=== PATIENT | male | born 1945 | race Caucasian/White ===

== ENCOUNTER 2017-10-29 12:30 | Inpatient (IN) ==
--- NOTE | 2017-10-29 13:05 | ED ---
HPI General Chief Complaint: Altered Mental Status Stated Complaint: Altered mental Time Seen by Provider: 10/29/17 12:34 Source: patient and EMS Mode of arrival: EMS Limitations: altered mental status History of Present Illness HPI narrative: 72-year-old male the presents to the ED for evaluation of possible altered mental status. History is very limited. Patient himself does not want to be here and she is very aggressive towards staff and [facility]. Apparently per ambulance they got a call from the apartment complex where he is staying at. Apparently the office managers were concerned as patient appear to be somewhat altered. Patient apparently has some history of confusion and some "alteration" in the past. Unclear if this is new or old as apparently the office member appears to be new. Patient has a history of chronic anemia and thrombocytopenia for which he follows with Dr. Salas. Other than the second and really get any other history as patient himself is not a good historian and will not answer any questions to me. 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 Patient was not Mendes acted. Patient was brought here for evaluation after allegedly he told [facility] that he will come. During my evaluation he will not answer any basic questions. I tried to ask him questions to see if he is oriented in his mental status but he will not answer and seems to focus on wanting to go home. He will not say if he is in any pain. He does not appear to be in any pain. Related Data Home Medications Medication Instructions Recorded Confirmed Unable to Obtain Home Meds 10/29/17 10/29/17 Allergies Allergy/AdvReac Type Severity Reaction Status Date / Time No Known Allergies Allergy Uncoded 02/07/14 14:05 Review of Systems ROS Unobtainable ROS Unobtainable: unobtainable due to mental status ROS: all other systems reviewed are negative PMFSH History History Provided By: Medical Record and Acetylene Torch Burner / EMT Social History Social History Substance History: Unable to Obtain Smoking Status: Unknown if ever smoked How Often Do You Have a Drink Containing Alcohol: Unable to Obtain Recent Travel in [place] within the Last 8 Weeks: No Recent Out of Country Travel within the Last 8 Weeks: No Exam Narrative Exam Narrative: GENERAL: Well-appearing but somewhat anorexic SKIN: Focused skin assessment warm/dry. HEAD: Atraumatic. Normocephalic. EYES: Pupils equal and round 4 mm reactive and accommodation.. No scleral icterus. No injection or drainage. ENT: No nasal bleeding or discharge. Mucous membranes pink and moist. Tongue is midline. No uvula deviation. NECK: Trachea midline. No JVD. CARDIOVASCULAR: Regular rate and rhythm. No murmur appreciated. RESPIRATORY: No accessory muscle use. Clear to auscultation. Breath sounds equal bilaterally. GASTROINTESTINAL: Abdomen soft, non-tender, nondistended. Hepatic and splenic margins not palpable. MUSCULOSKELETAL: No obvious deformities. No clubbing. No cyanosis. No edema. Full range of motion of the upper and lower extremities bilaterally. 2+ pulses bilaterally. NEUROLOGICAL: Awake and alert. No obvious cranial nerve deficits. Motor grossly within normal limits. Normal speech. PSYCHIATRIC: aggressive mood and affect; insight and judgment cannot asses. Course Initial Documented Vital Signs Temperature 98.4 F 10/29/17 12:30 Pulse Rate 98 H 10/29/17 12:30 Respiratory Rate 19 10/29/17 12:30 Blood Pressure 168/80 H 10/29/17 12:30 Pulse Oximetry 98 10/29/17 12:30 Last Documented Vital Signs Temperature 98.4 F 10/29/17 12:30 Pulse Rate 98 H 10/29/17 12:30 Respiratory Rate 19 10/29/17 12:30 Blood Pressure 168/80 H 10/29/17 12:30 Pulse Oximetry 98 10/29/17 12:30 Medical Decision Making MDM Narrative Medical decision making narrative: 72-year-old male the presents to the ED for evaluation of altered mental status. Patient was properly examined and was found to have signs and symptoms of unclear etiology. Patient is not a good historian and will not collaborate with us. As we do not have any back currently to 1 is going on with the patient and there is some concern for alteration and we cannot assess his mental status at this time as he will not collaborate with us patient was Mendes acted for his own safety. I was able to review the patient's medical records. He has been here before but not for some time. Patient does have a significant history of hypertension, high cholesterol , anemia for which she receives B12 shots and transfusions per reports from Dr. Salas oncology. There is no report of any sign of dementia or altered or confusion. Per report from [facility] patient has had some confusion which is chronic for him but again is unclear as the notes from the provider from earlier this year did not mention any of this. My attending Dr. Jone Mendes acted the patient. Labs and imaging order. Labs and imaging showed no sign of acute disease. There is no family member at bedside. Cannot really get a baseline. Because of this recommendations for admission for further evaluation and psych evaluation. Case discussed with my attending agrees with this. Case discussed with Dr. Robles who agrees with admission. Differential Diagnosis Differential Diagnosis: Altered mental status versus confusion versus sepsis versus arrhythmia Medical Records Medical records reviewed: Yes I reviewed the patient's medical records. Lab Data Lab results reviewed: Yes I reviewed the patient's lab results. Lab results narrative: UA negative trop and CKMB negative Result diagrams: 10/29/17 13:00 10/29/17 13:00 Lab Results 10/29/17 10/29/17 10/29/17 Range/Units 13:00 13:00 13:00 WBC 4.9 (4.0-11.0) th/mm3 RBC 3.77 L (4.50-5.90) mil/mm3 Hgb 12.1 L (13.0-17.0) gm/dL Hct 36.8 L (39.0-51.0) % MCV 97.8 (80.0-100.0) fL MCH 32.1 (27.0-34.0) pg MCHC 32.8 (32.0-36.0) % RDW 14.3 (11.6-17.2) % Plt Count 86 L (150-450) th/mm3 MPV 11.5 H (7.0-11.0) fL Prelim Diff (Auto) Slide review pending Neut % (Auto) 66.9 (16.0-70.0) % Lymph % (Auto) 20.3 (9.0-44.0) % [place] % (Auto) 8.1 H (0.0-8.0) % Eos % (Auto) 2.6 (0.0-4.0) % Baso % (Auto) 2.1 H (0.0-2.0) % Neut # (Auto) 3.2 (1.8-7.7) th/mm3 Lymph # (Auto) 1.0 (1.0-4.8) th/mm3 [place] # (Auto) 0.4 (0.0-0.9) th/mm3 Eos # (Auto) 0.1 (0.0-0.4) th/mm3 Baso # (Auto) 0.1 (0.0-0.2) th/mm3 WBC Differential . Diff Scan Auto diff confirmed Differential Comment . Sodium 143 (136-145) meq/L Potassium 3.8 (3.5-5.1) meq/L Chloride 112 H (98-107) meq/L Carbon Dioxide 21.0 (21.0-32.0) meq/L Anion Gap 10 (5-15) meq/L BUN 12 (7-18) mg/dL Creatinine 1.22 (0.60-1.30) mg/dL Estimated GFR 58 L (>89) mL/min Random Glucose 98 (74-106) mg/dL Lactic Acid (0.4-2.0) mmol/L Calcium 7.9 L (8.5-10.1) mg/dL Total Creatine Kinase 179 (39-308) U/L CK-MB (CK-2) 2.0 (0.5-3.6) ng/mL Troponin I Less than 0.02 L (0.02-0.05) ng/mL Urine Color (Yellw/Straw) Urine Clarity (Clear) Urine pH (5.0-8.5) Ur Specific [place] (1.002-1.035) Urine Protein (Neg-Trace) mg/dL Urine Glucose (UA) (Negative) mg/dL Urine Ketones (Negative) mg/dL Urine Occult Blood (Negative) Urine Nitrate (Negative) Urine Bilirubin (Negative) Urine Urobilinogen (Less than 2) mg/dL Ur Leukocyte Esterase (Negative) Urine RBC (0-3) /hpf Urine WBC (0-5) /hpf Hyaline Casts (0-3) /lpf Serum Alcohol Less than 3 (0-5) mg/dL 10/29/17 10/29/17 Range/Units 14:47 16:51 WBC (4.0-11.0) th/mm3 RBC (4.50-5.90) mil/mm3 Hgb (13.0-17.0) gm/dL Hct (39.0-51.0) % MCV (80.0-100.0) fL MCH (27.0-34.0) pg MCHC (32.0-36.0) % RDW (11.6-17.2) % Plt Count (150-450) th/mm3 MPV (7.0-11.0) fL Prelim Diff (Auto) Neut % (Auto) (16.0-70.0) % Lymph % (Auto) (9.0-44.0) % [place] % (Auto) (0.0-8.0) % Eos % (Auto) (0.0-4.0) % Baso % (Auto) (0.0-2.0) % Neut # (Auto) (1.8-7.7) th/mm3 Lymph # (Auto) (1.0-4.8) th/mm3 [place] # (Auto) (0.0-0.9) th/mm3 Eos # (Auto) (0.0-0.4) th/mm3 Baso # (Auto) (0.0-0.2) th/mm3 WBC Differential Diff Scan Differential Comment Sodium (136-145) meq/L Potassium (3.5-5.1) meq/L Chloride (98-107) meq/L Carbon Dioxide (21.0-32.0) meq/L Anion Gap (5-15) meq/L BUN (7-18) mg/dL Creatinine (0.60-1.30) mg/dL Estimated GFR (>89) mL/min Random Glucose (74-106) mg/dL Lactic Acid 1.2 (0.4-2.0) mmol/L Calcium (8.5-10.1) mg/dL Total Creatine Kinase (39-308) U/L CK-MB (CK-2) (0.5-3.6) ng/mL Troponin I (0.02-0.05) ng/mL Urine Color Straw (Yellw/Straw) Urine Clarity Clear (Clear) Urine pH 5.0 (5.0-8.5) Ur Specific [place] 1.011 (1.002-1.035) Urine Protein Negative (Neg-Trace) mg/dL Urine Glucose (UA) Negative (Negative) mg/dL Urine Ketones Negative (Negative) mg/dL Urine Occult Blood Small H (Negative) Urine Nitrate Negative (Negative) Urine Bilirubin Negative (Negative) Urine Urobilinogen Less than 2 (Less than 2) mg/dL Ur Leukocyte Esterase Negative (Negative) Urine RBC 2 (0-3) /hpf Urine WBC Less than 1 (0-5) /hpf Hyaline Casts 1 (0-3) /lpf Serum Alcohol (0-5) mg/dL Imaging Data Attestation: I personally reviewed and interpreted this imaging study as follows : Radiologist's impression: Head CT 10/29/17 12:48 CONCLUSION: 1. Suboptimal limited study secondary to severe motion artifact. 2. No gross abnormality identified however even large abnormalities could be obscured. Discharge Plan Physicians Team ED Provider: Hailey Becerril ED Midlevel Provider: Rhys Kilgore Primary Care Provider: UNKNOWN, Rxs /Orders / Referrals /Forms Prescriptions: No Action Unable to Obtain Home Meds RF: 0 Status ED Status: With Doctor
[2017-10-29 14:26] LABS: Baso # (Auto) 0.1 th/mm3 (0.0-0.2); Baso % (Auto) 2.1 % (0.0-2.0); Eos # (Auto) 0.1 th/mm3 (0.0-0.4); Eos % (Auto) 2.6 % (0.0-4.0); Hematocrit 36.8 % (39.0-51.0); Hemoglobin 12.1 gm/dL (13.0-17.0); Lymph % (Auto) 20.3 % (9.0-44.0); Mean Corpuscular HGB Conc 32.8 % (32.0-36.0); Mean Corpuscular Hemoglobin 32.1 pg (27.0-34.0); Mean Corpuscular Volume 97.8 fL (80.0-100.0); Mean Platelet Volume 11.5 fL (7.0-11.0); Mono # (Auto) 0.4 th/mm3 (0.0-0.9); Mono % (Auto) 8.1 % (0.0-8.0); Neut # (Auto) 3.2 th/mm3 (1.8-7.7); Neut % (Auto) 66.9 % (16.0-70.0); Platelet Count 86 th/mm3 (150-450); Red Blood Count 3.77 mil/mm3 (4.50-5.90); Red Cell Distribution Width 14.3 % (11.6-17.2); White Blood Count 4.9 th/mm3 (4.0-11.0)
[2017-10-29 14:50] LABS: Creatine Kinase 179 U/L (39-308)
[2017-10-29 15:05] LABS: Anion Gap 10 meq/L (5-15); Blood Urea Nitrogen 12 mg/dL (7-18); Calcium 7.9 mg/dL (8.5-10.1); Chloride 112 meq/L (98-107); Glomerular Filtration Rate 58 mL/min (>89); Glucose,Random 98 mg/dL (74-106); Potassium 3.8 meq/L (3.5-5.1); Sodium 143 meq/L (136-145)
--- NOTE | 2017-10-29 17:14 | CT ---
EXAM DATE: 10/29/2017 5:10 PM EDT AGE/SEX: 72 years / Male INDICATIONS: Altered mental status. CLINICAL DATA: This is the patient's initial encounter. Patient reports that signs and symptoms have been present for 1 day and indicates a pain score of 0/10. MEDICAL/SURGICAL HISTORY: None. None. RADIATION DOSE: 56.35 CTDI (mGy) COMPARISON: No prior exams available for comparison. TECHNIQUE: CT of the head without contrast. Using automated exposure control and adjustment of the mA and/or kV according to patient size, radiation dose was kept as low as reasonably achievable to ob tain optimal diagnostic quality images. DICOM format image data is available electronically for revi ew and comparison. FINDINGS: The study is severely degraded by diffuse motion artifact significantly limiting the sensitivity. Lar ge portions of the brain are not well visualized or evaluated especially the posterior fossa region. No gross hemorrhage or mass effect is identified. Bony structures appear grossly intact. CONCLUSION: 1. Suboptimal limited study secondary to severe motion artifact. 2. No gross abnormality identified however even large abnormalities could be obscured. Electronically signed by: Chris Cantu MD 10/29/2017 5:13 PM EDT
[2017-10-29 17:27] LABS: Bilirubin,Urine Negative (Negative); Clarity,Urine Clear (Clear); Color,Urine Straw (Yellw/Straw); Glucose,Urine (UA) Negative (Negative); Hyaline Casts,Urine 1 /lpf (0-3); Leukocyte Esterase,Urine Negative (Negative); Nitrite,Urine Negative (Negative); Specific Gravity,Urine 1.011 (1.002-1.035)
[2017-10-29] MEDS ORDERED: Bisacodyl 10 MG Supp RECTAL PRN (18:25)
[2017-10-29] MEDS ORDERED: Haloperidol Inj 5 MG/ML Ampul IV.PUSH PRN (18:32)
--- NOTE | 2017-10-29 18:59 | P.HP ---
History of Present Illness Service: [facility] Primary Care Physician: UNKNOWN Chief Complaint: AMS History of Present Illness: 72-year-old male with past medical history significant for hypertension, hyperlipidemia, thrombocytopenia, and vitamin B12 deficiency who presents to the emergency department via [facility] due to altered mental status. Patient lives in an apartment complex was noted to have changes in mental status with confusion, unclear if this is the new onset. Per ED documentation patient had been wanting to leave earlier today and therefore was Mendes acted for his safety by ED provider. Patient is an extremely poor historian and at the time of my evaluation he is mildly sedated after having received a total of 3 mg of Ativan due to severe agitation. He is seen and examined resting in ED stretcher and appears to be sleeping comfortably, O2 saturations on the monitor stable. He does arouse to light touch and verbalizes several words, nonsensical. Moving all extremities, appears to be in no acute distress. - Diagnosis (1) Thrombocytopenia (2) Altered mental status Review of Systems All other systems reviewed negative except as stated in HPI, unobtainable due to mental condition PMFSH - History History Provided By: Medical Record, Biomass Technician / EMT - Medical History Medical History: Medical History (Last Updated 10/29/17 @ 18:51 by Chel Stanford) Anemia HLD (hyperlipidemia) HTN (hypertension) Thrombocytopenia Vitamin B12 deficiency - Tobacco History Smoking Status: Unknown if ever smoked - Alcohol History How Often Do You Have a Drink Containing Alcohol: Unable to Obtain - Substance Use History Substance History: Unable to Obtain - Travel History Recent Travel in the [place] Within the Last 8 Weeks: No Recent Travel Out of the Country Within the Last 8 Weeks: No - Immunization History Tetanus Immunization: Unable to Assess Hx Influenza Vaccine This Season: Unable to Assess Medications and Allergies Active Medications: Active Medications Acetaminophen (Tylenol) 650 mg PO Q4H PRN PRN Reason: Temp > 100.4 Al Hydroxide/Mg Hydroxide (Milk Of Magnesia Liq) 30 ml PO Q12H PRN PRN Reason: Mild Constipation Bisacodyl (Dulcolax Supp) 10 mg RECTAL DAILY PRN PRN Reason: SEVERE CONSITIPATION Flumazenil (Romazecon Inj) 0.2 mg IV.PUSH Q1M PRN PRN Reason: OVERSEDATION Haloperidol Lactate (Haldol Inj) 1 mg IV.PUSH Q15M PRN PRN Reason: for severe agitation Hydrochlorothiazide (Hydrodiuril) 25 mg PO DAILY GARY Lactulose (Lactulose Liq) 30 ml PO DAILY PRN PRN Reason: SEVERE CONSITIPATION Lorazepam (Ativan) 1 mg PO Q4H PRN PRN Reason: for CIWA 8-10 Lorazepam (Ativan) 2 mg PO Q2H PRN PRN Reason: for CIWA 11-14 Lorazepam (Ativan Inj) 2 mg IV.PUSH Q1H PRN PRN Reason: for CIWA 15-20 Lorazepam (Ativan Inj) 2 mg IV.PUSH Q15M PRN PRN Reason: for CIWA > 20 Lorazepam (Ativan Inj) 1 mg IV.PUSH Q4H PRN PRN Reason: for CIWA 8-10 Lorazepam (Ativan Inj) 2 mg IV.PUSH Q2H PRN PRN Reason: for CIWA 11-14 Senna/Docusate Sodium (Jia-Colace) 1 tab PO BID GARY Sennosides (Senokot) 17.2 mg PO Q12H PRN PRN Reason: Moderate Constipation Temazepam (Restoril) 15 mg PO HS PRN PRN Reason: INSOMNIA Allergies Allergy/AdvReac Type Severity Reaction Status Date / Time No Known Allergies Allergy Uncoded 02/07/14 14:05 Home Medications Medication Instructions Recorded Confirmed Type Unable to Obtain Home Meds 10/29/17 10/29/17 History Exam Vital signs: Vital Signs 10/29/17 12:30 Temperature 36.9 C Pulse Rate 98 H Respiratory Rate 19 Blood Pressure 168/80 H Pulse Oximetry 98 Intake & Output 10/28/17 10/29/17 10/29/17 18:59 06:59 18:59 Weight 61.235 kg Narrative: GENERAL: Well-developed thin male, asleep in no acute distress. SKIN: Warm and dry. HEAD: Atraumatic. Normocephalic. EYES: Pupils equal and round. No scleral icterus. No injection or drainage. ENT: No nasal bleeding or discharge. Mucous membranes pink and moist. NECK: Trachea midline. No JVD. CARDIOVASCULAR: Regular rate and rhythm. 2/6 murmur RESPIRATORY: No accessory muscle use. Clear to auscultation. Breath sounds equal bilaterally. GASTROINTESTINAL: Abdomen soft, + positive bowel sounds, nontender MUSCULOSKELETAL: Extremities without clubbing, cyanosis, or edema. No obvious deformities. NEUROLOGICAL: Asleep, arouses to light touch, moving all extremities, does not participate in strength testing. Verbalizes several words with clear speech, nonsensical. No obvious cranial nerve deficits. Results - Labs CBC & Chem 7: 10/30/17 06:05 10/30/17 06:05 Labs: Laboratory Results - last 24 hr 10/29/17 10/29/17 10/29/17 13:00 13:00 13:00 WBC 4.9 RBC 3.77 L Hgb 12.1 L Hct 36.8 L MCV 97.8 MCH 32.1 MCHC 32.8 RDW 14.3 Plt Count 86 L MPV 11.5 H Prelim Diff (Auto) Slide review pending Neut % (Auto) 66.9 Lymph % (Auto) 20.3 [place] % (Auto) 8.1 H Eos % (Auto) 2.6 Baso % (Auto) 2.1 H Neut # (Auto) 3.2 Lymph # (Auto) 1.0 [place] # (Auto) 0.4 Eos # (Auto) 0.1 Baso # (Auto) 0.1 WBC Differential . Diff Scan Auto diff confirmed Differential Comment . Sodium 143 Potassium 3.8 Chloride 112 H Carbon Dioxide 21.0 Anion Gap 10 BUN 12 Creatinine 1.22 Estimated GFR 58 L Random Glucose 98 Lactic Acid Calcium 7.9 L Total Creatine Kinase 179 CK-MB (CK-2) 2.0 Troponin I Less than 0.02 L Urine Color Urine Clarity Urine pH Ur Specific [place] Urine Protein Urine Glucose (UA) Urine Ketones Urine Occult Blood Urine Nitrate Urine Bilirubin Urine Urobilinogen Ur Leukocyte Esterase Urine RBC Urine WBC Hyaline Casts Serum Alcohol Less than 3 10/29/17 10/29/17 14:47 16:51 WBC RBC Hgb Hct MCV MCH MCHC RDW Plt Count MPV Prelim Diff (Auto) Neut % (Auto) Lymph % (Auto) [place] % (Auto) Eos % (Auto) Baso % (Auto) Neut # (Auto) Lymph # (Auto) [place] # (Auto) Eos # (Auto) Baso # (Auto) WBC Differential Diff Scan Differential Comment Sodium Potassium Chloride Carbon Dioxide Anion Gap BUN Creatinine Estimated GFR Random Glucose Lactic Acid 1.2 Calcium Total Creatine Kinase CK-MB (CK-2) Troponin I Urine Color Straw Urine Clarity Clear Urine pH 5.0 Ur Specific Kemp 1.011 Urine Protein Negative Urine Glucose (UA) Negative Urine Ketones Negative Urine Occult Blood Small H Urine Nitrate Negative Urine Bilirubin Negative Urine Urobilinogen Less than 2 Ur Leukocyte Esterase Negative Urine RBC 2 Urine WBC Less than 1 Hyaline Casts 1 Serum Alcohol - Imaging Impressions Head CT 10/29/17 12:48 CONCLUSION: 1. Suboptimal limited study secondary to severe motion artifact. 2. No gross abnormality identified however even large abnormalities could be obscured. Caprini VTE Risk Assessment Caprini VTE Risk Assessment: Moderate/High Risk (score >= 2) Caprini Risk Assessment Model: Point Value = 1 Point Value = 2 Point Value = 3 Point Value = 5 Age 41-60 Minor surgery BMI > 25 kg/m2 Swollen legs Varicose veins or History of unexplained or recurrent spontaneous Oral contraceptives or hormone replacement Sepsis (< 1 month) Serious lung disease, including pneumonia (< 1 month) Abnormal pulmonary function Acute myocardial infarction Congestive heart failure (< 1 month) History of inflammatory bowel disease Medical patient at bed rest Age 61-74 Arthroscopic surgery Major open surgery (> 45 min) Laparoscopic surgery (> 45 min) Malignancy Confined to bed (> 72 hours) Immobilizing plaster cast Central venous access Age >= 75 History of VTE Family history of VTE Factor V Leiden Prothrombin [id number] Lupus anticoagulant Anticardiolipin antibodies Elevated serum homocysteine Heparin-induced thrombocytopenia Other congenital or acquired thrombophilia Stroke (< 1 month) Elective arthroplasty Hip, pelvis, or leg fracture Acute spinal cord injury (< 1 month) Prophylaxis Regimen: Total Risk Factor Score Risk Level Prophylaxis Regimen 0-1 Low Early ambulation 2 Moderate Order ONE of the following: *Sequential Compression Device (SCD) *Heparin 5000 units SQ BID 3-4 Higher Order ONE of the following medications: *Heparin 5000 units SQ TID *Enoxaparin/Lovenox 40 mg SQ daily (WT < 150 kg, CrCl > 30 mL/min) *Enoxaparin/Lovenox 30 mg SQ daily (WT < 150 kg, CrCl > 10-29 mL/min) *Enoxaparin/Lovenox 30 mg SQ BID (WT < 150 kg, CrCl > 30 mL/min) AND/OR *Sequential Compression Device (SCD) 5 or more Highest Order ONE of the following medications: *Heparin 5000 units SQ TID (Preferred with Epidurals) *Enoxaparin/Lovenox 40 mg SQ daily (WT < 150 kg, CrCl > 30 mL/min) *Enoxaparin/Lovenox 30 mg SQ daily (WT < 150 kg, CrCl > 10-29 mL/min) *Enoxaparin/Lovenox 30 mg SQ BID (WT < 150 kg, CrCl > 30 mL/min) AND *Sequential Compression Device (SCD) Assessment and Plan - Assessment (1) Thrombocytopenia Code(s): D69.6 - Thrombocytopenia, unspecified Status: Acute (2) Altered mental status Code(s): R41.82 - Altered mental status, unspecified Status: Acute - Plan 72-year-old male with past medical history significant for hypertension, hyperlipidemia, thrombocytopenia, and vitamin B12 deficiency who presents to the emergency department via [facility] due to altered mental status. Admit to observation for further workup. Altered mental status -CT of the head completed in ED was suboptimal secondary to motion artifact, no gross abnormality identified, however large abnormalities could be obscured -Consider repeating CT of the head for further evaluation if calmer -CBC reviewed with mild anemia, thrombocytopenia which is chronic. BMP stable, troponin negative, UA negative -Check urine toxicology, ammonia, vitamin B12, vitamin D, folate, thiamine, RPR - ? Alcohol withdrawal, CIWA -Consult psychiatry for evaluation of possible underlying psychiatric disorder, appreciate assistance Hypertension -Patient was noted to be on hydrochlorothiazide and metoprolol in the past -BP on admission mildly elevated, start hydrochlorothiazide 25 mg daily Thrombocytopenia, chronic Anemia, chronic -Patient follows up with Dr. Salas DVT prophylaxis-SCDs, hold off on chemical prophylaxis due to thrombocytopenia Discussed Condition With: Discussed with Dr.Sam Robles
[2017-10-29 19:18] LABS: Amphetamine Screen,Urine Neg (Neg); Barbiturate Screen,Urine Neg (Neg); Cannabinoid Screen,Urine Neg (Neg); Cocaine Screen,Urine Neg (Neg)
[2017-10-29 19:23] LABS: Opiate Screen,Urine Neg (Neg)
[2017-10-29 20:37] LABS: Folate 13.4 ng/mL (3.1-17.5)
[2017-10-29] MEDS ORDERED: Temazepam 15 MG Capsule PO PRN (21:00)
[2017-10-29] MEDS: Senna/Docusate Sodium 8.6/50 MG Tablet PO SCH (21:49)
--- NOTE | 2017-10-29 22:18 | ECG ---
Date Performed: 10/29/2017 Time Performed: 21:40:41 PTAGE: 72 years EKG: ATRIAL FIBRILLATION POSSIBLE RIGHT VENTRICULAR CONDUCTION DELAY ABNORMAL RHYTHM ECG NO PREVIOUS TRACING DOCTOR: Irma Torres Interpretating Date/Time 10/29/2017 22:14:14
[2017-10-30 06:27] LABS: Baso # (Auto) 0.1 th/mm3 (0.0-0.2); Baso % (Auto) 1.2 % (0.0-2.0); Eos # (Auto) 0.1 th/mm3 (0.0-0.4); Eos % (Auto) 2.5 % (0.0-4.0); Hemoglobin 13.4 gm/dL (13.0-17.0); Lymph # (Auto) 0.8 th/mm3 (1.0-4.8); Mean Corpuscular HGB Conc 33.6 % (32.0-36.0); Mean Corpuscular Hemoglobin 32.6 pg (27.0-34.0); Mean Corpuscular Volume 97.1 fL (80.0-100.0); Mean Platelet Volume 11.3 fL (7.0-11.0); Mono # (Auto) 0.6 th/mm3 (0.0-0.9); Mono % (Auto) 9.9 % (0.0-8.0); Neut % (Auto) 71.4 % (16.0-70.0); Platelet Count 102 th/mm3 (150-450); Red Blood Count 4.12 mil/mm3 (4.50-5.90); Red Cell Distribution Width 13.8 % (11.6-17.2); White Blood Count 5.6 th/mm3 (4.0-11.0)
[2017-10-30 06:42] LABS: Activated Partial Thrombo Time 24.7 sec (24.3-30.1); INR 1.1 Ratio; Prothrombin Time 10.9 sec (9.8-11.6)
[2017-10-30 06:46] LABS: Calcium 8.4 mg/dL (8.5-10.1); Carbon Dioxide 21.7 meq/L (21.0-32.0); Potassium 3.4 meq/L (3.5-5.1)
[2017-10-30] MEDS: hydroCHLOROthiazide 25 MG Tablet PO SCH (09:53)
[2017-10-30] MEDS: Senna/Docusate Sodium 8.6/50 MG Tablet PO SCH ×2 (09:53→22:02)
--- NOTE | 2017-10-30 12:52 | P.PNIM ---
Subjective Interval history: No significant change compared to previous day. Imaging of brain is not likely to result in any readable images yet. No new complaints. Physical Exam Vital signs: Vital Signs 10/29/17 19:02 10/29/17 21:38 10/29/17 22:22 Temperature 97.3 F L Pulse Rate 84 86 80 Respiratory Rate 14 17 Blood Pressure 153/95 H 140/69 Pulse Oximetry 97 99 10/30/17 00:00 10/30/17 00:08 10/30/17 04:00 Temperature 97.6 F 97.4 F L Pulse Rate 99 H 78 82 Respiratory Rate 20 18 Blood Pressure 157/86 H 124/64 Pulse Oximetry 96 96 10/30/17 08:00 Temperature 98.5 F Pulse Rate 93 H Respiratory Rate 18 Blood Pressure 150/86 H Pulse Oximetry 97 Intake & Output 10/29/17 10/30/17 10/30/17 18:59 06:59 18:59 Intake Total 120 / 120 Balance 120 / 120 Weight 61.235 kg 59.1 kg Intake: Oral 120 / 120 Other: # Voids 2 Narrative: GENERAL: NAD, A&Ox1 HEAD: Normocephalic. NECK: Supple, trachea midline. No lymphadenopathy. EYES: No scleral icterus. No injection or drainage. CARDIOVASCULAR: Regular rate and rhythm without murmurs, gallops, or rubs. RESPIRATORY: Breath sounds equal bilaterally. No accessory muscle use. GASTROINTESTINAL: Abdomen soft, non-tender, nondistended. MUSCULOSKELETAL: No cyanosis, or edema. SKIN: Warm and dry. NEURO: No focal neurological deficits. Results - Labs CBC & Chem 7: 10/30/17 06:05 10/30/17 06:05 Laboratory Results - last 24 hr 10/29/17 10/29/17 10/29/17 13:00 13:00 13:00 WBC 4.9 RBC 3.77 L Hgb 12.1 L Hct 36.8 L MCV 97.8 MCH 32.1 MCHC 32.8 RDW 14.3 Plt Count 86 L MPV 11.5 H Prelim Diff (Auto) Slide review pending Neut % (Auto) 66.9 Lymph % (Auto) 20.3 [place] % (Auto) 8.1 H Eos % (Auto) 2.6 Baso % (Auto) 2.1 H Neut # (Auto) 3.2 Lymph # (Auto) 1.0 [place] # (Auto) 0.4 Eos # (Auto) 0.1 Baso # (Auto) 0.1 WBC Differential . Diff Scan Auto diff confirmed Differential Comment . PT INR APTT Sodium 143 Potassium 3.8 Chloride 112 H Carbon Dioxide 21.0 Anion Gap 10 BUN 12 Creatinine 1.22 Estimated GFR 58 L Random Glucose 98 Lactic Acid Calcium 7.9 L Ammonia Total Creatine Kinase 179 CK-MB (CK-2) 2.0 Troponin I Less than 0.02 L Vitamin B12 Folate Urine Color Urine Clarity Urine pH Ur Specific [place] Urine Protein Urine Glucose (UA) Urine Ketones Urine Occult Blood Urine Nitrate Urine Bilirubin Urine Urobilinogen Ur Leukocyte Esterase Urine RBC Urine WBC Hyaline Casts Urine Opiates Screen Ur Barbiturates Screen Ur Amphetamines Screen U Benzodiazepines Scrn Urine Cocaine Screen U Cannabinoids Screen Serum Alcohol Less than 3 RPR 10/29/17 10/29/17 10/29/17 13:00 14:47 16:51 WBC RBC Hgb Hct MCV MCH MCHC RDW Plt Count MPV Prelim Diff (Auto) Neut % (Auto) Lymph % (Auto) [place] % (Auto) Eos % (Auto) Baso % (Auto) Neut # (Auto) Lymph # (Auto) [place] # (Auto) Eos # (Auto) Baso # (Auto) WBC Differential Diff Scan Differential Comment PT INR APTT Sodium Potassium Chloride Carbon Dioxide Anion Gap BUN Creatinine Estimated GFR Random Glucose Lactic Acid 1.2 Calcium Ammonia Total Creatine Kinase CK-MB (CK-2) Troponin I Vitamin B12 167 L Folate 13.4 Urine Color Straw Urine Clarity Clear Urine pH 5.0 Ur Specific [place] 1.011 Urine Protein Negative Urine Glucose (UA) Negative Urine Ketones Negative Urine Occult Blood Small H Urine Nitrate Negative Urine Bilirubin Negative Urine Urobilinogen Less than 2 Ur Leukocyte Esterase Negative Urine RBC 2 Urine WBC Less than 1 Hyaline Casts 1 Urine Opiates Screen Ur Barbiturates Screen Ur Amphetamines Screen U Benzodiazepines Scrn Urine Cocaine Screen U Cannabinoids Screen Serum Alcohol RPR 10/29/17 10/29/17 10/30/17 16:51 18:54 06:05 WBC RBC Hgb Hct MCV MCH MCHC RDW Plt Count MPV Prelim Diff (Auto) Neut % (Auto) Lymph % (Auto) [place] % (Auto) Eos % (Auto) Baso % (Auto) Neut # (Auto) Lymph # (Auto) [place] # (Auto) Eos # (Auto) Baso # (Auto) WBC Differential Diff Scan Differential Comment PT 10.9 INR 1.1 APTT 24.7 Sodium Potassium Chloride Carbon Dioxide Anion Gap BUN Creatinine Estimated GFR Random Glucose Lactic Acid Calcium Ammonia 26 Total Creatine Kinase CK-MB (CK-2) Troponin I Vitamin B12 Folate Urine Color Urine Clarity Urine pH Ur Specific [place] Urine Protein Urine Glucose (UA) Urine Ketones Urine Occult Blood Urine Nitrate Urine Bilirubin Urine Urobilinogen Ur Leukocyte Esterase Urine RBC Urine WBC Hyaline Casts Urine Opiates Screen Neg Ur Barbiturates Screen Neg Ur Amphetamines Screen Neg U Benzodiazepines Scrn Neg Urine Cocaine Screen Neg U Cannabinoids Screen Neg Serum Alcohol RPR 10/30/17 10/30/17 10/30/17 06:05 06:05 06:05 WBC 5.6 RBC 4.12 L Hgb 13.4 Hct 40.0 MCV 97.1 MCH 32.6 MCHC 33.6 RDW 13.8 Plt Count 102 L MPV 11.3 H Prelim Diff (Auto) Neut % (Auto) 71.4 H Lymph % (Auto) 15.0 [place] % (Auto) 9.9 H Eos % (Auto) 2.5 Baso % (Auto) 1.2 Neut # (Auto) 4.0 Lymph # (Auto) 0.[address] [place] # (Auto) 0.6 Eos # (Auto) 0.1 Baso # (Auto) 0.1 WBC Differential . Diff Scan Differential Comment Auto diff final PT INR APTT Sodium 142 Potassium 3.4 L Chloride 110 H Carbon Dioxide 21.7 Anion Gap 10 BUN 10 Creatinine 1.02 Estimated GFR 72 L Random Glucose 95 Lactic Acid Calcium 8.4 L Ammonia Total Creatine Kinase CK-MB (CK-2) Troponin I Vitamin B12 Folate Urine Color Urine Clarity Urine pH Ur Specific [place] Urine Protein Urine Glucose (UA) Urine Ketones Urine Occult Blood Urine Nitrate Urine Bilirubin Urine Urobilinogen Ur Leukocyte Esterase Urine RBC Urine WBC Hyaline Casts Urine Opiates Screen Ur Barbiturates Screen Ur Amphetamines Screen U Benzodiazepines Scrn Urine Cocaine Screen U Cannabinoids Screen Serum Alcohol RPR Nonreactive - Imaging Impressions Head CT 10/29/17 12:48 CONCLUSION: 1. Suboptimal limited study secondary to severe motion artifact. 2. No gross abnormality identified however even large abnormalities could be obscured. Assessment and Plan - Assessment (1) Thrombocytopenia Code(s): D69.6 - Thrombocytopenia, unspecified Status: Acute (2) Altered mental status Code(s): R41.82 - Altered mental status, unspecified Status: Acute - Plan 72-year-old male admitted secondary to acute delirium or encephalopathy Altered mental status Acute delirium Acute encephalopathy Plan to repeat imaging of brain after patient is able to cooperate Psychiatry following Hypertension Continue hydrochlorothiazide 25 mg daily Thrombocytopenia, chronic Anemia, chronic Outpatient follow-up Follow CBC DVT prophylaxis SCDs
[2017-10-30] MEDS: LORazepam 1 MG Tablet PO PRN ×2 (14:14→22:01)
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
[2017-10-31 06:14] LABS: Baso % (Auto) 0.3 % (0.0-2.0); Eos % (Auto) 0.1 % (0.0-4.0); Hematocrit 39.3 % (39.0-51.0); Hemoglobin 13.1 gm/dL (13.0-17.0); Lymph # (Auto) 0.7 th/mm3 (1.0-4.8); Lymph % (Auto) 5.9 % (9.0-44.0); Mean Corpuscular HGB Conc 33.3 % (32.0-36.0); Mean Corpuscular Hemoglobin 32.8 pg (27.0-34.0); Mean Corpuscular Volume 98.4 fL (80.0-100.0); Mean Platelet Volume 10.9 fL (7.0-11.0); Mono % (Auto) 8.3 % (0.0-8.0); Neut # (Auto) 9.8 th/mm3 (1.8-7.7); Neut % (Auto) 85.4 % (16.0-70.0); Platelet Count 80 th/mm3 (150-450); Red Blood Count 3.99 mil/mm3 (4.50-5.90); White Blood Count 11.5 th/mm3 (4.0-11.0)
[2017-10-31 06:32] LABS: Alanine Aminotransferase 22 U/L (12-78); Anion Gap 11 meq/L (5-15); Aspartate Aminotransferase 31 U/L (15-37); Blood Urea Nitrogen 16 mg/dL (7-18); Calcium 8.7 mg/dL (8.5-10.1); Carbon Dioxide 21.8 meq/L (21.0-32.0); Chloride 110 meq/L (98-107); Glomerular Filtration Rate 64 mL/min (>89); Glucose,Random 105 mg/dL (74-106); Potassium 3.3 meq/L (3.5-5.1); Sodium 143 meq/L (136-145)
[2017-10-31 06:35] LABS: Alkaline Phosphatase 58 U/L (45-117); Total Protein 7.3 g/dL (6.4-8.2)
[2017-10-31 08:05] LABS: Ovalocytes 1+
[2017-10-31] MEDS: hydroCHLOROthiazide 25 MG Tablet PO SCH (08:07)
[2017-10-31] MEDS: Senna/Docusate Sodium 8.6/50 MG Tablet PO SCH ×2 (08:07→21:45)
[2017-10-31] MEDS: Potassium Chlor 20 mEq Premix 20 MEQ/100 ML PIGGYBACK IV.SIG SCH ×2 (11:33→13:42)
--- NOTE | 2017-10-31 13:00 | P.PNIM ---
Subjective Interval history: Hypokalemia present this morning. Patient is lethargic. No orientation present. Physical Exam Vital signs: Vital Signs 10/30/17 16:00 10/30/17 20:00 10/31/17 00:00 Temperature 97.8 F 98.1 F 98.5 F Pulse Rate 96 H 76 130 H Respiratory Rate 18 19 19 Blood Pressure 144/88 H 152/88 H 168/80 H Pulse Oximetry 98 93 L 94 L 10/31/17 03:51 10/31/17 04:00 10/31/17 08:00 Temperature 97.4 F L 99.1 F Pulse Rate 115 H 128 H 99 H Respiratory Rate 18 18 Blood Pressure 154/92 H 157/98 H Pulse Oximetry 95 96 10/31/17 12:00 Temperature 98.0 F Pulse Rate 91 H Respiratory Rate 20 Blood Pressure 137/76 Pulse Oximetry 93 L Intake & Output 10/30/17 10/31/17 10/31/17 18:59 06:59 18:59 Intake Total 220 / 220 Balance 220 / 220 Weight 56.5 kg Intake: Oral 220 / 220 Other: # Voids 5 # Incontinent Voids 4 # Bowel Movements 0 # Incontinent Bowel Movements 1 Narrative: GENERAL: NAD, A&Ox0 HEAD: Normocephalic. NECK: Supple, trachea midline. No lymphadenopathy. EYES: No scleral icterus. No injection or drainage. CARDIOVASCULAR: Regular rate and rhythm without murmurs, gallops, or rubs. RESPIRATORY: Breath sounds equal bilaterally. No accessory muscle use. GASTROINTESTINAL: Abdomen soft, non-tender, nondistended. MUSCULOSKELETAL: No cyanosis, or edema. SKIN: Warm and dry. NEURO: No focal neurological deficits. Results - Labs CBC & Chem 7: 10/31/17 05:50 10/31/17 05:50 Laboratory Results - last 24 hr 10/31/17 10/31/17 05:50 05:50 WBC 11.5 H D RBC 3.99 L Hgb 13.1 Hct 39.3 MCV 98.4 MCH 32.8 MCHC 33.3 RDW 14.0 Plt Count 80 L MPV 10.9 Prelim Diff (Auto) Slide review pending Neut % (Auto) 85.4 H Lymph % (Auto) 5.9 L [place] % (Auto) 8.3 H Eos % (Auto) 0.1 Baso % (Auto) 0.3 Neut # (Auto) 9.8 H Lymph # (Auto) 0.7 L [place] # (Auto) 1.0 H Eos # (Auto) 0.0 Baso # (Auto) 0.0 WBC Differential . Diff Scan Auto diff confirmed Differential Comment . Platelet Estimate Low L Platelet Morphology Enlarged H Ovalocytes 1+ H Sodium 143 Potassium 3.3 L Chloride 110 H Carbon Dioxide 21.8 Anion Gap 11 BUN 16 Creatinine 1.13 Estimated GFR 64 L Random Glucose 105 Calcium 8.7 Total Bilirubin 0.8 AST 31 ALT 22 Alkaline Phosphatase 58 Total Protein 7.3 Albumin 4.0 Assessment and Plan - Assessment (1) Thrombocytopenia Code(s): D69.6 - Thrombocytopenia, unspecified Status: Acute (2) Altered mental status Code(s): R41.82 - Altered mental status, unspecified Status: Acute - Plan 72-year-old male admitted secondary to acute delirium or encephalopathy No improvement in mental status yet. Sedatives discontinued. Continue monitoring for improvement. Replace potassium as needed. Lethargy Discontinue all sedatives Soft restraints as needed Altered mental status Acute delirium Acute encephalopathy Plan to repeat imaging of brain after patient is able to cooperate Psychiatry following Continue soft restraints as needed Hypokalemia Continue monitoring potassium levels Continue replacement as needed Hypertension Continue hydrochlorothiazide 25 mg daily Thrombocytopenia, chronic Anemia, chronic Outpatient follow-up Follow CBC DVT prophylaxis SCDs
--- NOTE | 2017-10-31 15:11 | P.PNPSY ---
Subjective Remarks: Seen and examined. Chart reviewed. On my examination today, patient remains disoriented and confused. He remains in soft wrist restraints. I cannot get him to follow even simple commands. Given that he is hard of hearing I try to write commands for him to follow, but he cannot follow commands when so prompted. Unable to perform any further mental status testing at this point. Psychiatric interview is limited by confusional state. Again tried to reach patient's brother at number listed in EMR without success. Vital Signs Temp Pulse Resp BP Pulse Ox 10/31/17 12:00 98.0 F 91 H 20 137/76 93 L 10/31/17 08:00 99.1 F 99 H 18 157/98 H 96 10/31/17 04:00 128 H 10/31/17 03:51 97.4 F L 115 H 18 154/92 H 95 10/31/17 00:00 98.5 F 130 H 19 168/80 H 94 L 10/30/17 20:00 98.1 F 76 19 152/88 H 93 L Intake and Output 10/31/17 10/31/17 10/31/17 06:59 14:59 22:59 Intake Total 100 / 100 Balance 100 / 100 Intake: IV 100 / 100 KCl 20 mEq Premix Inj 20 meq In 100 / 100 100 ml @ 50 mls/hr IV.SIG Q2H GARY Rx#:[id number] Other: # Incontinent Voids 4 # Incontinent Bowel Movements 1 Weight 56.5 kg Laboratory Results - last 24 hr 10/31/17 10/31/17 05:50 05:50 WBC 11.5 H D RBC 3.99 L Hgb 13.1 Hct 39.3 MCV 98.4 MCH 32.8 MCHC 33.3 RDW 14.0 Plt Count 80 L MPV 10.9 Prelim Diff (Auto) Slide review pending Neut % (Auto) 85.4 H Lymph % (Auto) 5.9 L [place] % (Auto) 8.3 H Eos % (Auto) 0.1 Baso % (Auto) 0.3 Neut # (Auto) 9.8 H Lymph # (Auto) 0.7 L [place] # (Auto) 1.0 H Eos # (Auto) 0.0 Baso # (Auto) 0.0 WBC Differential . Diff Scan Auto diff confirmed Differential Comment . Platelet Estimate Low L Platelet Morphology Enlarged H Ovalocytes 1+ H Sodium 143 Potassium 3.3 L Chloride 110 H Carbon Dioxide 21.8 Anion Gap 11 BUN 16 Creatinine 1.13 Estimated GFR 64 L Random Glucose 105 Calcium 8.7 Total Bilirubin 0.8 AST 31 ALT 22 Alkaline Phosphatase 58 Total Protein 7.3 Albumin 4.0 Labs reviewed. Review of Systems unobtainable due to mental status Mental Status Examination Appearance: Disheveled Consciousness: Alert Motor Activity: Other (No signs of withdrawal. No other motor abnormalities noted.) Speech: Incoherent Language: Other (Rambling) Fund of Knowledge: Inadequate Attention and Concentration: Inadequate Memory: Impaired Mood: Other (Calmer today) Affect: Blunt Thought Process & Associations: Disorganized Hallucination Type: Other (Appears internally stimulated) Delusion Type: Other (Difficult to assess secondary to thought disorganization) Insight: Poor Judgment: Poor Mental Status Exam Remarks: MSE limited because of patient's confusional state. No SI or HI voiced. Assessment and Plan - Assessment (1) Delirium Code(s): R41.0 - Disorientation, unspecified Status: Acute - Plan Plan: Recommend workup and vitamin repletion as previously indicated. I do think it is important to replete the B12 if there is no medical contraindication. If no reversible etiology can be found (besides the low B12, already identified), consider PT/OT eval and placement. I suspect mental state is secondary to delirium or dementia and not to a mood, anxiety or psychotic disorder or other psychiatric illness. He does not require inpatient psychiatric hospitalization at this time. I will sign the case out to Dr. Antonio upon his return Friday 11/03. I will be in-house over the weekend if there are acute issues; please call or page . Justification for Continued Inpatient Stay: Per primary team.
[2017-10-31] MEDS: Sod Chloride 0.9% Inj 1,000 ML IV.CONT SCH (15:32)
[2017-10-31] MEDS ORDERED: dilTIAZem Inj 125 MG in Sodium Chlor 0.9% Inj 100 ML IV.CONT PRN (20:17)
[2017-10-31] MEDS ORDERED: Amiodarone Inj 150 MG in Dextrose 5% in Water Inj 97 ML IV.SIG ONE ×2 (20:22)
[2017-10-31] MEDS ORDERED: Metoprolol Tartrate 25 MG Tablet PO ONE (21:19)
[2017-10-31 22:30] LABS: Potassium 3.4 meq/L (3.5-5.1)
[2017-10-31 22:32] LABS: Magnesium 1.9 mg/dL (1.5-2.5)
[2017-11-01] MEDS: Potassium Chlor 10 mEq Premix 10 MEQ/100 ML PIGGYBACK IV.SIG SCH ×3 (01:24→03:44)
[2017-11-01] MEDS ORDERED: Metoprolol Tartrate 25 MG Tablet PO ONE (05:57)
[2017-11-01] MEDS: Sod Chloride 0.9% Inj 1,000 ML IV.CONT SCH ×2 (06:10→15:24)
[2017-11-01 07:07] LABS: Baso # (Auto) 0.1 th/mm3 (0.0-0.2); Baso % (Auto) 0.5 % (0.0-2.0); Eos % (Auto) 0.3 % (0.0-4.0); Hematocrit 41.9 % (39.0-51.0); Hemoglobin 14.2 gm/dL (13.0-17.0); Lymph # (Auto) 1.2 th/mm3 (1.0-4.8); Lymph % (Auto) 10.7 % (9.0-44.0); Mean Corpuscular HGB Conc 33.9 % (32.0-36.0); Mean Corpuscular Hemoglobin 32.7 pg (27.0-34.0); Mean Corpuscular Volume 96.5 fL (80.0-100.0); Mean Platelet Volume 12.2 fL (7.0-11.0); Mono % (Auto) 9.4 % (0.0-8.0); Neut # (Auto) 8.7 th/mm3 (1.8-7.7); Neut % (Auto) 79.1 % (16.0-70.0); Platelet Count 101 th/mm3 (150-450); Red Blood Count 4.34 mil/mm3 (4.50-5.90); Red Cell Distribution Width 13.8 % (11.6-17.2); White Blood Count 11.1 th/mm3 (4.0-11.0)
[2017-11-01 07:36] LABS: Albumin 3.9 g/dL (3.4-5.0); Anion Gap 12 meq/L (5-15); Aspartate Aminotransferase 40 U/L (15-37); Blood Urea Nitrogen 18 mg/dL (7-18); Calcium 8.8 mg/dL (8.5-10.1); Carbon Dioxide 19.6 meq/L (21.0-32.0); Chloride 110 meq/L (98-107); Glomerular Filtration Rate 68 mL/min (>89); Glucose,Random 86 mg/dL (74-106); Potassium 3.6 meq/L (3.5-5.1); Sodium 142 meq/L (136-145)
[2017-11-01 07:41] LABS: Alanine Aminotransferase 23 U/L (12-78); Alkaline Phosphatase 63 U/L (45-117); Total Protein 7.6 g/dL (6.4-8.2)
[2017-11-01] MEDS: Potassium Chloride 25 MEQ Effervescent Tablet PO SCH (09:27)
[2017-11-01] MEDS: hydroCHLOROthiazide 25 MG Tablet PO SCH (09:27)
[2017-11-01] MEDS: Senna/Docusate Sodium 8.6/50 MG Tablet PO SCH ×2 (09:27→21:01)
--- NOTE | 2017-11-01 12:31 | ECG ---
Date Performed: 10/31/2017 Time Performed: 19:46:54 PTAGE: 72 years EKG: Atrial fibrillation with rapid ventricular response with PVC(s) or aberrant ventricular con duction. Lead(s) unsuitable for analysis: V2 Extensive ST-T changes may be due to myocardial ischemia Abnormal ECG NO PREVIOUS TRACING DOCTOR: Miguel Castillo Interpretating Date/Time 11/01/2017 12:29:35
--- NOTE | 2017-11-01 14:33 | P.PNIM ---
Subjective Interval history: Nursing reports that the patient does not maintain coherent meaningful conversation. Will occasionally tell her to "F off". Reports not eating. When I talked to the patient myself, he looks at me and smiles and then drifts off into somnolence. CIWA score per nursing this morning is 4. Physical Exam Vital signs: Vital Signs 10/31/17 16:00 10/31/17 16:18 10/31/17 20:00 Temperature 97.8 F 97.6 F Pulse Rate 101 H 100 H 136 H Respiratory Rate 20 18 Blood Pressure 158/84 H 142/84 H Pulse Oximetry 90 L 96 10/31/17 20:06 11/01/17 00:00 11/01/17 04:00 Temperature 97.2 F L 97.5 F L Pulse Rate 113 H 121 H 98 H Respiratory Rate 16 20 Blood Pressure 118/64 118/60 Pulse Oximetry 96 98 11/01/17 08:00 11/01/17 12:00 Temperature 97.8 F Pulse Rate 70 149 H Respiratory Rate 18 Blood Pressure 118/80 Pulse Oximetry 95 Intake & Output 10/31/17 11/01/17 11/01/17 18:59 06:59 18:59 Intake Total 200 / 200 1420 / 1420 Balance 200 / 200 1420 / 1420 Weight 56.5 kg 57 kg Intake: IV 200 / 200 1300 / 1300 NS Inj 1,000 ML @ 84 mls/hr IV. 1000 / 1000 CONT .[id number] GARY Rx#:[id number] KCl 10 mEq Premix Inj 10 meq In 300 / 300 100 ml @ 100 mls/hr IV.SIG Q1H GARY Rx#:[id number] KCl 20 mEq Premix Inj 20 meq In 200 / 200 100 ml @ 50 mls/hr IV.SIG Q2H GARY Rx#:[id number] Oral 120 / 120 Other: # Incontinent Voids 2 Narrative: Patient is not able to tell me his name, nor place Has garbled speech at times with no slurred Initially makes good eye contact and smiles and tries to speak but then quickly drifts off into somnolence Heart sounds demonstrated an irregular tachycardic rhythm, no lower extremity edema Unlabored breathing Results - Labs CBC & Chem 7: 11/01/17 05:50 11/01/17 05:50 Laboratory Results - last 24 hr 10/31/17 11/01/17 11/01/17 21:34 05:50 05:50 WBC 11.1 H RBC 4.34 L Hgb 14.2 Hct 41.9 MCV 96.5 MCH 32.7 MCHC 33.9 RDW 13.8 Plt Count 101 L MPV 12.2 H Neut % (Auto) 79.1 H Lymph % (Auto) 10.7 [place] % (Auto) 9.4 H Eos % (Auto) 0.3 Baso % (Auto) 0.5 Neut # (Auto) 8.7 H Lymph # (Auto) 1.2 [place] # (Auto) 1.0 H Eos # (Auto) 0.0 Baso # (Auto) 0.1 WBC Differential . Differential Comment Auto diff final Sodium 142 Potassium 3.4 L 3.6 Chloride 110 H Carbon Dioxide 19.6 L Anion Gap 12 BUN 18 Creatinine 1.06 Estimated GFR 68 L Random Glucose 86 Calcium 8.8 Magnesium 1.9 Total Bilirubin 0.9 AST 40 H ALT 23 Alkaline Phosphatase 63 Total Protein 7.6 Albumin 3.9 Assessment and Plan - Assessment (1) Thrombocytopenia Code(s): D69.6 - Thrombocytopenia, unspecified Status: Acute (2) Altered mental status Code(s): R41.82 - Altered mental status, unspecified Status: Acute - Plan 72-year-old male admitted secondary to acute delirium or encephalopathy No improvement in mental status yet. Vitamin B12 levels appear low. Sedatives discontinued. Continue monitoring for improvement. Replace potassium as needed. Acute delirium Acute encephalopathy somnolence -No significant improvement since admission. Initial Hd ct negative, tsh and ammonia wnl. -Vitamin B12 levels appear to be low, will replace aggressively with IM today. -Will order head MRI, will check ammonia level. -Psychiatry following -Continue soft restraints as needed - st for eval Deconditioning - ordered st/ot/pt A. fib w/ rvr -Independently reviewed the EKG strip which appears to show A. fib with RVR -We will start Cardizem p.o. and Lovenox twice daily dosing Hypokalemia -resolved w/ supplementation Hypertension -Continue hydrochlorothiazide Thrombocytopenia, chronic Anemia, chronic -likely 2/2 ETOH use -monitor periodically -thiamine DVT prophylaxis lovenox Attempt to contact her brother, did not leaf size picker phone. No voicemail option.
[2017-11-01] MEDS: dilTIAZem 30 MG Tablet PO SCH ×3 (15:23→21:01)
[2017-11-01] MEDS: Enoxaparin Inj 30 MG/0.3 ML Syringe SQ SCH (15:23)
[2017-11-01] MEDS ORDERED: Metoprolol Inj 5 MG/5 ML Vial IV.PUSH ONE (18:23)
[2017-11-01] MEDS: Metoprolol Inj 5 MG/5 ML Vial IV.PUSH PRN (23:13)
[2017-11-02] MEDS: Sod Chloride 0.9% Inj 1,000 ML IV.CONT SCH ×3 (06:40→21:41)
[2017-11-02] MEDS: Senna/Docusate Sodium 8.6/50 MG Tablet PO SCH ×2 (08:01→21:20)
[2017-11-02] MEDS: dilTIAZem 30 MG Tablet PO SCH ×4 (08:01→21:20)
[2017-11-02] MEDS: Enoxaparin Inj 30 MG/0.3 ML Syringe SQ SCH ×2 (08:01→21:20)
[2017-11-02] MEDS: Potassium Chloride 25 MEQ Effervescent Tablet PO SCH (08:01)
[2017-11-02] MEDS: hydroCHLOROthiazide 25 MG Tablet PO SCH (08:01)
--- NOTE | 2017-11-02 08:36 | ECG ---
Date Performed: 11/01/2017 Time Performed: 13:42:42 PTAGE: 72 years EKG: Atrial fibrillation with rapid ventricular response. Possible left posterior fascicular blo ck Incomplete RBBB ST junctional depression is nonspecific Abnormal ECG PREVIOUS TRACING : 10/31/2017 19.46 DOCTOR: Miguel Castillo Interpretating Date/Time 11/02/2017 08:30:01
[2017-11-02] MEDS ORDERED: Metoprolol Inj 5 MG/5 ML Vial IV.PUSH ONE ×2 (09:01→18:41)
[2017-11-02] MEDS: Metoprolol Tartrate 25 MG Tablet PO SCH ×3 (09:26→17:28)
--- NOTE | 2017-11-02 13:05 | P.PNIM ---
Subjective Interval history: Nursing reports that the patient heart rate did eventually respond to the IV Lopressor that was given yesterday but then it rebounded back to the 160s. MRI was attempted yesterday but the patient was to agitated. MRI was attempted this morning in which case the patient was much calmer after receiving the IM Zyprexa but was still too mobile for imaging. Patient himself has garbled speech, does not make good sense. Physical Exam Vital signs: Vital Signs 11/01/17 16:00 11/01/17 20:00 11/01/17 23:48 Temperature 98.4 F 97.2 F L Pulse Rate 163 H 66 113 H Respiratory Rate 18 18 Blood Pressure 168/103 H 186/83 H Pulse Oximetry 96 97 11/02/17 00:00 11/02/17 04:00 11/02/17 08:00 Temperature 98.0 F 97.4 F L 97.4 F L Pulse Rate 60 64 94 H Respiratory Rate 18 18 20 Blood Pressure 152/96 H 155/84 H 163/107 H Pulse Oximetry 95 99 100 Intake & Output 11/01/17 11/02/17 11/02/17 18:59 06:59 18:59 Intake Total 1000 / 1000 918 / 918 Balance 1000 / 1000 918 / 918 Weight 57 kg 53.9 kg Intake: IV 1000 / 1000 918 / 918 NS Inj 1,000 ML @ 84 mls/hr IV. 1000 / 1000 918 / 918 CONT .[id number] GARY Rx#:[id number] Oral 0 / 0 Other: # Voids 1 # Bowel Movements 0 Narrative: Garbled speech, no facial droop Trying to get out of bed, not following instructions Will occasionally maintain eye contact Results - Labs CBC & Chem 7: 11/01/17 05:50 11/01/17 05:50 Assessment and Plan - Assessment (1) Thrombocytopenia Code(s): D69.6 - Thrombocytopenia, unspecified Status: Acute (2) Altered mental status Code(s): R41.82 - Altered mental status, unspecified Status: Acute - Plan 72-year-old male admitted secondary to acute delirium or encephalopathy No improvement in mental status yet. Vitamin B12 levels appear low. Sedatives discontinued. Continue monitoring for improvement. Replace potassium as needed. Acute encephalopathy Possible CVA -No significant improvement since admission. Initial Hd ct negative, tsh and ammonia wnl. -Suspect the patient might have actually had a stroke given his garbled speech and his obvious A. fib, unable to obtain MRI due to patient being to not cooperative Obtaining echocardiogram and carotid ultrasounds Starting aspirin and Lipitor, starting neuro checks every 4 -Vitamin B12 levels appear to be low, will replace aggressively with IM today. -Will reorder head MRI when the patient is more cooperative -Ammonia level is within normal limits -OT/ST/PT Deconditioning - ordered st/ot/pt A. fib w/ rvr -Independently reviewed the EKG strip which appears to show A. fib with RVR -Improved, continue scheduled Cardizem, started p.o. scheduled po lopressor today as well - bid lovenox Hypertension -Continue hydrochlorothiazide Thrombocytopenia, chronic Anemia, chronic -likely 2/2 ETOH use -monitor periodically -thiamine DVT prophylaxis lovenox Attempted to contact next of kin today, again did not fruit or nut picker phone. No voicemail option. Discharge Planning: will consult palliative care so they can get in touch with family and assess goals of care since pt's MDM capacity is clearly compromised at this time.
--- NOTE | 2017-11-02 16:27 | US ---
EXAM DATE: 11/02/2017 4:14 PM EDT AGE/SEX: 72 years / Male INDICATIONS: Altered mental status. CLINICAL DATA: This is the patient's initial encounter. Patient reports that signs and symptoms have been present for 4 - 6 days and indicates a pain score of Nonresponsive. MEDICAL/SURGICAL HISTORY: Anemia. Hypertension. Thrombocytopenia. Hyperlipidemia. None. COMPARISON: No prior exams available for comparison. VELOCITY PARAMETERS: ICA/CCA Ratio: Right N/A. , Left 0.9 ICA: Right N/A. cm/sec, Left 46 cm/sec CCA: Right 43 cm/sec, Left 53 cm/sec ECA: Right 68 cm/sec, Left 65 cm/sec Vertebral: Right N/A. cm/sec absent, Left Not visualized. cm/sec absent FINDINGS: Right Carotid: There is mild to moderate atherosclerotic plaquing at the carotid bifurcation. No def inite flow is noted in the right internal carotid artery. Left Carotid: Moderate arteriosclerotic plaque is visualized. The waveforms are within normal limits . Other: None. CONCLUSION: 1. There is atherosclerotic plaquing at both carotid bifurcations. 2. 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 3. The vertebral arteries were not visualized. 4. Recommend CTA of the carotids for further evaluation. Electronically signed by: Martin Caldera MD 11/02/2017 4:26 PM EDT
[2017-11-02] MEDS ORDERED: Metoprolol Tartrate 25 MG Tablet PO ONE (18:42)
--- NOTE | 2017-11-02 20:21 | CT ---
EXAM DATE: 11/02/2017 8:03 PM EDT AGE/SEX: 72 years / Male INDICATIONS: Altered mental status. CLINICAL DATA: This is the patient's initial encounter. Patient reports that signs and symptoms have been present for 1 day and indicates a pain score of 0/10. MEDICAL/SURGICAL HISTORY: Anemia. Hypertension. None. RADIATION DOSE: 28.07 CTDI (mGy) [place] [facility] [place]. . TECHNIQUE: Volumetric scanning was performed using a multirow detector CT scanner during bolus infus ion of 80 ml Omnipaque 350 (iohexol) nonionic water-soluble contrast as a single exam dose. The da ta was postprocessed with a variety of visualization algorithms including full-volume maximum intensi ty projection, multiplanar sliding thin-slab reformation, curved-planar reformation, and surface-rend ering techniques. Using automated exposure control and adjustment of the mA and/or kV according to p atient size, radiation dose was kept as low as reasonably achievable to obtain optimal diagnostic kerry lity images. DICOM format image data is available electronically for review and comparison. Percent stenosis is calculated using the diameter of the stenotic region over the diameter of the nor mal distal internal carotid artery. FINDINGS: Aortic Arch: There is a three-vessel origin of the great vessels from the aorta. No evidence of ost ial narrowing Right Carotid: The common carotid artery is intact. The right common carotid artery bifurcation is h igh compared to the left but the internal and external carotid arteries are widely patent. Scattered calcified plaque is seen in the right-sided carotid arteries. Left Carotid: Scattered calcified plaque in the left-sided carotid arteries. The common carotid maxim ry, internal carotid artery, and external carotid artery are widely patent. Vertebrals: The left vertebral artery is dominant. The right vertebral artery is small and terminate s at the skull base. The basilar artery is also very small diffusely. CONCLUSION: 1. High right common carotid artery bifurcation. No evidence of hemodynamically significant carotid stenosis. 2. Diminutive right vertebral artery that terminates at the skull base. Basilar artery also has a di ffusely narrow diameter. Electronically signed by: Rik Hernandez MD 11/02/2017 8:20 PM EDT
[2017-11-02] MEDS: Aspirin 325 MG Tablet PO SCH (21:19)
[2017-11-03] MEDS ORDERED: dilTIAZem Inj 50 MG/10 ML Vial IV.PUSH ONE (04:15)
--- NOTE | 2017-11-03 08:40 | P.PNPSY ---
Case signed out to Dr. Antonio @0830 11/03/17. He will assume the psychiatric consultative role.
[2017-11-03] MEDS: Metoprolol Inj 5 MG/5 ML Vial IV.PUSH PRN ×2 (08:43→18:49)
[2017-11-03] MEDS: Aspirin 325 MG Tablet PO SCH (08:49)
[2017-11-03] MEDS: dilTIAZem 30 MG Tablet PO SCH ×2 (08:50→12:16)
[2017-11-03] MEDS: hydroCHLOROthiazide 25 MG Tablet PO SCH (08:50)
[2017-11-03] MEDS: Potassium Chloride 25 MEQ Effervescent Tablet PO SCH (08:50)
[2017-11-03] MEDS: Senna/Docusate Sodium 8.6/50 MG Tablet PO SCH (08:51)
[2017-11-03] MEDS: Enoxaparin Inj 30 MG/0.3 ML Syringe SQ SCH (08:51)
[2017-11-03] MEDS ORDERED: Metoprolol Tartrate 25 MG Tablet PO SCH (09:00)
[2017-11-03] MEDS: Sod Chloride 0.9% Inj 1,000 ML IV.CONT SCH (09:48)
--- NOTE | 2017-11-03 10:17 | P.PNIM ---
Subjective Interval history: Nursing reports the patient had required further doses of IV Lopressor since his heart rate was not touching the 200s. Patient is not responding to well to vocalization. Nursing documentation of peak neuro checks demonstrates 3 mm brisk pupillary reflexes bilaterally. Physical Exam Vital signs: Vital Signs 11/02/17 12:00 11/02/17 16:00 11/02/17 19:30 Temperature 98.1 F 97.6 F Pulse Rate 107 H 66 128 H Respiratory Rate 20 20 Blood Pressure 193/103 H 151/112 H Pulse Oximetry 99 11/02/17 20:00 11/02/17 23:54 11/03/17 00:00 Temperature 97.1 F L 97.7 F Pulse Rate 67 121 H 91 H Respiratory Rate 20 20 Blood Pressure 155/83 H 148/96 H Pulse Oximetry 96 96 11/03/17 04:00 11/03/17 04:07 11/03/17 04:09 Temperature 97.9 F Pulse Rate 100 H 136 H 115 H Respiratory Rate 18 Blood Pressure 144/76 H Pulse Oximetry 98 11/03/17 08:00 Temperature 99.4 F Pulse Rate 86 Respiratory Rate 18 Blood Pressure 138/72 Pulse Oximetry 94 L Intake & Output 11/02/17 11/03/17 11/03/17 18:59 06:59 18:59 Intake Total 1000 / 1000 1721 / 1721 279 / 279 Output Total 3 / 3 Balance 1000 / 1000 1718 / 1718 279 / 279 Weight 53.1 kg Intake: IV 1000 / 1000 1721 / 1721 279 / 279 NS Inj 1,000 ML @ 84 mls/hr IV. 1000 / 1000 1721 / 1721 279 / 279 CONT .[id number] [facility] Rx#:[id number] Oral 0 / 0 Output: Urine 3 / 3 Other: # Voids 2 # Bowel Movements 0 # Incontinent Bowel Movements 0 Narrative: Patient barely responding to vigorous sternal rub sounds almost as if he is aspirating There is barely respond to painful stimuli Diminished breath sounds in the bases bilaterally Not allowing me to open his eyes to check his pupils Results - Labs CBC & Chem 7: 11/01/17 05:50 11/01/17 05:50 - Imaging Impressions Carotid Doppler Study 11/02/17 00:00 CONCLUSION: 1. There is atherosclerotic plaquing at both carotid bifurcations. 2. 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 3. The vertebral arteries were not visualized. 4. Recommend CTA of the carotids for further evaluation. Neck CTA 11/02/17 00:00 CONCLUSION: 1. High right common carotid artery bifurcation. No evidence of hemodynamically significant carotid stenosis. 2. Diminutive right vertebral artery that terminates at the skull base. Basilar artery also has a diffusely narrow diameter. Assessment and Plan - Assessment (1) Thrombocytopenia Code(s): D69.6 - Thrombocytopenia, unspecified Status: Acute (2) Altered mental status Code(s): R41.82 - Altered mental status, unspecified Status: Acute - Plan 72-year-old male admitted secondary to acute delirium or encephalopathy GCS score now less than 8. Case discussed with instructor pilot. Stat head CT chest x-ray and ABG ordered. Will be transferred to ICU. Case discussed with palliative care to attempt to seek healthcare proxy. Acute encephalopathy Possible CVA -No significant improvement since admission. Initial Hd ct negative, tsh and ammonia wnl. -Suspect the patient might have actually had a stroke given his garbled speech and his obvious A. fib, unable to obtain MRI due to patient being to not cooperative Obtaining echocardiogram and carotid ultrasounds Starting aspirin and Lipitor, starting neuro checks every 4; Hold ASA until head ct neg -Vitamin B12 levels appear to be low, will replace aggressively with IM today. -Will reorder head MRI when the patient is more cooperative -Ammonia level is within normal limits -OT/ST/PT Deconditioning - st/ot/pt A. fib w/ rvr -recurring, cardizem, lopressor - hold lovenox until hd ct neg. Hypertension -Continue hydrochlorothiazide Thrombocytopenia, chronic Anemia, chronic -likely 2/2 ETOH use -monitor periodically -thiamine DVT prophylaxis lovenox Discharge Planning: will consult palliative care so they can get in touch with family and assess goals of care since pt's MDM capacity is clearly compromised at this time.
--- NOTE | 2017-11-03 10:34 | P.PNPAL ---
Palliative care consulted to assist with finding family and discussion for goals of medical treatment. Ash Hand/brother's number ([phone]) in EMR just rings then rings disconnected. Spoke with PCP Dr. Becker's office, no additional information. Staff reports Mr. Hand is extremely hard of hearing and is unable to reach when writing to communicate. State they have recommended hearing aids but patient has no obtained them. Per notes, [facility] has no additional contact information. In review of past medical cords only brother listed with same contact information. Google search produced the following results: * Too Hand, brother (reportedly works at [employer]) * [phone]-- rings then rings disconnected * [phone]-- left vm * [phone]-- wrong # * [phone]-- left vm * [phone]-- just rings * [phone]-- just rings * [phone]--disconnected * [phone]--"unassigned number" * Unique Hand (Too's ) * all numbers match as above * Luis Hand-- relationship unknown * numbers match as above * Speedy Cecilio-- 10+ years * Cindy Hernandes * [phone]--mother in law to Too Hand. Unique is her daughter. Cindy is not in contact with her daughter or son in law. Unable to provide additional contact information. Cindy does not want family to know she was contacted by the hospital. Possible match for Unique Hand found on social media. Private message sent requesting call. [employer] requested to obtain additional or updated contact information for brother/other family. 1130am-- spoke with [employer] [facility] [employer] department and was provided with contact information for brother Too Hand: [phone] Palliative care will continue to follow throughout hospitalization. Goals of medical treatment to be addressed once health care proxy identified.
[2017-11-03] MEDS ORDERED: Potassium Phosphate 500 MG Soluble Tablet PO PRN ×2 (10:38)
[2017-11-03] MEDS ORDERED: Potassium Chlor 40 mEq Premix 40 MEQ/100 ML PIGGYBACK IV.SIG PRN ×2 (10:38)
[2017-11-03] MEDS ORDERED: Potassium Phosphate Inj 30 MMOL in Sodium Chlor 0.9% Inj 250 ML IV.SIG PRN (10:38)
[2017-11-03] MEDS ORDERED: Potassium Chlor 20 mEq Premix 20 MEQ/100 ML PIGGYBACK IV.SIG PRN ×2 (10:38)
[2017-11-03] MEDS ORDERED: Sodium Phosphate Inj 30 MMOL in Sodium Chlor 0.9% Inj 250 ML IV.SIG PRN (10:38)
[2017-11-03] MEDS ORDERED: Potassium Chloride 25 MEQ Effervescent Tablet PO PRN (10:38)
[2017-11-03] MEDS ORDERED: Magnesium Oxide 400 MG Tablet PO PRN (10:38)
[2017-11-03] MEDS ORDERED: Magnesium Sulfate Inj 4 GM in Sodium Chlor 0.9% Inj 92 ML IV.SIG PRN (10:38)
[2017-11-03] MEDS ORDERED: Magnesium Sulfate Inj 2 GM in Sodium Chlor 0.9% Inj 96 ML IV.SIG PRN (10:38)
[2017-11-03] MEDS ORDERED: Dextrose 50% in Water 50 ML Vial IV.PUSH PRN (10:40)
--- NOTE | 2017-11-03 11:04 | CT ---
EXAM DATE: 11/03/2017 10:51 AM EDT AGE/SEX: 72 years / Male INDICATIONS: Altered mental status. CLINICAL DATA: This is the patient's initial encounter. Patient reports that signs and symptoms have been present for 1 day and indicates a pain score of 3/10. MEDICAL/SURGICAL HISTORY: Hypertension. None. RADIATION DOSE: 29.10 CTDI (mGy) COMPARISON: [facility] [place] [facility] [place]O [place] 10/29/2017. . TECHNIQUE: CT of the head without contrast. Using automated exposure control and adjustment of the mA and/or kV according to patient size, radiation dose was kept as low as reasonably achievable to ob tain optimal diagnostic quality images. DICOM format image data is available electronically for revi ew and comparison. FINDINGS: There is central and cortical atrophy with dilatation of ventricular and sulcal spaces. There is no parenchymal hemorrhage, acute infarction or mass lesion identified. There are no extra-axial fluid c ollections appreciated. Periventricular white matter changes are noted. The posterior fossa is unrem arkable with midline fourth ventricle. The portion of the orbits and paranasal sinuses visualized are unremarkable. CONCLUSION: Atrophy, otherwise negative for an acute process. Ajay Pope MD FACR . Electronically signed by: Ajay Pope MD 11/03/2017 11:03 AM EDT
--- NOTE | 2017-11-03 11:08 | XR ---
EXAM DATE: 11/03/2017 11:04 AM EDT AGE/SEX: 72 years / Male INDICATIONS: Possible aspiration. CLINICAL DATA: This is the patient's subsequent encounter. Patient reports that signs and symptoms h ave been present for 1 day and indicates a pain score of Nonresponsive. MEDICAL/SURGICAL HISTORY: . Anemia. Hypertension. None. COMPARISON: [facility] – [place]ST SINGLE AP, 04/10/2010. . FINDINGS: A single AP view of the chest demonstrates the lungs to be symmetrically aerated without evidence of mass, infiltrate or effusion. Mild cardiomegaly Osseous structures are intact. CONCLUSION: Mild compensated cardiomegaly Electronically signed by: Ajay Pope MD 11/03/2017 11:07 AM EDT
[2017-11-03] MEDS ORDERED: Metoprolol Inj 5 MG/5 ML Vial IV.PUSH ONE (12:09)
[2017-11-03 12:33] LABS: ABG Base Excess -1.9 mmol/L (-2-2); ABG PCO2 31 mmHg (38-42); ABG PO2 93 mmHG (61-120)
[2017-11-03 12:39] LABS: Alanine Aminotransferase 23 U/L (12-78); Albumin 3.9 g/dL (3.4-5.0); Alkaline Phosphatase 61 U/L (45-117); Anion Gap 12 meq/L (5-15); Aspartate Aminotransferase 33 U/L (15-37); Blood Urea Nitrogen 19 mg/dL (7-18); Calcium 8.6 mg/dL (8.5-10.1); Carbon Dioxide 24.3 meq/L (21.0-32.0); Chloride 105 meq/L (98-107); Glomerular Filtration Rate 71 mL/min (>89); Glucose,Random 106 mg/dL (74-106); Magnesium 1.9 mg/dL (1.5-2.5); Phosphorus 4.9 mg/dL (2.5-4.9); Sodium 141 meq/L (136-145); Total Protein 7.3 g/dL (6.4-8.2)
[2017-11-03 12:41] LABS: Potassium 3.8 meq/L (3.5-5.1)
[2017-11-03] MEDS: Insulin NovoLIN Regular Correctional Sugar Inj SQ SCH ×2 (12:56→18:08)
[2017-11-03] MEDS: Metoprolol Tartrate 50 MG Tablet PO SCH (12:57)
[2017-11-03] MEDS: Dextrose 5%/NaCl 0.9% Inj 1,000 ML IV.CONT SCH (12:57)
[2017-11-03] MEDS: dilTIAZem 60 MG Tablet PO SCH ×2 (13:33→18:23)
--- NOTE | 2017-11-03 13:42 | MB ---
cc: Warren Austin MD DATE: 11/03/2017 HISTORY OF PRESENT ILLNESS: The patient is a 72-year-old male with a past medical history of hypertension, hyperlipidemia, thrombocytopenia, vitamin B12 deficiency, who presented to [facility] ED on 10/29/2017 for altered mental status. He was [facility] Acted by ED provider. The patient is a poor historian and most of the history was obtained from reviewing medical records. He was given Ativan 3 mg total on arrival, due to his severe agitation. Patient was initially admitted under hospitalist service and he underwent a CT scan of the brain on 10/29/2017, which was a limited study due to severe motion artifact. A repeat CT scan of the brain was obtained earlier this morning, which showed atrophy, otherwise negative for acute process. CTA of the neck was performed on 11/02/2017 which showed no evidence of any hemodynamically significant carotid stenosis. The patient was found to be in atrial fibrillation with RVR this morning with a heart rate of 140s. He was given Lopressor 5 mg IV push and placed on p.o. Cardizem and p.o. Lopressor. Due to worsening mental status, he was transferred to ICU and critical care medicine was consulted for critical care management. The patient received additional 3 mg of Ativan since in the last 12 hours. MRI of the brain was ordered by the primary team. The patient does arouse to touch and verbalizes several words and able to move all extremities. PAST MEDICAL HISTORY: Significant for hypertension, hyperlipidemia, vitamin B12 deficiency, thrombocytopenia. PAST SURGICAL HISTORY: Unknown. ALLERGIES: NO KNOWN ALLERGIES. SOCIAL HISTORY: Unobtainable. MEDICATIONS AT HOME: Unknown. REVIEW OF SYSTEMS: Unobtainable. PHYSICAL EXAMINATION: GENERAL: A 72-year-old male lying in bed, in no acute respiratory distress, in atrial fibrillation with RVR. VITAL SIGNS: Temperature 99.5, pulse 115-148, respiratory rate of 18, blood pressure 138/72, saturation 94%. HEENT: Atraumatic, normocephalic. Pupils are equal, round, and reactive to light and accommodation. Extraocular muscles are intact. Conjunctivae are pink. Nonicteric sclerae. Oral mucosa within normal. NECK: Supple. No JVD, adenopathy or thyromegaly. Trachea in the midline. CARDIOVASCULAR: Tachycardic, irregularly irregular. Normal S1, S2. No murmurs. PULMONARY: Bilateral air entry. No rales or wheezing. ABDOMEN: Soft, nontender. No distention. Positive bowel sounds. EXTREMITIES: No cyanosis, clubbing or edema. NEUROLOGIC: Patient aroused to light touch and verbalized several words. He is able to move all extremities. LABORATORY DATA: From 11/01/2017, sodium 142, potassium 3.6, chloride 110, CO2 19.6, BUN 18, creatinine 1, glucose 86. WBC 11.1, hemoglobin 14, hematocrit 41, platelet count of 101. RADIOGRAPHIC STUDIES: CT head: No acute process from this morning. A chest x-ray showed mild compensated cardiomegaly. A CT of the neck showed no hemodynamically significant stenosis. IMPRESSION: 1. Respiratory insufficiency. 2. Encephalopathy. 3. Atrial fibrillation with rapid ventricular response. 4. Hypertension. 5. Hyperlipidemia. 6. Thrombocytopenia. RECOMMENDATIONS: 1. Monitor neurologic status closely and avoid any sedatives. We will discontinue Lorazepam. 2. CT scan of the brain this morning showed no acute intracranial process and CTA of the neck showed no significant hemodynamic stenosis. The patient is scheduled for MRI of the brain without contrast. In addition, we will consult neurology. 3. Continue with oxygen to maintain saturations above 92%. 4. Bronchodilators on a p.r.n. basis. 5. We will obtain an ABG now. If there is any worsening in clinical condition, we will proceed with intubation and mechanical ventilation. 6. Increase Cardizem to 60 mg q.i.d. and increase Lopressor to 50 b.i.d. Monitor heart rate and blood pressure and maintain MAP greater than 65 mmHg. 7. Check cardiac enzymes with troponins and baseline TSH level. 8. We will obtain due 2-D echocardiogram to evaluate LV function and to rule out regional wall motion abnormalities. 9. Monitor renal function, I's and O's, and electrolyte replacement per protocol. 10. Speech evaluation and place on Pepcid for GI prophylaxis. 11. Monitor for signs of infection, which include fever and WBC. Purcell culture if spikes a fever. 12. Place on IV fluids, D5NS at 75 mL an hour. 13. Sliding scale insulin with Accu-Cheks to maintain euglycemia. 14. Monitor CBC. 15. GI prophylaxis with Pepcid and DVT prophylaxis with SCDs. We will start heparin subcutaneously as his platelet count is improving. 16. Place a central line if indicated. MD DIANE Granger/zain , 12:41 PM , 12:54 PM
--- NOTE | 2017-11-03 13:53 | P.CONPAL ---
Consult Service: Palliative Care Requesting Physician: Isauro Ha Reason for Consult: a. To assist with evaluation and management of symptoms including: Encephalopathy, agitation b. To assist medical decision maker(s) with: better understanding of current medical conditions; weighing benefits/burdens of medical treatment options; making medical treatment decisions. Primary Care Provider: UNKNOWN History of Present Illness History of Present Illness: This 72-year-old male, with a past history of chronic thrombocytopenia, anemia, CAD, and B12 deficiency, was brought to the emergency department from his apartment because of altered mental status. In the emergency department, the patient was confused, aggressive and combative. A Mendes Act was completed. Restraints were applied. In the emergency department, findings included: * Confused, agitated * Afebrile, pulse 98, respirations 20, blood pressure 108/80, oxygen saturation 98% * White count 4.9, hemoglobin 12.1, platelets 86,000 * Sodium 143, creatinine 1.22, albumin 4.0 * Urine drug screen negative * Alcohol negative * Urinalysis unremarkable * RPR nonreactive * B12 level low at 167 * Head CT scan showed no gross abnormalities, but it was compromised by significant motion artifact The patient was admitted for further evaluation. He received multiple doses of lorazepam for agitation. Carotid Dopplers done on 11/01/17 revealed some plaquing at the bifurcations, and a follow-up neck CTA revealed no occlusions but the basilar artery was narrowed. An MRI was ordered of the brain, but the patient was too agitated to have it completed, even after receiving Zyprexa on 11/02/17. The patient had atrial fibrillation and was more tachycardic. On 11/03/17, the patient's heart rate was nearly 200, and he was transferred to the [facility] [place]. His blood pressure remained fairly normal. The patient is confused, lethargic, agitated, and no history can be obtained from him. The patient's brother indicated that he is unaware of any history of dementia in the patient, oriented anyone else. FAMILY HISTORY: Their are mother of cerebral hemorrhage, and father with COPD and an WA. Palliative Care was consulted to assist with symptom management, and to enter into discussions with friends/family/decision-makers/patient regarding his illnesses, the prognosis, and the benefits and burdens of the various treatment choices. Function/Cognitive Trajectory: I spoke by telephone with the patient's brother Too Hand, and he reports that he has not had any contact with the patient for at least the past year, and he is unaware of any decline in function recently. Too reports that the patient was seen by friends at a local baseball game within the past few months , and he assumes the patient was still living and functioning independently. Review of Systems unobtainable due to mental condition (Lethargic, confused, delirium), other ( Some history as per records and nursing staff) Constitutional: Reports weakness Cardiovascular: Denies shortness of breath Respiratory: Denies shortness of breath Gastrointestinal: Denies black, tarry stools, Denies vomiting blood Genitourinary: Denies blood in urine Musculoskeletal: Denies joint swelling Neurologic: Reports abnormal hearing (Records report hearing loss in the past), Denies convulsions, Denies seizure-like activity Psychiatric: Reports behavioral changes, Reports confusion Endocrine: Denies flushing Hematologic/Lymphatic: Denies easy bruising Allergic/Immunologic: Denies hives PMFSH - History History Provided By: Medical Record, Ethanol Quality Leader / EMT - Medical History Medical History: Medical History (Last Updated 11/03/17 @ 13:46 by Karen Vergara MD) Anemia HLD (hyperlipidemia) HTN (hypertension) Hearing deficit Thrombocytopenia Vitamin B12 deficiency - Surgical History Surgical History: Surgical History (Last Updated 11/03/17 @ 13:46 by Karen Vergara MD) History of tonsillectomy - Family History Family History: Family History (Last Updated 11/03/17 @ 17:30 by Karen Vergara MD) Mother Cerebral hemorrhage Father COPD (chronic obstructive pulmonary disease) Grandparent No problems noted. Father Acute WA - Tobacco History Smoking Status: Never smoker - Alcohol History How Often Do You Have a Drink Containing Alcohol: Unable to Obtain - Substance Use History Substance History: Unable to Obtain - Travel History Recent Travel in the [place] Within the Last 8 Weeks: No Recent Travel Out of the Country Within the Last 8 Weeks: No - Immunization History Tetanus Immunization: Unable to Assess Hx Influenza Vaccine This Season: Unable to Assess Medications and Allergies Active Medications: Active Medications Acetaminophen (Tylenol) 650 mg PO Q4H PRN PRN Reason: Temp > 100.4 Al Hydroxide/Mg Hydroxide (Milk Of Magnesia Liq) 30 ml PO Q12H PRN PRN Reason: Mild Constipation Albuterol (Duoneb Neb (Sofi)) 1 ampul NEB Q6HR ALT NEB SOFI Albuterol (Duoneb Neb (Prn)) 1 ampul NEB Q2HR NEB PRN PRN Reason: DYSPNEA Atorvastatin Calcium (Lipitor) 40 mg PO HS [facility] Last Admin: 11/02/17 21:21 Dose: 40 mg Bisacodyl (Dulcolax Supp) 10 mg RECTAL DAILY PRN PRN Reason: SEVERE CONSITIPATION Chlorhexidine Gluconate (Chlorhexidine 2% Cloth) 3 pack TOPICAL DAILY@0400 SOFI Stop: 11/09/17 03:59 Chlorhexidine Gluconate (Chlorhexidine 2% Cloth) 3 pack TOPICAL DAILY@0400 PRN PRN Reason: Extra cloth needed Stop: 11/09/17 03:59 Dextrose (D50w Vial) 50 ml IV.PUSH UNSCH PRN PRN Reason: PER HYPOGLYCEMIA PROTOCOL Diltiazem HCl (Cardizem) 60 mg PO QID [facility] Last Admin: 11/03/17 13:33 Dose: 60 mg Flumazenil (Romazecon Inj) 0.2 mg IV.PUSH Q1M PRN PRN Reason: OVERSEDATION Glucagon (Glucagon Inj) 1 mg OTHER PRN PRN PRN Reason: for Hypoglycemia Protocol Heparin Sodium (Porcine) (Heparin Inj) 5,000 units SQ Q12HR [facility] Magnesium Sulfate Inj 4 gm/ (Sodium Chloride) 100 mls @ 50 mls/hr IV.SIG UNSCH PRN PRN Reason: For Magnesium 0.9 - 1.1 mg/dL Magnesium Sulfate Inj 2 gm/ (Sodium Chloride) 100 mls @ 50 mls/hr IV.SIG UNSCH PRN PRN Reason: For Magnesium 1.2 - 1.6 mg/dL Potassium Chloride (Kcl 40 Meq Premix Inj) 40 meq in 100 mls @ 25 mls/hr IV.SIG Q2H PRN PRN Reason: For Potassium 2.8 - 3.2 mEq/L Potassium Chloride (Kcl 40 Meq Premix Inj) 40 meq in 100 mls @ 25 mls/hr IV.SIG UNSCH PRN PRN Reason: For Potassium 3.3 - 3.5 mEq/L Potassium Chloride (Kcl 20 Meq Premix Inj) 20 meq in 100 mls @ 50 mls/hr IV.SIG Q2H PRN PRN Reason: For Potassium 2.8 - 3.2 mEq/L Potassium Phosphate 30 mmol/ (Sodium Chloride) 260 mls @ 42 mls/hr IV.SIG UNSCH PRN PRN Reason: SEE LABEL COMMENTS Sodium Phosphate 30 mmol/ (Sodium Chloride) 260 mls @ 42 mls/hr IV.SIG UNSCH PRN PRN Reason: For Phosphorus < 2.5 mg/dL Potassium Chloride (Kcl 20 Meq Premix Inj) 20 meq in 100 mls @ 50 mls/hr IV.SIG Q2H PRN PRN Reason: For Potassium 3.3 - 3.5 mEq/L Dextrose/Sodium Chloride (D5w/Normal Saline Inj) 1,000 mls @ 75 mls/hr IV.CONT .[id number] [facility] Last Admin: 11/03/17 12:57 Dose: 75 mls/hr Amiodarone HCl 450 mg/ (Dextrose) 250 mls @ 33.33 mls/hr IV.CONT TITRATE PRN; Protocol PRN Reason: Per Protocol Amiodarone HCl 150 mg/ (Dextrose) 100 mls @ 600 mls/hr IV.SIG ONCE ONE Stop: 11/03/17 14:09 Last Admin: 11/03/17 13:33 Dose: 600 mls/hr Insulin Human Regular (Novolin R Correctional Sugar Inj) 0 units SQ Q4HR [facility]; Protocol Last Admin: 11/03/17 12:56 Dose: Not Given Lactulose (Lactulose Liq) 30 ml PO DAILY PRN PRN Reason: SEVERE CONSITIPATION Magnesium Oxide (Mag-Ox) 800 mg PO UNSCH PRN PRN Reason: For Magnesium 1.2 - 1.6 mg/dL Metoprolol Tartrate (Lopressor Inj) 5 mg IV.PUSH Q5M PRN PRN Reason: a fib w RVR Last Admin: 11/03/17 08:43 Dose: 5 mg Metoprolol Tartrate (Lopressor) 50 mg PO BID [facility] Last Admin: 11/03/17 12:57 Dose: 50 mg Potassium Bicarb/Potassium Chloride (K-Lyte Cl Eff) 50 meq PO UNSCH PRN PRN Reason: For Potassium 3.3 - 3.5 mEq/L Potassium Phosphate (K-Phos Original) 2,000 mg PO Q4H PRN PRN Reason: Phosphorus Less Than 2.5 mg/dL Potassium Phosphate (K-Phos Original) 2,000 mg PO UNSCH PRN PRN Reason: SEE LABEL COMMENTS Senna/Docusate Sodium (Jia-Colace) 1 tab PO BID SOFI Last Admin: 11/03/17 08:51 Dose: Not Given Sennosides (Senokot) 17.2 mg PO Q12H PRN PRN Reason: Moderate Constipation Allergies Allergy/AdvReac Type Severity Reaction Status Date / Time No Known Allergies Allergy Uncoded 02/07/14 14:05 Home Medications Medication Instructions Recorded Confirmed Type Unable to Obtain Home Meds 10/29/17 10/29/17 History Advance Directives Living Will: No Healthcare Surrogate: No Power of School Custodian: No Family/friends goals: Patient's brother definitely wants aggressive care continued at this time, at least until further diagnostic studies have reached a more definite conclusion. Ethical and Legal Issues: The patient is unable to participate in decision-making. He lacks capacity for medical decision-making. It is unlikely that the patient will regain capacity for decision-making in the near future. His brother Too Hand is his proxy decision maker. Physical Exam Vital Signs: Vital Signs - 24 hr 11/02/17 16:00 11/02/17 19:30 11/02/17 20:00 Temperature 97.6 F 97.1 F L Pulse Rate 66 128 H 67 Respiratory Rate 20 20 Blood Pressure 151/112 H 155/83 H Pulse Oximetry 96 11/02/17 23:54 11/03/17 00:00 11/03/17 04:00 Temperature 97.7 F 97.9 F Pulse Rate 121 H 91 H 100 H Respiratory Rate 20 18 Blood Pressure 148/96 H 144/76 H Pulse Oximetry 96 98 11/03/17 04:07 11/03/17 04:09 11/03/17 08:00 Temperature 99.4 F Pulse Rate 136 H 115 H 148 H Respiratory Rate 18 Blood Pressure 138/72 Pulse Oximetry 94 L I&O: Intake & Output 11/01/17 11/02/17 11/03/17 11/04/17 06:59 06:59 06:59 06:59 Intake Total 1620 / 1620 1917 2721 / 2721 279 / 279 Output Total 3 / 3 Balance 1620 / 1620 1917 2718 / 2718 279 / 279 Weight 56.5 kg 53.9 kg 53.1 kg Physical Exam: CONSTITUTIONAL/GENERAL: This is a thin, chronically ill-appearing patient, in no apparent distress. TUBES/LINES/DRAINS: Nasal oxygen, IV access, condom catheter SKIN: No jaundice, rashes, or lesions. Ecchymoses on upper extremities. No wounds seen anteriorly. Skin temperature appropriate. Not diaphoretic. HEAD: Atraumatic. Normocephalic. EYES: Pupils equal and round and reactive. Extraocular motions intact. No scleral icterus. No injection or drainage. Fundi not examined. ENT: Nose without bleeding or purulent drainage. NECK: Trachea midline. Supple, nontender. No palpable thyroid enlargement or nodularity. CARDIOVASCULAR: Irregular and rapid rhythm. No JVD. Peripheral pulses diminished. RESPIRATORY/CHEST: Symmetric, unlabored respirations. A couple scattered rhonchi. GASTROINTESTINAL: Abdomen soft, non-tender, nondistended. No hepato-splenomegaly , or palpable masses. No guarding. Bowel sounds present. GENITOURINARY: Without palpable bladder distension. Condom catheter in place. MUSCULOSKELETAL: Extremities without clubbing, cyanosis, or edema. No joint tenderness or effusion noted. No calf tenderness. No mottling or clubbing. LYMPHATICS: No palpable cervical or supraclavicular adenopathy. NEUROLOGICAL: Lethargic, intermittently agitated, does not follow commands. PSYCHIATRIC: Agitated and combative at times Diagnostic Tests Laboratory: Laboratory Results - last 72 hr 10/31/17 11/01/17 11/01/17 21:34 05:50 05:50 WBC 11.1 H RBC 4.34 L Hgb 14.2 Hct 41.9 MCV 96.5 MCH 32.7 MCHC 33.9 RDW 13.8 Plt Count 101 L MPV 12.2 H Neut % (Auto) 79.1 H Lymph % (Auto) 10.7 [place] % (Auto) 9.4 H Eos % (Auto) 0.3 Baso % (Auto) 0.5 Neut # (Auto) 8.7 H Lymph # (Auto) 1.2 [place] # (Auto) 1.0 H Eos # (Auto) 0.0 Baso # (Auto) 0.1 WBC Differential . Differential Comment Auto diff final Puncture Site Patient Temperature O2 Saturation ABG pH ABG pCO2 ABG pO2 ABG HCO3 ABG O2 Content ABG Base Excess ABG Methemoglobin Jamie Test Hemoglobin Carboxyhemoglobin O2 Delivery Device Liter Flow Inspired O2 Critical Value Sodium 142 Potassium 3.4 L 3.6 Chloride 110 H Carbon Dioxide 19.6 L Anion Gap 12 BUN 18 Creatinine 1.06 Estimated GFR 68 L POC Glucose Random Glucose 86 Calcium 8.8 Phosphorus Magnesium 1.9 Total Bilirubin 0.9 AST 40 H ALT 23 Alkaline Phosphatase 63 Total Protein 7.6 Albumin 3.9 11/03/17 11/03/17 11/03/17 11:20 12:12 12:44 WBC RBC Hgb Hct MCV MCH MCHC RDW Plt Count MPV Neut % (Auto) Lymph % (Auto) [place] % (Auto) Eos % (Auto) Baso % (Auto) Neut # (Auto) Lymph # (Auto) [place] # (Auto) Eos # (Auto) Baso # (Auto) WBC Differential Differential Comment Puncture Site Right radial Patient Temperature 98.6 O2 Saturation 95 ABG pH 7.45 H ABG pCO2 31 L ABG pO2 93 ABG HCO3 22 ABG O2 Content 19.6 ABG Base Excess -1.9 ABG Methemoglobin 1.3 Jamie Test Present Hemoglobin 14.6 Carboxyhemoglobin 1.1 O2 Delivery Device Nasal cannula Liter Flow 2.00 Inspired O2 28 Critical Value No Sodium 141 Potassium 3.8 Chloride 105 Carbon Dioxide 24.3 Anion Gap 12 BUN 19 H Creatinine 1.03 Estimated GFR 71 L POC Glucose 149 H Random Glucose 106 Calcium 8.6 Phosphorus 4.9 Magnesium 1.9 Total Bilirubin 1.2 H AST 33 ALT 23 Alkaline Phosphatase 61 Total Protein 7.3 Albumin 3.9 Result Diagrams: 11/03/17 14:40 11/03/17 11:20 Imaging: Carotid Doppler Study 11/02/17 00:00 CONCLUSION: 1. There is atherosclerotic plaquing at both carotid bifurcations. 2. 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 3. The vertebral arteries were not visualized. 4. Recommend CTA of the carotids for further evaluation. Neck CTA 11/02/17 00:00 CONCLUSION: 1. High right common carotid artery bifurcation. No evidence of hemodynamically significant carotid stenosis. 2. Diminutive right vertebral artery that terminates at the skull base. Basilar artery also has a diffusely narrow diameter. Head CT 11/03/17 09:57 CONCLUSION: Atrophy, otherwise negative for an acute process. Ajay Pope MD FACR . Chest X-Ray 11/03/17 10:40 CONCLUSION: Mild compensated cardiomegaly Procedures: Restraints 10/29/17 Patient/Family Conference Present at Family Conference: Brother Too Hand Family Conference Time: 33 Family Conference Location: Telephone Issues Discussed: * Palliative care role, purpose, approach * Additional medical, psychosocial, and spiritual history * Patients general health, functional status, and cognitive changes in the months leading up to the current hospitalization * Patient/family understanding of the current medical problems * Patient/family understanding of prognosis * Patients goals of care as best understood from advance directives and/or conversations and/or values * Current medical treatment options and benefits/burdens of those options * Likely scenarios comparing ongoing aggressive care with a transition to comfort measures only * Questions answered to the best of my ability * Palliative care contact information provided Assessment and Plan - Disease Oriented Problem List (1) Rapid atrial fibrillation (2) Altered mental status (3) Thrombocytopenia (4) Delirium - Symptom Scale (1) Encephalopathy 0-10 Scale: Unable to quantify Pertinent Non-Medical Issues: Psychosocial: Never , no children, lives alone in an apartment. 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 Spiritual: Not spiritual or adventism according to the patient's brother. Legal: It is unlikely that the patient will regain capacity for decision-making in the near future. His brother Too Hand is his proxy decision maker. Ethical issues impacting care: The patient is unable to make his own decisions. Important Contacts: Brother: Too Hand [phone] Prognosis: The patient appears somewhat cachectic, and his delirium may be multifactorial or even primarily psychiatric. Overall, his prognosis is guarded. Code Status: Full Code Plan: * FULL CODE * DECISION-MAKING: The patient lacks capacity for decision-making, and It is unknown whether the patient will regain capacity for decision-making in the near future. His brother Too Hand is his proxy decision maker. * GOALS: The patient's brother, who was unaware that the patient was in the hospital until I called him 11/03/17, wants aggressive care continued for now. He will be coming to see the patient in a couple days and we will discuss this further at that time. * SYMPTOMS: The patient's agitation and combativeness has been treated intermittently PRN Lorazepam and Zyprexa. He is not combative at this time, and I have no further medication recommendations. * Palliative Care will continue to follow the patient during this hospitalization. Time Spent Total Floor Time (mins): 77 Face to Face Time (mins): 25 >50% Time in Counseling or Coordination of Care: Yes Appreciation Thank you for the opportunity to participate in the care of Christopher Hand JR. Attestation Attestation: To help prompt me to consider important information that might be impacting today's encounter and assessment, information from prior notes written by myself or my colleagues may have been "brought forward" into today's note. My signature on this note, however, is an attestation that I personally performed the exam, history, and/or decision-making noted today, and, unless otherwise indicated, the interactions with patient, family, and staff as well as the review of records all occurred today. I also attest that the listed assessment and stated plan reflect my best clinical judgment today based on the combination of historical information, prior notes, and today's exam/ interactions. When time spent is documented, it refers only to time spent today by the signer, or if indicated, combined time spent today by collaborating physician/nurse practitioner.
[2017-11-03] MEDS ORDERED: Amiodarone Inj 150 MG in Dextrose 5% in Water Inj 97 ML IV.SIG ONE ×2 (14:00)
[2017-11-03 15:46] LABS: Baso % (Auto) 0.4 % (0.0-2.0); Eos % (Auto) 0.2 % (0.0-4.0); Hematocrit 41.7 % (39.0-51.0); Hemoglobin 14.1 gm/dL (13.0-17.0); Lymph # (Auto) 0.9 th/mm3 (1.0-4.8); Lymph % (Auto) 7.8 % (9.0-44.0); Mean Corpuscular HGB Conc 33.7 % (32.0-36.0); Mean Corpuscular Hemoglobin 32.4 pg (27.0-34.0); Mean Corpuscular Volume 96.1 fL (80.0-100.0); Mean Platelet Volume 11.9 fL (7.0-11.0); Mono # (Auto) 1.3 th/mm3 (0.0-0.9); Mono % (Auto) 11.2 % (0.0-8.0); Neut # (Auto) 9.1 th/mm3 (1.8-7.7); Neut % (Auto) 80.4 % (16.0-70.0); Platelet Count 84 th/mm3 (150-450); Red Blood Count 4.34 mil/mm3 (4.50-5.90); Red Cell Distribution Width 13.5 % (11.6-17.2); White Blood Count 11.3 th/mm3 (4.0-11.0)
--- NOTE | 2017-11-03 16:45 | MB ---
cc: Iván Canela MD, PhD DATE: 11/03/2017 REASON FOR CONSULTATION: Encephalopathy. HISTORY OF PRESENT ILLNESS: Mr. Hand is a 72-year-old man who presented to the ER due to alteration in mental status. Apparently, it is unclear whether this is new onset. He has been very agitated, minimally following commands. PAST MEDICAL HISTORY: History of hypertension, hyperlipidemia, History of thrombocytopenia, B12 deficiency. MEDICATIONS: 1. Milk of magnesia. 2. Tylenol. 3. Dextrose. 4. Lipitor. 5. Dulcolax. 6. Chlorhexidine. 7. Cardizem. 8. Romazicon p.r.n. 9. Subcutaneous heparin 5000 units b.i.d. 10. Novolin insulin p.r.n. 11. Lactulose p.r.n. 12. Magnesium sulfate. 13. Metoprolol. 14. Potassium chloride. 15. Senna. NEUROLOGICAL EXAMINATION: VITAL SIGNS: Blood pressure is 140/88, pulse is 140, temperature is 98.4 degrees. HIGHER CORTICAL FUNCTION: The patient does not follow commands. He is very lethargic. He is very agitated when he is aroused. Cranial nerves intact. Neck is supple. Motor exam: There is no gross motor focal deficit. Tone is normal. IMAGING STUDIES: CT brain: Atrophy, otherwise negative. MRI brain pending. LABORATORY DATA: The white count is 11,300, hemoglobin is 14.1, hematocrit 41%, platelet count is 84,000. PT 10.9, INR 1.1, aPTT 24.7. Sodium is 141, potassium 3.8, chloride 104, CO2 24.3, BUN is 19, creatinine 1.03, GFR 71, glucose 149. IMPRESSION: Encephalopathy. RECOMMENDATION: We will review MRI of the brain when obtained. Will also obtain an EEG. Recommend lumbar puncture to rule out infectious etiology. We will also send for the 14-3-3 protein to rule out Mayo-Creutzfeldt. Start acyclovir empirically pending results of the MRI and LP. Iván Canela MD, PhD JOANN/zain , 04:12 PM , 04:19 PM
--- NOTE | 2017-11-03 17:45 | MR ---
EXAM DATE: 11/03/2017 5:40 PM EDT AGE/SEX: 72 years / Male INDICATIONS: Altered mental status. CLINICAL DATA: This is the patient's initial encounter. Patient reports that signs and symptoms have been present for 1 day and indicates a pain score of 0/10. MEDICAL/SURGICAL HISTORY: Hypertension. None. COMPARISON: [facility] [place], CT HEAD W/O CONTRAST, 11/03/2017. . TECHNIQUE: Multiplanar, multisequence examination of the brain was performed without contrast. FINDINGS: Exam is quite limited due to motion artifact on just about every pulse sequence. Cerebrum: The ventricles are normal for age. Symmetric, mild and stable cortical atrophy. No eviden ce of midline shift, mass lesion, hemorrhage or acute infarction. No extraaxial fluid collections ar e seen. The pituitary gland and suprasellar cistern are normal in configuration. White Matter: Minimal periventricular and scattered deep white matter tract areas of increased T2 FL AIR signal intensity. Posterior Fossa: The cerebellum and brainstem are intact. The 4th ventricle is midline. The cerebel lopontine angle is unremarkable. The cerebellar tonsils are normal in position. Diffusion Imaging: No focal areas of restricted diffusion are seen. No evidence of acute infarction . Extracranial: The visualized portions of the orbits and paranasal sinuses are unremarkable. CONCLUSION: 1. Exam is limited due to motion artifact on just about every pulse sequence. 2. However, grossly, nothing acute. Mild, symmetric cortical atrophy with some minimal small vessel ischemic demyelination. Electronically signed by: Hilton Cee MD 11/03/2017 5:44 PM EDT
[2017-11-03] MEDS: ACYCLOVIR IV.SIG SCH (18:09)
[2017-11-03] MEDS: SODIUM CHLOR 0.9% IV.SIG SCH (18:09)
[2017-11-03] MEDS ORDERED: Heparin - SQ 10,000 UNITS/ML Vial SQ SCH (21:00)
[2017-11-03] MEDS ORDERED: Digoxin Inj 500 MCG/2 ML Ampul IV.PUSH ONE ×2 (21:42)
[2017-11-03 23:31] LABS: Vitamin D 1,25-Dihydroxy 48 pg/mL (18-64)
[2017-11-03] MEDS: Mag Sulf 1 gm/100 ml Premix 100 ML IV.SIG SCH (23:58)
[2017-11-04] MEDS ORDERED: Metoprolol Inj 5 MG/5 ML Vial IV.PUSH ONE ×2 (00:48→11:45)
[2017-11-04] MEDS: Mag Sulf 1 gm/100 ml Premix 100 ML IV.SIG SCH (01:07)
[2017-11-04] MEDS: ACYCLOVIR IV.SIG SCH ×3 (01:08→17:37)
[2017-11-04] MEDS: SODIUM CHLOR 0.9% IV.SIG SCH ×3 (01:08→17:37)
[2017-11-04] MEDS: dilTIAZem 60 MG Tablet PO SCH ×5 (03:04→20:34)
[2017-11-04] MEDS: Senna/Docusate Sodium 8.6/50 MG Tablet PO SCH ×3 (03:05→20:34)
[2017-11-04] MEDS: Metoprolol Tartrate 50 MG Tablet PO SCH ×3 (03:05→20:34)
[2017-11-04] MEDS: Clevidipine Inj 25 MG/50 ML VIAL IV.CONT PRN (03:06)
[2017-11-04] MEDS ORDERED: Chlorhexidine Gluconate 2% 1 Pack (2 Cloths) TOPICAL PRN (04:00)
--- NOTE | 2017-11-04 07:26 | P.PNCC ---
Subjective Subjective Remarks/Hospital Course: The patient is a 72-year-old male with a past medical history of hypertension, hyperlipidemia, thrombocytopenia, vitamin B12 deficiency, who presented to [facility] ED on 10/29/2017 for altered mental status. He was [facility] Acted by ED provider. The patient is a poor historian and most of the history was obtained from reviewing medical records. He was given Ativan 3 mg total on arrival, due to his severe agitation. Patient was initially admitted under hospitalist service and he underwent a CT scan of the brain on 10/29/2017, which was a limited study due to severe motion artifact. A repeat CT scan of the brain was obtained earlier this morning, which showed atrophy, otherwise negative for acute process. CTA of the neck was performed on 11/02/2017 which showed no evidence of any hemodynamically significant carotid stenosis. The patient was found to be in atrial fibrillation with RVR this morning with a heart rate of 140s. He was given Lopressor 5 mg IV push and placed on p.o. Cardizem and p.o. Lopressor. Due to worsening mental status, he was transferred to ICU and critical care medicine was consulted for critical care management. The patient received additional 3 mg of Ativan since in the last 12 hours. MRI of the brain was ordered by the primary team. The patient does arouse to touch and verbalizes several words and able to move all extremities. 11/04 MRI brain last night showed no acute disease/Mild, symmetric cortical atrophy with some minimal small vessel ischemic demyelination.Patient pulled out NGT , On Amio drip for Afib with RVR, given Digoxin and started on Cleviprex drip last night. Objective Vital Signs / I&O: Vital Signs 11/03/17 08:00 11/03/17 12:00 11/03/17 14:47 Temperature 99.4 F 98.4 F Pulse Rate 148 H 140 H Respiratory Rate 18 Blood Pressure 138/72 140/88 Pulse Oximetry 94 L 99 11/03/17 15:55 11/03/17 16:00 11/03/17 16:15 Temperature Pulse Rate 129 H 136 H 137 H Respiratory Rate 25 H 33 H 29 H Blood Pressure 170/99 H 165/117 H Pulse Oximetry 99 96 11/03/17 16:24 11/03/17 16:34 11/03/17 17:27 Temperature Pulse Rate 128 H 134 H 129 H Respiratory Rate 34 H 26 H 38 H Blood Pressure 133/90 142/94 H Pulse Oximetry 78 L 92 L 11/03/17 17:28 11/03/17 17:29 11/03/17 17:31 Temperature Pulse Rate 134 H 131 H 129 H Respiratory Rate 30 H 36 H 34 H Blood Pressure 154/108 H 154/97 H 168/104 H Pulse Oximetry 11/03/17 17:35 11/03/17 17:45 11/03/17 20:00 Temperature 98.9 F Pulse Rate 129 H 119 H 148 H Respiratory Rate 29 H 33 H 24 Blood Pressure 155/85 H 151/97 H 208/100 H Pulse Oximetry 90 L 91 L 91 L 11/04/17 00:00 11/04/17 04:00 11/04/17 04:02 Temperature 99.4 F Pulse Rate 156 H 156 H Respiratory Rate 22 Blood Pressure 163/119 H Pulse Oximetry 94 L 95 11/04/17 07:10 Temperature Pulse Rate Respiratory Rate Blood Pressure Pulse Oximetry 96 Intake & Output 11/03/17 11/04/17 11/04/17 18:59 06:59 18:59 Intake Total 279 / 279 460.6 / 460.6 Output Total 450 / 450 Balance -171 / -171 460.6 / 460.6 Intake: IV 279 / 279 460.6 / 460.6 Cordarone Inj 450 MG In D5W Inj 250 / 250 241 ML @ 1 MG/MIN 33.33 mls/hr IV.CONT TITRATE PRN Rx#: [id number] NS Inj 1,000 ML @ 84 mls/hr IV. 279 / 279 CONT .[id number] GARY Rx#:[id number] Zovirax Inj 530 MG In NS Inj 110.6 / 110.6 100 ML @ 110.6 mls/hr IV.SIG Q8H GARY Rx#:[id number] Magnesium Sulfate 1 gm/D5W 100 100 / 100 ml Premix 100 ML @ 100 mls/hr IV.SIG Q1H GARY Rx#:[id number] Oral 0 / 0 Output: Urine 450 / 450 Other: # Voids 2 # Incontinent Voids 2 # Bowel Movements 0 # Incontinent Bowel Movements 0 Result Diagrams: 11/04/17 09:26 11/04/17 05:14 Other Results: Laboratory Results - last 12 hr 10/30/17 11/03/17 11/04/17 06:05 11:20 00:24 POC Glucose 165 H Thiamine 120 Vit D 1,25-Dihydroxy 48 Nasal Screen MRSA (PCR) Not detected 11/04/17 06:02 POC Glucose 137 H Thiamine Vit D 1,25-Dihydroxy Nasal Screen MRSA (PCR) Imaging: Carotid Doppler Study 11/02/17 00:00 CONCLUSION: 1. There is atherosclerotic plaquing at both carotid bifurcations. 2. 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 3. The vertebral arteries were not visualized. 4. Recommend CTA of the carotids for further evaluation. Neck CTA 11/02/17 00:00 CONCLUSION: 1. High right common carotid artery bifurcation. No evidence of hemodynamically significant carotid stenosis. 2. Diminutive right vertebral artery that terminates at the skull base. Basilar artery also has a diffusely narrow diameter. Head MRI 11/03/17 00:00 CONCLUSION: 1. Exam is limited due to motion artifact on just about every pulse sequence. 2. However, grossly, nothing acute. Mild, symmetric cortical atrophy with some minimal small vessel ischemic demyelination. Head CT 11/03/17 09:57 CONCLUSION: Atrophy, otherwise negative for an acute process. Ajay Pope MD FACR . Chest X-Ray 11/03/17 10:40 CONCLUSION: Mild compensated cardiomegaly Objective Remarks: GENERAL: Patient is 72 yo lying in be din NAD. SKIN: Warm and dry. HEAD: Normocephalic. EYES: No scleral icterus. No injection or drainage. NECK: Supple, trachea midline. No JVD or lymphadenopathy. CARDIOVASCULAR: Tachycardic, nl S1, S2 RESPIRATORY: Breath sounds equal bilaterally. No accessory muscle use. GASTROINTESTINAL: Abdomen soft, non-tender, nondistended. MUSCULOSKELETAL: No cyanosis, or edema. Neuro: Responds to voice, able to move all extremities. Assessment and Plan - Assessment and Plan Plan: 1. Respiratory insufficiency. 2. Encephalopathy. 3. Atrial fibrillation with rapid ventricular response. 4. Hypertension. 5. Hyperlipidemia. 6. Thrombocytopenia. Plan Neuro: Monitor neurologic status and avoid any sedatives. CT brain showed no acute intracranial process CTA of the neck showed no significant hemodynamic stenosis. MRI brain: No acute disease Neuro is following- Dr. Canela, for EEG and LP today. Started on Acyclovir empirically by Neuro. Pulm: Continue with oxygen maintain sats >92%. Bronchodilators CV: On Amio and Cleviprex drips. Monitor HR and BP keep MAP>65mmHg Continue Cardizem to 60 mg q.i.d, Lopressor to 50 b.i.d. Trop <0.02 x 2, for 2-D echo. : Monitor renal function, I's and O's, and electrolyte replacement per protocol. on D5NS@75ml/hr GI: on Pepcid for GI prophylaxis. NPO per speech. If he fails speech again today will reinsert NGT ( Patient pulled out NGT last night) ID: Monitor for signs of infection, which include fever and WBC. Check BC x 2sets, Give Vanco 1gram x1 and place on Zosyn empirically. Started on Acyclovir empirically by Neuro, for LP today. Endo: SSI with Accu-Cheks to maintain euglycemia. Heme: Monitor CBC. GI prophylaxis with Pepcid and DVT prophylaxis with SCDs. Palliative care is following. Level 3
[2017-11-04] MEDS: Insulin NovoLIN Regular Correctional Sugar Inj SQ SCH ×7 (07:46→20:33)
[2017-11-04] MEDS: Dextrose 5%/NaCl 0.9% Inj 1,000 ML IV.CONT SCH ×2 (07:48→15:38)
[2017-11-04] MEDS: Chlorhexidine Gluconate 2% 1 Pack (2 Cloths) TOPICAL SCH (07:49)
[2017-11-04 08:50] LABS: Alanine Aminotransferase 23 U/L (12-78); Albumin 3.4 g/dL (3.4-5.0); Alkaline Phosphatase 55 U/L (45-117); Anion Gap 11 meq/L (5-15); Aspartate Aminotransferase 25 U/L (15-37); Blood Urea Nitrogen 16 mg/dL (7-18); Calcium 8.2 mg/dL (8.5-10.1); Carbon Dioxide 26.4 meq/L (21.0-32.0); Chloride 104 meq/L (98-107); Digoxin 0.9 ng/mL (0.8-2.0); Glomerular Filtration Rate 84 mL/min (>89); Glucose,Random 123 mg/dL (74-106); Magnesium 2.4 mg/dL (1.5-2.5); Phosphorus 2.1 mg/dL (2.5-4.9); Sodium 141 meq/L (136-145)
[2017-11-04 08:56] LABS: Potassium 2.9 meq/L (3.5-5.1)
[2017-11-04 10:48] LABS: Baso % (Auto) 0.4 % (0.0-2.0); Eos # (Auto) 0.1 th/mm3 (0.0-0.4); Eos % (Auto) 1.3 % (0.0-4.0); Hematocrit 44.6 % (39.0-51.0); Lymph # (Auto) 0.7 th/mm3 (1.0-4.8); Lymph % (Auto) 6.6 % (9.0-44.0); Mean Corpuscular HGB Conc 33.7 % (32.0-36.0); Mean Corpuscular Hemoglobin 32.5 pg (27.0-34.0); Mean Corpuscular Volume 96.6 fL (80.0-100.0); Mean Platelet Volume 11.9 fL (7.0-11.0); Mono % (Auto) 10.4 % (0.0-8.0); Neut % (Auto) 81.3 % (16.0-70.0); Platelet Count 91 th/mm3 (150-450); Red Blood Count 4.61 mil/mm3 (4.50-5.90); Red Cell Distribution Width 13.5 % (11.6-17.2); White Blood Count 9.9 th/mm3 (4.0-11.0)
--- NOTE | 2017-11-04 10:52 | P.RAD ---
Post Procedure Progress Note - Pre Procedure Diagnosis (1) Delirium - Post Procedure Diagnosis (1) Delirium - Procedure Information Procedure Date: 11/04/17 Supervising Radiologist: Justus Pope MD Estimated blood loss (mL): 0 Anesthesia: Local - Plan of Activity Patient to Unit: Nursing Unit Patient Condition: Poor Additional Comments: LP completed without difficulty 11cc of clear csf removed See PACS Report for procedural detail/treatment.
[2017-11-04] MEDS ORDERED: Metoprolol Inj 5 MG/5 ML Vial ONE (11:25)
[2017-11-04] MEDS ORDERED: AMIODARONE IV.SIG ONE (12:00)
[2017-11-04] MEDS ORDERED: D5W BOLUS OVER IV.SIG ONE (12:00)
[2017-11-04 12:24] LABS: Total Protein,CSF 37.6 mg/dL (15.0-45.0)
[2017-11-04 12:36] LABS: Neutrophils,CSF 0 %; RBC on Tube 4 2 /mm3
[2017-11-04 12:38] LABS: ABG Base Excess 1.4 mmol/L (-2-2); ABG PCO2 35 mmHg (38-42); ABG PO2 84 mmHG (61-120)
--- NOTE | 2017-11-04 13:20 | P.PNPAL ---
Reason for Visit Reason for visit: a. To assist with evaluation and management of symptoms including: Encephalopathy, agitation b. To assist medical decision maker(s) with: better understanding of current medical conditions; weighing benefits/burdens of medical treatment options; making medical treatment decisions. Subjective Subjective/Interval History: INTERVAL NOTE: Patient seen to reassess workup for encephalopathy, management of agitation. The patient remains afebrile. He underwent an LP this morning, and there are no white cells, a couple red cells, normal protein level. He received some Ativan for the procedure and is fairly lethargic this time. He remains somewhat tachycardic, and various medications have been added for his rapid A. fib. MRI and CT both have motion artifact but show no obvious abnormalities other than some atrophy. Objective Vital Signs: Vital Signs 11/03/17 14:47 11/03/17 15:55 11/03/17 16:00 Temperature Pulse Rate 129 H 136 H Respiratory Rate 25 H 33 H Blood Pressure 170/99 H Pulse Oximetry 99 99 96 11/03/17 16:15 11/03/17 16:24 11/03/17 16:34 Temperature Pulse Rate 137 H 128 H 134 H Respiratory Rate 29 H 34 H 26 H Blood Pressure 165/117 H 133/90 142/94 H Pulse Oximetry 78 L 92 L 11/03/17 17:27 11/03/17 17:28 11/03/17 17:29 Temperature Pulse Rate 129 H 134 H 131 H Respiratory Rate 38 H 30 H 36 H Blood Pressure 154/108 H 154/97 H Pulse Oximetry 11/03/17 17:31 11/03/17 17:35 11/03/17 17:45 Temperature Pulse Rate 129 H 129 H 119 H Respiratory Rate 34 H 29 H 33 H Blood Pressure 168/104 H 155/85 H 151/97 H Pulse Oximetry 90 L 91 L 11/03/17 20:00 11/04/17 00:00 11/04/17 03:45 Temperature 98.9 F 99.4 F Pulse Rate 148 H 156 H 125 H Respiratory Rate 24 22 26 H Blood Pressure 208/100 H 163/119 H 138/73 Pulse Oximetry 91 L 94 L 95 11/04/17 04:00 11/04/17 04:02 11/04/17 04:15 Temperature Pulse Rate 117 H 148 H Respiratory Rate 27 H 31 H Blood Pressure 128/74 154/83 H Pulse Oximetry 97 95 96 11/04/17 04:30 11/04/17 04:46 11/04/17 05:00 Temperature Pulse Rate 152 H 142 H 133 H Respiratory Rate 36 H 40 H 27 H Blood Pressure 141/76 H 194/83 H 149/75 H Pulse Oximetry 82 L 94 L 93 L 11/04/17 05:15 11/04/17 05:30 11/04/17 05:46 Temperature Pulse Rate 125 H 128 H 115 H Respiratory Rate 31 H 21 19 Blood Pressure 152/72 H 147/70 H 158/70 H Pulse Oximetry 94 L 92 L 94 L 11/04/17 06:00 11/04/17 06:15 11/04/17 06:30 Temperature Pulse Rate 116 H 114 H 117 H Respiratory Rate 19 28 H 20 Blood Pressure 152/70 H 123/67 130/65 Pulse Oximetry 97 100 97 11/04/17 06:45 11/04/17 07:00 11/04/17 07:10 Temperature Pulse Rate 117 H 116 H Respiratory Rate 21 23 Blood Pressure 133/65 146/76 H Pulse Oximetry 98 97 96 11/04/17 07:15 11/04/17 07:30 11/04/17 07:45 Temperature Pulse Rate 116 H 110 H 117 H Respiratory Rate 22 31 H 29 H Blood Pressure 144/84 H 138/67 140/72 Pulse Oximetry 97 97 96 11/04/17 08:00 11/04/17 08:15 11/04/17 08:30 Temperature Pulse Rate 121 H 121 H 108 H Respiratory Rate 33 H 17 20 Blood Pressure 130/74 140/79 141/70 H Pulse Oximetry 86 L 94 L 96 11/04/17 08:45 11/04/17 09:00 11/04/17 09:15 Temperature Pulse Rate 130 H 130 H 118 H Respiratory Rate 31 H 19 21 Blood Pressure 141/65 H 126/74 131/72 Pulse Oximetry 95 94 L 84 L 11/04/17 09:30 11/04/17 09:45 11/04/17 11:07 Temperature Pulse Rate 128 H 154 H 154 H Respiratory Rate 21 28 H 21 Blood Pressure 131/63 145/85 H Pulse Oximetry 94 L 93 L 93 L 11/04/17 11:21 11/04/17 11:24 11/04/17 11:30 Temperature Pulse Rate 169 H 168 H 146 H Respiratory Rate 28 H 34 H 37 H Blood Pressure 129/95 H 150/91 H Pulse Oximetry 92 L 91 L 90 L 11/04/17 11:53 11/04/17 12:00 11/04/17 12:01 Temperature Pulse Rate 123 H 123 H 133 H Respiratory Rate 36 H 29 H 35 H Blood Pressure 182/98 H 169/137 H Pulse Oximetry 87 L 86 L 94 L 11/04/17 12:06 11/04/17 12:15 11/04/17 12:18 Temperature Pulse Rate 128 H 125 H 129 H Respiratory Rate 31 H 34 H 32 H Blood Pressure 189/98 H 193/105 H 193/97 H Pulse Oximetry 91 L 88 L 94 L 11/04/17 12:30 11/04/17 12:38 11/04/17 12:41 Temperature Pulse Rate 122 H 125 H 132 H Respiratory Rate 33 H 28 H 23 Blood Pressure 183/95 H 184/114 H 189/99 H Pulse Oximetry 92 L 86 L 84 L 11/04/17 12:45 11/04/17 12:52 Temperature Pulse Rate 129 H 132 H Respiratory Rate 26 H 36 H Blood Pressure 214/121 H 200/102 H Pulse Oximetry 84 L 88 L Intake & Output 11/03/17 11/04/17 11/04/17 18:59 06:59 18:59 Intake Total 279 / 279 1571.2 / 1571.2 Output Total 450 / 450 450 / 450 Balance -171 / -171 1121.2 / 1121.2 Weight 53.1 kg Intake: IV 279 / 279 1571.2 / 1571.2 Cordarone Inj 450 MG In D5W Inj 250 / 250 241 ML @ 1 MG/MIN 33.33 mls/hr IV.CONT TITRATE PRN Rx#: [id number] D5W/Normal Saline Inj 1,000 ML 1000 / 1000 @ 75 mls/hr IV.CONT .[id number] GARY Rx#:[id number] NS Inj 1,000 ML @ 84 mls/hr IV. 279 / 279 CONT .[id number] GARY Rx#:[id number] Zovirax Inj 530 MG In NS Inj 221.2 / 221.2 100 ML @ 110.6 mls/hr IV.SIG Q8H GARY Rx#:[id number] Magnesium Sulfate 1 gm/D5W 100 100 / 100 ml Premix 100 ML @ 100 mls/hr IV.SIG Q1H GARY Rx#:[id number] Oral 0 / 0 0 / 0 Output: Urine 450 / 450 450 / 450 Other: # Voids 2 2 # Incontinent Voids 2 2 # Bowel Movements 0 0 # Incontinent Bowel Movements 0 0 Physical Exam: CONSTITUTIONAL/GENERAL: This is a thin, chronically ill-appearing patient, in no apparent distress. TUBES/LINES/DRAINS: Nasal oxygen, IV access, condom catheter SKIN: No jaundice, rashes, or lesions. Ecchymoses on upper extremities. No wounds seen anteriorly. Skin temperature appropriate. Not diaphoretic. HEAD: Atraumatic. Normocephalic. EYES: Pupils equal and round and reactive. No scleral icterus. NECK: Trachea midline. Supple, nontender. No palpable thyroid enlargement or nodularity. CARDIOVASCULAR: Irregular and rapid rhythm. No JVD. Peripheral pulses diminished. RESPIRATORY/CHEST: Symmetric, unlabored respirations. A couple scattered rhonchi. GASTROINTESTINAL: Abdomen soft, non-tender, nondistended. No hepato-splenomegaly , or palpable masses. No guarding. Bowel sounds present. MUSCULOSKELETAL: Extremities without clubbing, cyanosis, or edema. No joint tenderness or effusion noted. No calf tenderness. No mottling or clubbing. NEUROLOGICAL: Lethargic, intermittently agitated, does not follow commands. PSYCHIATRIC: Agitated and combative at times Diagnostic Tests Laboratory: Laboratory Results - last 72 hr 10/30/17 11/03/17 11/03/17 06:05 11:20 11:20 WBC RBC Hgb Hct MCV MCH MCHC RDW Plt Count MPV Prelim Diff (Auto) Neut % (Auto) Lymph % (Auto) Kerr % (Auto) Eos % (Auto) Baso % (Auto) Neut # (Auto) Lymph # (Auto) Kerr # (Auto) Eos # (Auto) Baso # (Auto) WBC Differential Diff Scan Differential Comment Platelet Estimate Platelet Morphology Puncture Site Patient Temperature O2 Saturation ABG pH ABG pCO2 ABG pO2 ABG HCO3 ABG O2 Content ABG Base Excess ABG Methemoglobin Jamie Test Hemoglobin Carboxyhemoglobin O2 Delivery Device Liter Flow Vent Setting Inspired O2 Critical Value Sodium 141 Potassium 3.8 Chloride 105 Carbon Dioxide 24.3 Anion Gap 12 BUN 19 H Creatinine 1.03 Estimated GFR 71 L POC Glucose Random Glucose 106 Calcium 8.6 Phosphorus 4.9 Magnesium 1.9 Total Bilirubin 1.2 H AST 33 ALT 23 Alkaline Phosphatase 61 Troponin I Total Protein 7.3 Albumin 3.9 Thiamine 120 Vit D 1,25-Dihydroxy 48 TSH CSF Volume (1) CSF Supernat Color (1) CSF Gross Blood (1) CSF Volume (2) CSF Supernat Color (2) CSF Gross Blood (2) CSF Volume (3) CSF Supernat Color (3) CSF Gross Blood (3) CSF Volume (4) CSF Supernat Color (4) CSF Gross Blood (4) CSF WBC (4) CSF RBC (4) CSF Neutrophils % CSF Glucose CSF Total Protein Nasal Screen MRSA (PCR) Not detected Digoxin 11/03/17 11/03/17 11/03/17 12:12 12:12 12:44 WBC RBC Hgb Hct MCV MCH MCHC RDW Plt Count MPV Prelim Diff (Auto) Neut % (Auto) Lymph % (Auto) Kerr % (Auto) Eos % (Auto) Baso % (Auto) Neut # (Auto) Lymph # (Auto) Kerr # (Auto) Eos # (Auto) Baso # (Auto) WBC Differential Diff Scan Differential Comment Platelet Estimate Platelet Morphology Puncture Site Right radial Cancelled Patient Temperature 98.6 Cancelled O2 Saturation 95 Cancelled ABG pH 7.45 H Cancelled ABG pCO2 31 L Cancelled ABG pO2 93 Cancelled ABG HCO3 22 Cancelled ABG O2 Content 19.6 Cancelled ABG Base Excess -1.9 Cancelled ABG Methemoglobin 1.3 Cancelled Jamie Test Present Cancelled Hemoglobin 14.6 Cancelled Carboxyhemoglobin 1.1 Cancelled O2 Delivery Device Nasal cannula Cancelled Liter Flow 2.00 Cancelled Vent Setting Cancelled Inspired O2 28 Cancelled Critical Value No Cancelled Sodium Potassium Chloride Carbon Dioxide Anion Gap BUN Creatinine Estimated GFR POC Glucose 149 H Random Glucose Calcium Phosphorus Magnesium Total Bilirubin AST ALT Alkaline Phosphatase Troponin I Total Protein Albumin Thiamine Vit D 1,25-Dihydroxy TSH CSF Volume (1) CSF Supernat Color (1) CSF Gross Blood (1) CSF Volume (2) CSF Supernat Color (2) CSF Gross Blood (2) CSF Volume (3) CSF Supernat Color (3) CSF Gross Blood (3) CSF Volume (4) CSF Supernat Color (4) CSF Gross Blood (4) CSF WBC (4) CSF RBC (4) CSF Neutrophils % CSF Glucose CSF Total Protein Nasal Screen MRSA (PCR) Digoxin 11/03/17 11/03/17 11/03/17 14:40 14:45 16:23 WBC 11.3 H RBC 4.34 L Hgb 14.1 Hct 41.7 MCV 96.1 MCH 32.4 MCHC 33.7 RDW 13.5 Plt Count 84 L MPV 11.9 H Prelim Diff (Auto) Slide review pending Neut % (Auto) 80.4 H Lymph % (Auto) 7.8 L Kerr % (Auto) 11.2 H Eos % (Auto) 0.2 Baso % (Auto) 0.4 Neut # (Auto) 9.1 H Lymph # (Auto) 0.9 L Kerr # (Auto) 1.3 H Eos # (Auto) 0.0 Baso # (Auto) 0.0 WBC Differential . Diff Scan Auto diff confirmed Differential Comment . Platelet Estimate Low L Platelet Morphology Enlarged H Puncture Site Patient Temperature O2 Saturation ABG pH ABG pCO2 ABG pO2 ABG HCO3 ABG O2 Content ABG Base Excess ABG Methemoglobin Jamie Test Hemoglobin Carboxyhemoglobin O2 Delivery Device Liter Flow Vent Setting Inspired O2 Critical Value Sodium Potassium Chloride Carbon Dioxide Anion Gap BUN Creatinine Estimated GFR POC Glucose 153 H Random Glucose Calcium Phosphorus Magnesium Total Bilirubin AST ALT Alkaline Phosphatase Troponin I Less than 0.02 L Total Protein Albumin Thiamine Vit D 1,25-Dihydroxy TSH 1.580 CSF Volume (1) CSF Supernat Color (1) CSF Gross Blood (1) CSF Volume (2) CSF Supernat Color (2) CSF Gross Blood (2) CSF Volume (3) CSF Supernat Color (3) CSF Gross Blood (3) CSF Volume (4) CSF Supernat Color (4) CSF Gross Blood (4) CSF WBC (4) CSF RBC (4) CSF Neutrophils % CSF Glucose CSF Total Protein Nasal Screen MRSA (PCR) Digoxin 11/04/17 11/04/17 11/04/17 00:24 05:14 06:02 WBC RBC Hgb Hct MCV MCH MCHC RDW Plt Count MPV Prelim Diff (Auto) Neut % (Auto) Lymph % (Auto) Kerr % (Auto) Eos % (Auto) Baso % (Auto) Neut # (Auto) Lymph # (Auto) Kerr # (Auto) Eos # (Auto) Baso # (Auto) WBC Differential Diff Scan Differential Comment Platelet Estimate Platelet Morphology Puncture Site Patient Temperature O2 Saturation ABG pH ABG pCO2 ABG pO2 ABG HCO3 ABG O2 Content ABG Base Excess ABG Methemoglobin Jamie Test Hemoglobin Carboxyhemoglobin O2 Delivery Device Liter Flow Vent Setting Inspired O2 Critical Value Sodium 141 Potassium 2.9 L* D Chloride 104 Carbon Dioxide 26.4 Anion Gap 11 BUN 16 Creatinine 0.89 Estimated GFR 84 L POC Glucose 165 H 137 H Random Glucose 123 H Calcium 8.2 L Phosphorus 2.1 L D Magnesium 2.4 Total Bilirubin 0.9 AST 25 ALT 23 Alkaline Phosphatase 55 Troponin I Total Protein 7.0 Albumin 3.4 Thiamine Vit D 1,25-Dihydroxy TSH CSF Volume (1) CSF Supernat Color (1) CSF Gross Blood (1) CSF Volume (2) CSF Supernat Color (2) CSF Gross Blood (2) CSF Volume (3) CSF Supernat Color (3) CSF Gross Blood (3) CSF Volume (4) CSF Supernat Color (4) CSF Gross Blood (4) CSF WBC (4) CSF RBC (4) CSF Neutrophils % CSF Glucose CSF Total Protein Nasal Screen MRSA (PCR) Digoxin 0.9 11/04/17 11/04/17 11/04/17 09:26 10:39 10:39 WBC 9.9 RBC 4.61 Hgb 15.0 Hct 44.6 MCV 96.6 MCH 32.5 MCHC 33.7 RDW 13.5 Plt Count 91 L MPV 11.9 H Prelim Diff (Auto) Slide review pending Neut % (Auto) 81.3 H Lymph % (Auto) 6.6 L Kerr % (Auto) 10.4 H Eos % (Auto) 1.3 Baso % (Auto) 0.4 Neut # (Auto) 8.0 H Lymph # (Auto) 0.7 L Kerr # (Auto) 1.0 H Eos # (Auto) 0.1 Baso # (Auto) 0.0 WBC Differential . Diff Scan Auto diff confirmed Differential Comment . Platelet Estimate Low L Platelet Morphology Enlarged H Puncture Site Patient Temperature O2 Saturation ABG pH ABG pCO2 ABG pO2 ABG HCO3 ABG O2 Content ABG Base Excess ABG Methemoglobin Jamie Test Hemoglobin Carboxyhemoglobin O2 Delivery Device Liter Flow Vent Setting Inspired O2 Critical Value Sodium Potassium Chloride Carbon Dioxide Anion Gap BUN Creatinine Estimated GFR POC Glucose Random Glucose Calcium Phosphorus Magnesium Total Bilirubin AST ALT Alkaline Phosphatase Troponin I Total Protein Albumin Thiamine Vit D 1,25-Dihydroxy TSH CSF Volume (1) 2.9 CSF Supernat Color (1) Clear CSF Gross Blood (1) 1+ A CSF Volume (2) 3.0 CSF Supernat Color (2) Clear CSF Gross Blood (2) 0 CSF Volume (3) 3.0 CSF Supernat Color (3) Clear CSF Gross Blood (3) Trace A CSF Volume (4) 2.1 CSF Supernat Color (4) Clear CSF Gross Blood (4) 0 CSF WBC (4) 0 CSF RBC (4) 2 H CSF Neutrophils % 0 CSF Glucose 90 H CSF Total Protein 37.6 Nasal Screen MRSA (PCR) Digoxin 11/04/17 11/04/17 11:54 12:24 WBC RBC Hgb Hct MCV MCH MCHC RDW Plt Count MPV Prelim Diff (Auto) Neut % (Auto) Lymph % (Auto) Kerr % (Auto) Eos % (Auto) Baso % (Auto) Neut # (Auto) Lymph # (Auto) Kerr # (Auto) Eos # (Auto) Baso # (Auto) WBC Differential Diff Scan Differential Comment Platelet Estimate Platelet Morphology Puncture Site Right radial Patient Temperature 98.6 O2 Saturation 94 ABG pH 7.46 H ABG pCO2 35 L ABG pO2 84 ABG HCO3 25 ABG O2 Content 20.0 ABG Base Excess 1.4 ABG Methemoglobin 1.4 Jamie Test Present Hemoglobin 15.1 Carboxyhemoglobin 1.0 O2 Delivery Device Nasal cannula Liter Flow 2.00 Vent Setting Inspired O2 21 Critical Value No Sodium Potassium Chloride Carbon Dioxide Anion Gap BUN Creatinine Estimated GFR POC Glucose 134 H Random Glucose Calcium Phosphorus Magnesium Total Bilirubin AST ALT Alkaline Phosphatase Troponin I Total Protein Albumin Thiamine Vit D 1,25-Dihydroxy TSH CSF Volume (1) CSF Supernat Color (1) CSF Gross Blood (1) CSF Volume (2) CSF Supernat Color (2) CSF Gross Blood (2) CSF Volume (3) CSF Supernat Color (3) CSF Gross Blood (3) CSF Volume (4) CSF Supernat Color (4) CSF Gross Blood (4) CSF WBC (4) CSF RBC (4) CSF Neutrophils % CSF Glucose CSF Total Protein Nasal Screen MRSA (PCR) Digoxin Result Diagrams: 11/04/17 09:26 11/04/17 05:14 Microbiology: Microbiology 11/04/17 10:39 Gram Stain - Final Lumbar Puncture Imaging: Carotid Doppler Study 11/02/17 00:00 CONCLUSION: 1. There is atherosclerotic plaquing at both carotid bifurcations. 2. 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 3. The vertebral arteries were not visualized. 4. Recommend CTA of the carotids for further evaluation. Neck CTA 11/02/17 00:00 CONCLUSION: 1. High right common carotid artery bifurcation. No evidence of hemodynamically significant carotid stenosis. 2. Diminutive right vertebral artery that terminates at the skull base. Basilar artery also has a diffusely narrow diameter. Head MRI 11/03/17 00:00 CONCLUSION: 1. Exam is limited due to motion artifact on just about every pulse sequence. 2. However, grossly, nothing acute. Mild, symmetric cortical atrophy with some minimal small vessel ischemic demyelination. Head CT 11/03/17 09:57 CONCLUSION: Atrophy, otherwise negative for an acute process. Ajay Pope MD FACR . Chest X-Ray 11/03/17 10:40 CONCLUSION: Mild compensated cardiomegaly Procedures: Restraints 10/29/17 Assessment and Plan - Disease Oriented Problem List (1) Delirium Comment: Evaluation continues as we search for etiology of this encephalopathy (2) Rapid atrial fibrillation (3) Altered mental status (4) Thrombocytopenia Pertinent Non-Medical Issues: Psychosocial: Never , no children, lives alone in an apartment. Did [employer] work in the past. Spiritual: Not spiritual or uatsdin according to the patient's brother. Legal: It is unlikely that the patient will regain capacity for decision-making in the near future. His brother Too Hand is his proxy decision maker. Ethical issues impacting care: The patient is unable to make his own decisions. Important Contacts: Brother: Too Hand, [facility], cell [phone] [id number]: [employer], office [phone], <--- DURING THE DAY, CALL THIS NUMBER FIRST Prognosis: The patient appears somewhat cachectic, and his delirium/encephalopathy may be multifactorial or even primarily psychiatric. Overall, his prognosis is poor if the encephalopathy does not improve soon. Code Status: Full Code Plan: * FULL CODE * DECISION-MAKING: The patient lacks capacity for decision-making, and It is unknown whether the patient will regain capacity for decision-making in the near future. His brother Too Hand is his proxy decision maker. * GOALS: The patient's brother, who was unaware that the patient was in the hospital until I called him 11/03/17, wants aggressive care continued for now. He will be coming to see the patient in a couple days and we will discuss goals of medical treatment further at that time. * SYMPTOMS: The patient's agitation and combativeness has been treated intermittently PRN Lorazepam and Zyprexa. He is not combative at this time, and I have no further medication recommendations. * Palliative Care will continue to follow the patient during this hospitalization. Time Spent Total Floor Time (mins): 36 Face to Face Time (mins): 14 >50% Time in Counseling or Coordination of Care: Yes (d/w RN)
--- NOTE | 2017-11-04 16:01 | IR ---
EXAM DATE: 11/04/2017 11:08 AM EDT AGE/SEX: 72 years / Male INDICATIONS: Patient presents with altered mental status in need of lumbar puncture. CLINICAL DATA: This is the patient's initial encounter. Patient reports that signs and symptoms have been present for 4 - 6 days and indicates a pain score of Nonresponsive. MEDICAL/SURGICAL HISTORY: Anemia. Hypertension. HLD, Thrombocytopenia, Vitamin B12 deficiency . COMPARISON: No prior exams available for comparison. FLUORO TIME (min): 1.2 IMAGE SERIES: 2 ACCESS SITE: L4-5 LUMBAR PUNCTURE TIME: 1039 hours FLUID: Total volume of 11 cc of clear fluid was removed. Fluid was sent to lab for ordered studies. MEDICATION(S): 2mg lorazepam (Ativan) IV . . PROCEDURE: 1. Fluoroscopic guided lumbar puncture. The risks, benefits and alternatives to the procedure were explained and verbal and written consent w as obtained. The site was prepped in sterile fashion. Full sterile technique was used, including ca p, mask, sterile gloves and gown and a large sterile sheet. Hand hygiene and 2% chlorhexidine and/or betadine/alcohol prep was utilized per protocol for cutaneous antisepsis. The skin and subcutaneous tissues were infiltrated with local anesthetic solution. With fluoroscopic guidance the lumbar thecal sac was punctured at the level above. The fluid describ ed above was removed without difficulty. The patient tolerated the procedure well and there were no complications. CONCLUSION: 1. Uncomplicated fluoroscopically guided lumbar puncture. Electronically signed by: Justus Pope MD 11/04/2017 4:00 PM EDT
--- NOTE | 2017-11-04 16:52 | MG ---
cc: Iván Canela MD, PhD DATE OF STUDY: 11/04/2017 TEST NUMBER: [id number] TECHNIQUE: A 17-channel EEG. DESCRIPTION: The background rhythm reveals mild theta activity at roughly 5-6 Hz, amplitude 20-30 microvolts. Some muscle artifact was identified. No lateralizing features are seen. Hyperventilation was not done. Photic results in a modest driving response. No epileptiform features are seen. INTERPRETATION: Mildly abnormal study consistent with a mild encephalopathy. Iván Canela MD, PhD JOANN/janey , 04:39 PM , 04:45 PM
[2017-11-04] MEDS ORDERED: Vancomycin Inj 1,000 MG in Sodium Chlor 0.9% Inj 250 ML IV.SIG ONE (17:00)
[2017-11-04] MEDS: Piperacil/Tazo 4.5 GM Premix 4.5 GM/100 ML BAG IV.SIG SCH ×2 (17:35→23:47)
--- NOTE | 2017-11-04 21:34 | MB ---
cc: Neptali Salas MD, Enas G MD DATE: 11/04/2017 REASON FOR CONSULTATION: Hematology consult for evaluation of thrombocytopenia, admitted with mental status change. HISTORY OF PRESENT ILLNESS: The patient is a 72-year-old male admitted to the hospital 10/29/2017 with mental status change. His workup has been negative so far. He was also found to have atrial fibrillation with rapid ventricular rate. He developed respiratory insufficiency and worsening mental status changes, where he was admitted to intensive care unit. He presented with a platelet count of 86. His platelet count is fluctuating between 80 to 100. He also has mild leukocytosis. Hemoglobin is normal. A hematology consult for further evaluation for thrombocytopenia. The patient is going to have a lumbar puncture. The patient is not able to provide any history. He is agitated and in restraints when I saw him. Nursing staff did not report any bleeding. PAST MEDICAL HISTORY: 1. Hypertension. 2. Hyperlipidemia. 3. Anemia. 4. Chronic thrombocytopenia with baseline platelet count around 90,000. 5. B12 deficiency. 6. Chronic anemia. 7. Dysphonia. 8. Hearing loss. 9. Dilated common bile duct. PAST SURGICAL HISTORY: Tonsillectomy. FAMILY HISTORY: Not able to obtain. SOCIAL HISTORY: No recorded history of tobacco or alcohol use. ALLERGIES: NO KNOWN DRUG ALLERGIES. CURRENT MEDICATIONS: 1. Acyclovir. 2. DuoNeb. 3. Amiodarone. 4. Lipitor. 4. Cleviprex. 5. Diltiazem. 6. Metoprolol. 7. Zosyn. REVIEW OF SYSTEMS: Not able to obtain. PHYSICAL EXAMINATION: VITAL SIGNS: Temperature 99.4, blood pressure 131/72. GENERAL: He is confused, agitated. HEENT: Atraumatic, normocephalic. Oropharynx dry mucosa, edentulous. NECK: No thyromegaly. LYMPHATICS: No palpable supraclavicular or axillary lymph nodes. CARDIOVASCULAR: Irregularly irregular, S1, S2. LUNGS: Clear to auscultation anteriorly. ABDOMEN: Soft, could palpate liver and spleen. EXTREMITIES: No cyanosis, clubbing, or edema. SKIN: No rash or petechia. NEUROLOGIC: Moving all 4 extremities. LABORATORY DATA: Laboratory data dated 11/04/2009 was reviewed. ASSESSMENT AND PLAN: 1. Chronic thrombocytopenia. His baseline platelet count was around 90,000. Since admission, his platelet count has fluctuated between 80,000-100,000 which is his baseline. 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 We cannot totally rule out myelodysplastic syndrome, but the patient refused a bone marrow biopsy in the past. His platelet count is actually quite stable for many years. No further hematology intervention needed at this time. 2. History of chronic mild anemia. His hemoglobin actually is normal at this time. 3. B12 deficiency. The patient has stopped coming to clinic for B12 injection since March. His B12 level is low. We will start him back on the B12 supplement. 4. Mental status change. His CT scan and MRI have been unremarkable. He is awaiting a lumbar puncture. Neurology evaluation is ongoing. 5. Atrial fibrillation with rapid ventricular rate. His rate is now controlled. RECOMMENDATIONS: 1. No further workup necessary for the thrombocytopenia at this time. 2. Start B12 injection. 3. Monitor CBC. Thank you Dr. Isidro for asking me to see this patient. MD RAHAT Mena/bonnie , 07:00 PM , 07:14 PM
[2017-11-05] MEDS: SODIUM CHLOR 0.9% IV.SIG SCH ×2 (01:59→09:28)
[2017-11-05] MEDS: ACYCLOVIR IV.SIG SCH ×2 (01:59→09:28)
[2017-11-05] MEDS: Insulin NovoLIN Regular Correctional Sugar Inj SQ SCH ×7 (04:00→23:37)
[2017-11-05 04:32] LABS: Baso % (Auto) 0.1 % (0.0-2.0); Hematocrit 44.1 % (39.0-51.0); Hemoglobin 14.8 gm/dL (13.0-17.0); Lymph # (Auto) 0.6 th/mm3 (1.0-4.8); Lymph % (Auto) 2.8 % (9.0-44.0); Mean Corpuscular HGB Conc 33.6 % (32.0-36.0); Mean Corpuscular Hemoglobin 32.3 pg (27.0-34.0); Mean Corpuscular Volume 96.1 fL (80.0-100.0); Mean Platelet Volume 12.2 fL (7.0-11.0); Mono # (Auto) 1.9 th/mm3 (0.0-0.9); Mono % (Auto) 8.6 % (0.0-8.0); Neut # (Auto) 19.2 th/mm3 (1.8-7.7); Neut % (Auto) 88.5 % (16.0-70.0); Platelet Count 83 th/mm3 (150-450); Red Blood Count 4.59 mil/mm3 (4.50-5.90); Red Cell Distribution Width 13.6 % (11.6-17.2); White Blood Count 21.7 th/mm3 (4.0-11.0)
[2017-11-05 05:00] LABS: Anion Gap 11 meq/L (5-15); Aspartate Aminotransferase 35 U/L (15-37); Blood Urea Nitrogen 30 mg/dL (7-18); Calcium 7.8 mg/dL (8.5-10.1); Carbon Dioxide 22.6 meq/L (21.0-32.0); Chloride 110 meq/L (98-107); Glomerular Filtration Rate 32 mL/min (>89); Glucose,Random 177 mg/dL (74-106); Magnesium 2.1 mg/dL (1.5-2.5); Phosphorus 3.2 mg/dL (2.5-4.9); Potassium 3.7 meq/L (3.5-5.1); Sodium 144 meq/L (136-145)
[2017-11-05] MEDS: Piperacil/Tazo 4.5 GM Premix 4.5 GM/100 ML BAG IV.SIG SCH ×2 (05:00→10:55)
[2017-11-05 05:01] LABS: Alanine Aminotransferase 27 U/L (12-78); Albumin 3.2 g/dL (3.4-5.0); Alkaline Phosphatase 52 U/L (45-117); Total Protein 6.7 g/dL (6.4-8.2)
[2017-11-05] MEDS: Chlorhexidine Gluconate 2% 1 Pack (2 Cloths) TOPICAL SCH (05:02)
[2017-11-05] MEDS: Dextrose 5%/NaCl 0.9% Inj 1,000 ML IV.CONT SCH ×2 (05:03→19:00)
[2017-11-05 05:49] LABS: Lymphocytes 2 % (9-44); Monocytes 10 % (0-8)
[2017-11-05 05:51] LABS: Acanthocytes Occ; Ovalocytes 1+; Toxic Vacuolation Present
--- NOTE | 2017-11-05 07:02 | P.PNCC ---
Subjective Subjective Remarks/Hospital Course: The patient is a 72-year-old male with a past medical history of hypertension, hyperlipidemia, thrombocytopenia, vitamin B12 deficiency, who presented to [facility] ED on 10/29/2017 for altered mental status. He was [facility] Acted by ED provider. The patient is a poor historian and most of the history was obtained from reviewing medical records. He was given Ativan 3 mg total on arrival, due to his severe agitation. Patient was initially admitted under hospitalist service and he underwent a CT scan of the brain on 10/29/2017, which was a limited study due to severe motion artifact. A repeat CT scan of the brain was obtained earlier this morning, which showed atrophy, otherwise negative for acute process. CTA of the neck was performed on 11/02/2017 which showed no evidence of any hemodynamically significant carotid stenosis. The patient was found to be in atrial fibrillation with RVR this morning with a heart rate of 140s. He was given Lopressor 5 mg IV push and placed on p.o. Cardizem and p.o. Lopressor. Due to worsening mental status, he was transferred to ICU and critical care medicine was consulted for critical care management. The patient received additional 3 mg of Ativan since in the last 12 hours. MRI of the brain was ordered by the primary team. The patient does arouse to touch and verbalizes several words and able to move all extremities. 11/04 MRI brain last night showed no acute disease/Mild, symmetric cortical atrophy with some minimal small vessel ischemic demyelination.Patient pulled out NGT , On Amio drip for Afib with RVR, given Digoxin and started on Cleviprex drip last night. 11/05 Patient remains on Amio drip. Had T: 102 yesterday. s/p LP showed clear CSF , 0 WBC. Renal function worse with Cr: 2.04 from 0.89. Objective Vital Signs / I&O: Vital Signs 11/04/17 07:00 11/04/17 07:10 11/04/17 07:15 Temperature Pulse Rate 116 H 116 H Respiratory Rate 23 22 Blood Pressure 146/76 H 144/84 H Pulse Oximetry 97 96 97 11/04/17 07:30 11/04/17 07:45 11/04/17 08:00 Temperature Pulse Rate 110 H 117 H 121 H Respiratory Rate 31 H 29 H 33 H Blood Pressure 138/67 140/72 130/74 Pulse Oximetry 97 96 86 L 11/04/17 08:15 11/04/17 08:30 11/04/17 08:45 Temperature Pulse Rate 121 H 108 H 130 H Respiratory Rate 17 20 31 H Blood Pressure 140/79 141/70 H 141/65 H Pulse Oximetry 94 L 96 95 11/04/17 09:00 11/04/17 09:15 11/04/17 09:30 Temperature Pulse Rate 130 H 118 H 128 H Respiratory Rate 19 21 21 Blood Pressure 126/74 131/72 131/63 Pulse Oximetry 94 L 84 L 94 L 11/04/17 09:45 11/04/17 11:07 11/04/17 11:21 Temperature Pulse Rate 154 H 154 H 169 H Respiratory Rate 28 H 21 28 H Blood Pressure 145/85 H 129/95 H Pulse Oximetry 93 L 93 L 92 L 11/04/17 11:24 11/04/17 11:30 11/04/17 11:53 Temperature Pulse Rate 168 H 146 H 123 H Respiratory Rate 34 H 37 H 36 H Blood Pressure 150/91 H 182/98 H Pulse Oximetry 91 L 90 L 87 L 11/04/17 12:00 11/04/17 12:01 11/04/17 12:06 Temperature Pulse Rate 132 H 133 H 128 H Respiratory Rate 29 H 35 H 31 H Blood Pressure 169/137 H 189/98 H Pulse Oximetry 86 L 94 L 91 L 11/04/17 12:15 11/04/17 12:18 11/04/17 12:30 Temperature Pulse Rate 125 H 129 H 122 H Respiratory Rate 34 H 32 H 33 H Blood Pressure 193/105 H 193/97 H 183/95 H Pulse Oximetry 88 L 94 L 92 L 11/04/17 12:38 11/04/17 12:41 11/04/17 12:45 Temperature Pulse Rate 125 H 132 H 129 H Respiratory Rate 28 H 23 26 H Blood Pressure 184/114 H 189/99 H 214/121 H Pulse Oximetry 86 L 84 L 84 L 11/04/17 12:52 11/04/17 12:55 11/04/17 13:00 Temperature Pulse Rate 132 H 122 H 121 H Respiratory Rate 36 H 31 H 30 H Blood Pressure 200/102 H 179/88 H 175/101 H Pulse Oximetry 88 L 89 L 87 L 11/04/17 13:11 11/04/17 13:18 11/04/17 13:21 Temperature Pulse Rate 106 H 125 H 120 H Respiratory Rate 31 H 38 H 35 H Blood Pressure 181/84 H 169/120 H 175/114 H Pulse Oximetry 84 L 94 L 91 L 11/04/17 13:23 11/04/17 13:27 11/04/17 13:30 Temperature Pulse Rate 123 H 118 H 119 H Respiratory Rate 31 H 34 H 37 H Blood Pressure 194/115 H 178/109 H 136/96 H Pulse Oximetry 80 L 81 L 92 L 11/04/17 13:45 11/04/17 13:47 11/04/17 14:00 Temperature Pulse Rate 124 H 117 H 125 H Respiratory Rate 35 H 33 H 33 H Blood Pressure 178/110 H 175/90 H 171/95 H Pulse Oximetry 86 L 85 L 88 L 11/04/17 14:19 11/04/17 14:30 11/04/17 15:00 Temperature Pulse Rate 121 H 105 H 106 H Respiratory Rate 28 H 25 H 24 Blood Pressure 132/87 Pulse Oximetry 94 L 95 11/04/17 15:30 11/04/17 16:00 11/04/17 16:27 Temperature 102.0 F H Pulse Rate 113 H 121 H 113 H Respiratory Rate 24 29 H 27 H Blood Pressure 134/91 H Pulse Oximetry 93 L 94 L 93 L 11/04/17 16:30 11/04/17 16:45 11/04/17 17:01 Temperature 100.5 F H Pulse Rate 118 H 116 H Respiratory Rate 27 H 29 H Blood Pressure 126/94 H 138/91 H Pulse Oximetry 94 L 96 11/04/17 20:00 11/04/17 20:25 11/05/17 00:00 Temperature 98.7 F 98.3 F Pulse Rate 132 H 118 H Respiratory Rate 30 H 37 H Blood Pressure 152/85 H 135/75 Pulse Oximetry 91 L 97 95 11/05/17 00:14 11/05/17 04:00 Temperature 97.9 F Pulse Rate 114 H 155 H Respiratory Rate 24 26 H Blood Pressure 137/82 Pulse Oximetry 99 Intake & Output 11/04/17 11/04/17 11/05/17 06:59 18:59 06:59 Intake Total 1571.2 / 1571.2 1321.2 / 1321.2 1310.6 / 1310.6 Output Total 450 / 450 450 / 450 Balance 1121.2 / 1121.2 871.2 / 871.2 1310.6 / 1310.6 Weight 53.1 kg Intake: IV 1571.2 / 1571.2 1321.2 / 1321.2 1310.6 / 1310.6 Cordarone Inj 450 MG In D5W Inj 250 / 250 0 / 0 241 ML @ 1 MG/MIN 33.33 mls/hr IV.CONT TITRATE PRN Rx#: [id number] D5W/Normal Saline Inj 1,000 ML 1000 / 1000 1000 / 1000 1000 / 1000 @ 75 mls/hr IV.CONT .[id number] GARY Rx#:[id number] Zovirax Inj 530 MG In NS Inj 221.2 / 221.2 221.2 / 221.2 110.6 / 110.6 100 ML @ 110.6 mls/hr IV.SIG Q8H GARY Rx#:[id number] Magnesium Sulfate 1 gm/D5W 100 100 / 100 ml Premix 100 ML @ 100 mls/hr IV.SIG Q1H GARY Rx#:[id number] Zosyn 4.5 GM Premix 4.5 gm In 100 / 100 200 / 200 100 ml @ 200 mls/hr IV.SIG Q6H GARY Rx#:[id number] Oral 0 / 0 0 / 0 Output: Urine 450 / 450 450 / 450 Other: # Voids 2 2 # Incontinent Voids 2 2 # Bowel Movements 0 0 # Incontinent Bowel Movements 0 0 Result Diagrams: 11/05/17 04:10 11/05/17 04:10 Other Results: Laboratory Results - last 12 hr 11/04/17 11/04/17 11/05/17 18:18 20:12 00:13 WBC RBC Hgb Hct MCV MCH MCHC RDW Plt Count MPV Prelim Diff (Auto) Neut % (Auto) Lymph % (Auto) Alexander % (Auto) Eos % (Auto) Baso % (Auto) Neut # (Auto) Lymph # (Auto) Alexander # (Auto) Eos # (Auto) Baso # (Auto) WBC Differential Seg Neuts % (Manual) Band Neuts % (Manual) Lymphocytes % (Manual) Monocytes % (Manual) Basophils % (Manual) Abs Neuts (Manual) Differential Comment Toxic Vacuolation Platelet Estimate Platelet Morphology Ovalocytes Acanthocytes (Spur) Sodium Potassium 3.9 D Chloride Carbon Dioxide Anion Gap BUN Creatinine Estimated GFR POC Glucose 140 H 172 H Random Glucose Calcium Phosphorus Magnesium Total Bilirubin AST ALT Alkaline Phosphatase Total Protein Albumin 11/05/17 11/05/17 11/05/17 04:10 04:10 04:10 WBC 21.7 H D RBC 4.59 Hgb 14.8 Hct 44.1 MCV 96.1 MCH 32.3 MCHC 33.6 RDW 13.6 Plt Count 83 L MPV 12.2 H Prelim Diff (Auto) Slide review pending Neut % (Auto) 88.5 H Lymph % (Auto) 2.8 L Alexander % (Auto) 8.6 H Eos % (Auto) 0.0 Baso % (Auto) 0.1 Neut # (Auto) 19.2 H Lymph # (Auto) 0.6 L Alexander # (Auto) 1.9 H Eos # (Auto) 0.0 Baso # (Auto) 0.0 WBC Differential Manual diff final Seg Neuts % (Manual) 82 H Band Neuts % (Manual) 5 Lymphocytes % (Manual) 2 L Monocytes % (Manual) 10 H Basophils % (Manual) 1 Abs Neuts (Manual) 18.9 H Differential Comment . Toxic Vacuolation Present H Platelet Estimate Low L Platelet Morphology Enlarged H Ovalocytes 1+ H Acanthocytes (Spur) Occ H Sodium 144 Potassium 3.7 Chloride 110 H Carbon Dioxide 22.6 Anion Gap 11 BUN 30 H Creatinine 2.04 H Estimated GFR 32 L POC Glucose 181 H Random Glucose 177 H Calcium 7.8 L Phosphorus 3.2 D Magnesium 2.1 Total Bilirubin 1.3 H AST 35 ALT 27 Alkaline Phosphatase 52 Total Protein 6.7 Albumin 3.2 L Imaging: Carotid Doppler Study 11/02/17 00:00 CONCLUSION: 1. There is atherosclerotic plaquing at both carotid bifurcations. 2. 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 3. The vertebral arteries were not visualized. 4. Recommend CTA of the carotids for further evaluation. Neck CTA 11/02/17 00:00 CONCLUSION: 1. High right common carotid artery bifurcation. No evidence of hemodynamically significant carotid stenosis. 2. Diminutive right vertebral artery that terminates at the skull base. Basilar artery also has a diffusely narrow diameter. Head MRI 11/03/17 00:00 CONCLUSION: 1. Exam is limited due to motion artifact on just about every pulse sequence. 2. However, grossly, nothing acute. Mild, symmetric cortical atrophy with some minimal small vessel ischemic demyelination. Head CT 11/03/17 09:57 CONCLUSION: Atrophy, otherwise negative for an acute process. Ajay Pope MD FACR . Chest X-Ray 11/03/17 10:40 CONCLUSION: Mild compensated cardiomegaly Lumbar Puncture Fluoroscopy 11/04/17 00:00 CONCLUSION: 1. Uncomplicated fluoroscopically guided lumbar puncture. Objective Remarks: GENERAL: Patient is 72 yo lying in be din NAD. SKIN: Warm and dry. HEAD: Normocephalic. EYES: No scleral icterus. No injection or drainage. NECK: Supple, trachea midline. No JVD or lymphadenopathy. CARDIOVASCULAR: Tachycardic, nl S1, S2 RESPIRATORY: Breath sounds equal bilaterally. No accessory muscle use. GASTROINTESTINAL: Abdomen soft, non-tender, nondistended. MUSCULOSKELETAL: No cyanosis, or edema. Neuro: Responds to voice, able to move all extremities. Assessment and Plan - Assessment and Plan Plan: 1. Respiratory insufficiency. 2. Encephalopathy. 3. Atrial fibrillation with rapid ventricular response. 4. Hypertension. 5. Hyperlipidemia. 6. Chronic Thrombocytopenia. 7 ARF 8. Leukocytosis Plan Neuro: Monitor neurologic status and avoid any sedatives. CT brain showed no acute intracranial process CTA of the neck showed no significant hemodynamic stenosis. MRI brain: No acute disease EEG: Mild encephalopathy Neuro is following- Dr. Canela, s/p LP 11/04 showed clear CSF, 0 WBC, T, TP:37.6 Started on Acyclovir empirically by Neuro. Pulm: Continue with oxygen maintain sats >92%. Bronchodilators, aspiration precautions CV: On Amio drip. Monitor HR and BP keep MAP>65mmHg Patient pulled NGT and nursing staff could not reinsert it (Cardizem to 60 mg q.i.d, Lopressor to 50 b.i.d) Will place on Lopressor 2.5mg Iv Q6 Trop <0.02 x 2, for 2-D echo. Cards eval. Patient is at high risk of full anticoagulation for Afib given thrombocytopenia ( PLT < 100) : Monitor renal function, I's and O's, avoid nephrotoxins Cr increased 2.04 from 0.89. Check renal US. on D5NS@75ml/hr GI: on Protonix 40mg daily for GI prophylaxis. NPO per speech. Will reattempt inserting NGT today and start tube feeds- Nepro with goal rate 40ml/hr ID: Monitor for signs of infection, which include fever and WBC. Continue Vanco/ Zosyn empirically. Followup on BC from 11/04 Started on Acyclovir empirically by Neuro, s/p LP yesterday :Clear CSF, 0 WBC, T, TP:37 Follow up on CSF cultures. ID eval. Endo: SSI with Accu-Cheks to maintain euglycemia. Heme: Monitor CBC. Heme is following- Dr. Salas GI prophylaxis with Pepcid and DVT prophylaxis with SCDs/Heparin SQ. Palliative care is following. Level 3
[2017-11-05] MEDS ORDERED: Vancomycin Consult Pharmacy 1 EACH OTHER SCH (08:00)
[2017-11-05] MEDS: Senna/Docusate Sodium 8.6/50 MG Tablet PO SCH ×2 (08:08→20:25)
[2017-11-05] MEDS: Metoprolol Tartrate 50 MG Tablet PO SCH ×2 (08:08→20:25)
[2017-11-05] MEDS: dilTIAZem 60 MG Tablet PO SCH ×4 (08:08→20:25)
[2017-11-05] MEDS: Heparin - SQ 10,000 UNITS/ML Vial SQ SCH ×2 (08:09→20:25)
--- NOTE | 2017-11-05 08:39 | ECG ---
Date Performed: 11/05/2017 Time Performed: 03:59:04 PTAGE: 72 years EKG: Atrial fibrillation with uncontrolled ventricular response Extensive ST-T changes may be du e to myocardial ischemia Abnormal ECG NO PREVIOUS TRACING DOCTOR: Rex Mcnulty Interpretating Date/Time 11/05/2017 08:38:02
[2017-11-05] MEDS: Metoprolol Inj 5 MG/5 ML Vial IV.PUSH SCH ×2 (09:27→14:13)
--- NOTE | 2017-11-05 11:24 | P.CONCA ---
<Haven Alcantar N - Last Filed: 11/05/17 10:59> History of Present Illness Service: Cardiology Consult date: 11/05/17 Requesting Physician: Warren uAstin Reason for Consult: Heather roca with [facility] Primary Care Provider: UNKNOWN Chief Complaint: AMS History of Present Illness: This is a 72-year-old male who presented to the emergency department via [facility] with altered mental status. He has a history of hypertension, hyperlipidemia, thrombocytopenia, and vitamin B12 deficiency. He lives in an apartment complex and was discovered by the aviation program manager with changes in mental status and confusion. Patient is a very poor historian due to altered mental status, history recovered from chart review. During evaluation this morning patient incoherent and not following any commands. CT of the head did not show anything acute but there was a large amount of artifact due to motion. Patient was in 4 point restraints due to aggressive behavior on admission. Atrial fibrillation controlled rate on monitor and is on amiodarone drip. Review of Systems unobtainable due to mental condition Constitutional: Reports anorexia PMFSH - History History Provided By: Medical Record, Shift Lab Technician / EMT - Medical History Medical History: Medical History (Last Reviewed 11/05/17 @ 07:54 by Sasha Pearce, KARL) Anemia HLD (hyperlipidemia) HTN (hypertension) Hearing deficit Thrombocytopenia Vitamin B12 deficiency - Surgical History Surgical History: Surgical History (Last Reviewed 11/03/17 @ 16:25 by Nadine Jain) History of tonsillectomy - Family History Family History: Family History (Last Updated 11/03/17 @ 17:30 by Karen Vergara MD) Mother Cerebral hemorrhage Father COPD (chronic obstructive pulmonary disease) Grandparent No problems noted. Father Acute NC - Tobacco History Smoking Status: Never smoker - Alcohol History How Often Do You Have a Drink Containing Alcohol: Unable to Obtain - Substance Use History Substance History: Unable to Obtain - Travel History Recent Travel in the [place] Within the Last 8 Weeks: No Recent Travel Out of the Country Within the Last 8 Weeks: No - Immunization History Tetanus Immunization: Unable to Assess Hx Influenza Vaccine This Season: Unable to Assess Medications and Allergies Allergies Allergy/AdvReac Type Severity Reaction Status Date / Time No Known Allergies Allergy Uncoded 02/07/14 14:05 Home Medications Medication Instructions Recorded Confirmed Type Unable to Obtain Home Meds 10/29/17 10/29/17 History Active Medications: Active Medications Acetaminophen (Tylenol) 650 mg PO Q4H PRN PRN Reason: Temp > 100.4 Albuterol (Duoneb Neb (Sofi)) 1 ampul NEB Q6HR ALT NEB [facility] Last Admin: 11/05/17 07:40 Dose: Not Given Albuterol (Duoneb Neb (Prn)) 1 ampul NEB Q2HR NEB PRN PRN Reason: DYSPNEA Atorvastatin Calcium (Lipitor) 40 mg PO HS [facility] Last Admin: 11/04/17 20:34 Dose: Not Given Bisacodyl (Dulcolax Supp) 10 mg RECTAL DAILY PRN PRN Reason: SEVERE CONSITIPATION Chlorhexidine Gluconate (Chlorhexidine 2% Cloth) 3 pack TOPICAL DAILY@0400 [facility] Stop: 11/09/17 03:59 Last Admin: 11/05/17 05:02 Dose: 3 pack Chlorhexidine Gluconate (Chlorhexidine 2% Cloth) 3 pack TOPICAL DAILY@0400 PRN PRN Reason: Extra cloth needed Stop: 11/09/17 03:59 Cyanocobalamin (Vitamin B12 Inj) 1,000 mcg IM Q30D [facility] Last Admin: 11/04/17 10:16 Dose: 1,000 mcg Dextrose (D50w Vial) 50 ml IV.PUSH UNSCH PRN PRN Reason: PER HYPOGLYCEMIA PROTOCOL Diltiazem HCl (Cardizem) 60 mg PO QID [facility] Last Admin: 11/05/17 08:08 Dose: 60 mg Flumazenil (Romazecon Inj) 0.2 mg IV.PUSH Q1M PRN PRN Reason: OVERSEDATION Glucagon (Glucagon Inj) 1 mg OTHER PRN PRN PRN Reason: for Hypoglycemia Protocol Heparin Sodium (Porcine) (Heparin Inj) 5,000 units SQ Q12HR [facility] Last Admin: 11/05/17 08:09 Dose: 5,000 units Dextrose/Sodium Chloride (D5w/Normal Saline Inj) 1,000 mls @ 75 mls/hr IV.CONT .[id number] [facility] Last Admin: 11/05/17 05:03 Dose: 75 mls/hr Amiodarone HCl 450 mg/ (Dextrose) 250 mls @ 33.33 mls/hr IV.CONT TITRATE PRN; Protocol PRN Reason: Per Protocol Last Titration: 11/05/17 09:28 Dose: 0 mg/min, 0 mls/hr Acyclovir Sodium 530 mg/ (Sodium Chloride) 110.6 mls @ 110.6 mls/hr IV.SIG Q8H [facility] Last Infusion: 11/05/17 10:55 Dose: 100 mls/hr Clevidipine (Cleviprex Inj) 25 mg in 50 mls @ 2 mls/hr IV.CONT TITRATE PRN; Protocol PRN Reason: Per protocol Last Admin: 11/04/17 03:06 Dose: 1 mg/hr, 2 mls/hr Piperacillin/Tazobactam/Dextrose (Zosyn 4.5 Gm Premix) 4.5 gm in 100 mls @ 200 mls/hr IV.SIG Q6H [facility] Last Admin: 11/05/17 10:55 Dose: 200 mls/hr Pharmacy Profile Note (Vancomycin Consult Pharmacy) 0 mls @ 0 mls/hr OTHER UNSCH [facility] Insulin Human Regular (Novolin R Correctional Sugar Inj) 0 units SQ Q4HR [facility]; Protocol Last Admin: 11/05/17 09:27 Dose: Not Given Lactulose (Lactulose Liq) 30 ml PO DAILY PRN PRN Reason: SEVERE CONSITIPATION Metoprolol Tartrate (Lopressor) 50 mg PO BID [facility] Last Admin: 11/05/17 08:08 Dose: 50 mg Metoprolol Tartrate (Lopressor Inj) 2.5 mg IV.PUSH Q6H [facility] Last Admin: 11/05/17 09:27 Dose: Not Given Senna/Docusate Sodium (Jia-Colace) 1 tab PO BID [facility] Last Admin: 11/05/17 08:08 Dose: 1 tab Sennosides (Senokot) 17.2 mg PO Q12H PRN PRN Reason: Moderate Constipation Exam Vital signs: Vital Signs 11/04/17 11:07 11/04/17 11:21 11/04/17 11:24 Temperature Pulse Rate 154 H 169 H 168 H Respiratory Rate 21 28 H 34 H Blood Pressure 129/95 H 150/91 H Pulse Oximetry 93 L 92 L 91 L 11/04/17 11:30 11/04/17 11:53 11/04/17 12:00 Temperature Pulse Rate 146 H 123 H 132 H Respiratory Rate 37 H 36 H 29 H Blood Pressure 182/98 H Pulse Oximetry 90 L 87 L 86 L 11/04/17 12:01 11/04/17 12:06 11/04/17 12:15 Temperature Pulse Rate 133 H 128 H 125 H Respiratory Rate 35 H 31 H 34 H Blood Pressure 169/137 H 189/98 H 193/105 H Pulse Oximetry 94 L 91 L 88 L 11/04/17 12:18 11/04/17 12:30 11/04/17 12:38 Temperature Pulse Rate 129 H 122 H 125 H Respiratory Rate 32 H 33 H 28 H Blood Pressure 193/97 H 183/95 H 184/114 H Pulse Oximetry 94 L 92 L 86 L 11/04/17 12:41 11/04/17 12:45 11/04/17 12:52 Temperature Pulse Rate 132 H 129 H 132 H Respiratory Rate 23 26 H 36 H Blood Pressure 189/99 H 214/121 H 200/102 H Pulse Oximetry 84 L 84 L 88 L 11/04/17 12:55 11/04/17 13:00 11/04/17 13:11 Temperature Pulse Rate 122 H 121 H 106 H Respiratory Rate 31 H 30 H 31 H Blood Pressure 179/88 H 175/101 H 181/84 H Pulse Oximetry 89 L 87 L 84 L 11/04/17 13:18 11/04/17 13:21 11/04/17 13:23 Temperature Pulse Rate 125 H 120 H 123 H Respiratory Rate 38 H 35 H 31 H Blood Pressure 169/120 H 175/114 H 194/115 H Pulse Oximetry 94 L 91 L 80 L 11/04/17 13:27 11/04/17 13:30 11/04/17 13:45 Temperature Pulse Rate 118 H 119 H 124 H Respiratory Rate 34 H 37 H 35 H Blood Pressure 178/109 H 136/96 H 178/110 H Pulse Oximetry 81 L 92 L 86 L 11/04/17 13:47 11/04/17 14:00 11/04/17 14:19 Temperature Pulse Rate 117 H 125 H 121 H Respiratory Rate 33 H 33 H 28 H Blood Pressure 175/90 H 171/95 H 132/87 Pulse Oximetry 85 L 88 L 11/04/17 14:30 11/04/17 15:00 11/04/17 15:30 Temperature Pulse Rate 105 H 106 H 113 H Respiratory Rate 25 H 24 24 Blood Pressure Pulse Oximetry 94 L 95 93 L 11/04/17 16:00 11/04/17 16:27 11/04/17 16:30 Temperature 102.0 F H Pulse Rate 121 H 113 H 118 H Respiratory Rate 29 H 27 H 27 H Blood Pressure 134/91 H 126/94 H Pulse Oximetry 94 L 93 L 94 L 11/04/17 16:45 11/04/17 17:01 11/04/17 20:00 Temperature 100.5 F H 98.7 F Pulse Rate 116 H 132 H Respiratory Rate 29 H 30 H Blood Pressure 138/91 H 152/85 H Pulse Oximetry 96 91 L 11/04/17 20:25 11/05/17 00:00 11/05/17 00:14 Temperature 98.3 F Pulse Rate 118 H 114 H Respiratory Rate 37 H 24 Blood Pressure 135/75 Pulse Oximetry 97 95 11/05/17 04:00 11/05/17 07:44 11/05/17 08:00 Temperature 97.9 F Pulse Rate 155 H 155 H Respiratory Rate 26 H Blood Pressure 137/82 Pulse Oximetry 99 100 Intake & Output 11/04/17 11/05/17 11/05/17 18:59 06:59 18:59 Intake Total 1321.2 / 1321.2 1310.6 / 1310.6 100 / 100 Output Total 450 / 450 300 / 300 Balance 871.2 / 871.2 1010.6 / 1010.6 100 / 100 Weight 53.1 kg Intake: IV 1321.2 / 1321.2 1310.6 / 1310.6 100 / 100 Cordarone Inj 450 MG In D5W Inj 0 / 0 241 ML @ 1 MG/MIN 33.33 mls/hr IV.CONT TITRATE PRN Rx#: [id number] D5W/Normal Saline Inj 1,000 ML 1000 / 1000 1000 / 1000 @ 75 mls/hr IV.CONT .[id number] [facility] Rx#:[id number] Zovirax Inj 530 MG In NS Inj 221.2 / 221.2 110.6 / 110.6 100 ML @ 110.6 mls/hr IV.SIG Q8H [facility] Rx#:[id number] Zosyn 4.5 GM Premix 4.5 gm In 100 / 100 200 / 200 100 ml @ 200 mls/hr IV.SIG Q6H [facility] Rx#:[id number] KCl 20 mEq Premix Inj 20 meq In 100 / 100 100 ml @ 50 mls/hr IV.SIG Q2H PRN Rx#:[id number] Oral 0 / 0 Output: Urine 450 / 450 Urine Amount (Catheter) 300 / 300 Condom 300 / 300 Other: # Voids 2 # Incontinent Voids 2 # Bowel Movements 0 # Incontinent Bowel Movements 0 - Constitutional no acute distress - Routine HEENT Exam Head: Present: normocephalic Eye: Present: PERRL ENT: Present: mucous membranes dry - Routine Respiratory Exam Present: decreased breath sounds - Routine Cardiovascular Exam Present: irregular rhythm - Routine Abdominal Exam Present: soft - Routine Extremities Exam Present: pulses intact, normal capillary refill. Absent: cyanosis, clubbing, edema - Routine Neurological Exam Present: altered mental status Results 11/05/17 04:10 11/05/17 04:10 Cardiac Enzymes 11/05/17 Range/Units 04:10 AST 35 (15-37) U/L CBC 11/05/17 Range/Units 04:10 WBC 21.7 H D (4.0-11.0) th/mm3 RBC 4.59 (4.50-5.90) mil/mm3 Hgb 14.8 (13.0-17.0) gm/dL Hct 44.1 (39.0-51.0) % Plt Count 83 L (150-450) th/mm3 Neut # (Auto) 19.2 H (1.8-7.7) th/mm3 Lymph # (Auto) 0.6 L (1.0-4.8) th/mm3 [place] # (Auto) 1.9 H (0.0-0.9) th/mm3 Eos # (Auto) 0.0 (0.0-0.4) th/mm3 Baso # (Auto) 0.0 (0.0-0.2) th/mm3 Comprehensive Metabolic Panel 11/04/17 11/05/17 Range/Units 18:18 04:10 Sodium 144 (136-145) meq/L Potassium 3.9 D 3.7 (3.5-5.1) meq/L Chloride 110 H (98-107) meq/L Carbon Dioxide 22.6 (21.0-32.0) meq/L BUN 30 H (7-18) mg/dL Creatinine 2.04 H (0.60-1.30) mg/dL Calcium 7.8 L (8.5-10.1) mg/dL AST 35 (15-37) U/L ALT 27 (12-78) U/L Alkaline Phosphatase 52 (45-117) U/L Total Protein 6.7 (6.4-8.2) g/dL Albumin 3.2 L (3.4-5.0) g/dL Intake and Output 11/04/17 11/05/17 11/05/17 22:59 06:59 14:59 Intake Total 1210.6 / 1210.6 1310.6 / 1310.6 100 / 100 Output Total 450 / 450 300 / 300 Balance 760.6 / 760.6 1010.6 / 1010.6 100 / 100 Intake: IV 1210.6 / 1210.6 1310.6 / 1310.6 100 / 100 D5W/Normal Saline Inj 1,000 ML 1000 / 1000 1000 / 1000 @ 75 mls/hr IV.CONT .[id number] [facility] Rx#:[id number] Zovirax Inj 530 MG In NS Inj 110.6 / 110.6 110.6 / 110.6 100 ML @ 110.6 mls/hr IV.SIG Q8H [facility] Rx#:[id number] Zosyn 4.5 GM Premix 4.5 gm In 100 / 100 200 / 200 100 ml @ 200 mls/hr IV.SIG Q6H [facility] Rx#:[id number] KCl 20 mEq Premix Inj 20 meq In 100 / 100 100 ml @ 50 mls/hr IV.SIG Q2H PRN Rx#:[id number] Oral 0 / 0 Output: Urine 450 / 450 Urine Amount (Catheter) 300 / 300 Condom 300 / 300 Other: # Voids 2 # Incontinent Voids 2 # Bowel Movements 0 # Incontinent Bowel Movements 0 Weight 53.1 kg EKG interpretations - Dysrhythmias Supraventricular dysrhythmia: atrial fibrillation Assessment and Plan - Assessment (1) Altered mental status Code(s): R41.82 - Altered mental status, unspecified Status: Acute (2) Rapid atrial fibrillation Code(s): I48.91 - Unspecified atrial fibrillation Status: Acute (3) Thrombocytopenia Code(s): D69.6 - Thrombocytopenia, unspecified Status: Acute - Plan NG tube was inserted will start patient on Cardizem 60 mg every 6 hours per NG for rate control and blood pressure control. DC amiodarone. Obtain echo tomorrow to check left ventricular function. Neuro evaluation in progress. Palliative care evaluation in progress. Hematology evaluation in progress. Infectious disease evaluation in progress. We will follow during hospitalization. The patient was seen and evaluated by Dr. Torres who participated in care, management and decision-making. <Irma Torres - Last Filed: 11/05/17 16:17> History of Present Illness Primary Care Provider: UNKNOWN [facility] - Medical History Medical History: Medical History (Last Reviewed 11/05/17 @ 07:54 by Sasha Pearce, ASSEMBLY TECHNICIAN) Anemia HLD (hyperlipidemia) HTN (hypertension) Hearing deficit Thrombocytopenia Vitamin B12 deficiency - Surgical History Surgical History: Surgical History (Last Reviewed 11/03/17 @ 16:25 by Nadine Jain) History of tonsillectomy - Family History Family History: Family History (Last Updated 11/03/17 @ 17:30 by Karen Vergara MD) Mother Cerebral hemorrhage Father COPD (chronic obstructive pulmonary disease) Grandparent No problems noted. Father Acute NC Medications and Allergies Active Medications: Active Medications Acetaminophen (Tylenol) 650 mg PO Q4H PRN PRN Reason: Temp > 100.4 Albuterol (Duoneb Neb (Sofi)) 1 ampul NEB Q6HR ALT NEB [facility] Last Admin: 11/05/17 07:40 Dose: Not Given Albuterol (Duoneb Neb (Prn)) 1 ampul NEB Q2HR NEB PRN PRN Reason: DYSPNEA Atorvastatin Calcium (Lipitor) 40 mg PO HS [facility] Last Admin: 11/04/17 20:34 Dose: Not Given Bisacodyl (Dulcolax Supp) 10 mg RECTAL DAILY PRN PRN Reason: SEVERE CONSITIPATION Chlorhexidine Gluconate (Chlorhexidine 2% Cloth) 3 pack TOPICAL DAILY@0400 [facility] Stop: 11/09/17 03:59 Last Admin: 11/05/17 05:02 Dose: 3 pack Chlorhexidine Gluconate (Chlorhexidine 2% Cloth) 3 pack TOPICAL DAILY@0400 PRN PRN Reason: Extra cloth needed Stop: 11/09/17 03:59 Cyanocobalamin (Vitamin B12 Inj) 1,000 mcg IM Q30D [facility] Last Admin: 11/04/17 10:16 Dose: 1,000 mcg Dextrose (D50w Vial) 50 ml IV.PUSH UNSCH PRN PRN Reason: PER HYPOGLYCEMIA PROTOCOL Diltiazem HCl (Cardizem) 60 mg PO QID [facility] Last Admin: 11/05/17 12:26 Dose: 60 mg Flumazenil (Romazecon Inj) 0.2 mg IV.PUSH Q1M PRN PRN Reason: OVERSEDATION Glucagon (Glucagon Inj) 1 mg OTHER PRN PRN PRN Reason: for Hypoglycemia Protocol Heparin Sodium (Porcine) (Heparin Inj) 5,000 units SQ Q12HR [facility] Last Admin: 11/05/17 08:09 Dose: 5,000 units Dextrose/Sodium Chloride (D5w/Normal Saline Inj) 1,000 mls @ 75 mls/hr IV.CONT .[id number] [facility] Last Admin: 11/05/17 05:03 Dose: 75 mls/hr Amiodarone HCl 450 mg/ (Dextrose) 250 mls @ 33.33 mls/hr IV.CONT TITRATE PRN; Protocol PRN Reason: Per Protocol Last Titration: 11/05/17 09:28 Dose: 0 mg/min, 0 mls/hr Clevidipine (Cleviprex Inj) 25 mg in 50 mls @ 2 mls/hr IV.CONT TITRATE PRN; Protocol PRN Reason: Per protocol Last Admin: 11/04/17 03:06 Dose: 1 mg/hr, 2 mls/hr Pharmacy Profile Note (Vancomycin Consult Pharmacy) 0 mls @ 0 mls/hr OTHER UNSCH [facility] Acyclovir Sodium 530 mg/ (Sodium Chloride) 110.6 mls @ 110.6 mls/hr IV.SIG Q12H [facility] Piperacillin/Tazobactam/Dextrose (Zosyn 3.375 Gm Premix) 50 mls @ 100 mls/hr IV.SIG Q6H [facility] Insulin Human Regular (Novolin R Correctional Sugar Inj) 0 units SQ Q4HR [facility]; Protocol Last Admin: 11/05/17 12:33 Dose: Not Given Lactulose (Lactulose Liq) 30 ml PO DAILY PRN PRN Reason: SEVERE CONSITIPATION Metoprolol Tartrate (Lopressor) 50 mg PO BID [facility] Last Admin: 11/05/17 08:08 Dose: 50 mg Metoprolol Tartrate (Lopressor Inj) 2.5 mg IV.PUSH Q6H [facility] Last Admin: 11/05/17 14:13 Dose: Not Given Pantoprazole Sodium (Protonix Inj) 40 mg IV.PUSH Q24H [facility] Last Admin: 11/05/17 14:18 Dose: 40 mg Senna/Docusate Sodium (Jia-Colace) 1 tab PO BID [facility] Last Admin: 11/05/17 08:08 Dose: 1 tab Sennosides (Senokot) 17.2 mg PO Q12H PRN PRN Reason: Moderate Constipation Last Admin: 11/05/17 12:26 Dose: 17.2 mg Exam Vital signs: Vital Signs 11/04/17 16:27 11/04/17 16:30 11/04/17 16:45 Temperature Pulse Rate 113 H 118 H 116 H Respiratory Rate 27 H 27 H 29 H Blood Pressure 134/91 H 126/94 H 138/91 H Pulse Oximetry 93 L 94 L 96 11/04/17 17:01 11/04/17 20:00 11/04/17 20:25 Temperature 100.5 F H 98.7 F Pulse Rate 132 H Respiratory Rate 30 H Blood Pressure 152/85 H Pulse Oximetry 91 L 97 11/05/17 00:00 11/05/17 00:14 11/05/17 03:45 Temperature 98.3 F Pulse Rate 118 H 114 H 153 H Respiratory Rate 37 H 24 31 H Blood Pressure 135/75 106/86 Pulse Oximetry 95 95 11/05/17 04:00 11/05/17 04:01 11/05/17 04:30 Temperature 97.9 F Pulse Rate 155 H 150 H 156 H Respiratory Rate 26 H 24 25 H Blood Pressure 137/82 137/82 140/100 H Pulse Oximetry 85 L 79 L 89 L 11/05/17 04:45 11/05/17 05:00 11/05/17 05:15 Temperature Pulse Rate 157 H 127 H 143 H Respiratory Rate 26 H 26 H 22 Blood Pressure 131/93 H 115/82 131/78 Pulse Oximetry 91 L 99 95 11/05/17 05:30 11/05/17 05:45 11/05/17 06:00 Temperature Pulse Rate 142 H 129 H 117 H Respiratory Rate 30 H 23 30 H Blood Pressure 138/93 H 130/74 Pulse Oximetry 89 L 96 98 11/05/17 06:30 11/05/17 07:44 11/05/17 07:45 Temperature Pulse Rate 152 H 150 H Respiratory Rate 25 H 26 H Blood Pressure 120/88 121/89 Pulse Oximetry 95 100 85 L 11/05/17 08:00 11/05/17 08:30 11/05/17 08:34 Temperature 98.1 F Pulse Rate 157 H 118 H 108 H Respiratory Rate 30 H 27 H 24 Blood Pressure 132/103 H 139/74 Pulse Oximetry 96 96 94 L 11/05/17 08:46 11/05/17 09:00 11/05/17 09:15 Temperature Pulse Rate 87 85 83 Respiratory Rate 24 23 24 Blood Pressure 108/70 115/76 108/71 Pulse Oximetry 98 98 95 11/05/17 09:30 11/05/17 09:45 11/05/17 10:00 Temperature Pulse Rate 87 98 H 103 H Respiratory Rate 25 H 24 29 H Blood Pressure 123/92 H 132/90 Pulse Oximetry 97 96 94 L 11/05/17 10:01 11/05/17 10:15 11/05/17 10:30 Temperature Pulse Rate 101 H 100 H 98 H Respiratory Rate 26 H 23 24 Blood Pressure 127/79 138/81 125/77 Pulse Oximetry 97 97 99 11/05/17 10:45 11/05/17 11:00 11/05/17 11:15 Temperature Pulse Rate 103 H 98 H 111 H Respiratory Rate 26 H 29 H 22 Blood Pressure 130/72 129/62 137/71 Pulse Oximetry 97 99 96 11/05/17 11:30 11/05/17 11:45 11/05/17 12:00 Temperature 98.0 F Pulse Rate 104 H 101 H 115 H Respiratory Rate 20 19 20 Blood Pressure 124/73 129/61 130/71 Pulse Oximetry 97 97 98 Intake & Output 11/04/17 11/05/17 11/05/17 18:59 06:59 18:59 Intake Total 1321.2 / 1321.2 1310.6 / 1310.6 100 / 100 Output Total 450 / 450 300 / 300 Balance 871.2 / 871.2 1010.6 / 1010.6 100 / 100 Weight 117 lb 1.047 oz Intake: IV 1321.2 / 1321.2 1310.6 / 1310.6 100 / 100 Cordarone Inj 450 MG In D5W Inj 0 / 0 241 ML @ 1 MG/MIN 33.33 mls/hr IV.CONT TITRATE PRN Rx#: [id number] D5W/Normal Saline Inj 1,000 ML 1000 / 1000 1000 / 1000 @ 75 mls/hr IV.CONT .[id number] [facility] Rx#:[id number] Zovirax Inj 530 MG In NS Inj 221.2 / 221.2 110.6 / 110.6 100 ML @ 110.6 mls/hr IV.SIG Q8H [facility] Rx#:[id number] Zosyn 4.5 GM Premix 4.5 gm In 100 / 100 200 / 200 100 ml @ 200 mls/hr IV.SIG Q6H [facility] Rx#:[id number] KCl 20 mEq Premix Inj 20 meq In 100 / 100 100 ml @ 50 mls/hr IV.SIG Q2H [facility] Rx#:[id number] Oral 0 / 0 Output: Urine 450 / 450 Urine Amount (Catheter) 300 / 300 Condom 300 / 300 Other: # Voids 2 # Incontinent Voids 2 # Bowel Movements 0 # Incontinent Bowel Movements 0 Results 11/05/17 04:10 11/05/17 04:10 Cardiac Enzymes 11/05/17 Range/Units 04:10 AST 35 (15-37) U/L CBC 11/05/17 Range/Units 04:10 WBC 21.7 H D (4.0-11.0) th/mm3 RBC 4.59 (4.50-5.90) mil/mm3 Hgb 14.8 (13.0-17.0) gm/dL Hct 44.1 (39.0-51.0) % Plt Count 83 L (150-450) th/mm3 Neut # (Auto) 19.2 H (1.8-7.7) th/mm3 Lymph # (Auto) 0.6 L (1.0-4.8) th/mm3 [place] # (Auto) 1.9 H (0.0-0.9) th/mm3 Eos # (Auto) 0.0 (0.0-0.4) th/mm3 Baso # (Auto) 0.0 (0.0-0.2) th/mm3 Comprehensive Metabolic Panel 11/04/17 11/05/17 Range/Units 18:18 04:10 Sodium 144 (136-145) meq/L Potassium 3.9 D 3.7 (3.5-5.1) meq/L Chloride 110 H (98-107) meq/L Carbon Dioxide 22.6 (21.0-32.0) meq/L BUN 30 H (7-18) mg/dL Creatinine 2.04 H (0.60-1.30) mg/dL Calcium 7.8 L (8.5-10.1) mg/dL AST 35 (15-37) U/L ALT 27 (12-78) U/L Alkaline Phosphatase 52 (45-117) U/L Total Protein 6.7 (6.4-8.2) g/dL Albumin 3.2 L (3.4-5.0) g/dL Intake and Output 11/05/17 11/05/17 11/05/17 06:59 14:59 22:59 Intake Total 1310.6 / 1310.6 100 / 100 Output Total 300 / 300 Balance 1010.6 / 1010.6 100 / 100 Intake: IV 1310.6 / 1310.6 100 / 100 D5W/Normal Saline Inj 1,000 ML 1000 / 1000 @ 75 mls/hr IV.CONT .[id number] [facility] Rx#:[id number] Zovirax Inj 530 MG In NS Inj 110.6 / 110.6 100 ML @ 110.6 mls/hr IV.SIG Q8H [facility] Rx#:[id number] Zosyn 4.5 GM Premix 4.5 gm In 200 / 200 100 ml @ 200 mls/hr IV.SIG Q6H [facility] Rx#:[id number] KCl 20 mEq Premix Inj 20 meq In 100 / 100 100 ml @ 50 mls/hr IV.SIG Q2H [facility] Rx#:[id number] Output: Urine Amount (Catheter) 300 / 300 Condom 300 / 300 Other: Weight 117 lb 1.047 oz Assessment and Plan - Assessment (1) Altered mental status Code(s): R41.82 - Altered mental status, unspecified Status: Acute (2) Rapid atrial fibrillation Code(s): I48.91 - Unspecified atrial fibrillation Status: Acute (3) Thrombocytopenia Code(s): D69.6 - Thrombocytopenia, unspecified Status: Acute - Attending Attestation Patient seen and examined. I reviewed and agree with the evaluation and plan as presented. Continue rate control. Mental status severely altered. Palliative care evaluation requested.
[2017-11-05] MEDS ORDERED: Pantoprazole Inj 40 MG Vial IV.PUSH SCH (13:00)
--- NOTE | 2017-11-05 14:59 | P.PNPAL ---
Reason for Visit Reason for visit: a. To assist with evaluation and management of symptoms including: Encephalopathy, agitation b. To assist medical decision maker(s) with: better understanding of current medical conditions; weighing benefits/burdens of medical treatment options; making medical treatment decisions. Subjective Subjective/Interval History: INTERVAL NOTE: Patient seen to reassess workup for encephalopathy, management of agitation. The patient had a fever to 102 early today, afebrile now. His heart rate is better controlled now. He remains quite encephalopathic, confused, still in four-point restraints. White count went up to 21,000 today, and his creatinine is increased to 2.04. MRI and CT both have motion artifact but show no obvious abnormalities other than some atrophy. Family/Friend Interactions: Discussed by telephone with his [id number] Unique, and then on another call with his brother Too. I shared with them my concern that his encephalopathy does not seem to be improving, and that his renal function was worse. They understand that there are still some additional tests and cultures pending. Too is planning on being here tomorrow and we discussed this further. Advance Directives Living Will: Never completed Health Care Surrogate: Never completed Durable Power of Entry Manager: Never completed Objective Vital Signs: Vital Signs 11/04/17 15:00 11/04/17 15:30 11/04/17 16:00 Temperature 102.0 F H Pulse Rate 106 H 113 H 121 H Respiratory Rate 24 24 29 H Blood Pressure Pulse Oximetry 95 93 L 94 L 11/04/17 16:27 11/04/17 16:30 11/04/17 16:45 Temperature Pulse Rate 113 H 118 H 116 H Respiratory Rate 27 H 27 H 29 H Blood Pressure 134/91 H 126/94 H 138/91 H Pulse Oximetry 93 L 94 L 96 11/04/17 17:01 11/04/17 20:00 11/04/17 20:25 Temperature 100.5 F H 98.7 F Pulse Rate 132 H Respiratory Rate 30 H Blood Pressure 152/85 H Pulse Oximetry 91 L 97 11/05/17 00:00 11/05/17 00:14 11/05/17 03:45 Temperature 98.3 F Pulse Rate 118 H 114 H 153 H Respiratory Rate 37 H 24 31 H Blood Pressure 135/75 106/86 Pulse Oximetry 95 95 11/05/17 04:00 11/05/17 04:01 11/05/17 04:30 Temperature 97.9 F Pulse Rate 155 H 150 H 156 H Respiratory Rate 26 H 24 25 H Blood Pressure 137/82 137/82 140/100 H Pulse Oximetry 85 L 79 L 89 L 11/05/17 04:45 11/05/17 05:00 11/05/17 05:15 Temperature Pulse Rate 157 H 127 H 143 H Respiratory Rate 26 H 26 H 22 Blood Pressure 131/93 H 115/82 131/78 Pulse Oximetry 91 L 99 95 11/05/17 05:30 11/05/17 05:45 11/05/17 06:00 Temperature Pulse Rate 142 H 129 H 117 H Respiratory Rate 30 H 23 30 H Blood Pressure 138/93 H 130/74 Pulse Oximetry 89 L 96 98 11/05/17 06:30 11/05/17 07:44 11/05/17 07:45 Temperature Pulse Rate 152 H 150 H Respiratory Rate 25 H 26 H Blood Pressure 120/88 121/89 Pulse Oximetry 95 100 85 L 11/05/17 08:00 11/05/17 08:30 11/05/17 08:34 Temperature 98.1 F Pulse Rate 157 H 118 H 108 H Respiratory Rate 30 H 27 H 24 Blood Pressure 132/103 H 139/74 Pulse Oximetry 96 96 94 L 11/05/17 08:46 11/05/17 09:00 11/05/17 09:15 Temperature Pulse Rate 87 85 83 Respiratory Rate 24 23 24 Blood Pressure 108/70 115/76 108/71 Pulse Oximetry 98 98 95 11/05/17 09:30 11/05/17 09:45 11/05/17 10:00 Temperature Pulse Rate 87 98 H 103 H Respiratory Rate 25 H 24 29 H Blood Pressure 123/92 H 132/90 Pulse Oximetry 97 96 94 L 11/05/17 10:01 11/05/17 10:15 11/05/17 10:30 Temperature Pulse Rate 101 H 100 H 98 H Respiratory Rate 26 H 23 24 Blood Pressure 127/79 138/81 125/77 Pulse Oximetry 97 97 99 11/05/17 10:45 11/05/17 11:00 11/05/17 11:15 Temperature Pulse Rate 103 H 98 H 111 H Respiratory Rate 26 H 29 H 22 Blood Pressure 130/72 129/62 137/71 Pulse Oximetry 97 99 96 11/05/17 11:30 11/05/17 11:45 11/05/17 12:00 Temperature 98.0 F Pulse Rate 104 H 101 H 115 H Respiratory Rate 20 19 20 Blood Pressure 124/73 129/61 130/71 Pulse Oximetry 97 97 98 Intake & Output 11/04/17 11/05/17 11/05/17 18:59 06:59 18:59 Intake Total 1321.2 / 1321.2 1310.6 / 1310.6 100 / 100 Output Total 450 / 450 300 / 300 Balance 871.2 / 871.2 1010.6 / 1010.6 100 / 100 Weight 53.1 kg Intake: IV 1321.2 / 1321.2 1310.6 / 1310.6 100 / 100 Cordarone Inj 450 MG In D5W Inj 0 / 0 241 ML @ 1 MG/MIN 33.33 mls/hr IV.CONT TITRATE PRN Rx#: [id number] D5W/Normal Saline Inj 1,000 ML 1000 / 1000 1000 / 1000 @ 75 mls/hr IV.CONT .[id number] GARY Rx#:[id number] Zovirax Inj 530 MG In NS Inj 221.2 / 221.2 110.6 / 110.6 100 ML @ 110.6 mls/hr IV.SIG Q8H GARY Rx#:[id number] Zosyn 4.5 GM Premix 4.5 gm In 100 / 100 200 / 200 100 ml @ 200 mls/hr IV.SIG Q6H GARY Rx#:[id number] KCl 20 mEq Premix Inj 20 meq In 100 / 100 100 ml @ 50 mls/hr IV.SIG Q2H PRN Rx#:[id number] Oral 0 / 0 Output: Urine 450 / 450 Urine Amount (Catheter) 300 / 300 Condom 300 / 300 Other: # Voids 2 # Incontinent Voids 2 # Bowel Movements 0 # Incontinent Bowel Movements 0 Physical Exam: CONSTITUTIONAL/GENERAL: This is a thin, chronically ill-appearing patient, in no apparent distress. TUBES/LINES/DRAINS: Nasal oxygen, IV access, condom catheter SKIN: No jaundice, rashes, or lesions. Ecchymoses on upper extremities. No wounds seen anteriorly. Skin temperature appropriate. Not diaphoretic. CARDIOVASCULAR: Irregular and rapid rhythm. No JVD. Peripheral pulses diminished. RESPIRATORY/CHEST: Symmetric, unlabored respirations. A couple scattered rhonchi. GASTROINTESTINAL: Abdomen soft, non-tender, nondistended. No hepato-splenomegaly , or palpable masses. No guarding. Bowel sounds present. MUSCULOSKELETAL: Extremities without clubbing, cyanosis, or edema. No joint tenderness or effusion noted. No calf tenderness. No mottling or clubbing. NEUROLOGICAL: Lethargic, intermittently agitated, does not follow commands. PSYCHIATRIC: Agitated and combative at times Diagnostic Tests Laboratory: Laboratory Results - last 72 hr 10/30/17 11/03/17 11/03/17 06:05 11:20 11:20 WBC RBC Hgb Hct MCV MCH MCHC RDW Plt Count MPV Prelim Diff (Auto) Neut % (Auto) Lymph % (Auto) [place] % (Auto) Eos % (Auto) Baso % (Auto) Neut # (Auto) Lymph # (Auto) [place] # (Auto) Eos # (Auto) Baso # (Auto) WBC Differential Diff Scan Seg Neuts % (Manual) Band Neuts % (Manual) Lymphocytes % (Manual) Monocytes % (Manual) Basophils % (Manual) Abs Neuts (Manual) Differential Comment Toxic Vacuolation Platelet Estimate Platelet Morphology Ovalocytes Acanthocytes (Spur) Puncture Site Patient Temperature O2 Saturation ABG pH ABG pCO2 ABG pO2 ABG HCO3 ABG O2 Content ABG Base Excess ABG Methemoglobin Jamie Test Hemoglobin Carboxyhemoglobin O2 Delivery Device Liter Flow Vent Setting Inspired O2 Critical Value Sodium 141 Potassium 3.8 Chloride 105 Carbon Dioxide 24.3 Anion Gap 12 BUN 19 H Creatinine 1.03 Estimated GFR 71 L POC Glucose Random Glucose 106 Calcium 8.6 Phosphorus 4.9 Magnesium 1.9 Total Bilirubin 1.2 H AST 33 ALT 23 Alkaline Phosphatase 61 Troponin I Total Protein 7.3 Albumin 3.9 Thiamine 120 Vit D 1,25-Dihydroxy 48 TSH CSF Volume (1) CSF Supernat Color (1) CSF Gross Blood (1) CSF Volume (2) CSF Supernat Color (2) CSF Gross Blood (2) CSF Volume (3) CSF Supernat Color (3) CSF Gross Blood (3) CSF Volume (4) CSF Supernat Color (4) CSF Gross Blood (4) CSF WBC (4) CSF RBC (4) CSF Neutrophils % CSF Glucose CSF Total Protein CSF Herpes I DNA (PCR) CSF Herpes II DNA (PCR) Nasal Screen MRSA (PCR) Not detected Digoxin 11/03/17 11/03/17 11/03/17 12:12 12:12 12:44 WBC RBC Hgb Hct MCV MCH MCHC RDW Plt Count MPV Prelim Diff (Auto) Neut % (Auto) Lymph % (Auto) [place] % (Auto) Eos % (Auto) Baso % (Auto) Neut # (Auto) Lymph # (Auto) [place] # (Auto) Eos # (Auto) Baso # (Auto) WBC Differential Diff Scan Seg Neuts % (Manual) Band Neuts % (Manual) Lymphocytes % (Manual) Monocytes % (Manual) Basophils % (Manual) Abs Neuts (Manual) Differential Comment Toxic Vacuolation Platelet Estimate Platelet Morphology Ovalocytes Acanthocytes (Spur) Puncture Site Right radial Cancelled Patient Temperature 98.6 Cancelled O2 Saturation 95 Cancelled ABG pH 7.45 H Cancelled ABG pCO2 31 L Cancelled ABG pO2 93 Cancelled ABG HCO3 22 Cancelled ABG O2 Content 19.6 Cancelled ABG Base Excess -1.9 Cancelled ABG Methemoglobin 1.3 Cancelled Jamie Test Present Cancelled Hemoglobin 14.6 Cancelled Carboxyhemoglobin 1.1 Cancelled O2 Delivery Device Nasal cannula Cancelled Liter Flow 2.00 Cancelled Vent Setting Cancelled Inspired O2 28 Cancelled Critical Value No Cancelled Sodium Potassium Chloride Carbon Dioxide Anion Gap BUN Creatinine Estimated GFR POC Glucose 149 H Random Glucose Calcium Phosphorus Magnesium Total Bilirubin AST ALT Alkaline Phosphatase Troponin I Total Protein Albumin Thiamine Vit D 1,25-Dihydroxy TSH CSF Volume (1) CSF Supernat Color (1) CSF Gross Blood (1) CSF Volume (2) CSF Supernat Color (2) CSF Gross Blood (2) CSF Volume (3) CSF Supernat Color (3) CSF Gross Blood (3) CSF Volume (4) CSF Supernat Color (4) CSF Gross Blood (4) CSF WBC (4) CSF RBC (4) CSF Neutrophils % CSF Glucose CSF Total Protein CSF Herpes I DNA (PCR) CSF Herpes II DNA (PCR) Nasal Screen MRSA (PCR) Digoxin 11/03/17 11/03/17 11/03/17 14:40 14:45 16:23 WBC 11.3 H RBC 4.34 L Hgb 14.1 Hct 41.7 MCV 96.1 MCH 32.4 MCHC 33.7 RDW 13.5 Plt Count 84 L MPV 11.9 H Prelim Diff (Auto) Slide review pending Neut % (Auto) 80.4 H Lymph % (Auto) 7.8 L [place] % (Auto) 11.2 H Eos % (Auto) 0.2 Baso % (Auto) 0.4 Neut # (Auto) 9.1 H Lymph # (Auto) 0.9 L [place] # (Auto) 1.3 H Eos # (Auto) 0.0 Baso # (Auto) 0.0 WBC Differential . Diff Scan Auto diff confirmed Seg Neuts % (Manual) Band Neuts % (Manual) Lymphocytes % (Manual) Monocytes % (Manual) Basophils % (Manual) Abs Neuts (Manual) Differential Comment . Toxic Vacuolation Platelet Estimate Low L Platelet Morphology Enlarged H Ovalocytes Acanthocytes (Spur) Puncture Site Patient Temperature O2 Saturation ABG pH ABG pCO2 ABG pO2 ABG HCO3 ABG O2 Content ABG Base Excess ABG Methemoglobin Jamie Test Hemoglobin Carboxyhemoglobin O2 Delivery Device Liter Flow Vent Setting Inspired O2 Critical Value Sodium Potassium Chloride Carbon Dioxide Anion Gap BUN Creatinine Estimated GFR POC Glucose 153 H Random Glucose Calcium Phosphorus Magnesium Total Bilirubin AST ALT Alkaline Phosphatase Troponin I Less than 0.02 L Total Protein Albumin Thiamine Vit D 1,25-Dihydroxy TSH 1.580 CSF Volume (1) CSF Supernat Color (1) CSF Gross Blood (1) CSF Volume (2) CSF Supernat Color (2) CSF Gross Blood (2) CSF Volume (3) CSF Supernat Color (3) CSF Gross Blood (3) CSF Volume (4) CSF Supernat Color (4) CSF Gross Blood (4) CSF WBC (4) CSF RBC (4) CSF Neutrophils % CSF Glucose CSF Total Protein CSF Herpes I DNA (PCR) CSF Herpes II DNA (PCR) Nasal Screen MRSA (PCR) Digoxin 11/04/17 11/04/17 11/04/17 00:24 05:14 06:02 WBC RBC Hgb Hct MCV MCH MCHC RDW Plt Count MPV Prelim Diff (Auto) Neut % (Auto) Lymph % (Auto) [place] % (Auto) Eos % (Auto) Baso % (Auto) Neut # (Auto) Lymph # (Auto) [place] # (Auto) Eos # (Auto) Baso # (Auto) WBC Differential Diff Scan Seg Neuts % (Manual) Band Neuts % (Manual) Lymphocytes % (Manual) Monocytes % (Manual) Basophils % (Manual) Abs Neuts (Manual) Differential Comment Toxic Vacuolation Platelet Estimate Platelet Morphology Ovalocytes Acanthocytes (Spur) Puncture Site Patient Temperature O2 Saturation ABG pH ABG pCO2 ABG pO2 ABG HCO3 ABG O2 Content ABG Base Excess ABG Methemoglobin Jamie Test Hemoglobin Carboxyhemoglobin O2 Delivery Device Liter Flow Vent Setting Inspired O2 Critical Value Sodium 141 Potassium 2.9 L* D Chloride 104 Carbon Dioxide 26.4 Anion Gap 11 BUN 16 Creatinine 0.89 Estimated GFR 84 L POC Glucose 165 H 137 H Random Glucose 123 H Calcium 8.2 L Phosphorus 2.1 L D Magnesium 2.4 Total Bilirubin 0.9 AST 25 ALT 23 Alkaline Phosphatase 55 Troponin I Total Protein 7.0 Albumin 3.4 Thiamine Vit D 1,25-Dihydroxy TSH CSF Volume (1) CSF Supernat Color (1) CSF Gross Blood (1) CSF Volume (2) CSF Supernat Color (2) CSF Gross Blood (2) CSF Volume (3) CSF Supernat Color (3) CSF Gross Blood (3) CSF Volume (4) CSF Supernat Color (4) CSF Gross Blood (4) CSF WBC (4) CSF RBC (4) CSF Neutrophils % CSF Glucose CSF Total Protein CSF Herpes I DNA (PCR) CSF Herpes II DNA (PCR) Nasal Screen MRSA (PCR) Digoxin 0.9 11/04/17 11/04/17 11/04/17 09:26 10:39 10:39 WBC 9.9 RBC 4.61 Hgb 15.0 Hct 44.6 MCV 96.6 MCH 32.5 MCHC 33.7 RDW 13.5 Plt Count 91 L MPV 11.9 H Prelim Diff (Auto) Slide review pending Neut % (Auto) 81.3 H Lymph % (Auto) 6.6 L [place] % (Auto) 10.4 H Eos % (Auto) 1.3 Baso % (Auto) 0.4 Neut # (Auto) 8.0 H Lymph # (Auto) 0.7 L [place] # (Auto) 1.0 H Eos # (Auto) 0.1 Baso # (Auto) 0.0 WBC Differential . Diff Scan Auto diff confirmed Seg Neuts % (Manual) Band Neuts % (Manual) Lymphocytes % (Manual) Monocytes % (Manual) Basophils % (Manual) Abs Neuts (Manual) Differential Comment . Toxic Vacuolation Platelet Estimate Low L Platelet Morphology Enlarged H Ovalocytes Acanthocytes (Spur) Puncture Site Patient Temperature O2 Saturation ABG pH ABG pCO2 ABG pO2 ABG HCO3 ABG O2 Content ABG Base Excess ABG Methemoglobin Jamie Test Hemoglobin Carboxyhemoglobin O2 Delivery Device Liter Flow Vent Setting Inspired O2 Critical Value Sodium Potassium Chloride Carbon Dioxide Anion Gap BUN Creatinine Estimated GFR POC Glucose Random Glucose Calcium Phosphorus Magnesium Total Bilirubin AST ALT Alkaline Phosphatase Troponin I Total Protein Albumin Thiamine Vit D 1,25-Dihydroxy TSH CSF Volume (1) 2.9 CSF Supernat Color (1) Clear CSF Gross Blood (1) 1+ A CSF Volume (2) 3.0 CSF Supernat Color (2) Clear CSF Gross Blood (2) 0 CSF Volume (3) 3.0 CSF Supernat Color (3) Clear CSF Gross Blood (3) Trace A CSF Volume (4) 2.1 CSF Supernat Color (4) Clear CSF Gross Blood (4) 0 CSF WBC (4) 0 CSF RBC (4) 2 H CSF Neutrophils % 0 CSF Glucose CSF Total Protein CSF Herpes I DNA (PCR) Negative CSF Herpes II DNA (PCR) Negative Nasal Screen MRSA (PCR) Digoxin 11/04/17 11/04/17 11/04/17 10:39 11:54 12:24 WBC RBC Hgb Hct MCV MCH MCHC RDW Plt Count MPV Prelim Diff (Auto) Neut % (Auto) Lymph % (Auto) [place] % (Auto) Eos % (Auto) Baso % (Auto) Neut # (Auto) Lymph # (Auto) [place] # (Auto) Eos # (Auto) Baso # (Auto) WBC Differential Diff Scan Seg Neuts % (Manual) Band Neuts % (Manual) Lymphocytes % (Manual) Monocytes % (Manual) Basophils % (Manual) Abs Neuts (Manual) Differential Comment Toxic Vacuolation Platelet Estimate Platelet Morphology Ovalocytes Acanthocytes (Spur) Puncture Site Right radial Patient Temperature 98.6 O2 Saturation 94 ABG pH 7.46 H ABG pCO2 35 L ABG pO2 84 ABG HCO3 25 ABG O2 Content 20.0 ABG Base Excess 1.4 ABG Methemoglobin 1.4 Jamie Test Present Hemoglobin 15.1 Carboxyhemoglobin 1.0 O2 Delivery Device Nasal cannula Liter Flow 2.00 Vent Setting Inspired O2 21 Critical Value No Sodium Potassium Chloride Carbon Dioxide Anion Gap BUN Creatinine Estimated GFR POC Glucose 134 H Random Glucose Calcium Phosphorus Magnesium Total Bilirubin AST ALT Alkaline Phosphatase Troponin I Total Protein Albumin Thiamine Vit D 1,25-Dihydroxy TSH CSF Volume (1) CSF Supernat Color (1) CSF Gross Blood (1) CSF Volume (2) CSF Supernat Color (2) CSF Gross Blood (2) CSF Volume (3) CSF Supernat Color (3) CSF Gross Blood (3) CSF Volume (4) CSF Supernat Color (4) CSF Gross Blood (4) CSF WBC (4) CSF RBC (4) CSF Neutrophils % CSF Glucose 90 H CSF Total Protein 37.6 CSF Herpes I DNA (PCR) CSF Herpes II DNA (PCR) Nasal Screen MRSA (PCR) Digoxin 11/04/17 11/04/17 11/04/17 16:32 18:18 20:12 WBC RBC Hgb Hct MCV MCH MCHC RDW Plt Count MPV Prelim Diff (Auto) Neut % (Auto) Lymph % (Auto) [place] % (Auto) Eos % (Auto) Baso % (Auto) Neut # (Auto) Lymph # (Auto) [place] # (Auto) Eos # (Auto) Baso # (Auto) WBC Differential Diff Scan Seg Neuts % (Manual) Band Neuts % (Manual) Lymphocytes % (Manual) Monocytes % (Manual) Basophils % (Manual) Abs Neuts (Manual) Differential Comment Toxic Vacuolation Platelet Estimate Platelet Morphology Ovalocytes Acanthocytes (Spur) Puncture Site Patient Temperature O2 Saturation ABG pH ABG pCO2 ABG pO2 ABG HCO3 ABG O2 Content ABG Base Excess ABG Methemoglobin Jamie Test Hemoglobin Carboxyhemoglobin O2 Delivery Device Liter Flow Vent Setting Inspired O2 Critical Value Sodium Potassium 3.9 D Chloride Carbon Dioxide Anion Gap BUN Creatinine Estimated GFR POC Glucose 136 H 140 H Random Glucose Calcium Phosphorus Magnesium Total Bilirubin AST ALT Alkaline Phosphatase Troponin I Total Protein Albumin Thiamine Vit D 1,25-Dihydroxy TSH CSF Volume (1) CSF Supernat Color (1) CSF Gross Blood (1) CSF Volume (2) CSF Supernat Color (2) CSF Gross Blood (2) CSF Volume (3) CSF Supernat Color (3) CSF Gross Blood (3) CSF Volume (4) CSF Supernat Color (4) CSF Gross Blood (4) CSF WBC (4) CSF RBC (4) CSF Neutrophils % CSF Glucose CSF Total Protein CSF Herpes I DNA (PCR) CSF Herpes II DNA (PCR) Nasal Screen MRSA (PCR) Digoxin 11/05/17 11/05/17 11/05/17 00:13 04:10 04:10 WBC 21.7 H D RBC 4.59 Hgb 14.8 Hct 44.1 MCV 96.1 MCH 32.3 MCHC 33.6 RDW 13.6 Plt Count 83 L MPV 12.2 H Prelim Diff (Auto) Slide review pending Neut % (Auto) 88.5 H Lymph % (Auto) 2.8 L [place] % (Auto) 8.6 H Eos % (Auto) 0.0 Baso % (Auto) 0.1 Neut # (Auto) 19.2 H Lymph # (Auto) 0.6 L [place] # (Auto) 1.9 H Eos # (Auto) 0.0 Baso # (Auto) 0.0 WBC Differential Manual diff final Diff Scan Seg Neuts % (Manual) 82 H Band Neuts % (Manual) 5 Lymphocytes % (Manual) 2 L Monocytes % (Manual) 10 H Basophils % (Manual) 1 Abs Neuts (Manual) 18.9 H Differential Comment . Toxic Vacuolation Present H Platelet Estimate Low L Platelet Morphology Enlarged H Ovalocytes 1+ H Acanthocytes (Spur) Occ H Puncture Site Patient Temperature O2 Saturation ABG pH ABG pCO2 ABG pO2 ABG HCO3 ABG O2 Content ABG Base Excess ABG Methemoglobin Jamie Test Hemoglobin Carboxyhemoglobin O2 Delivery Device Liter Flow Vent Setting Inspired O2 Critical Value Sodium 144 Potassium 3.7 Chloride 110 H Carbon Dioxide 22.6 Anion Gap 11 BUN 30 H Creatinine 2.04 H Estimated GFR 32 L POC Glucose 172 H Random Glucose 177 H Calcium 7.8 L Phosphorus 3.2 D Magnesium 2.1 Total Bilirubin 1.3 H AST 35 ALT 27 Alkaline Phosphatase 52 Troponin I Total Protein 6.7 Albumin 3.2 L Thiamine Vit D 1,25-Dihydroxy TSH CSF Volume (1) CSF Supernat Color (1) CSF Gross Blood (1) CSF Volume (2) CSF Supernat Color (2) CSF Gross Blood (2) CSF Volume (3) CSF Supernat Color (3) CSF Gross Blood (3) CSF Volume (4) CSF Supernat Color (4) CSF Gross Blood (4) CSF WBC (4) CSF RBC (4) CSF Neutrophils % CSF Glucose CSF Total Protein CSF Herpes I DNA (PCR) CSF Herpes II DNA (PCR) Nasal Screen MRSA (PCR) Digoxin 11/05/17 11/05/17 04:10 11:41 WBC RBC Hgb Hct MCV MCH MCHC RDW Plt Count MPV Prelim Diff (Auto) Neut % (Auto) Lymph % (Auto) [place] % (Auto) Eos % (Auto) Baso % (Auto) Neut # (Auto) Lymph # (Auto) [place] # (Auto) Eos # (Auto) Baso # (Auto) WBC Differential Diff Scan Seg Neuts % (Manual) Band Neuts % (Manual) Lymphocytes % (Manual) Monocytes % (Manual) Basophils % (Manual) Abs Neuts (Manual) Differential Comment Toxic Vacuolation Platelet Estimate Platelet Morphology Ovalocytes Acanthocytes (Spur) Puncture Site Patient Temperature O2 Saturation ABG pH ABG pCO2 ABG pO2 ABG HCO3 ABG O2 Content ABG Base Excess ABG Methemoglobin Jamie Test Hemoglobin Carboxyhemoglobin O2 Delivery Device Liter Flow Vent Setting Inspired O2 Critical Value Sodium Potassium Chloride Carbon Dioxide Anion Gap BUN Creatinine Estimated GFR POC Glucose 181 H 156 H Random Glucose Calcium Phosphorus Magnesium Total Bilirubin AST ALT Alkaline Phosphatase Troponin I Total Protein Albumin Thiamine Vit D 1,25-Dihydroxy TSH CSF Volume (1) CSF Supernat Color (1) CSF Gross Blood (1) CSF Volume (2) CSF Supernat Color (2) CSF Gross Blood (2) CSF Volume (3) CSF Supernat Color (3) CSF Gross Blood (3) CSF Volume (4) CSF Supernat Color (4) CSF Gross Blood (4) CSF WBC (4) CSF RBC (4) CSF Neutrophils % CSF Glucose CSF Total Protein CSF Herpes I DNA (PCR) CSF Herpes II DNA (PCR) Nasal Screen MRSA (PCR) Digoxin Result Diagrams: 11/05/17 04:10 11/05/17 04:10 Microbiology: Microbiology 11/04/17 20:14 Aerobic Blood Culture - Preliminary Blood - Peripheral No growth in 1 day Anaerobic Blood Culture - Preliminary No growth in 1 day 11/04/17 20:08 Aerobic Blood Culture - Preliminary Blood - Peripheral No growth in 1 day Anaerobic Blood Culture - Preliminary No growth in 1 day 11/04/17 10:39 Gram Stain - Final Lumbar Puncture CSF Culture - Preliminary No growth in 24 hours Imaging: Carotid Doppler Study 11/02/17 00:00 CONCLUSION: 1. There is atherosclerotic plaquing at both carotid bifurcations. 2. 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 3. The vertebral arteries were not visualized. 4. Recommend CTA of the carotids for further evaluation. Neck CTA 11/02/17 00:00 CONCLUSION: 1. High right common carotid artery bifurcation. No evidence of hemodynamically significant carotid stenosis. 2. Diminutive right vertebral artery that terminates at the skull base. Basilar artery also has a diffusely narrow diameter. Head MRI 11/03/17 00:00 CONCLUSION: 1. Exam is limited due to motion artifact on just about every pulse sequence. 2. However, grossly, nothing acute. Mild, symmetric cortical atrophy with some minimal small vessel ischemic demyelination. Head CT 11/03/17 09:57 CONCLUSION: Atrophy, otherwise negative for an acute process. Ajay Pope MD FACR . Chest X-Ray 11/03/17 10:40 CONCLUSION: Mild compensated cardiomegaly Lumbar Puncture Fluoroscopy 11/04/17 00:00 CONCLUSION: 1. Uncomplicated fluoroscopically guided lumbar puncture. Procedures: Restraints 10/29/17 Lumbar puncture 11/04/17 Assessment and Plan - Disease Oriented Problem List (1) Rapid atrial fibrillation (2) Delirium Comment: Evaluation continues as we search for etiology of this encephalopathy (3) Renal failure Comment: Increasing creatinine 11/05/17 (4) Altered mental status (5) Thrombocytopenia - Symptom Scale (1) Encephalopathy 0-10 Scale: Unable to quantify Pertinent Non-Medical Issues: Psychosocial: Never , no children, lives alone in an apartment. Did [employer] work in the past. Spiritual: Not spiritual or hinduism according to the patient's brother. Legal: It is unlikely that the patient will regain capacity for decision-making in the near future. His brother Too Hand is his proxy decision maker. Ethical issues impacting care: The patient is unable to make his own decisions. Important Contacts: Brother: Too Hand, [facility], cell [phone] [id number]: [employer], office [phone], <--- DURING THE DAY, CALL THIS NUMBER FIRST Prognosis: The patient appears somewhat cachectic, and his delirium/encephalopathy may be multifactorial or even primarily psychiatric. Overall, his prognosis is poor if the encephalopathy does not improve soon. Code Status: Full Code Plan: * FULL CODE * DECISION-MAKING: The patient lacks capacity for decision-making, and It is unknown whether the patient will regain capacity for decision-making in the near future. His brother Too Hand is his proxy decision maker. * GOALS: The patient's brother, who was unaware that the patient was in the hospital until I called him 11/03/17, wants aggressive care continued for now. He will be coming to see the patient in a couple days and we will discuss goals of medical treatment further at that time. * With the brief fever and elevated white count this morning, I have ordered additional blood cultures. * SYMPTOMS: The patient's agitation and combativeness has been treated intermittently PRN Lorazepam and Zyprexa. He is not combative at this time, and I have no further medication recommendations. * Patient's brother Too will meet me tomorrow morning here to discuss the patient's situation further. * Palliative Care will continue to follow the patient during this hospitalization. Time Spent Total Floor Time (mins): 41 Face to Face Time (mins): 13 >50% Time in Counseling or Coordination of Care: Yes Attestation Attestation: To help prompt me to consider important information that might be impacting today's encounter and assessment, information from prior notes written by myself or my colleagues may have been "brought forward" into today's note. My signature on this note, however, is an attestation that I personally performed the exam, history, and/or decision-making noted today, and, unless otherwise indicated, the interactions with patient, family, and staff as well as the review of records all occurred today. I also attest that the listed assessment and stated plan reflect my best clinical judgment today based on the combination of historical information, prior notes, and today's exam/ interactions. When time spent is documented, it refers only to time spent today by the signer, or if indicated, combined time spent today by collaborating physician/nurse practitioner.
--- NOTE | 2017-11-05 15:10 | US ---
EXAM DATE: 11/05/2017 3:03 PM EDT AGE/SEX: 72 years / Male INDICATIONS: Acute renal failure. CLINICAL DATA: This is the patient's initial encounter. Patient reports that signs and symptoms have been present for 1 day and indicates a pain score of 0/10. MEDICAL/SURGICAL HISTORY: Hypertension. Anemia. Hyperlipidemia. Thrombocytopenia. Vitamin B12 d eficiency. Tonsillectomy. COMPARISON: No prior exams available for comparison. MEASUREMENTS: Right Kidney:__10.1 x 4.5 x 4.0 cm Left Kidney:__9.9 x 3.5 x 4.2 cm FINDINGS: Right Kidney: Increased echotexture. No mass or hydronephrosis. Left Kidney: Increased echotexture. No mass or hydronephrosis. There is a hypoechoic mass involving t he lower pole measuring 1.9 x 1.4 x 1.1 cm. There is mild posterior acoustical enhancement. It is smo othly marginated and well circumscribed. Bladder: Within normal limits given the degree of distension. Other: The gallbladder is well distended. No gallstones observed.. CONCLUSION: 1. Sonographic findings consistent with underlying medical renal disease. No obstruction observed. 2. Distended gallbladder without gallstones or gallbladder wall thickening. Electronically signed by: Polo Ricardo MD 11/05/2017 3:09 PM EDT
--- NOTE | 2017-11-05 15:12 | P.PNONC ---
Subjective Interval history: T-max 102.0F. Pt lying in bed with eyes closed on approach, pt opens his eyes during exam. Patient attempting to verbalize, however I am unable to understand what he is saying. He is currently restrained. RN at the bedside. Objective Vital Signs/Intake & Output: Vital Signs 11/04/17 15:00 11/04/17 15:30 11/04/17 16:00 Temperature 102.0 F H Pulse Rate 106 H 113 H 121 H Respiratory Rate 24 24 29 H Blood Pressure Pulse Oximetry 95 93 L 94 L 11/04/17 16:27 11/04/17 16:30 11/04/17 16:45 Temperature Pulse Rate 113 H 118 H 116 H Respiratory Rate 27 H 27 H 29 H Blood Pressure 134/91 H 126/94 H 138/91 H Pulse Oximetry 93 L 94 L 96 11/04/17 17:01 11/04/17 20:00 11/04/17 20:25 Temperature 100.5 F H 98.7 F Pulse Rate 132 H Respiratory Rate 30 H Blood Pressure 152/85 H Pulse Oximetry 91 L 97 11/05/17 00:00 11/05/17 00:14 11/05/17 03:45 Temperature 98.3 F Pulse Rate 118 H 114 H 153 H Respiratory Rate 37 H 24 31 H Blood Pressure 135/75 106/86 Pulse Oximetry 95 95 11/05/17 04:00 11/05/17 04:01 11/05/17 04:30 Temperature 97.9 F Pulse Rate 155 H 150 H 156 H Respiratory Rate 26 H 24 25 H Blood Pressure 137/82 137/82 140/100 H Pulse Oximetry 85 L 79 L 89 L 11/05/17 04:45 11/05/17 05:00 11/05/17 05:15 Temperature Pulse Rate 157 H 127 H 143 H Respiratory Rate 26 H 26 H 22 Blood Pressure 131/93 H 115/82 131/78 Pulse Oximetry 91 L 99 95 11/05/17 05:30 11/05/17 05:45 11/05/17 06:00 Temperature Pulse Rate 142 H 129 H 117 H Respiratory Rate 30 H 23 30 H Blood Pressure 138/93 H 130/74 Pulse Oximetry 89 L 96 98 11/05/17 06:30 11/05/17 07:44 11/05/17 07:45 Temperature Pulse Rate 152 H 150 H Respiratory Rate 25 H 26 H Blood Pressure 120/88 121/89 Pulse Oximetry 95 100 85 L 11/05/17 08:00 11/05/17 08:30 11/05/17 08:34 Temperature 98.1 F Pulse Rate 157 H 118 H 108 H Respiratory Rate 30 H 27 H 24 Blood Pressure 132/103 H 139/74 Pulse Oximetry 96 96 94 L 11/05/17 08:46 11/05/17 09:00 11/05/17 09:15 Temperature Pulse Rate 87 85 83 Respiratory Rate 24 23 24 Blood Pressure 108/70 115/76 108/71 Pulse Oximetry 98 98 95 11/05/17 09:30 11/05/17 09:45 11/05/17 10:00 Temperature Pulse Rate 87 98 H 103 H Respiratory Rate 25 H 24 29 H Blood Pressure 123/92 H 132/90 Pulse Oximetry 97 96 94 L 11/05/17 10:01 11/05/17 10:15 11/05/17 10:30 Temperature Pulse Rate 101 H 100 H 98 H Respiratory Rate 26 H 23 24 Blood Pressure 127/79 138/81 125/77 Pulse Oximetry 97 97 99 11/05/17 10:45 11/05/17 11:00 11/05/17 11:15 Temperature Pulse Rate 103 H 98 H 111 H Respiratory Rate 26 H 29 H 22 Blood Pressure 130/72 129/62 137/71 Pulse Oximetry 97 99 96 11/05/17 11:30 11/05/17 11:45 11/05/17 12:00 Temperature 98.0 F Pulse Rate 104 H 101 H 115 H Respiratory Rate 20 19 20 Blood Pressure 124/73 129/61 130/71 Pulse Oximetry 97 97 98 Intake & Output 11/04/17 11/05/17 11/05/17 18:59 06:59 18:59 Intake Total 1321.2 / 1321.2 1310.6 / 1310.6 100 / 100 Output Total 450 / 450 300 / 300 Balance 871.2 / 871.2 1010.6 / 1010.6 100 / 100 Weight 53.1 kg Intake: IV 1321.2 / 1321.2 1310.6 / 1310.6 100 / 100 Cordarone Inj 450 MG In D5W Inj 0 / 0 241 ML @ 1 MG/MIN 33.33 mls/hr IV.CONT TITRATE PRN Rx#: [id number] D5W/Normal Saline Inj 1,000 ML 1000 / 1000 1000 / 1000 @ 75 mls/hr IV.CONT .[id number] [facility] Rx#:[id number] Zovirax Inj 530 MG In NS Inj 221.2 / 221.2 110.6 / 110.6 100 ML @ 110.6 mls/hr IV.SIG Q8H [facility] Rx#:[id number] Zosyn 4.5 GM Premix 4.5 gm In 100 / 100 200 / 200 100 ml @ 200 mls/hr IV.SIG Q6H [facility] Rx#:[id number] KCl 20 mEq Premix Inj 20 meq In 100 / 100 100 ml @ 50 mls/hr IV.SIG Q2H PRN Rx#:[id number] Oral 0 / 0 Output: Urine 450 / 450 Urine Amount (Catheter) 300 / 300 Condom 300 / 300 Other: # Voids 2 # Incontinent Voids 2 # Bowel Movements 0 # Incontinent Bowel Movements 0 Result Diagrams: 11/05/17 04:10 11/05/17 04:10 Laboratory Results: Laboratory Results - last 24 hr 11/04/17 11/04/17 11/04/17 10:39 16:32 18:18 WBC RBC Hgb Hct MCV MCH MCHC RDW Plt Count MPV Prelim Diff (Auto) Neut % (Auto) Lymph % (Auto) [place] % (Auto) Eos % (Auto) Baso % (Auto) Neut # (Auto) Lymph # (Auto) [place] # (Auto) Eos # (Auto) Baso # (Auto) WBC Differential Seg Neuts % (Manual) Band Neuts % (Manual) Lymphocytes % (Manual) Monocytes % (Manual) Basophils % (Manual) Abs Neuts (Manual) Differential Comment Toxic Vacuolation Platelet Estimate Platelet Morphology Ovalocytes Acanthocytes (Spur) Sodium Potassium 3.9 D Chloride Carbon Dioxide Anion Gap BUN Creatinine Estimated GFR POC Glucose 136 H Random Glucose Calcium Phosphorus Magnesium Total Bilirubin AST ALT Alkaline Phosphatase Total Protein Albumin CSF Herpes I DNA (PCR) Negative CSF Herpes II DNA (PCR) Negative 11/04/17 11/05/17 11/05/17 20:12 00:13 04:10 WBC 21.7 H D RBC 4.59 Hgb 14.8 Hct 44.1 MCV 96.1 MCH 32.3 MCHC 33.6 RDW 13.6 Plt Count 83 L MPV 12.2 H Prelim Diff (Auto) Slide review pending Neut % (Auto) 88.5 H Lymph % (Auto) 2.8 L [place] % (Auto) 8.6 H Eos % (Auto) 0.0 Baso % (Auto) 0.1 Neut # (Auto) 19.2 H Lymph # (Auto) 0.6 L [place] # (Auto) 1.9 H Eos # (Auto) 0.0 Baso # (Auto) 0.0 WBC Differential Manual diff final Seg Neuts % (Manual) 82 H Band Neuts % (Manual) 5 Lymphocytes % (Manual) 2 L Monocytes % (Manual) 10 H Basophils % (Manual) 1 Abs Neuts (Manual) 18.9 H Differential Comment . Toxic Vacuolation Present H Platelet Estimate Low L Platelet Morphology Enlarged H Ovalocytes 1+ H Acanthocytes (Spur) Occ H Sodium Potassium Chloride Carbon Dioxide Anion Gap BUN Creatinine Estimated GFR POC Glucose 140 H 172 H Random Glucose Calcium Phosphorus Magnesium Total Bilirubin AST ALT Alkaline Phosphatase Total Protein Albumin CSF Herpes I DNA (PCR) CSF Herpes II DNA (PCR) 11/05/17 11/05/17 11/05/17 04:10 04:10 11:41 WBC RBC Hgb Hct MCV MCH MCHC RDW Plt Count MPV Prelim Diff (Auto) Neut % (Auto) Lymph % (Auto) [place] % (Auto) Eos % (Auto) Baso % (Auto) Neut # (Auto) Lymph # (Auto) [place] # (Auto) Eos # (Auto) Baso # (Auto) WBC Differential Seg Neuts % (Manual) Band Neuts % (Manual) Lymphocytes % (Manual) Monocytes % (Manual) Basophils % (Manual) Abs Neuts (Manual) Differential Comment Toxic Vacuolation Platelet Estimate Platelet Morphology Ovalocytes Acanthocytes (Spur) Sodium 144 Potassium 3.7 Chloride 110 H Carbon Dioxide 22.6 Anion Gap 11 BUN 30 H Creatinine 2.04 H Estimated GFR 32 L POC Glucose 181 H 156 H Random Glucose 177 H Calcium 7.8 L Phosphorus 3.2 D Magnesium 2.1 Total Bilirubin 1.3 H AST 35 ALT 27 Alkaline Phosphatase 52 Total Protein 6.7 Albumin 3.2 L CSF Herpes I DNA (PCR) CSF Herpes II DNA (PCR) Culture Results: Microbiology 11/04/17 20:14 Aerobic Blood Culture - Preliminary Blood - Peripheral No growth in 1 day Anaerobic Blood Culture - Preliminary No growth in 1 day 11/04/17 20:08 Aerobic Blood Culture - Preliminary Blood - Peripheral No growth in 1 day Anaerobic Blood Culture - Preliminary No growth in 1 day 11/04/17 10:39 Gram Stain - Final Lumbar Puncture CSF Culture - Preliminary No growth in 24 hours Imaging Studies: Impressions Lumbar Puncture Fluoroscopy 11/04/17 00:00 CONCLUSION: 1. Uncomplicated fluoroscopically guided lumbar puncture. Medications: Active Medications Generic Name Dose Route Start Last Admin Trade Name Freq PRN Reason Stop Dose Admin Albuterol 1 ampul 11/03/17 13:00 11/05/17 07:40 Duoneb Neb (Sofi) NEB Not Given Q6HR ALT NEB SOFI Atorvastatin Calcium 40 mg 11/02/17 21:00 11/04/17 20:34 Lipitor PO Not Given HS SOFI Chlorhexidine Gluconate 3 pack 11/04/17 04:00 11/05/17 05:02 Chlorhexidine 2% Cloth TOPICAL 11/09/17 03:59 3 pack DAILY@0400 SOFI Administration Cyanocobalamin 1,000 mcg 11/04/17 09:00 11/04/17 10:16 Vitamin B12 Inj IM 1,000 mcg Q30D SOFI Administration Diltiazem HCl 60 mg 11/03/17 13:00 11/05/17 12:26 Cardizem PO 60 mg QID SOFI Administration Heparin Sodium (Porcine) 5,000 units 11/05/17 09:00 11/05/17 08:09 Heparin Inj SQ 5,000 units Q12HR SOFI Administration Dextrose/Sodium Chloride 1,000 mls @ 75 mls/hr 11/03/17 12:45 11/05/17 05:03 D5w/Normal Saline Inj IV.CONT 75 mls/hr .[id number] SOFI Administration Amiodarone HCl 450 mg/ 250 mls @ 33.33 mls/hr 11/03/17 12:50 11/05/17 09:28 Dextrose IV.CONT 0 mg/min TITRATE PRN 0 mls/hr Per Protocol Titration Protocol 1 MG/MIN Acyclovir Sodium 530 mg/ 110.6 mls @ 110.6 mls/hr 11/03/17 17:00 11/05/17 10: 55 Sodium Chloride IV.SIG 100 mls/hr Q8H [facility]FI Infusion Clevidipine 25 mg in 50 mls @ 2 mls/hr 11/03/17 18:34 11/04/17 03:06 Cleviprex Inj IV.CONT 1 mg/hr TITRATE PRN 2 mls/hr Per protocol Administration Protocol 1 MG/HR Piperacillin/Tazobactam/Dextrose 4.5 gm in 100 mls @ 200 mls/hr 11/04/17 17: 00 11/05/17 10:55 Zosyn 4.5 Gm Premix IV.SIG 200 mls/hr Q6H SOFI Administration Insulin Human Regular 0 units 11/03/17 12:00 11/05/17 12:33 Novolin R Correctional Sugar Inj SQ Not Given Q4HR [facility] Protocol Metoprolol Tartrate 50 mg 11/03/17 12:30 11/05/17 08:08 Lopressor PO 50 mg BID SOFI Administration Metoprolol Tartrate 2.5 mg 11/05/17 08:00 11/05/17 14:13 Lopressor Inj IV.PUSH Not Given Q6H SOFI Pantoprazole Sodium 40 mg 11/05/17 13:00 11/05/17 14:18 Protonix Inj IV.PUSH 40 mg Q24H [facility] Administration Senna/Docusate Sodium 1 tab 10/29/17 21:00 11/05/17 08:08 Jia-Colace PO 1 tab BID SOFI Administration Sennosides 17.2 mg 10/29/17 18:25 11/05/17 12:26 Senokot PO 17.2 mg Q12H PRN Administration Moderate Constipation Objective Remarks: GENERAL: Cachectic elderly male patient. Lethargic. In no acute distress. SKIN: Warm and dry. Multiple bruises to bilateral arms. HEAD: Normocephalic. NG tube to left nare. EYES: No scleral icterus. No injection or drainage. NECK: Supple, trachea midline. CARDIOVASCULAR: Irregularly irregular rate, A. fib with rate of 98 bpm noted on monitor. RESPIRATORY: Breath sounds equal bilaterally. No accessory muscle use. GASTROINTESTINAL: Abdomen soft, non-tender, nondistended. EXTREMITIES: No cyanosis, or edema. MUSCULOSKELETAL: Decreased muscle tone. NEUROLOGICAL: Incomprehensible speech. Moves all extremities. PSYCHIATRIC: Unable to assess at this time. Assessment/Plan - Plan This is a elderly cachectic male patient. He has a history of chronic thrombocytopenia, lost to follow-up in March 2017. Patient's baseline platelet count is around 90,000. 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 Plan: 1. Chronic thrombocytopenia. Patient's platelet count has fluctuated between 80,000-102,000 this hospitalization. His baseline is 90,000. No further workup is warranted at this time. 2. B12 deficiency. 1000 mg B12 supplementation given. 3. We will continue to monitor CBC. - Attending Statement The exam, history, and the medical decision-making described in the above note were completed with the assistance of the mid-level provider. I reviewed and agree with the findings presented. I attest that I had a [id number] encounter with the patient on the same day, and personally performed and documented my assessment and findings in the medical record. Patient is still confused. He started having fever. He also developed leukocytosis likely due to underlying infection. No apparent source of infection at this time. His platelet count is stable. Continue to monitor CBC. Continue antibiotics per infectious disease.
--- NOTE | 2017-11-05 15:54 | MB ---
cc: David Nascimento MD DATE: 11/05/2017 REQUESTING PHYSICIAN: Warren Austin MD. REASONS FOR VISIT: Fever, worsening leukocytosis, altered mental status. HISTORY OF PRESENT ILLNESS: This is a 72-year-old white male, who presented to the emergency department with altered mental status. The patient was found at his apartment complex with altered mental status and confusion. The onset is unknown. On admission, his white count was 4.9 and he was afebrile. The patient was [place] [employer] for his safety because he wanted to leave the hospital. He was also exhibiting aggressive behavior. He has a history of chronic anemia. He has been followed by hematology. He has chronic thrombocytopenia as well. The workup so far has been negative including MRI of the brain and a CT scan of the brain. Lumbar puncture showed clear fluid. The white cell count in the spinal fluid in tube #4 was 0. Glucose was high and total protein normal. Herpes simplex virus DNA PCR is negative. The patient is currently in restraints. He is mumbling, but not verbalizing or making any sense. He keeps his eyes shut and refuses to open his eyes or cooperate for evaluation. RN reports that he is a little calmer than before. He was reportedly exhibiting aggressive behavior with his hands and had to be restrained. The patient had a temperature elevation of 102 degrees yesterday evening. This was the first high temperature since admission on 10/29/2017. His white count also increased to 21.7 from 9.9 yesterday, and his platelet count is down to 83. He reportedly has a platelet count chronically around 90,000. Kidney function is also decreased. Creatinine is 2.4 today. Admission creatinine was 1.22 and had come down to 0.89 yesterday. Blood cultures have no growth in 1 day from yesterday. CSF cultures had no growth in 24 hours. An NG tube was placed for nutrition earlier today. An MRI of the brain showed no acute disease. Mild symmetric cortical atrophy with some minimal small-vessel ischemic demyelination is noted. The patient had pulled his NG tube out and it was replaced. He also was noted to have atrial fibrillation with rapid ventricular response and he is receiving amiodarone. Otherwise, the history of the patient is obtained from the medical record. PAST MEDICAL HISTORY: Hyperlipidemia, hypertension, chronic anemia, chronic thrombocytopenia, vitamin B12 deficiency, hearing loss. PAST SURGICAL HISTORY: Tonsillectomy. ALLERGIES: NO KNOWN DRUG ALLERGIES. MEDICATIONS: 1. Lactulose. 2. Lopressor. 3. Protonix. 4. Vancomycin. 5. Zosyn. 6. Senokot. 7. Acyclovir. 8. Cardizem. SOCIAL HISTORY: Unable to obtain. Per the medical record, patient never smoked. FAMILY HISTORY: Unable to obtain. REVIEW OF SYSTEMS: Unable to obtain. PHYSICAL EXAMINATION: GENERAL: Thin, frail male who is in no acute distress. He responds to tactile stimuli. Not following commands. Currently, he is in restraints. VITAL SIGNS: Temperature 98 degrees, heart rate 115, respirations 20, BP 130/71. HEENT: Unable to assess since the patient does not cooperate. Attempts to open his eyes leads to him tightly shutting the eyes, rather than allowing them to be opened. Oropharynx appears dry. The patient is edentulous. NECK: Supple without adenopathy. LUNGS: Diminished breath sounds bilaterally. HEART: Regular rate and rhythm. No murmurs heard. ABDOMEN: Flat, soft, no tenderness. No masses palpable. RECTAL: Not performed. EXTREMITIES: No clubbing, cyanosis, or edema. The patient has some ecchymosis at the extremities. No cords palpable at the pads. The nails of the toes are in poorly-kept state. SKIN: No diffuse rash. NEUROLOGIC: Unable to assess. PSYCHIATRIC: Unable to assess. LABORATORY DATA: WBC 21.7, platelet count 88,000, neutrophils 2%, lymphocytes 8%, hemoglobin 14.8, creatinine 2.04, BUN 30, estimated GFR 32. Liver function tests normal. Total bilirubin 1.3. Urinalysis on admission was unremarkable. Coagulation profile normal. ASSESSMENT: 1. Altered mental status, questionable etiology. CSF analysis was not remarkable and did not suggest meningitis. 2. Leukocytosis and fever, with onset yesterday. The patient was without fever and leukocytosis for several days after admission. Etiology is not clear at this point. 3. Acute kidney disease. 4. History of chronic thrombocytopenia. 5. At this point, it is unclear whether the patient has infection. The occurrence of fever along with leukocytosis necessitates assessment for infection; however his urinalysis and chest x-ray were unremarkable. Blood cultures are pending. 6. It is difficult to get information, as the patient has profound altered mental status and will not cooperate with interview or examination. RECOMMENDATIONS: 1. Continue vancomycin. 2. Continue Zosyn. 3. Follow the blood cultures from today. 4. Continue to follow the CSF culture. 5. Monitor clinical status and mental status. 6. Monitor the white blood cell count. Thank you for this consultation. I will follow the patient's progress along with you and will make further recommendations upon followup. The cause of the mental status, it is not apparent to me at this time. David Nascimento MD FFDaniel/min , 01:52 PM , 02:19 PM MTDDaniel
--- NOTE | 2017-11-05 16:04 | P.DIET ---
Nutritional Evaluation Type of nutrition evaluation: initial Nutrition consult regarding: Tube Feeding Objective - Diagnosis AMS, unknown etiology, dementia (?) - Objective % IBW: 82 (IBW = 142#) Body Weight Used for Calculations: Actual (53.1) Energy Needs - Lower Range (kCal/kg): 30 Energy Needs - Upper Range (kCal/kg): 35 Lower Limit kCal/kg (kCals): 1,593 Upper Limit kCal/kg (kCals): 1,859 Lower Limit Protein Factor (Grams per Kg): 1.0 Upper Limit Protein Factor (Grams per Kg): 1.5 Lower Protein Needs (Protein): 53 Upper Protein Needs (Protein): 80 Dietitian Reviewed in Medical Record: Curent medications, Intake & Output, Labs , Medical history, Tube feeding Speech Therapy Recommendations: Yes (recommend npo) Objective Comments: Labs: BUN/creat 30/2.04, Est GFR 32, glu 177 Assessment Assessment: Pt is at high nutrition risk 2' to low wt for ht with a BMI of 18.9 and the need for TFing. Nepro @ 40 mls/hr goal is currently ordered. Please note that the formula Nepro is designed for pts on dialysis. For this pt, recommend Jevity 1.5 @ 50 mls/hr to provide 1800 kcals, 77 gms protein and 912 mls of free water. Elevated glucose noted on lab reviewed; will need to monitor. Recommendations: Jevity 1.5 @ 50 mls/hr goal Dietitian to Monitor: Lab values, Tube feeding tolerance, Weight change, Swallow recommendations, Medical course
[2017-11-05] MEDS: Piperacil/Tazo 3.375 GM Premix 50 ML IV.SIG SCH ×2 (16:41→23:36)
[2017-11-05 17:16] LABS: Amorphous Sediment,Urine Rare /hpf; Bacteria,Urine Occasional /hpf; Bilirubin,Urine Negative (Negative); Clarity,Urine Cloudy (Clear); Color,Urine Yellow (Yellw/Straw); Glucose,Urine (UA) 50 mg/dL (Negative); Leukocyte Esterase,Urine Large (Negative); Mucus,Urine Few /lpf (Occasional); Nitrite,Urine Negative (Negative); Squamous Epithelial Cell,Urine 1 /hpf (0-5); Uric Acid Crystals,Urine Occasional /hpf
--- NOTE | 2017-11-05 17:58 | ECHRPT ---
Indication: CVA/TIA CONCLUSIONS Mildly dilated left ventricle. The left ventricular systolic function is severely reduced with an estimated ejection fraction in th e range of 25-30%. Distal inferolateral, distal anteroseptal, and apical hypokinesis. The left atrial size is [id number]-[id number]-cbufuyrcat dilated. The right atrial size is rhog-gf-trvurcihlw dilated. Mild mitral valve regurgitation. Trfy-jm-ycckrdeg aortic valve regurgitation. Aortic valve sclerosis is present. There is mild to moderate tricuspid valve regurgitation. The estimated pulmonary arterial pressure is 39 mmHg. BP: / HR: Rhythm: Sinus MEASUREMENTS (Male / Female) Normal Values Technical Quality:Very technically difficult study 2D ECHO LVOT Diameter 2.0 cm Aortic Root Diameter 2.7 cm DOPPLER AV Peak Velocity 76.5 cm/s AV Peak Gradient 2.3 mmHg AV Mean Gradient 1.0 mmHg AV Velocity Time Integral 10.0 cm LVOT Peak Velocity 41.1 cm/s LVOT Peak Gradient 0.7 mmHg LVOT Velocity Time Integral 6.4 cm AV Area Cont Eq vti 2.0 cm AV Area Cont Eq pk 1.7 cm Mitral E Point Velocity 55.8 cm/s LV E' Lateral Velocity 9.5 cm/s Mitral E to LV E' Lateral Ratio 5.8 LV E' Septal Velocity 7.0 cm/s Mitral E to LV E' Septal Ratio 8.0 TR Peak Velocity 269.0 cm/s TR Peak Gradient 29.0 mmHg Right Atrial Pressure 10.0 mmHg Pulmonary Artery Systolic Pressu 38.9 mmHg Right Ventricular Systolic Press 38.9 mmHg FINDINGS LEFT VENTRICLE Mildly dilated left ventricle. The left ventricular systolic function is severely reduced with an estimated ejection fraction in th e range of 25-30%. RIGHT VENTRICLE Normal right ventricular size and systolic function. LEFT ATRIUM The left atrial size is yixd-iw-dtcpuyvuan dilated. RIGHT ATRIUM The right atrial size is rpsc-ui-ibvvmoqvjn dilated. ATRIAL SEPTUM No atrial level shunt is demonstrated by color flow Doppler interrogation. AORTA The aortic root and proximal ascending aorta are not well visualized. MITRAL VALVE Mild mitral valve regurgitation. AORTIC VALVE Hlyz-jx-cuszxwkd aortic valve regurgitation. Aortic valve sclerosis is present. TRICUSPID VALVE There is mild to moderate tricuspid valve regurgitation. The estimated pulmonary arterial pressure is 38.9 mmHg. PULMONARY VALVE The pulmonary valve is not well visualized. VESSELS The inferior vena cava was not well visualized. PERICARDIUM No pericardial effusion. Irma Torres MD, FACC (Electronically Signed) Final Date:05 November 2017 17:57
--- NOTE | 2017-11-05 18:11 | P.PNNEU ---
Subjective Subjective Comments: No acute events reported Active Medications: Active Medications Acetaminophen (Tylenol) 650 mg PO Q4H PRN PRN Reason: Temp > 100.4 Albuterol (Duoneb Neb (Sofi)) 1 ampul NEB Q6HR ALT NEB [facility] Last Admin: 11/05/17 07:40 Dose: Not Given Albuterol (Duoneb Neb (Prn)) 1 ampul NEB Q2HR NEB PRN PRN Reason: DYSPNEA Atorvastatin Calcium (Lipitor) 40 mg PO HS [facility] Last Admin: 11/04/17 20:34 Dose: Not Given Bisacodyl (Dulcolax Supp) 10 mg RECTAL DAILY PRN PRN Reason: SEVERE CONSITIPATION Chlorhexidine Gluconate (Chlorhexidine 2% Cloth) 3 pack TOPICAL DAILY@0400 [facility] Stop: 11/09/17 03:59 Last Admin: 11/05/17 05:02 Dose: 3 pack Chlorhexidine Gluconate (Chlorhexidine 2% Cloth) 3 pack TOPICAL DAILY@0400 PRN PRN Reason: Extra cloth needed Stop: 11/09/17 03:59 Cyanocobalamin (Vitamin B12 Inj) 1,000 mcg IM Q30D [facility] Last Admin: 11/04/17 10:16 Dose: 1,000 mcg Dextrose (D50w Vial) 50 ml IV.PUSH UNSCH PRN PRN Reason: PER HYPOGLYCEMIA PROTOCOL Diltiazem HCl (Cardizem) 60 mg PO QID [facility] Last Admin: 11/05/17 17:19 Dose: 60 mg Flumazenil (Romazecon Inj) 0.2 mg IV.PUSH Q1M PRN PRN Reason: OVERSEDATION Glucagon (Glucagon Inj) 1 mg OTHER PRN PRN PRN Reason: for Hypoglycemia Protocol Heparin Sodium (Porcine) (Heparin Inj) 5,000 units SQ Q12HR [facility] Last Admin: 11/05/17 08:09 Dose: 5,000 units Dextrose/Sodium Chloride (D5w/Normal Saline Inj) 1,000 mls @ 75 mls/hr IV.CONT .[id number] [facility] Last Admin: 11/05/17 05:03 Dose: 75 mls/hr Amiodarone HCl 450 mg/ (Dextrose) 250 mls @ 33.33 mls/hr IV.CONT TITRATE PRN; Protocol PRN Reason: Per Protocol Last Titration: 11/05/17 09:28 Dose: 0 mg/min, 0 mls/hr Clevidipine (Cleviprex Inj) 25 mg in 50 mls @ 2 mls/hr IV.CONT TITRATE PRN; Protocol PRN Reason: Per protocol Last Admin: 11/04/17 03:06 Dose: 1 mg/hr, 2 mls/hr Pharmacy Profile Note (Vancomycin Consult Pharmacy) 0 mls @ 0 mls/hr OTHER UNSCH [facility] Piperacillin/Tazobactam/Dextrose (Zosyn 3.375 Gm Premix) 50 mls @ 100 mls/hr IV.SIG Q6H [facility] Last Admin: 11/05/17 16:41 Dose: 100 mls/hr Insulin Human Regular (Novolin R Correctional Sugar Inj) 0 units SQ Q4HR [facility]; Protocol Last Admin: 11/05/17 16:40 Dose: 3 units Lactulose (Lactulose Liq) 30 ml PO DAILY PRN PRN Reason: SEVERE CONSITIPATION Metoprolol Tartrate (Lopressor) 50 mg PO BID [facility] Last Admin: 11/05/17 08:08 Dose: 50 mg Pantoprazole Sodium (Protonix Inj) 40 mg IV.PUSH Q24H [facility] Last Admin: 11/05/17 14:18 Dose: 40 mg Senna/Docusate Sodium (Jia-Colace) 1 tab PO BID [facility] Last Admin: 11/05/17 08:08 Dose: 1 tab Sennosides (Senokot) 17.2 mg PO Q12H PRN PRN Reason: Moderate Constipation Last Admin: 11/05/17 12:26 Dose: 17.2 mg Allergies/Adverse Reactions: Allergies Allergy/AdvReac Type Severity Reaction Status Date / Time No Known Allergies Allergy Uncoded 02/07/14 14:05 Physical Exam Vital signs: Vital Signs 11/04/17 20:00 11/04/17 20:25 11/05/17 00:00 Temperature 98.7 F 98.3 F Pulse Rate 132 H 118 H Respiratory Rate 30 H 37 H Blood Pressure 152/85 H 135/75 Pulse Oximetry 91 L 97 95 11/05/17 00:14 11/05/17 03:45 11/05/17 04:00 Temperature 97.9 F Pulse Rate 114 H 153 H 155 H Respiratory Rate 24 31 H 26 H Blood Pressure 106/86 137/82 Pulse Oximetry 95 85 L 11/05/17 04:01 11/05/17 04:30 11/05/17 04:45 Temperature Pulse Rate 150 H 156 H 157 H Respiratory Rate 24 25 H 26 H Blood Pressure 137/82 140/100 H 131/93 H Pulse Oximetry 79 L 89 L 91 L 11/05/17 05:00 11/05/17 05:15 11/05/17 05:30 Temperature Pulse Rate 127 H 143 H 142 H Respiratory Rate 26 H 22 30 H Blood Pressure 115/82 131/78 138/93 H Pulse Oximetry 99 95 89 L 11/05/17 05:45 11/05/17 06:00 11/05/17 06:30 Temperature Pulse Rate 129 H 117 H 152 H Respiratory Rate 23 30 H 25 H Blood Pressure 130/74 120/88 Pulse Oximetry 96 98 95 11/05/17 07:44 11/05/17 07:45 11/05/17 08:00 Temperature 98.1 F Pulse Rate 150 H 157 H Respiratory Rate 26 H 30 H Blood Pressure 121/89 Pulse Oximetry 100 85 L 96 11/05/17 08:30 11/05/17 08:34 11/05/17 08:46 Temperature Pulse Rate 118 H 108 H 87 Respiratory Rate 27 H 24 24 Blood Pressure 132/103 H 139/74 108/70 Pulse Oximetry 96 94 L 98 11/05/17 09:00 11/05/17 09:15 11/05/17 09:30 Temperature Pulse Rate 85 83 87 Respiratory Rate 23 24 25 H Blood Pressure 115/76 108/71 123/92 H Pulse Oximetry 98 95 97 11/05/17 09:45 11/05/17 10:00 11/05/17 10:01 Temperature Pulse Rate 98 H 103 H 101 H Respiratory Rate 24 29 H 26 H Blood Pressure 132/90 127/79 Pulse Oximetry 96 94 L 97 11/05/17 10:15 11/05/17 10:30 11/05/17 10:45 Temperature Pulse Rate 100 H 98 H 103 H Respiratory Rate 23 24 26 H Blood Pressure 138/81 125/77 130/72 Pulse Oximetry 97 99 97 11/05/17 11:00 11/05/17 11:15 11/05/17 11:30 Temperature Pulse Rate 98 H 111 H 104 H Respiratory Rate 29 H 22 20 Blood Pressure 129/62 137/71 124/73 Pulse Oximetry 99 96 97 11/05/17 11:45 11/05/17 12:00 11/05/17 12:15 Temperature 98.0 F Pulse Rate 101 H 115 H 101 H Respiratory Rate 19 20 20 Blood Pressure 129/61 130/71 124/67 Pulse Oximetry 97 98 98 11/05/17 12:30 11/05/17 12:45 11/05/17 13:00 Temperature Pulse Rate 115 H 104 H 98 H Respiratory Rate 22 19 35 H Blood Pressure 137/77 114/72 125/70 Pulse Oximetry 94 L 98 98 11/05/17 13:15 11/05/17 13:53 11/05/17 14:00 Temperature Pulse Rate 97 H 99 H 97 H Respiratory Rate 24 15 18 Blood Pressure 117/68 129/60 122/58 L Pulse Oximetry 97 96 99 11/05/17 14:15 11/05/17 14:31 11/05/17 14:32 Temperature Pulse Rate 100 H 104 H 105 H Respiratory Rate 22 21 23 Blood Pressure 122/66 142/65 H 171/70 H Pulse Oximetry 95 96 97 11/05/17 14:45 11/05/17 15:00 11/05/17 15:15 Temperature Pulse Rate 96 H 104 H 110 H Respiratory Rate 18 25 H 29 H Blood Pressure 155/72 H 165/74 H 141/65 H Pulse Oximetry 97 96 93 L 11/05/17 15:30 11/05/17 15:45 11/05/17 16:00 Temperature 98.0 F Pulse Rate 100 H 101 H 110 H Respiratory Rate 18 18 22 Blood Pressure 126/65 118/61 182/81 H Pulse Oximetry 96 97 98 11/05/17 16:15 11/05/17 16:30 Temperature Pulse Rate 111 H 102 H Respiratory Rate 22 20 Blood Pressure 179/72 H 141/66 H Pulse Oximetry 97 97 Intake & Output 11/04/17 11/05/17 11/05/17 18:59 06:59 18:59 Intake Total 1321.2 / 1321.2 1310.6 / 1310.6 100 / 100 Output Total 450 / 450 300 / 300 Balance 871.2 / 871.2 1010.6 / 1010.6 100 / 100 Weight 53.1 kg Intake: IV 1321.2 / 1321.2 1310.6 / 1310.6 100 / 100 Cordarone Inj 450 MG In D5W Inj 0 / 0 241 ML @ 1 MG/MIN 33.33 mls/hr IV.CONT TITRATE PRN Rx#: [id number] D5W/Normal Saline Inj 1,000 ML 1000 / 1000 1000 / 1000 @ 75 mls/hr IV.CONT .[id number] [facility] Rx#:[id number] Zovirax Inj 530 MG In NS Inj 221.2 / 221.2 110.6 / 110.6 100 ML @ 110.6 mls/hr IV.SIG Q8H [facility] Rx#:[id number] Zosyn 4.5 GM Premix 4.5 gm In 100 / 100 200 / 200 100 ml @ 200 mls/hr IV.SIG Q6H [facility] Rx#:[id number] KCl 20 mEq Premix Inj 20 meq In 100 / 100 100 ml @ 50 mls/hr IV.SIG Q2H PRN Rx#:[id number] Oral 0 / 0 Output: Urine 450 / 450 Urine Amount (Catheter) 300 / 300 Condom 300 / 300 Other: # Voids 2 # Incontinent Voids 2 # Bowel Movements 0 # Incontinent Bowel Movements 0 - Routine Neurological Exam not responsive Cn intact MOTOR no focal deficits - Urinary Catheter Management Condom Cath placed during this visit: no Objective Radiology Results: MRI---no acute change noted Laboratory Results - last 24 hr 11/04/17 11/04/17 11/04/17 10:39 18:18 20:12 WBC RBC Hgb Hct MCV MCH MCHC RDW Plt Count MPV Prelim Diff (Auto) Neut % (Auto) Lymph % (Auto) [place] % (Auto) Eos % (Auto) Baso % (Auto) Neut # (Auto) Lymph # (Auto) [place] # (Auto) Eos # (Auto) Baso # (Auto) WBC Differential Seg Neuts % (Manual) Band Neuts % (Manual) Lymphocytes % (Manual) Monocytes % (Manual) Basophils % (Manual) Abs Neuts (Manual) Differential Comment Toxic Vacuolation Platelet Estimate Platelet Morphology Ovalocytes Acanthocytes (Spur) Sodium Potassium 3.9 D Chloride Carbon Dioxide Anion Gap BUN Creatinine Estimated GFR POC Glucose 140 H Random Glucose Calcium Phosphorus Magnesium Total Bilirubin AST ALT Alkaline Phosphatase Total Protein Albumin Urine Color Urine Clarity Urine pH Ur Specific [place] Urine Protein Urine Glucose (UA) Urine Ketones Urine Occult Blood Urine Nitrate Urine Bilirubin Urine Urobilinogen Ur Leukocyte Esterase Urine RBC Urine WBC Urine WBC Clumps Ur Squamous Epith Cells Uric Acid Crystals Amorphous Sediment Urine Bacteria Urine Mucus Micro UA Comment Urine Culture Comments CSF Herpes I DNA (PCR) Negative CSF Herpes II DNA (PCR) Negative 11/05/17 11/05/17 11/05/17 00:13 04:10 04:10 WBC 21.7 H D RBC 4.59 Hgb 14.8 Hct 44.1 MCV 96.1 MCH 32.3 MCHC 33.6 RDW 13.6 Plt Count 83 L MPV 12.2 H Prelim Diff (Auto) Slide review pending Neut % (Auto) 88.5 H Lymph % (Auto) 2.8 L [place] % (Auto) 8.6 H Eos % (Auto) 0.0 Baso % (Auto) 0.1 Neut # (Auto) 19.2 H Lymph # (Auto) 0.6 L [place] # (Auto) 1.9 H Eos # (Auto) 0.0 Baso # (Auto) 0.0 WBC Differential Manual diff final Seg Neuts % (Manual) 82 H Band Neuts % (Manual) 5 Lymphocytes % (Manual) 2 L Monocytes % (Manual) 10 H Basophils % (Manual) 1 Abs Neuts (Manual) 18.9 H Differential Comment . Toxic Vacuolation Present H Platelet Estimate Low L Platelet Morphology Enlarged H Ovalocytes 1+ H Acanthocytes (Spur) Occ H Sodium 144 Potassium 3.7 Chloride 110 H Carbon Dioxide 22.6 Anion Gap 11 BUN 30 H Creatinine 2.04 H Estimated GFR 32 L POC Glucose 172 H Random Glucose 177 H Calcium 7.8 L Phosphorus 3.2 D Magnesium 2.1 Total Bilirubin 1.3 H AST 35 ALT 27 Alkaline Phosphatase 52 Total Protein 6.7 Albumin 3.2 L Urine Color Urine Clarity Urine pH Ur Specific [place] Urine Protein Urine Glucose (UA) Urine Ketones Urine Occult Blood Urine Nitrate Urine Bilirubin Urine Urobilinogen Ur Leukocyte Esterase Urine RBC Urine WBC Urine WBC Clumps Ur Squamous Epith Cells Uric Acid Crystals Amorphous Sediment Urine Bacteria Urine Mucus Micro UA Comment Urine Culture Comments CSF Herpes I DNA (PCR) CSF Herpes II DNA (PCR) 11/05/17 11/05/17 11/05/17 04:10 08:30 11:41 WBC RBC Hgb Hct MCV MCH MCHC RDW Plt Count MPV Prelim Diff (Auto) Neut % (Auto) Lymph % (Auto) [place] % (Auto) Eos % (Auto) Baso % (Auto) Neut # (Auto) Lymph # (Auto) [place] # (Auto) Eos # (Auto) Baso # (Auto) WBC Differential Seg Neuts % (Manual) Band Neuts % (Manual) Lymphocytes % (Manual) Monocytes % (Manual) Basophils % (Manual) Abs Neuts (Manual) Differential Comment Toxic Vacuolation Platelet Estimate Platelet Morphology Ovalocytes Acanthocytes (Spur) Sodium Potassium Chloride Carbon Dioxide Anion Gap BUN Creatinine Estimated GFR POC Glucose 181 H 156 H Random Glucose Calcium Phosphorus Magnesium Total Bilirubin AST ALT Alkaline Phosphatase Total Protein Albumin Urine Color Yellow Urine Clarity Cloudy H Urine pH 5.0 Ur Specific [place] 1.020 Urine Protein 100 H Urine Glucose (UA) 50 Urine Ketones Negative Urine Occult Blood Large H Urine Nitrate Negative Urine Bilirubin Negative Urine Urobilinogen Less than 2 Ur Leukocyte Esterase Large H Urine RBC 100 H Urine WBC 73 H Urine WBC Clumps Rare H Ur Squamous Epith Cells 1 Uric Acid Crystals Occasional H Amorphous Sediment Rare H Urine Bacteria Occasional H Urine Mucus Few H Micro UA Comment Cath-culture ind Urine Culture Comments Cath-cult indicated CSF Herpes I DNA (PCR) CSF Herpes II DNA (PCR) 11/05/17 16:26 WBC RBC Hgb Hct MCV MCH MCHC RDW Plt Count MPV Prelim Diff (Auto) Neut % (Auto) Lymph % (Auto) [place] % (Auto) Eos % (Auto) Baso % (Auto) Neut # (Auto) Lymph # (Auto) [place] # (Auto) Eos # (Auto) Baso # (Auto) WBC Differential Seg Neuts % (Manual) Band Neuts % (Manual) Lymphocytes % (Manual) Monocytes % (Manual) Basophils % (Manual) Abs Neuts (Manual) Differential Comment Toxic Vacuolation Platelet Estimate Platelet Morphology Ovalocytes Acanthocytes (Spur) Sodium Potassium Chloride Carbon Dioxide Anion Gap BUN Creatinine Estimated GFR POC Glucose 206 H Random Glucose Calcium Phosphorus Magnesium Total Bilirubin AST ALT Alkaline Phosphatase Total Protein Albumin Urine Color Urine Clarity Urine pH Ur Specific [place] Urine Protein Urine Glucose (UA) Urine Ketones Urine Occult Blood Urine Nitrate Urine Bilirubin Urine Urobilinogen Ur Leukocyte Esterase Urine RBC Urine WBC Urine WBC Clumps Ur Squamous Epith Cells Uric Acid Crystals Amorphous Sediment Urine Bacteria Urine Mucus Micro UA Comment Urine Culture Comments CSF Herpes I DNA (PCR) CSF Herpes II DNA (PCR) Microbiology 11/04/17 20:14 Aerobic Blood Culture - Preliminary Blood - Peripheral No growth in 1 day Anaerobic Blood Culture - Preliminary No growth in 1 day 11/04/17 20:08 Aerobic Blood Culture - Preliminary Blood - Peripheral No growth in 1 day Anaerobic Blood Culture - Preliminary No growth in 1 day 11/04/17 10:39 Gram Stain - Final Lumbar Puncture CSF Culture - Preliminary No growth in 24 hours Review/Management - Review/Management Plan: stop acyclovir due to negative csf continue B12 supplement
[2017-11-05] MEDS ORDERED: ACYCLOVIR IV.SIG SCH (21:00)
[2017-11-05] MEDS ORDERED: SODIUM CHLOR 0.9% IV.SIG SCH (21:00)
[2017-11-06] MEDS: Insulin NovoLIN Regular Correctional Sugar Inj SQ SCH ×5 (03:43→21:09)
[2017-11-06] MEDS: Chlorhexidine Gluconate 2% 1 Pack (2 Cloths) TOPICAL SCH (05:00)
[2017-11-06] MEDS: Piperacil/Tazo 3.375 GM Premix 50 ML IV.SIG SCH ×4 (05:00→23:44)
[2017-11-06 05:52] LABS: Baso # (Auto) 0.1 th/mm3 (0.0-0.2); Baso % (Auto) 0.3 % (0.0-2.0); Eos % (Auto) 0.3 % (0.0-4.0); Hematocrit 40.7 % (39.0-51.0); Hemoglobin 13.7 gm/dL (13.0-17.0); Lymph # (Auto) 0.4 th/mm3 (1.0-4.8); Lymph % (Auto) 3.1 % (9.0-44.0); Mean Corpuscular HGB Conc 33.8 % (32.0-36.0); Mean Corpuscular Hemoglobin 32.8 pg (27.0-34.0); Mean Corpuscular Volume 97.1 fL (80.0-100.0); Mean Platelet Volume 12.8 fL (7.0-11.0); Mono % (Auto) 7.2 % (0.0-8.0); Neut # (Auto) 12.8 th/mm3 (1.8-7.7); Neut % (Auto) 89.1 % (16.0-70.0); Platelet Count 77 th/mm3 (150-450); Red Blood Count 4.19 mil/mm3 (4.50-5.90); Red Cell Distribution Width 13.7 % (11.6-17.2); White Blood Count 14.3 th/mm3 (4.0-11.0)
[2017-11-06 06:18] LABS: Alanine Aminotransferase 19 U/L (12-78); Albumin 2.5 g/dL (3.4-5.0); Alkaline Phosphatase 48 U/L (45-117); Anion Gap 11 meq/L (5-15); Aspartate Aminotransferase 18 U/L (15-37); Blood Urea Nitrogen 33 mg/dL (7-18); Calcium 7.7 mg/dL (8.5-10.1); Carbon Dioxide 24.2 meq/L (21.0-32.0); Chloride 110 meq/L (98-107); Glomerular Filtration Rate 49 mL/min (>89); Glucose,Random 149 mg/dL (74-106); Phosphorus 2.8 mg/dL (2.5-4.9); Sodium 145 meq/L (136-145); Vancomycin,Random 4.3 Comment
[2017-11-06 06:33] LABS: Potassium 2.8 meq/L (3.5-5.1)
[2017-11-06] MEDS ORDERED: Potassium Chloride 25 MEQ Effervescent Tablet NG/OG ONE (07:07)
--- NOTE | 2017-11-06 07:23 | P.PNCC ---
Subjective Subjective Remarks/Hospital Course: The patient is a 72-year-old male with a past medical history of hypertension, hyperlipidemia, thrombocytopenia, vitamin B12 deficiency, who presented to [facility] ED on 10/29/2017 for altered mental status. He was [facility] Acted by ED provider. The patient is a poor historian and most of the history was obtained from reviewing medical records. He was given Ativan 3 mg total on arrival, due to his severe agitation. Patient was initially admitted under hospitalist service and he underwent a CT scan of the brain on 10/29/2017, which was a limited study due to severe motion artifact. A repeat CT scan of the brain was obtained earlier this morning, which showed atrophy, otherwise negative for acute process. CTA of the neck was performed on 11/02/2017 which showed no evidence of any hemodynamically significant carotid stenosis. The patient was found to be in atrial fibrillation with RVR this morning with a heart rate of 140s. He was given Lopressor 5 mg IV push and placed on p.o. Cardizem and p.o. Lopressor. Due to worsening mental status, he was transferred to ICU and critical care medicine was consulted for critical care management. The patient received additional 3 mg of Ativan since in the last 12 hours. MRI of the brain was ordered by the primary team. The patient does arouse to touch and verbalizes several words and able to move all extremities. 11/04 MRI brain last night showed no acute disease/Mild, symmetric cortical atrophy with some minimal small vessel ischemic demyelination.Patient pulled out NGT , On Amio drip for Afib with RVR, given Digoxin and started on Cleviprex drip last night. 11/05 Patient remains on Amio drip. Had T: 102 yesterday. s/p LP showed clear CSF , 0 WBC. Renal function worse with Cr: 2.04 from 0.89. SUBJECTIVE: 11/06: Afebrile. Resting comfortably bed in no acute distress. Remains in soft restraints. Remains in atrial fibrillation with rapid ventricular response heart rate in the 110s. No bowel movement since admission noted. Objective Vital Signs / I&O: Vital Signs 11/05/17 07:44 11/05/17 07:45 11/05/17 08:00 Temperature 98.1 F Pulse Rate 150 H 157 H Respiratory Rate 26 H 30 H Blood Pressure 121/89 Pulse Oximetry 100 85 L 96 11/05/17 08:30 11/05/17 08:34 11/05/17 08:46 Temperature Pulse Rate 118 H 108 H 87 Respiratory Rate 27 H 24 24 Blood Pressure 132/103 H 139/74 108/70 Pulse Oximetry 96 94 L 98 11/05/17 09:00 11/05/17 09:15 11/05/17 09:30 Temperature Pulse Rate 85 83 87 Respiratory Rate 23 24 25 H Blood Pressure 115/76 108/71 123/92 H Pulse Oximetry 98 95 97 11/05/17 09:45 11/05/17 10:00 11/05/17 10:01 Temperature Pulse Rate 98 H 103 H 101 H Respiratory Rate 24 29 H 26 H Blood Pressure 132/90 127/79 Pulse Oximetry 96 94 L 97 11/05/17 10:15 11/05/17 10:30 11/05/17 10:45 Temperature Pulse Rate 100 H 98 H 103 H Respiratory Rate 23 24 26 H Blood Pressure 138/81 125/77 130/72 Pulse Oximetry 97 99 97 11/05/17 11:00 11/05/17 11:15 11/05/17 11:30 Temperature Pulse Rate 98 H 111 H 104 H Respiratory Rate 29 H 22 20 Blood Pressure 129/62 137/71 124/73 Pulse Oximetry 99 96 97 11/05/17 11:45 11/05/17 12:00 11/05/17 12:15 Temperature 98.0 F Pulse Rate 101 H 115 H 101 H Respiratory Rate 19 20 20 Blood Pressure 129/61 130/71 124/67 Pulse Oximetry 97 98 98 11/05/17 12:30 11/05/17 12:45 11/05/17 13:00 Temperature Pulse Rate 115 H 104 H 98 H Respiratory Rate 22 19 35 H Blood Pressure 137/77 114/72 125/70 Pulse Oximetry 94 L 98 98 11/05/17 13:15 11/05/17 13:53 11/05/17 14:00 Temperature Pulse Rate 97 H 99 H 97 H Respiratory Rate 24 15 18 Blood Pressure 117/68 129/60 122/58 L Pulse Oximetry 97 96 99 11/05/17 14:15 11/05/17 14:31 11/05/17 14:32 Temperature Pulse Rate 100 H 104 H 105 H Respiratory Rate 22 21 23 Blood Pressure 122/66 142/65 H 171/70 H Pulse Oximetry 95 96 97 11/05/17 14:45 11/05/17 15:00 11/05/17 15:15 Temperature Pulse Rate 96 H 104 H 110 H Respiratory Rate 18 25 H 29 H Blood Pressure 155/72 H 165/74 H 141/65 H Pulse Oximetry 97 96 93 L 11/05/17 15:30 11/05/17 15:45 11/05/17 16:00 Temperature 98.0 F Pulse Rate 100 H 101 H 110 H Respiratory Rate 18 18 22 Blood Pressure 126/65 118/61 182/81 H Pulse Oximetry 96 97 98 11/05/17 16:15 11/05/17 16:30 11/05/17 16:46 Temperature Pulse Rate 111 H 102 H 107 H Respiratory Rate 22 20 41 H Blood Pressure 179/72 H 141/66 H 138/62 Pulse Oximetry 97 97 98 11/05/17 17:00 11/05/17 17:15 11/05/17 17:30 Temperature Pulse Rate 108 H 116 H 105 H Respiratory Rate 47 H 27 H 27 H Blood Pressure 140/63 142/64 H 113/58 L Pulse Oximetry 97 97 98 11/05/17 17:45 11/05/17 18:00 11/05/17 18:15 Temperature Pulse Rate 107 H 104 H 103 H Respiratory Rate 25 H 38 H 25 H Blood Pressure 122/64 117/59 L 130/59 L Pulse Oximetry 97 98 96 11/05/17 18:30 11/05/17 18:46 11/05/17 19:00 Temperature Pulse Rate 105 H 104 H 103 H Respiratory Rate 27 H 30 H 37 H Blood Pressure 90/63 L 151/67 H 163/68 H Pulse Oximetry 97 96 97 11/05/17 19:15 11/05/17 19:31 11/05/17 19:34 Temperature Pulse Rate 103 H 117 H 105 H Respiratory Rate 26 H 34 H 24 Blood Pressure 139/68 173/65 H Pulse Oximetry 98 97 98 11/05/17 19:45 11/05/17 20:00 11/05/17 20:15 Temperature 98.2 F Pulse Rate 107 H 128 H 117 H Respiratory Rate 35 H 27 H 21 Blood Pressure 144/67 H 161/72 H 120/60 Pulse Oximetry 98 97 98 11/05/17 20:31 11/05/17 20:45 08/15/18 21:00 Temperature Pulse Rate 115 H 124 H 118 H Respiratory Rate 20 23 20 Blood Pressure 120/55 L 136/77 157/70 H Pulse Oximetry 98 96 97 11/05/17 21:15 11/05/17 21:30 11/05/17 21:45 Temperature Pulse Rate 95 H 94 H 93 H Respiratory Rate 22 25 H 36 H Blood Pressure 138/71 155/65 H 142/67 H Pulse Oximetry 98 95 97 11/05/17 22:00 11/05/17 22:15 11/05/17 22:30 Temperature Pulse Rate 96 H 91 H 97 H Respiratory Rate 26 H 23 22 Blood Pressure 125/76 150/70 H 148/67 H Pulse Oximetry 97 93 L 97 11/05/17 22:45 11/05/17 23:00 11/05/17 23:12 Temperature Pulse Rate 99 H 93 H Respiratory Rate 22 20 Blood Pressure 171/77 H 171/76 H Pulse Oximetry 96 98 98 11/05/17 23:15 11/05/17 23:30 11/05/17 23:45 Temperature Pulse Rate 97 H 128 H 95 H Respiratory Rate 23 53 H Blood Pressure 166/77 H 157/72 H 162/66 H Pulse Oximetry 97 97 98 11/06/17 00:00 11/06/17 00:15 11/06/17 00:30 Temperature 98.2 F Pulse Rate 99 H 97 H 99 H Respiratory Rate 23 32 H 25 H Blood Pressure 171/79 H 157/74 H 139/64 Pulse Oximetry 97 98 98 11/06/17 00:45 11/06/17 01:00 11/06/17 01:15 Temperature Pulse Rate 108 H 97 H 102 H Respiratory Rate 24 19 31 H Blood Pressure 174/72 H 186/71 H 179/77 H Pulse Oximetry 98 95 95 11/06/17 01:30 11/06/17 01:31 11/06/17 01:45 Temperature Pulse Rate 107 H 105 H 104 H Respiratory Rate 25 H 26 H 20 Blood Pressure 178/116 H 185/79 H 184/80 H Pulse Oximetry 96 98 98 11/06/17 02:00 11/06/17 02:16 11/06/17 02:30 Temperature Pulse Rate 105 H 112 H 104 H Respiratory Rate 27 H 26 H 20 Blood Pressure 179/79 H 187/71 H 189/75 H Pulse Oximetry 93 L 97 97 11/06/17 02:45 11/06/17 03:00 11/06/17 03:15 Temperature Pulse Rate 107 H 120 H 116 H Respiratory Rate 21 21 30 H Blood Pressure 126/78 180/82 H 130/80 Pulse Oximetry 97 99 99 11/06/17 03:24 11/06/17 03:25 11/06/17 03:31 Temperature Pulse Rate 98 H 118 H Respiratory Rate 24 27 H Blood Pressure 192/81 H Pulse Oximetry 99 93 L 11/06/17 03:45 11/06/17 04:00 11/06/17 04:15 Temperature 98.1 F Pulse Rate 106 H 108 H 104 H Respiratory Rate 0 L 0 L 0 L Blood Pressure 146/80 H 143/67 H 169/71 H Pulse Oximetry 99 99 98 11/06/17 04:30 11/06/17 04:45 11/06/17 05:00 Temperature Pulse Rate 108 H 109 H 105 H Respiratory Rate 26 H 16 16 Blood Pressure 162/72 H 164/65 H 162/67 H Pulse Oximetry 97 99 99 11/06/17 05:15 11/06/17 05:30 Temperature Pulse Rate 107 H 107 H Respiratory Rate 17 15 Blood Pressure 158/69 H 159/71 H Pulse Oximetry 100 99 Intake & Output 11/05/17 11/06/17 11/06/17 18:59 06:59 18:59 Intake Total 1501 / 1501 682 / 682 Output Total 500 / 500 450 / 450 Balance 1001 / 1001 232 / 232 Weight 57.1 kg Intake: IV 1250 / 1250 100 / 100 D5W/Normal Saline Inj 1,000 ML 1000 / 1000 @ 75 mls/hr IV.CONT .[id number] GARY Rx#:[id number] Zosyn 3.375 GM Premix 50 ML @ 50 / 50 100 / 100 100 mls/hr IV.SIG Q6H GARY Rx#: [id number] Zosyn 4.5 GM Premix 4.5 gm In 100 / 100 100 ml @ 200 mls/hr IV.SIG Q6H GARY Rx#:[id number] KCl 20 mEq Premix Inj 20 meq In 100 / 100 100 ml @ 50 mls/hr IV.SIG Q2H PRN Rx#:[id number] Oral 0 / 0 Tube Feeding 131 / 131 462 / 462 Water Bolus Amount 120 / 120 120 / 120 Output: Urine 0 / 0 Urine Amount (Catheter) 500 / 500 450 / 450 Condom 500 / 500 450 / 450 Other: # Voids 0 # Incontinent Voids 1 # Bowel Movements 0 0 # Incontinent Bowel Movements 0 Result Diagrams: 11/06/17 05:30 11/06/17 05:30 Other Results: Microbiology 11/04/17 20:14 Blood - Peripheral Aerobic Blood Culture - Preliminary No growth in 1 day 11/04/17 20:14 Blood - Peripheral Anaerobic Blood Culture - Preliminary No growth in 1 day 11/04/17 20:08 Blood - Peripheral Aerobic Blood Culture - Preliminary No growth in 1 day 11/04/17 20:08 Blood - Peripheral Anaerobic Blood Culture - Preliminary No growth in 1 day 11/04/17 10:39 Lumbar Puncture Gram Stain - Final 11/04/17 10:39 Lumbar Puncture CSF Culture - Preliminary No growth in 24 hours Imaging: Head CT 10/29/17 12:48 CONCLUSION: 1. Suboptimal limited study secondary to severe motion artifact. 2. No gross abnormality identified however even large abnormalities could be obscured. Carotid Doppler Study 11/02/17 00:00 CONCLUSION: 1. There is atherosclerotic plaquing at both carotid bifurcations. 2. 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 3. The vertebral arteries were not visualized. 4. Recommend CTA of the carotids for further evaluation. Neck CTA 11/02/17 00:00 CONCLUSION: 1. High right common carotid artery bifurcation. No evidence of hemodynamically significant carotid stenosis. 2. Diminutive right vertebral artery that terminates at the skull base. Basilar artery also has a diffusely narrow diameter. Head MRI 11/03/17 00:00 CONCLUSION: 1. Exam is limited due to motion artifact on just about every pulse sequence. 2. However, grossly, nothing acute. Mild, symmetric cortical atrophy with some minimal small vessel ischemic demyelination. Head CT 11/03/17 09:57 CONCLUSION: Atrophy, otherwise negative for an acute process. Ajay Pope MD FACR . Chest X-Ray 11/03/17 10:40 CONCLUSION: Mild compensated cardiomegaly Lumbar Puncture Fluoroscopy 11/04/17 00:00 CONCLUSION: 1. Uncomplicated fluoroscopically guided lumbar puncture. Abdomen/Bladder Ultrasound 11/05/17 00:00 CONCLUSION: 1. Sonographic findings consistent with underlying medical renal disease. No obstruction observed. 2. Distended gallbladder without gallstones or gallbladder wall thickening. Objective Remarks: GENERAL: Patient is 72 yo male resting in an ICU bed currently in NAD. SKIN: Warm and dry. No rash HEAD: Normocephalic. EYES: No scleral icterus. No injection or drainage. NECK: Supple, trachea midline. No JVD or lymphadenopathy. CARDIOVASCULAR: Tachycardic, IR. S1, S2 no S4. 2/6 systolic murmur in sternal RESPIRATORY: Breath sounds equal bilaterally. No accessory muscle use. GASTROINTESTINAL: Abdomen soft, non-tender, nondistended. Hypoactive bowel sounds are appreciated. MUSCULOSKELETAL: No significant peripheral edema. Neuro: Responds to voice, able to move all extremities spontaneously but not to command this a.m. Assessment and Plan - Assessment and Plan Plan: Neuro/Psych: Acute encephalopathy [place] B12 deficiency Monitor neurologic status and avoid any sedatives. CT brain 11/03 showed no acute intracranial process CTA of the neck 11/03 showed no significant hemodynamic stenosis. MRI brain: 11/03 no acute disease EEG: Mild encephalopathy with no epileptiform activity Neuro is following- Dr. Canela, s/p LP 11/04 showed clear CSF, 0 WBC, T, TP: 37.6 Started on Acyclovir empirically by Neuro. this is been discontinued Acetaminophen 650 every 4 hours as needed fever Continue with cyanocobalamin 1000 micro grams intramuscularly every 30 days. Followed by hematology. Pulm: Acute respiratory insufficiency Nasal cannula to maintain saturations greater than equal to 92% Incentive spirometry while awake Acapella/PET therapy every 6 hours while awake Albuterol/ipratropium aerosols every 6 hours while awake with albuterol aerosols every 2 hours as needed for dyspnea Follow-up chest x-ray in a.m. 11/07 CV: Atrial fibrillation with rapid ventricular response Essential hypertension Hyperlipidemia Acute systolic heart failure Moderate MR/TR On amiodarone drip at 0.5 mg/min. Monitor HR and BP keep MAP>65mmHg Continue diltiazem 60 mg q.i.d, metoprolol tartrate 50 b.i.d) Trop <0.02 x 2, Continue atorvastatin 40 mg daily for dyslipidemia 2-D echo. Revealed EF 25-30%. Decrease this to like left ventricular function. Distal lateral, apical hypokinesis. Bilateral atrial enlargement. Moderate AR/TR. PAP 39 mmHg Cards eval. Patient is at high risk of full anticoagulation for Afib given thrombocytopenia ( PLT < 100) Renal/: Acute kidney injury Renal ultrasound revealed possible left renal mass lower pole 2 x 1 x 1.4 cm. Medical renal disease. Creatinine is currently 1.4. Likely secondary to contrast resolving. Recheck BMP in a.m. Currently on D5 one half normal saline at 42 cc an hour GI: Constipation Hypoalbuminemia Jevity 1.5 at 50 cc an hour per nutrition recommendations with free water 100 cc every 8 hours on lansoprazole 30 mg daily for GI prophylaxis. NPO per speech. Docusate sodium/senna 1 tablet twice daily, polythene glycol 17 g twice daily, lactulose 30 cc twice daily for bowel regimen. Check KUB today. Fecal disimpaction as needed Distended gallbladder without cold cystitis. Cholelithiasis. ID: Monitor for signs of infection, which include fever and WBC. Continue vancomycin and piperacillin/tazobactam empirically. Followup on BC from 11/04 and no growth today. UA -11/05. Started on Acyclovir empirically by Neuro, discontinued 11/05 s/p LP 11/04:Clear CSF, 0 WBC, T, TP:37. Negative CSF 11/04 Follow up on CSF cultures. ID eval. Endo: SSI with Accu-Cheks to maintain euglycemia. Novulin R 5 units past 24 hours TSH 1.58 Heme: Leukocytosis Normocytic anemia Thrombocytopenia Dr. Salas -as followed. Currently on cyanocobalamin thousand micrograms intramuscular q. 30 days Monitor CBC daily follow trends. No indication for transfusion of blood products at this time. MSK PT eval and tx FEN Acute hypokalemia 75 mEq potassium chloride Effient and 30 mEq potassium chloride IV 1 now. Recheck this afternoon. GI prophylaxis with lansoprazole and DVT prophylaxis with SCDs/Heparin SQ. Palliative care is following. Level 3
[2017-11-06] MEDS ORDERED: Dextrose 5%/NaCl 0.45% Inj 1,000 ML IV.CONT SCH (07:26)
[2017-11-06] MEDS ORDERED: Methylnaltrexone Inj 12 MG/0.6 ML Vial SQ ONE (07:28)
[2017-11-06] MEDS ORDERED: Mineral Oil Liq 30 ML UDC PO ONE (07:28)
[2017-11-06] MEDS ORDERED: Mineral Oil Enema 118 ML Bottle RECTAL ONE (07:28)
[2017-11-06 08:26] LABS: Lymphocytes 4 % (9-44); Monocytes 7 % (0-8); Toxic Vacuolation Present
[2017-11-06 08:27] LABS: Burr Cells 1+
[2017-11-06 08:28] LABS: Acanthocytes Occ; Ovalocytes 1+
--- NOTE | 2017-11-06 08:49 | XR ---
EXAM DATE: 11/06/2017 8:32 AM EDT AGE/SEX: 72 years / Male INDICATIONS: Respiratory failure. CLINICAL DATA: This is the patient's subsequent encounter. Patient reports that signs and symptoms h ave been present for 1 week and indicates a pain score of Nonresponsive. MEDICAL/SURGICAL HISTORY: Non-responsive. Non-responsive. COMPARISON: [facility] [place] S[place], 04/10/2010. . FINDINGS: The heart is at the upper limits of normal in size. There is mild ectasia of the aortic arch. The steven gs demonstrate some diffuse interstitial prominence suggesting some mild interstitial edema. There is no overt congestive failure. The appearance of the chest is similar to previous dated 11/03/2017. The visualized bony structures demonstrate degenerative changes but are otherwise intact. There is a nasogastric tube present. The tip of the tube is in the midesophagus. CONCLUSION: Mild cardiomegaly. Diffuse interstitial prominence suggesting chronic interstitial changes. No Overt congestive failure. Electronically signed by: Justus Pope MD 11/06/2017 8:48 AM EDT
[2017-11-06] MEDS: Potassium Chlor 10 mEq Premix 10 MEQ/100 ML PIGGYBACK IV.SIG SCH ×3 (08:52→12:33)
[2017-11-06] MEDS: Polyethylene Glycol 3350 17 GM Packet PO SCH ×2 (08:53→20:40)
[2017-11-06] MEDS: Metoprolol Tartrate 50 MG Tablet PO SCH ×2 (08:53→20:41)
[2017-11-06] MEDS: Heparin - SQ 10,000 UNITS/ML Vial SQ SCH ×2 (08:54→20:40)
[2017-11-06] MEDS: dilTIAZem 60 MG Tablet PO SCH ×2 (08:54→12:35)
[2017-11-06] MEDS: Senna/Docusate Sodium 8.6/50 MG Tablet PO SCH ×2 (08:55→20:41)
[2017-11-06] MEDS ORDERED: Digoxin Inj 500 MCG/2 ML Ampul IV.PUSH ONE (09:09)
--- NOTE | 2017-11-06 09:20 | XR ---
EXAM DATE: 11/06/2017 8:30 AM EDT AGE/SEX: 72 years / Male INDICATIONS: Ileus. CLINICAL DATA: This is the patient's initial encounter. Patient reports that signs and symptoms have been present for 1 week and indicates a pain score of Nonresponsive. MEDICAL/SURGICAL HISTORY: Non-responsive. Non-responsive. COMPARISON: No prior exams available for comparison. FINDINGS: Single supine frontal view of the abdomen demonstrates gaseous distention of bowel throughout the ce ntral and left abdomen. The appearance of the bowel is nonspecific but most likely colon given the ap pearance. No definite transition point is appreciated. No organomegaly or concerning calcifications a re identified. There are mild degenerative changes of the lumbar spine and hip joints. CONCLUSION: Gaseous distention of nonspecific bowel throughout most of the abdomen and pelvis. I believe it is mo st likely distended colon given the appearance. The pattern could be consistent with ileus. No transi tion point is appreciated to suggest obstruction. Consider follow-up x-ray to document improvement. Electronically signed by: Talha Younger MD 11/06/2017 9:19 AM EDT
--- NOTE | 2017-11-06 10:25 | P.PNCA ---
<Haven Alcantar N - Last Filed: 11/06/17 10:19> Subjective Interval history: The patient appears to be in no acute distress. The patient only responds by opening his eyes briefly with very minimal eye contact. Patient in atrial fib on monitor and blood pressure stable. Physical Exam Vital signs: Vital Signs 11/05/17 10:30 11/05/17 10:45 11/05/17 11:00 Temperature Pulse Rate 98 H 103 H 98 H Respiratory Rate 24 26 H 29 H Blood Pressure 125/77 130/72 129/62 Pulse Oximetry 99 97 99 11/05/17 11:15 11/05/17 11:30 11/05/17 11:45 Temperature Pulse Rate 111 H 104 H 101 H Respiratory Rate 22 20 19 Blood Pressure 137/71 124/73 129/61 Pulse Oximetry 96 97 97 11/05/17 12:00 11/05/17 12:15 11/05/17 12:30 Temperature 98.0 F Pulse Rate 115 H 101 H 115 H Respiratory Rate 20 20 22 Blood Pressure 130/71 124/67 137/77 Pulse Oximetry 98 98 94 L 11/05/17 12:45 11/05/17 13:00 11/05/17 13:15 Temperature Pulse Rate 104 H 98 H 97 H Respiratory Rate 19 35 H 24 Blood Pressure 114/72 125/70 117/68 Pulse Oximetry 98 98 97 11/05/17 13:53 11/05/17 14:00 11/05/17 14:15 Temperature Pulse Rate 99 H 97 H 100 H Respiratory Rate 15 18 22 Blood Pressure 129/60 122/58 L 122/66 Pulse Oximetry 96 99 95 11/05/17 14:31 11/05/17 14:32 11/05/17 14:45 Temperature Pulse Rate 104 H 105 H 96 H Respiratory Rate 21 23 18 Blood Pressure 142/65 H 171/70 H 155/72 H Pulse Oximetry 96 97 97 11/05/17 15:00 11/05/17 15:15 11/05/17 15:30 Temperature Pulse Rate 104 H 110 H 100 H Respiratory Rate 25 H 29 H 18 Blood Pressure 165/74 H 141/65 H 126/65 Pulse Oximetry 96 93 L 96 11/05/17 15:45 11/05/17 16:00 11/05/17 16:15 Temperature 98.0 F Pulse Rate 101 H 110 H 111 H Respiratory Rate 18 22 22 Blood Pressure 118/61 182/81 H 179/72 H Pulse Oximetry 97 98 97 11/05/17 16:30 11/05/17 16:46 11/05/17 17:00 Temperature Pulse Rate 102 H 107 H 108 H Respiratory Rate 20 41 H 47 H Blood Pressure 141/66 H 138/62 140/63 Pulse Oximetry 97 98 97 11/05/17 17:15 11/05/17 17:30 11/05/17 17:45 Temperature Pulse Rate 116 H 105 H 107 H Respiratory Rate 27 H 27 H 25 H Blood Pressure 142/64 H 113/58 L 122/64 Pulse Oximetry 97 98 97 11/05/17 18:00 11/05/17 18:15 11/05/17 18:30 Temperature Pulse Rate 104 H 103 H 105 H Respiratory Rate 38 H 25 H 27 H Blood Pressure 117/59 L 130/59 L 90/63 L Pulse Oximetry 98 96 97 11/05/17 18:46 11/05/17 19:00 11/05/17 19:15 Temperature Pulse Rate 104 H 103 H 103 H Respiratory Rate 30 H 37 H 26 H Blood Pressure 151/67 H 163/68 H 139/68 Pulse Oximetry 96 97 98 11/05/17 19:31 11/05/17 19:34 11/05/17 19:45 Temperature Pulse Rate 117 H 105 H 107 H Respiratory Rate 34 H 24 35 H Blood Pressure 173/65 H 144/67 H Pulse Oximetry 97 98 98 11/05/17 20:00 11/05/17 20:15 11/05/17 20:31 Temperature 98.2 F Pulse Rate 128 H 117 H 115 H Respiratory Rate 27 H 21 20 Blood Pressure 161/72 H 120/60 120/55 L Pulse Oximetry 97 98 98 11/05/17 20:45 11/05/17 21:00 11/05/17 21:15 Temperature Pulse Rate 124 H 118 H 95 H Respiratory Rate 23 20 22 Blood Pressure 136/77 157/70 H 138/71 Pulse Oximetry 96 97 98 11/05/17 21:30 11/05/17 21:45 11/05/17 22:00 Temperature Pulse Rate 94 H 93 H 96 H Respiratory Rate 25 H 36 H 26 H Blood Pressure 155/65 H 142/67 H 125/76 Pulse Oximetry 95 97 97 11/05/17 22:15 11/05/17 22:30 11/05/17 22:45 Temperature Pulse Rate 91 H 97 H 99 H Respiratory Rate 23 22 22 Blood Pressure 150/70 H 148/67 H 171/77 H Pulse Oximetry 93 L 97 96 11/05/17 23:00 11/05/17 23:12 11/05/17 23:15 Temperature Pulse Rate 93 H 97 H Respiratory Rate 20 23 Blood Pressure 171/76 H 166/77 H Pulse Oximetry 98 98 97 11/05/17 23:30 11/05/17 23:45 11/06/17 00:00 Temperature 98.2 F Pulse Rate 128 H 95 H 99 H Respiratory Rate 53 H 23 Blood Pressure 157/72 H 162/66 H 171/79 H Pulse Oximetry 97 98 97 11/06/17 00:15 11/06/17 00:30 11/06/17 00:45 Temperature Pulse Rate 97 H 99 H 108 H Respiratory Rate 32 H 25 H 24 Blood Pressure 157/74 H 139/64 174/72 H Pulse Oximetry 98 98 98 11/06/17 01:00 11/06/17 01:15 11/06/17 01:30 Temperature Pulse Rate 97 H 102 H 107 H Respiratory Rate 19 31 H 25 H Blood Pressure 186/71 H 179/77 H 178/116 H Pulse Oximetry 95 95 96 11/06/17 01:31 11/06/17 01:45 11/06/17 02:00 Temperature Pulse Rate 105 H 104 H 105 H Respiratory Rate 26 H 20 27 H Blood Pressure 185/79 H 184/80 H 179/79 H Pulse Oximetry 98 98 93 L 11/06/17 02:16 11/06/17 02:30 11/06/17 02:45 Temperature Pulse Rate 112 H 104 H 107 H Respiratory Rate 26 H 20 21 Blood Pressure 187/71 H 189/75 H 126/78 Pulse Oximetry 97 97 97 11/06/17 03:00 11/06/17 03:15 11/06/17 03:24 Temperature Pulse Rate 120 H 116 H 98 H Respiratory Rate 21 30 H 24 Blood Pressure 180/82 H 130/80 Pulse Oximetry 99 99 11/06/17 03:25 11/06/17 03:31 11/06/17 03:45 Temperature Pulse Rate 118 H 106 H Respiratory Rate 27 H 0 L Blood Pressure 192/81 H 146/80 H Pulse Oximetry 99 93 L 99 11/06/17 04:00 11/06/17 04:15 11/06/17 04:30 Temperature 98.1 F Pulse Rate 108 H 104 H 108 H Respiratory Rate 0 L 0 L 26 H Blood Pressure 143/67 H 169/71 H 162/72 H Pulse Oximetry 99 98 97 11/06/17 04:45 11/06/17 05:00 11/06/17 05:15 Temperature Pulse Rate 109 H 105 H 107 H Respiratory Rate 16 16 17 Blood Pressure 164/65 H 162/67 H 158/69 H Pulse Oximetry 99 99 100 11/06/17 05:30 11/06/17 07:49 Temperature Pulse Rate 107 H 106 H Respiratory Rate 15 15 Blood Pressure 159/71 H Pulse Oximetry 99 100 Intake & Output 11/05/17 11/06/17 11/06/17 18:59 06:59 18:59 Intake Total 1501 / 1501 682 / 682 100 / 100 Output Total 500 / 500 450 / 450 Balance 1001 / 1001 232 / 232 100 / 100 Weight 57.1 kg Intake: IV 1250 / 1250 100 / 100 100 / 100 D5W/Normal Saline Inj 1,000 ML 1000 / 1000 @ 75 mls/hr IV.CONT .[id number] GARY Rx#:[id number] Zosyn 3.375 GM Premix 50 ML @ 50 / 50 100 / 100 100 mls/hr IV.SIG Q6H GARY Rx#: [id number] Zosyn 4.5 GM Premix 4.5 gm In 100 / 100 100 ml @ 200 mls/hr IV.SIG Q6H GARY Rx#:[id number] KCl 10 mEq Premix Inj 10 meq In 100 / 100 100 ml @ 100 mls/hr IV.SIG Q1H GARY Rx#:[id number] KCl 20 mEq Premix Inj 20 meq In 100 / 100 100 ml @ 50 mls/hr IV.SIG Q2H PRN Rx#:[id number] Oral 0 / 0 Tube Feeding 131 / 131 462 / 462 Water Bolus Amount 120 / 120 120 / 120 Output: Urine 0 / 0 Urine Amount (Catheter) 500 / 500 450 / 450 Condom 500 / 500 450 / 450 Other: # Voids 0 # Incontinent Voids 1 # Bowel Movements 0 0 # Incontinent Bowel Movements 0 Narrative: GENERAL: Patient is in no apparent distress. Patient opens eyes briefly to voice with very minimal eye contact. HEENT: Head is atraumatic and normocephalic. Neck is supple without lymphadenopathy and trachea is midline. No JVD or carotid bruits. CARDIOVASCULAR: Atrial fib without murmurs, gallops, or rubs. RESPIRATORY: Clear to auscultation. Breath sounds equal bilaterally. No wheezes , rales, or rhonchi. Chest wall is nontender. No use of accessory muscles. GASTROINTESTINAL: Abdomen is nontender, nondistended. Abdomen soft. No obvious pulsatile mass or bruit. No CVA tenderness. Strong femoral pulses bilaterally. Normal bowel sounds in all quadrants. MUSCULOSKELETAL: Patient is moving upper and lower extremities freely. No calf tenderness or edema, no Homans sign. Strong pulses in upper and lower extremities. NEUROLOGICAL: Patient is more alert, responds to voice by opening his eyes. SKIN: No rash and turgor is normal. - Urinary Catheter Management Condom Cath placed during this visit: no Assessment and Plan - Assessment (1) Altered mental status Code(s): R41.82 - Altered mental status, unspecified Status: Acute (2) Rapid atrial fibrillation Code(s): I48.91 - Unspecified atrial fibrillation Status: Acute (3) Thrombocytopenia Code(s): D69.6 - Thrombocytopenia, unspecified Status: Acute - Plan Echo today to check left ventricular function. Neuro evaluation in progress. Palliative care evaluation in progress. Hematology evaluation in progress. Infectious disease evaluation in progress. Continue with current cardiac treatment plan and adjust as needed. We will follow during hospitalization. The patient was seen and evaluated by Dr. Torres who participated in care, management and decision-making. <Irma Torres - Last Filed: 11/06/17 18:48> Physical Exam Vital signs: Vital Signs 11/05/17 19:00 11/05/17 19:15 11/05/17 19:31 Temperature Pulse Rate 103 H 103 H 117 H Respiratory Rate 37 H 26 H 34 H Blood Pressure 163/68 H 139/68 173/65 H Pulse Oximetry 97 98 97 11/05/17 19:34 11/05/17 19:45 11/05/17 20:00 Temperature 98.2 F Pulse Rate 105 H 107 H 128 H Respiratory Rate 24 35 H 27 H Blood Pressure 144/67 H 161/72 H Pulse Oximetry 98 98 97 11/05/17 20:15 11/05/17 20:31 11/05/17 20:45 Temperature Pulse Rate 117 H 115 H 124 H Respiratory Rate 21 20 23 Blood Pressure 120/60 120/55 L 136/77 Pulse Oximetry 98 98 96 11/05/17 21:00 11/05/17 21:15 11/05/17 21:30 Temperature Pulse Rate 118 H 95 H 94 H Respiratory Rate 20 22 25 H Blood Pressure 157/70 H 138/71 155/65 H Pulse Oximetry 97 98 95 11/05/17 21:45 11/05/17 22:00 11/05/17 22:15 Temperature Pulse Rate 93 H 96 H 91 H Respiratory Rate 36 H 26 H 23 Blood Pressure 142/67 H 125/76 150/70 H Pulse Oximetry 97 97 93 L 11/05/17 22:30 11/05/17 22:45 11/05/17 23:00 Temperature Pulse Rate 97 H 99 H 93 H Respiratory Rate 22 22 20 Blood Pressure 148/67 H 171/77 H 171/76 H Pulse Oximetry 97 96 98 11/05/17 23:12 11/05/17 23:15 11/05/17 23:30 Temperature Pulse Rate 97 H 128 H Respiratory Rate 23 53 H Blood Pressure 166/77 H 157/72 H Pulse Oximetry 98 97 97 11/05/17 23:45 11/06/17 00:00 11/06/17 00:15 Temperature 98.2 F Pulse Rate 95 H 99 H 97 H Respiratory Rate 23 32 H Blood Pressure 162/66 H 171/79 H 157/74 H Pulse Oximetry 98 97 98 11/06/17 00:30 11/06/17 00:45 11/06/17 01:00 Temperature Pulse Rate 99 H 108 H 97 H Respiratory Rate 25 H 24 19 Blood Pressure 139/64 174/72 H 186/71 H Pulse Oximetry 98 98 95 11/06/17 01:15 11/06/17 01:30 11/06/17 01:31 Temperature Pulse Rate 102 H 107 H 105 H Respiratory Rate 31 H 25 H 26 H Blood Pressure 179/77 H 178/116 H 185/79 H Pulse Oximetry 95 96 98 11/06/17 01:45 11/06/17 02:00 11/06/17 02:16 Temperature Pulse Rate 104 H 105 H 112 H Respiratory Rate 20 27 H 26 H Blood Pressure 184/80 H 179/79 H 187/71 H Pulse Oximetry 98 93 L 97 11/06/17 02:30 11/06/17 02:45 11/06/17 03:00 Temperature Pulse Rate 104 H 107 H 120 H Respiratory Rate 20 21 21 Blood Pressure 189/75 H 126/78 180/82 H Pulse Oximetry 97 97 99 11/06/17 03:15 11/06/17 03:24 11/06/17 03:25 Temperature Pulse Rate 116 H 98 H Respiratory Rate 30 H 24 Blood Pressure 130/80 Pulse Oximetry 99 99 11/06/17 03:31 11/06/17 03:45 11/06/17 04:00 Temperature 98.1 F Pulse Rate 118 H 106 H 108 H Respiratory Rate 27 H 0 L 0 L Blood Pressure 192/81 H 146/80 H 143/67 H Pulse Oximetry 93 L 99 99 11/06/17 04:15 11/06/17 04:30 11/06/17 04:45 Temperature Pulse Rate 104 H 108 H 109 H Respiratory Rate 0 L 26 H 16 Blood Pressure 169/71 H 162/72 H 164/65 H Pulse Oximetry 98 97 99 11/06/17 05:00 11/06/17 05:15 11/06/17 05:30 Temperature Pulse Rate 105 H 107 H 107 H Respiratory Rate 16 17 15 Blood Pressure 162/67 H 158/69 H 159/71 H Pulse Oximetry 99 100 99 11/06/17 07:15 11/06/17 07:30 11/06/17 07:45 Temperature Pulse Rate 108 H 105 H 114 H Respiratory Rate 16 16 15 Blood Pressure 157/60 H 130/59 L 162/70 H Pulse Oximetry 100 99 100 11/06/17 07:49 11/06/17 08:00 11/06/17 08:15 Temperature 97.5 F L Pulse Rate 106 H 122 H 150 H Respiratory Rate 15 18 24 Blood Pressure 147/81 H Pulse Oximetry 100 97 96 11/06/17 08:30 11/06/17 08:45 11/06/17 09:00 Temperature Pulse Rate 146 H 153 H 113 H Respiratory Rate 19 19 16 Blood Pressure 150/63 H 174/74 H 161/66 H Pulse Oximetry 97 99 99 11/06/17 09:30 11/06/17 09:45 11/06/17 10:00 Temperature Pulse Rate 119 H 95 H 86 Respiratory Rate 20 22 18 Blood Pressure 140/74 138/65 147/67 H Pulse Oximetry 98 99 97 11/06/17 10:15 11/06/17 10:30 11/06/17 10:45 Temperature Pulse Rate 91 H 85 81 Respiratory Rate 30 H 18 18 Blood Pressure 124/77 131/76 132/75 Pulse Oximetry 98 99 97 11/06/17 11:00 11/06/17 11:15 11/06/17 11:30 Temperature Pulse Rate 81 74 72 Respiratory Rate 18 16 13 Blood Pressure 128/72 131/60 130/58 L Pulse Oximetry 99 99 100 11/06/17 11:45 11/06/17 12:00 11/06/17 12:15 Temperature 98.1 F Pulse Rate 73 77 77 Respiratory Rate 19 20 Blood Pressure 125/58 L 112/59 L 133/62 Pulse Oximetry 100 96 99 11/06/17 12:30 11/06/17 12:45 11/06/17 13:00 Temperature Pulse Rate 80 76 88 Respiratory Rate 16 18 20 Blood Pressure 129/69 124/60 126/57 L Pulse Oximetry 99 100 98 11/06/17 13:15 11/06/17 13:30 11/06/17 13:45 Temperature Pulse Rate 82 81 89 Respiratory Rate 19 19 20 Blood Pressure 125/57 L 131/58 L 149/66 H Pulse Oximetry 98 100 100 11/06/17 14:00 11/06/17 14:24 11/06/17 14:30 Temperature Pulse Rate 98 H 101 H 107 H Respiratory Rate 22 20 22 Blood Pressure 149/70 H 132/61 151/63 H Pulse Oximetry 99 11/06/17 14:45 11/06/17 15:00 11/06/17 15:16 Temperature Pulse Rate 101 H 107 H 104 H Respiratory Rate 19 18 20 Blood Pressure 141/65 H 137/74 110/80 Pulse Oximetry 100 99 99 11/06/17 15:30 11/06/17 15:46 11/06/17 16:00 Temperature 97.9 F Pulse Rate 101 H 101 H 100 H Respiratory Rate 19 20 20 Blood Pressure 100/69 118/66 132/74 Pulse Oximetry 100 100 98 11/06/17 16:16 11/06/17 16:30 11/06/17 16:45 Temperature Pulse Rate 106 H 103 H 92 H Respiratory Rate 25 H 20 20 Blood Pressure 153/90 H 139/64 162/69 H Pulse Oximetry 97 100 99 11/06/17 17:01 11/06/17 17:15 11/06/17 17:30 Temperature Pulse Rate 89 90 89 Respiratory Rate 17 24 19 Blood Pressure 159/72 H 133/65 134/63 Pulse Oximetry 99 99 98 Intake & Output 11/05/17 11/06/17 11/06/17 18:59 06:59 18:59 Intake Total 1501 / 1501 682 / 682 2250 / 2250 Output Total 500 / 500 450 / 450 400 / 400 Balance 1001 / 1001 232 / 232 1850 / 1850 Weight 125 lb 14.143 oz Intake: IV 1250 / 1250 100 / 100 1650 / 1650 D5W/Normal Saline Inj 1,000 ML 1000 / 1000 1000 / 1000 @ 75 mls/hr IV.CONT .[id number] GARY Rx#:[id number] Zosyn 3.375 GM Premix 50 ML @ 50 / 50 100 / 100 100 / 100 100 mls/hr IV.SIG Q6H GARY Rx#: [id number] Zosyn 4.5 GM Premix 4.5 gm In 100 / 100 100 ml @ 200 mls/hr IV.SIG Q6H GARY Rx#:[id number] KCl 10 mEq Premix Inj 10 meq In 300 / 300 100 ml @ 100 mls/hr IV.SIG Q1H GARY Rx#:[id number] KCl 20 mEq Premix Inj 20 meq In 100 / 100 100 ml @ 50 mls/hr IV.SIG Q2H PRN Rx#:[id number] Vancomycin Inj 1,000 MG In NS 250 / 250 Inj 250 ML @ 250 mls/hr IV.SIG Q24H GARY Rx#:[id number] Oral 0 / 0 Tube Feeding 131 / 131 462 / 462 600 / 600 Water Bolus Amount 120 / 120 120 / 120 Output: Urine 0 / 0 Urine Amount (Catheter) 500 / 500 450 / 450 400 / 400 Condom 500 / 500 450 / 450 400 / 400 Other: # Voids 0 # Incontinent Voids 1 Date of Last Bowel Movement 08/16/18 # Bowel Movements 0 0 # Incontinent Bowel Movements 0 2 - Urinary Catheter Management Condom Cath placed during this visit: no Assessment and Plan - Assessment (1) Altered mental status Code(s): R41.82 - Altered mental status, unspecified Status: Acute (2) Rapid atrial fibrillation Code(s): I48.91 - Unspecified atrial fibrillation Status: Acute (3) Thrombocytopenia Code(s): D69.6 - Thrombocytopenia, unspecified Status: Acute - Attending Attestation Patient seen and examined. I reviewed and agree with the evaluation and plan as presented. Increase diltiazem for better rate control. Palliative evaluation in progress.
--- NOTE | 2017-11-06 10:58 | P.PNID ---
Subjective Remarks: Today. He opens his eyes to me when I call his name. He extended his right hand to me to shake my hand. He appears to talk but his speech is slurred. No distress. When asked if he has headache he says no. Afebrile. White blood cell count lower. Cultures no growth so far. Consult requested for fever, leukocytosis and altered mental status. This is a 72-year-old white male, who presented to the emergency department with altered mental status. The patient was found at his apartment complex with altered mental status and confusion. The onset is unknown. On admission, his white count was 4.9 and he was afebrile. The patient was [employer] for his safety because he wanted to leave the hospital. He was also exhibiting aggressive behavior. He has a history of chronic anemia. He has been followed by hematology. He has chronic thrombocytopenia as well. The workup so far has been negative including MRI of the brain and a CT scan of the brain. Lumbar puncture showed clear fluid. The white cell count in the spinal fluid in tube #4 was 0. Glucose was high and total protein normal. Herpes simplex virus DNA PCR is negative. Blood cultures have no growth in 1 day from yesterday. CSF cultures had no growth in 24 hours. An NG tube was placed for nutrition earlier today. An MRI of the brain showed no acute disease. Mild symmetric cortical atrophy with some minimal small-vessel ischemic demyelination is noted. The patient had pulled his NG tube out and had it replaced. He also was noted to have atrial fibrillation with rapid ventricular response and he is receiving amiodarone. Otherwise, the history of the patient is obtained from the medical record. Past Medical History: PAST MEDICAL HISTORY: Hyperlipidemia, hypertension, chronic anemia, chronic thrombocytopenia, vitamin B12 deficiency, hearing loss. PAST SURGICAL HISTORY: Tonsillectomy. Allergies/Adverse Reactions: Allergies No Known Allergies Allergy (Uncoded 02/07/14 14:05) Objective Vital Signs 11/05/17 11:00 11/05/17 11:15 11/05/17 11:30 Temperature Pulse Rate 98 H 111 H 104 H Respiratory Rate 29 H 22 20 Blood Pressure 129/62 137/71 124/73 Pulse Oximetry 99 96 97 11/05/17 11:45 11/05/17 12:00 11/05/17 12:15 Temperature 98.0 F Pulse Rate 101 H 115 H 101 H Respiratory Rate 19 20 20 Blood Pressure 129/61 130/71 124/67 Pulse Oximetry 97 98 98 11/05/17 12:30 11/05/17 12:45 11/05/17 13:00 Temperature Pulse Rate 115 H 104 H 98 H Respiratory Rate 22 19 35 H Blood Pressure 137/77 114/72 125/70 Pulse Oximetry 94 L 98 98 11/05/17 13:15 11/05/17 13:53 11/05/17 14:00 Temperature Pulse Rate 97 H 99 H 97 H Respiratory Rate 24 15 18 Blood Pressure 117/68 129/60 122/58 L Pulse Oximetry 97 96 99 11/05/17 14:15 11/05/17 14:31 11/05/17 14:32 Temperature Pulse Rate 100 H 104 H 105 H Respiratory Rate 22 21 23 Blood Pressure 122/66 142/65 H 171/70 H Pulse Oximetry 95 96 97 11/05/17 14:45 11/05/17 15:00 11/05/17 15:15 Temperature Pulse Rate 96 H 104 H 110 H Respiratory Rate 18 25 H 29 H Blood Pressure 155/72 H 165/74 H 141/65 H Pulse Oximetry 97 96 93 L 11/05/17 15:30 11/05/17 15:45 11/05/17 16:00 Temperature 98.0 F Pulse Rate 100 H 101 H 110 H Respiratory Rate 18 18 22 Blood Pressure 126/65 118/61 182/81 H Pulse Oximetry 96 97 98 11/05/17 16:15 11/05/17 16:30 11/05/17 16:46 Temperature Pulse Rate 111 H 102 H 107 H Respiratory Rate 22 20 41 H Blood Pressure 179/72 H 141/66 H 138/62 Pulse Oximetry 97 97 98 11/05/17 17:00 11/05/17 17:15 11/05/17 17:30 Temperature Pulse Rate 108 H 116 H 105 H Respiratory Rate 47 H 27 H 27 H Blood Pressure 140/63 142/64 H 113/58 L Pulse Oximetry 97 97 98 11/05/17 17:45 11/05/17 18:00 11/05/17 18:15 Temperature Pulse Rate 107 H 104 H 103 H Respiratory Rate 25 H 38 H 25 H Blood Pressure 122/64 117/59 L 130/59 L Pulse Oximetry 97 98 96 11/05/17 18:30 11/05/17 18:46 11/05/17 19:00 Temperature Pulse Rate 105 H 104 H 103 H Respiratory Rate 27 H 30 H 37 H Blood Pressure 90/63 L 151/67 H 163/68 H Pulse Oximetry 97 96 97 11/05/17 19:15 11/05/17 19:31 11/05/17 19:34 Temperature Pulse Rate 103 H 117 H 105 H Respiratory Rate 26 H 34 H 24 Blood Pressure 139/68 173/65 H Pulse Oximetry 98 97 98 11/05/17 19:45 11/05/17 20:00 11/05/17 20:15 Temperature 98.2 F Pulse Rate 107 H 128 H 117 H Respiratory Rate 35 H 27 H 21 Blood Pressure 144/67 H 161/72 H 120/60 Pulse Oximetry 98 97 98 11/05/17 20:31 11/05/17 20:45 11/05/17 21:00 Temperature Pulse Rate 115 H 124 H 118 H Respiratory Rate 20 23 20 Blood Pressure 120/55 L 136/77 157/70 H Pulse Oximetry 98 96 97 11/05/17 21:15 11/05/17 21:30 11/05/17 21:45 Temperature Pulse Rate 95 H 94 H 93 H Respiratory Rate 22 25 H 36 H Blood Pressure 138/71 155/65 H 142/67 H Pulse Oximetry 98 95 97 11/05/17 22:00 11/05/17 22:15 11/05/17 22:30 Temperature Pulse Rate 96 H 91 H 97 H Respiratory Rate 26 H 23 22 Blood Pressure 125/76 150/70 H 148/67 H Pulse Oximetry 97 93 L 97 11/05/17 22:45 11/05/17 23:00 11/05/17 23:12 Temperature Pulse Rate 99 H 93 H Respiratory Rate 22 20 Blood Pressure 171/77 H 171/76 H Pulse Oximetry 96 98 98 11/05/17 23:15 11/05/17 23:30 11/05/17 23:45 Temperature Pulse Rate 97 H 128 H 95 H Respiratory Rate 23 53 H Blood Pressure 166/77 H 157/72 H 162/66 H Pulse Oximetry 97 97 98 11/06/17 00:00 11/06/17 00:15 11/06/17 00:30 Temperature 98.2 F Pulse Rate 99 H 97 H 99 H Respiratory Rate 23 32 H 25 H Blood Pressure 171/79 H 157/74 H 139/64 Pulse Oximetry 97 98 98 11/06/17 00:45 11/06/17 01:00 11/06/17 01:15 Temperature Pulse Rate 108 H 97 H 102 H Respiratory Rate 24 19 31 H Blood Pressure 174/72 H 186/71 H 179/77 H Pulse Oximetry 98 95 95 11/06/17 01:30 11/06/17 01:31 11/06/17 01:45 Temperature Pulse Rate 107 H 105 H 104 H Respiratory Rate 25 H 26 H 20 Blood Pressure 178/116 H 185/79 H 184/80 H Pulse Oximetry 96 98 98 11/06/17 02:00 11/06/17 02:16 11/06/17 02:30 Temperature Pulse Rate 105 H 112 H 104 H Respiratory Rate 27 H 26 H 20 Blood Pressure 179/79 H 187/71 H 189/75 H Pulse Oximetry 93 L 97 97 11/06/17 02:45 11/06/17 03:00 11/06/17 03:15 Temperature Pulse Rate 107 H 120 H 116 H Respiratory Rate 21 21 30 H Blood Pressure 126/78 180/82 H 130/80 Pulse Oximetry 97 99 99 11/06/17 03:24 11/06/17 03:25 11/06/17 03:31 Temperature Pulse Rate 98 H 118 H Respiratory Rate 24 27 H Blood Pressure 192/81 H Pulse Oximetry 99 93 L 11/06/17 03:45 11/06/17 04:00 11/06/17 04:15 Temperature 98.1 F Pulse Rate 106 H 108 H 104 H Respiratory Rate 0 L 0 L 0 L Blood Pressure 146/80 H 143/67 H 169/71 H Pulse Oximetry 99 99 98 11/06/17 04:30 11/06/17 04:45 11/06/17 05:00 Temperature Pulse Rate 108 H 109 H 105 H Respiratory Rate 26 H 16 16 Blood Pressure 162/72 H 164/65 H 162/67 H Pulse Oximetry 97 99 99 11/06/17 05:15 11/06/17 05:30 11/06/17 07:49 Temperature Pulse Rate 107 H 107 H 106 H Respiratory Rate 17 15 15 Blood Pressure 158/69 H 159/71 H Pulse Oximetry 100 99 100 Intake & Output 08/15/18 08/16/18 08/16/18 18:59 06:59 18:59 Intake Total 1501 / 1501 682 / 682 100 / 100 Output Total 500 / 500 450 / 450 Balance 1001 / 1001 232 / 232 100 / 100 Weight 57.1 kg Intake: IV 1250 / 1250 100 / 100 100 / 100 D5W/Normal Saline Inj 1,000 ML 1000 / 1000 @ 75 mls/hr IV.CONT .[id number] GARY Rx#:[id number] Zosyn 3.375 GM Premix 50 ML @ 50 / 50 100 / 100 100 mls/hr IV.SIG Q6H GARY Rx#: [id number] Zosyn 4.5 GM Premix 4.5 gm In 100 / 100 100 ml @ 200 mls/hr IV.SIG Q6H GARY Rx#:[id number] KCl 10 mEq Premix Inj 10 meq In 100 / 100 100 ml @ 100 mls/hr IV.SIG Q1H GARY Rx#:[id number] KCl 20 mEq Premix Inj 20 meq In 100 / 100 100 ml @ 50 mls/hr IV.SIG Q2H PRN Rx#:[id number] Oral 0 / 0 Tube Feeding 131 / 131 462 / 462 Water Bolus Amount 120 / 120 120 / 120 Output: Urine 0 / 0 Urine Amount (Catheter) 500 / 500 450 / 450 Condom 500 / 500 450 / 450 Other: # Voids 0 # Incontinent Voids 1 # Bowel Movements 0 0 # Incontinent Bowel Movements 0 11/04/17 10:39 Lumbar Puncture Gram Stain - Final 11/04/17 10:39 Lumbar Puncture CSF Culture - Preliminary No growth in 48 hours 11/05/17 20:37 Blood - Peripheral Aerobic Blood Culture - Pending 11/05/17 20:37 Blood - Peripheral Anaerobic Blood Culture - Pending 11/05/17 20:45 Blood - Peripheral Aerobic Blood Culture - Pending 11/05/17 20:45 Blood - Peripheral Anaerobic Blood Culture - Pending 11/05/17 08:30 Catheterized Urine Urine Culture - Pending 11/04/17 20:14 Blood - Peripheral Aerobic Blood Culture - Preliminary No growth in 1 day 11/04/17 20:14 Blood - Peripheral Anaerobic Blood Culture - Preliminary No growth in 1 day 11/04/17 20:08 Blood - Peripheral Aerobic Blood Culture - Preliminary No growth in 1 day 11/04/17 20:08 Blood - Peripheral Anaerobic Blood Culture - Preliminary No growth in 1 day Lab - Hematology Results 11/04/17 11/05/17 11/06/17 09:26 04:10 05:30 WBC 9.9 21.7 H D 14.3 H RBC 4.61 4.59 4.19 L Hgb 15.0 14.8 13.7 Hct 44.6 44.1 40.7 MCV 96.6 96.1 97.1 MCH 32.5 32.3 32.8 MCHC 33.7 33.6 33.8 RDW 13.5 13.6 13.7 Plt Count 91 L 83 L 77 L MPV 11.9 H 12.2 H 12.8 H Prelim Diff (Auto) Slide review pending Slide review pending Slide review pending Neut % (Auto) 81.3 H 88.5 H 89.1 H Lymph % (Auto) 6.6 L 2.8 L 3.1 L Chambers % (Auto) 10.4 H 8.6 H 7.2 Eos % (Auto) 1.3 0.0 0.3 Baso % (Auto) 0.4 0.1 0.3 Neut # (Auto) 8.0 H 19.2 H 12.8 H Lymph # (Auto) 0.7 L 0.6 L 0.4 L Chambers # (Auto) 1.0 H 1.9 H 1.0 H Eos # (Auto) 0.1 0.0 0.0 Baso # (Auto) 0.0 0.0 0.1 WBC Differential . Manual diff final Manual diff final Diff Scan Auto diff confirmed Seg Neuts % (Manual) 82 H 86 H Band Neuts % (Manual) 5 3 Lymphocytes % (Manual) 2 L 4 L Monocytes % (Manual) 10 H 7 Basophils % (Manual) 1 Abs Neuts (Manual) 18.9 H 12.7 H Differential Comment . . . Toxic Vacuolation Present H Present H Platelet Estimate Low L Low L Low L Platelet Morphology Enlarged H Enlarged H Enlarged H Ovalocytes 1+ H 1+ H [place] Cells 1+ H Acanthocytes (Spur) Occ H Occ H Lab - Chemistry Results 11/04/17 11/04/17 11/04/17 11:54 16:32 18:18 Sodium Potassium 3.9 D Chloride Carbon Dioxide Anion Gap BUN Creatinine Estimated GFR POC Glucose 134 H 136 H Random Glucose Calcium Phosphorus Magnesium Total Bilirubin AST ALT Alkaline Phosphatase Total Protein Albumin 11/04/17 11/05/17 11/05/17 20:12 00:13 04:10 Sodium 144 Potassium 3.7 Chloride 110 H Carbon Dioxide 22.6 Anion Gap 11 BUN 30 H Creatinine 2.04 H Estimated GFR 32 L POC Glucose 140 H 172 H Random Glucose 177 H Calcium 7.8 L Phosphorus 3.2 D Magnesium 2.1 Total Bilirubin 1.3 H AST 35 ALT 27 Alkaline Phosphatase 52 Total Protein 6.7 Albumin 3.2 L 11/05/17 11/05/17 11/05/17 04:10 11:41 16:26 Sodium Potassium Chloride Carbon Dioxide Anion Gap BUN Creatinine Estimated GFR POC Glucose 181 H 156 H 206 H Random Glucose Calcium Phosphorus Magnesium Total Bilirubin AST ALT Alkaline Phosphatase Total Protein Albumin 11/05/17 11/05/17 11/06/17 20:40 23:30 03:39 Sodium Potassium Chloride Carbon Dioxide Anion Gap BUN Creatinine Estimated GFR POC Glucose 123 H 144 H 179 H Random Glucose Calcium Phosphorus Magnesium Total Bilirubin AST ALT Alkaline Phosphatase Total Protein Albumin 11/06/17 05:30 Sodium 145 Potassium 2.8 L* D Chloride 110 H Carbon Dioxide 24.2 Anion Gap 11 BUN 33 H Creatinine 1.41 H Estimated GFR 49 L POC Glucose Random Glucose 149 H Calcium 7.7 L Phosphorus 2.8 Magnesium 2.0 Total Bilirubin 0.4 AST 18 ALT 19 Alkaline Phosphatase 48 Total Protein 6.0 L D Albumin 2.5 L D Imaging: ITS Impressions Carotid Doppler Study 11/02/17 00:00 CONCLUSION: 1. There is atherosclerotic plaquing at both carotid bifurcations. 2. 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 3. The vertebral arteries were not visualized. 4. Recommend CTA of the carotids for further evaluation. Neck CTA 11/02/17 00:00 CONCLUSION: 1. High right common carotid artery bifurcation. No evidence of hemodynamically significant carotid stenosis. 2. Diminutive right vertebral artery that terminates at the skull base. Basilar artery also has a diffusely narrow diameter. Head MRI 11/03/17 00:00 CONCLUSION: 1. Exam is limited due to motion artifact on just about every pulse sequence. 2. However, grossly, nothing acute. Mild, symmetric cortical atrophy with some minimal small vessel ischemic demyelination. Head CT 11/03/17 09:57 CONCLUSION: Atrophy, otherwise negative for an acute process. Ajay Pope MD FACR . Lumbar Puncture Fluoroscopy 11/04/17 00:00 CONCLUSION: 1. Uncomplicated fluoroscopically guided lumbar puncture. Abdomen/Bladder Ultrasound 11/05/17 00:00 CONCLUSION: 1. Sonographic findings consistent with underlying medical renal disease. No obstruction observed. 2. Distended gallbladder without gallstones or gallbladder wall thickening. Abdomen X-Ray 11/06/17 00:00 CONCLUSION: Gaseous distention of nonspecific bowel throughout most of the abdomen and pelvis. I believe it is most likely distended colon given the appearance. The pattern could be consistent with ileus. No transition point is appreciated to suggest obstruction. Consider follow-up x-ray to document improvement. Chest X-Ray 11/06/17 00:00 CONCLUSION: Mild cardiomegaly. Diffuse interstitial prominence suggesting chronic interstitial changes. No Overt congestive failure. Physical Exam: GENERAL: Thin, frail male who is in no acute distress. Lethargic. However more responsive than yesterday. Currently, he is in restraints. HEENT: Pupils are constricted but reactive. No icterus. No conjunctival erythema. Oropharynx appears dry. The patient is edentulous. NECK: Supple without adenopathy. LUNGS: Diminished breath sounds. HEART: Irregular rate and rhythm. No murmurs heard. No rubs or gallops. ABDOMEN: Flat, soft, no tenderness. No masses palpable. EXTREMITIES: No clubbing, cyanosis, or edema. The patient has some ecchymosis at the extremities. No cords palpable at the calves. . The nails of the toes are in poorly-kept state. SKIN: No diffuse rash. NEUROLOGIC: Difficult to assess. Lethargic. PSYCHIATRIC: Unable to assess. Assessment and Plan - Plan ASSESSMENT: 1. Altered mental status, questionable etiology. CSF analysis was not remarkable and did not suggest meningitis. However viral encephalitis may be a possibility. The mental status seems to be a little improved. 2. Leukocytosis and fever. Temperature is lower and white blood cell count has decreased. No clear etiology. 3. Acute kidney disease. 4. History of chronic thrombocytopenia. 5. At this point, it is unclear whether the patient has infection. The occurrence of fever along with leukocytosis necessitates assessment for infection; however his urinalysis and chest x-ray were unremarkable. Blood cultures are pending. RECOMMENDATIONS: 1. Continue vancomycin. 2. Continue Zosyn. 3. Follow the blood cultures. 4. Continue to follow the CSF culture. I have spoken to microbiology to add viral encephalitis panel if possible on the CSF. 5. Monitor clinical status and mental status. 6. Monitor the white blood cell count. Dr. Aaron Hastings covering for sd 11/07, ID doctor vice president consulting services on the weekend to cover this weekend.
--- NOTE | 2017-11-06 12:18 | P.PNPAL ---
Reason for Visit Reason for visit: a. To assist with evaluation and management of symptoms including: Encephalopathy, agitation b. To assist medical decision maker(s) with: better understanding of current medical conditions; weighing benefits/burdens of medical treatment options; making medical treatment decisions. Subjective Subjective/Interval History: INTERVAL NOTE: Patient seen to reassess workup for encephalopathy, management of agitation. The patient has been afebrile, and his heart rate is better controlled on the current medications. He remains quite encephalopathic, confused, still in four-point restraints, and he appears weaker each day.. His creatinine is somewhat improved today.. The blood cultures remain negative. The workup so far has not identified an etiology for his severe encephalopathy. Family/Friend Interactions: Discussion with the patient's brother/HCS, and he understands that it appears the patient is likely in his last days, that the encephalopathy is profound, and that the patient's body is now so weak that it is a certainty that additional complications will ensue in the upcoming days or week. He wants to speak with his and they are considering a possible transition to hospice. Advance Directives Living Will: Never completed Health Care Surrogate: Never completed Durable Power of Merchandise Processor: Never completed Health Care Surrogate Name and Number: Patient's brother Too Hand Significant change in goals:: The patient's brother is contemplating a transition to hospice Objective Vital Signs: Vital Signs 11/05/17 12:15 11/05/17 12:30 11/05/17 12:45 Temperature Pulse Rate 101 H 115 H 104 H Respiratory Rate 20 22 19 Blood Pressure 124/67 137/77 114/72 Pulse Oximetry 98 94 L 98 11/05/17 13:00 11/05/17 13:15 11/05/17 13:53 Temperature Pulse Rate 98 H 97 H 99 H Respiratory Rate 35 H 24 15 Blood Pressure 125/70 117/68 129/60 Pulse Oximetry 98 97 96 11/05/17 14:00 11/05/17 14:15 11/05/17 14:31 Temperature Pulse Rate 97 H 100 H 104 H Respiratory Rate 18 22 21 Blood Pressure 122/58 L 122/66 142/65 H Pulse Oximetry 99 95 96 11/05/17 14:32 11/05/17 14:45 11/05/17 15:00 Temperature Pulse Rate 105 H 96 H 104 H Respiratory Rate 23 18 25 H Blood Pressure 171/70 H 155/72 H 165/74 H Pulse Oximetry 97 97 96 11/05/17 15:15 11/05/17 15:30 11/05/17 15:45 Temperature Pulse Rate 110 H 100 H 101 H Respiratory Rate 29 H 18 18 Blood Pressure 141/65 H 126/65 118/61 Pulse Oximetry 93 L 96 97 11/05/17 16:00 11/05/17 16:15 11/05/17 16:30 Temperature 98.0 F Pulse Rate 110 H 111 H 102 H Respiratory Rate 22 22 20 Blood Pressure 182/81 H 179/72 H 141/66 H Pulse Oximetry 98 97 97 11/05/17 16:46 11/05/17 17:00 11/05/17 17:15 Temperature Pulse Rate 107 H 108 H 116 H Respiratory Rate 41 H 47 H 27 H Blood Pressure 138/62 140/63 142/64 H Pulse Oximetry 98 97 97 11/05/17 17:30 11/05/17 17:45 11/05/17 18:00 Temperature Pulse Rate 105 H 107 H 104 H Respiratory Rate 27 H 25 H 38 H Blood Pressure 113/58 L 122/64 117/59 L Pulse Oximetry 98 97 98 11/05/17 18:15 11/05/17 18:30 11/05/17 18:46 Temperature Pulse Rate 103 H 105 H 104 H Respiratory Rate 25 H 27 H 30 H Blood Pressure 130/59 L 90/63 L 151/67 H Pulse Oximetry 96 97 96 11/05/17 19:00 11/05/17 19:15 11/05/17 19:31 Temperature Pulse Rate 103 H 103 H 117 H Respiratory Rate 37 H 26 H 34 H Blood Pressure 163/68 H 139/68 173/65 H Pulse Oximetry 97 98 97 11/05/17 19:34 11/05/17 19:45 11/05/17 20:00 Temperature 98.2 F Pulse Rate 105 H 107 H 128 H Respiratory Rate 24 35 H 27 H Blood Pressure 144/67 H 161/72 H Pulse Oximetry 98 98 97 11/05/17 20:15 11/05/17 20:31 11/05/17 20:45 Temperature Pulse Rate 117 H 115 H 124 H Respiratory Rate 21 20 23 Blood Pressure 120/60 120/55 L 136/77 Pulse Oximetry 98 98 96 11/05/17 21:00 11/05/17 21:15 11/05/17 21:30 Temperature Pulse Rate 118 H 95 H 94 H Respiratory Rate 20 22 25 H Blood Pressure 157/70 H 138/71 155/65 H Pulse Oximetry 97 98 95 11/05/17 21:45 11/05/17 22:00 11/05/17 22:15 Temperature Pulse Rate 93 H 96 H 91 H Respiratory Rate 36 H 26 H 23 Blood Pressure 142/67 H 125/76 150/70 H Pulse Oximetry 97 97 93 L 11/05/17 22:30 11/05/17 22:45 11/05/17 23:00 Temperature Pulse Rate 97 H 99 H 93 H Respiratory Rate 22 22 20 Blood Pressure 148/67 H 171/77 H 171/76 H Pulse Oximetry 97 96 98 11/05/17 23:12 11/05/17 23:15 11/05/17 23:30 Temperature Pulse Rate 97 H 128 H Respiratory Rate 23 53 H Blood Pressure 166/77 H 157/72 H Pulse Oximetry 98 97 97 11/05/17 23:45 11/06/17 00:00 11/06/17 00:15 Temperature 98.2 F Pulse Rate 95 H 99 H 97 H Respiratory Rate 23 32 H Blood Pressure 162/66 H 171/79 H 157/74 H Pulse Oximetry 98 97 98 11/06/17 00:30 11/06/17 00:45 11/06/17 01:00 Temperature Pulse Rate 99 H 108 H 97 H Respiratory Rate 25 H 24 19 Blood Pressure 139/64 174/72 H 186/71 H Pulse Oximetry 98 98 95 11/06/17 01:15 11/06/17 01:30 11/06/17 01:31 Temperature Pulse Rate 102 H 107 H 105 H Respiratory Rate 31 H 25 H 26 H Blood Pressure 179/77 H 178/116 H 185/79 H Pulse Oximetry 95 96 98 11/06/17 01:45 11/06/17 02:00 11/06/17 02:16 Temperature Pulse Rate 104 H 105 H 112 H Respiratory Rate 20 27 H 26 H Blood Pressure 184/80 H 179/79 H 187/71 H Pulse Oximetry 98 93 L 97 11/06/17 02:30 11/06/17 02:45 11/06/17 03:00 Temperature Pulse Rate 104 H 107 H 120 H Respiratory Rate 20 21 21 Blood Pressure 189/75 H 126/78 180/82 H Pulse Oximetry 97 97 99 11/06/17 03:15 11/06/17 03:24 11/06/17 03:25 Temperature Pulse Rate 116 H 98 H Respiratory Rate 30 H 24 Blood Pressure 130/80 Pulse Oximetry 99 99 11/06/17 03:31 11/06/17 03:45 11/06/17 04:00 Temperature 98.1 F Pulse Rate 118 H 106 H 108 H Respiratory Rate 27 H 0 L 0 L Blood Pressure 192/81 H 146/80 H 143/67 H Pulse Oximetry 93 L 99 99 11/06/17 04:15 11/06/17 04:30 11/06/17 04:45 Temperature Pulse Rate 104 H 108 H 109 H Respiratory Rate 0 L 26 H 16 Blood Pressure 169/71 H 162/72 H 164/65 H Pulse Oximetry 98 97 99 11/06/17 05:00 11/06/17 05:15 11/06/17 05:30 Temperature Pulse Rate 105 H 107 H 107 H Respiratory Rate 16 17 15 Blood Pressure 162/67 H 158/69 H 159/71 H Pulse Oximetry 99 100 99 11/06/17 07:49 Temperature Pulse Rate 106 H Respiratory Rate 15 Blood Pressure Pulse Oximetry 100 Intake & Output 11/05/17 11/06/17 11/06/17 18:59 06:59 18:59 Intake Total 1501 / 1501 682 / 682 100 / 100 Output Total 500 / 500 450 / 450 Balance 1001 / 1001 232 / 232 100 / 100 Weight 57.1 kg Intake: IV 1250 / 1250 100 / 100 100 / 100 D5W/Normal Saline Inj 1,000 ML 1000 / 1000 @ 75 mls/hr IV.CONT .[id number] GARY Rx#:[id number] Zosyn 3.375 GM Premix 50 ML @ 50 / 50 100 / 100 100 mls/hr IV.SIG Q6H GARY Rx#: [id number] Zosyn 4.5 GM Premix 4.5 gm In 100 / 100 100 ml @ 200 mls/hr IV.SIG Q6H GARY Rx#:[id number] KCl 10 mEq Premix Inj 10 meq In 100 / 100 100 ml @ 100 mls/hr IV.SIG Q1H GARY Rx#:[id number] KCl 20 mEq Premix Inj 20 meq In 100 / 100 100 ml @ 50 mls/hr IV.SIG Q2H PRN Rx#:[id number] Oral 0 / 0 Tube Feeding 131 / 131 462 / 462 Water Bolus Amount 120 / 120 120 / 120 Output: Urine 0 / 0 Urine Amount (Catheter) 500 / 500 450 / 450 Condom 500 / 500 450 / 450 Other: # Voids 0 # Incontinent Voids 1 # Bowel Movements 0 0 # Incontinent Bowel Movements 0 Physical Exam: CONSTITUTIONAL/GENERAL: This is a thin, chronically ill-appearing patient, in no apparent distress. TUBES/LINES/DRAINS: Nasal oxygen, IV access, condom catheter SKIN: No jaundice, rashes, or lesions. Ecchymoses on upper extremities. No wounds seen anteriorly. Skin temperature appropriate. Not diaphoretic. CARDIOVASCULAR: Irregular and rapid rhythm. No JVD. Peripheral pulses diminished. RESPIRATORY/CHEST: Symmetric, unlabored respirations. A couple scattered rhonchi. GASTROINTESTINAL: Abdomen soft, non-tender, nondistended. No hepato-splenomegaly , or palpable masses. No guarding. Bowel sounds present. MUSCULOSKELETAL: Extremities without clubbing, cyanosis, or edema. No joint tenderness or effusion noted. No calf tenderness. No mottling or clubbing. NEUROLOGICAL: Lethargic, intermittently agitated, does not follow commands. PSYCHIATRIC: Agitated and combative at times Diagnostic Tests Laboratory: Laboratory Results - last 72 hr 10/30/17 11/03/17 11/03/17 06:05 11:20 11:20 WBC RBC Hgb Hct MCV MCH MCHC RDW Plt Count MPV Prelim Diff (Auto) Neut % (Auto) Lymph % (Auto) [place] % (Auto) Eos % (Auto) Baso % (Auto) Neut # (Auto) Lymph # (Auto) [place] # (Auto) Eos # (Auto) Baso # (Auto) WBC Differential Diff Scan Seg Neuts % (Manual) Band Neuts % (Manual) Lymphocytes % (Manual) Monocytes % (Manual) Basophils % (Manual) Abs Neuts (Manual) Differential Comment Toxic Vacuolation Platelet Estimate Platelet Morphology Ovalocytes Yasmine Cells Acanthocytes (Spur) Puncture Site Patient Temperature O2 Saturation ABG pH ABG pCO2 ABG pO2 ABG HCO3 ABG O2 Content ABG Base Excess ABG Methemoglobin Jamie Test Hemoglobin Carboxyhemoglobin O2 Delivery Device Liter Flow Vent Setting Inspired O2 Critical Value Sodium 141 Potassium 3.8 Chloride 105 Carbon Dioxide 24.3 Anion Gap 12 BUN 19 H Creatinine 1.03 Estimated GFR 71 L POC Glucose Random Glucose 106 Calcium 8.6 Phosphorus 4.9 Magnesium 1.9 Total Bilirubin 1.2 H AST 33 ALT 23 Alkaline Phosphatase 61 Troponin I Total Protein 7.3 Albumin 3.9 Thiamine 120 Vit D 1,25-Dihydroxy 48 TSH Urine Color Urine Clarity Urine pH Ur Specific [place] Urine Protein Urine Glucose (UA) Urine Ketones Urine Occult Blood Urine Nitrate Urine Bilirubin Urine Urobilinogen Ur Leukocyte Esterase Urine RBC Urine WBC Urine WBC Clumps Ur Squamous Epith Cells Uric Acid Crystals Amorphous Sediment Urine Bacteria Urine Mucus Micro UA Comment Urine Culture Comments CSF Volume (1) CSF Supernat Color (1) CSF Gross Blood (1) CSF Volume (2) CSF Supernat Color (2) CSF Gross Blood (2) CSF Volume (3) CSF Supernat Color (3) CSF Gross Blood (3) CSF Volume (4) CSF Supernat Color (4) CSF Gross Blood (4) CSF WBC (4) CSF RBC (4) CSF Neutrophils % CSF Glucose CSF Total Protein CSF Herpes I DNA (PCR) CSF Herpes II DNA (PCR) Nasal Screen MRSA (PCR) Not detected Random Vancomycin Digoxin 11/03/17 11/03/17 11/03/17 12:12 12:12 12:44 WBC RBC Hgb Hct MCV MCH MCHC RDW Plt Count MPV Prelim Diff (Auto) Neut % (Auto) Lymph % (Auto) [place] % (Auto) Eos % (Auto) Baso % (Auto) Neut # (Auto) Lymph # (Auto) [place] # (Auto) Eos # (Auto) Baso # (Auto) WBC Differential Diff Scan Seg Neuts % (Manual) Band Neuts % (Manual) Lymphocytes % (Manual) Monocytes % (Manual) Basophils % (Manual) Abs Neuts (Manual) Differential Comment Toxic Vacuolation Platelet Estimate Platelet Morphology Ovalocytes Yasmine Cells Acanthocytes (Spur) Puncture Site Right radial Cancelled Patient Temperature 98.6 Cancelled O2 Saturation 95 Cancelled ABG pH 7.45 H Cancelled ABG pCO2 31 L Cancelled ABG pO2 93 Cancelled ABG HCO3 22 Cancelled ABG O2 Content 19.6 Cancelled ABG Base Excess -1.9 Cancelled ABG Methemoglobin 1.3 Cancelled Jamie Test Present Cancelled Hemoglobin 14.6 Cancelled Carboxyhemoglobin 1.1 Cancelled O2 Delivery Device Nasal cannula Cancelled Liter Flow 2.00 Cancelled Vent Setting Cancelled Inspired O2 28 Cancelled Critical Value No Cancelled Sodium Potassium Chloride Carbon Dioxide Anion Gap BUN Creatinine Estimated GFR POC Glucose 149 H Random Glucose Calcium Phosphorus Magnesium Total Bilirubin AST ALT Alkaline Phosphatase Troponin I Total Protein Albumin Thiamine Vit D 1,25-Dihydroxy TSH Urine Color Urine Clarity Urine pH Ur Specific [place] Urine Protein Urine Glucose (UA) Urine Ketones Urine Occult Blood Urine Nitrate Urine Bilirubin Urine Urobilinogen Ur Leukocyte Esterase Urine RBC Urine WBC Urine WBC Clumps Ur Squamous Epith Cells Uric Acid Crystals Amorphous Sediment Urine Bacteria Urine Mucus Micro UA Comment Urine Culture Comments CSF Volume (1) CSF Supernat Color (1) CSF Gross Blood (1) CSF Volume (2) CSF Supernat Color (2) CSF Gross Blood (2) CSF Volume (3) CSF Supernat Color (3) CSF Gross Blood (3) CSF Volume (4) CSF Supernat Color (4) CSF Gross Blood (4) CSF WBC (4) CSF RBC (4) CSF Neutrophils % CSF Glucose CSF Total Protein CSF Herpes I DNA (PCR) CSF Herpes II DNA (PCR) Nasal Screen MRSA (PCR) Random Vancomycin Digoxin 11/03/17 11/03/17 11/03/17 14:40 14:45 16:23 WBC 11.3 H RBC 4.34 L Hgb 14.1 Hct 41.7 MCV 96.1 MCH 32.4 MCHC 33.7 RDW 13.5 Plt Count 84 L MPV 11.9 H Prelim Diff (Auto) Slide review pending Neut % (Auto) 80.4 H Lymph % (Auto) 7.8 L [place] % (Auto) 11.2 H Eos % (Auto) 0.2 Baso % (Auto) 0.4 Neut # (Auto) 9.1 H Lymph # (Auto) 0.9 L [place] # (Auto) 1.3 H Eos # (Auto) 0.0 Baso # (Auto) 0.0 WBC Differential . Diff Scan Auto diff confirmed Seg Neuts % (Manual) Band Neuts % (Manual) Lymphocytes % (Manual) Monocytes % (Manual) Basophils % (Manual) Abs Neuts (Manual) Differential Comment . Toxic Vacuolation Platelet Estimate Low L Platelet Morphology Enlarged H Ovalocytes Yasmine Cells Acanthocytes (Spur) Puncture Site Patient Temperature O2 Saturation ABG pH ABG pCO2 ABG pO2 ABG HCO3 ABG O2 Content ABG Base Excess ABG Methemoglobin Jamie Test Hemoglobin Carboxyhemoglobin O2 Delivery Device Liter Flow Vent Setting Inspired O2 Critical Value Sodium Potassium Chloride Carbon Dioxide Anion Gap BUN Creatinine Estimated GFR POC Glucose 153 H Random Glucose Calcium Phosphorus Magnesium Total Bilirubin AST ALT Alkaline Phosphatase Troponin I Less than 0.02 L Total Protein Albumin Thiamine Vit D 1,25-Dihydroxy TSH 1.580 Urine Color Urine Clarity Urine pH Ur Specific [place] Urine Protein Urine Glucose (UA) Urine Ketones Urine Occult Blood Urine Nitrate Urine Bilirubin Urine Urobilinogen Ur Leukocyte Esterase Urine RBC Urine WBC Urine WBC Clumps Ur Squamous Epith Cells Uric Acid Crystals Amorphous Sediment Urine Bacteria Urine Mucus Micro UA Comment Urine Culture Comments CSF Volume (1) CSF Supernat Color (1) CSF Gross Blood (1) CSF Volume (2) CSF Supernat Color (2) CSF Gross Blood (2) CSF Volume (3) CSF Supernat Color (3) CSF Gross Blood (3) CSF Volume (4) CSF Supernat Color (4) CSF Gross Blood (4) CSF WBC (4) CSF RBC (4) CSF Neutrophils % CSF Glucose CSF Total Protein CSF Herpes I DNA (PCR) CSF Herpes II DNA (PCR) Nasal Screen MRSA (PCR) Random Vancomycin Digoxin 11/04/17 11/04/17 11/04/17 00:24 05:14 06:02 WBC RBC Hgb Hct MCV MCH MCHC RDW Plt Count MPV Prelim Diff (Auto) Neut % (Auto) Lymph % (Auto) [place] % (Auto) Eos % (Auto) Baso % (Auto) Neut # (Auto) Lymph # (Auto) [place] # (Auto) Eos # (Auto) Baso # (Auto) WBC Differential Diff Scan Seg Neuts % (Manual) Band Neuts % (Manual) Lymphocytes % (Manual) Monocytes % (Manual) Basophils % (Manual) Abs Neuts (Manual) Differential Comment Toxic Vacuolation Platelet Estimate Platelet Morphology Ovalocytes Yasmine Cells Acanthocytes (Spur) Puncture Site Patient Temperature O2 Saturation ABG pH ABG pCO2 ABG pO2 ABG HCO3 ABG O2 Content ABG Base Excess ABG Methemoglobin Jamie Test Hemoglobin Carboxyhemoglobin O2 Delivery Device Liter Flow Vent Setting Inspired O2 Critical Value Sodium 141 Potassium 2.9 L* D Chloride 104 Carbon Dioxide 26.4 Anion Gap 11 BUN 16 Creatinine 0.89 Estimated GFR 84 L POC Glucose 165 H 137 H Random Glucose 123 H Calcium 8.2 L Phosphorus 2.1 L D Magnesium 2.4 Total Bilirubin 0.9 AST 25 ALT 23 Alkaline Phosphatase 55 Troponin I Total Protein 7.0 Albumin 3.4 Thiamine Vit D 1,25-Dihydroxy TSH Urine Color Urine Clarity Urine pH Ur Specific [place] Urine Protein Urine Glucose (UA) Urine Ketones Urine Occult Blood Urine Nitrate Urine Bilirubin Urine Urobilinogen Ur Leukocyte Esterase Urine RBC Urine WBC Urine WBC Clumps Ur Squamous Epith Cells Uric Acid Crystals Amorphous Sediment Urine Bacteria Urine Mucus Micro UA Comment Urine Culture Comments CSF Volume (1) CSF Supernat Color (1) CSF Gross Blood (1) CSF Volume (2) CSF Supernat Color (2) CSF Gross Blood (2) CSF Volume (3) CSF Supernat Color (3) CSF Gross Blood (3) CSF Volume (4) CSF Supernat Color (4) CSF Gross Blood (4) CSF WBC (4) CSF RBC (4) CSF Neutrophils % CSF Glucose CSF Total Protein CSF Herpes I DNA (PCR) CSF Herpes II DNA (PCR) Nasal Screen MRSA (PCR) Random Vancomycin Digoxin 0.9 11/04/17 11/04/17 11/04/17 09:26 10:39 10:39 WBC 9.9 RBC 4.61 Hgb 15.0 Hct 44.6 MCV 96.6 MCH 32.5 MCHC 33.7 RDW 13.5 Plt Count 91 L MPV 11.9 H Prelim Diff (Auto) Slide review pending Neut % (Auto) 81.3 H Lymph % (Auto) 6.6 L [place] % (Auto) 10.4 H Eos % (Auto) 1.3 Baso % (Auto) 0.4 Neut # (Auto) 8.0 H Lymph # (Auto) 0.7 L [place] # (Auto) 1.0 H Eos # (Auto) 0.1 Baso # (Auto) 0.0 WBC Differential . Diff Scan Auto diff confirmed Seg Neuts % (Manual) Band Neuts % (Manual) Lymphocytes % (Manual) Monocytes % (Manual) Basophils % (Manual) Abs Neuts (Manual) Differential Comment . Toxic Vacuolation Platelet Estimate Low L Platelet Morphology Enlarged H Ovalocytes Yasmine Cells Acanthocytes (Spur) Puncture Site Patient Temperature O2 Saturation ABG pH ABG pCO2 ABG pO2 ABG HCO3 ABG O2 Content ABG Base Excess ABG Methemoglobin Jamie Test Hemoglobin Carboxyhemoglobin O2 Delivery Device Liter Flow Vent Setting Inspired O2 Critical Value Sodium Potassium Chloride Carbon Dioxide Anion Gap BUN Creatinine Estimated GFR POC Glucose Random Glucose Calcium Phosphorus Magnesium Total Bilirubin AST ALT Alkaline Phosphatase Troponin I Total Protein Albumin Thiamine Vit D 1,25-Dihydroxy TSH Urine Color Urine Clarity Urine pH Ur Specific [place] Urine Protein Urine Glucose (UA) Urine Ketones Urine Occult Blood Urine Nitrate Urine Bilirubin Urine Urobilinogen Ur Leukocyte Esterase Urine RBC Urine WBC Urine WBC Clumps Ur Squamous Epith Cells Uric Acid Crystals Amorphous Sediment Urine Bacteria Urine Mucus Micro UA Comment Urine Culture Comments CSF Volume (1) 2.9 CSF Supernat Color (1) Clear CSF Gross Blood (1) 1+ A CSF Volume (2) 3.0 CSF Supernat Color (2) Clear CSF Gross Blood (2) 0 CSF Volume (3) 3.0 CSF Supernat Color (3) Clear CSF Gross Blood (3) Trace A CSF Volume (4) 2.1 CSF Supernat Color (4) Clear CSF Gross Blood (4) 0 CSF WBC (4) 0 CSF RBC (4) 2 H CSF Neutrophils % 0 CSF Glucose CSF Total Protein CSF Herpes I DNA (PCR) Negative CSF Herpes II DNA (PCR) Negative Nasal Screen MRSA (PCR) Random Vancomycin Digoxin 11/04/17 11/04/17 11/04/17 10:39 11:54 12:24 WBC RBC Hgb Hct MCV MCH MCHC RDW Plt Count MPV Prelim Diff (Auto) Neut % (Auto) Lymph % (Auto) [place] % (Auto) Eos % (Auto) Baso % (Auto) Neut # (Auto) Lymph # (Auto) [place] # (Auto) Eos # (Auto) Baso # (Auto) WBC Differential Diff Scan Seg Neuts % (Manual) Band Neuts % (Manual) Lymphocytes % (Manual) Monocytes % (Manual) Basophils % (Manual) Abs Neuts (Manual) Differential Comment Toxic Vacuolation Platelet Estimate Platelet Morphology Ovalocytes [place] Cells Acanthocytes (Spur) Puncture Site Right radial Patient Temperature 98.6 O2 Saturation 94 ABG pH 7.46 H ABG pCO2 35 L ABG pO2 84 ABG HCO3 25 ABG O2 Content 20.0 ABG Base Excess 1.4 ABG Methemoglobin 1.4 Jamie Test Present Hemoglobin 15.1 Carboxyhemoglobin 1.0 O2 Delivery Device Nasal cannula Liter Flow 2.00 Vent Setting Inspired O2 21 Critical Value No Sodium Potassium Chloride Carbon Dioxide Anion Gap BUN Creatinine Estimated GFR POC Glucose 134 H Random Glucose Calcium Phosphorus Magnesium Total Bilirubin AST ALT Alkaline Phosphatase Troponin I Total Protein Albumin Thiamine Vit D 1,25-Dihydroxy TSH Urine Color Urine Clarity Urine pH Ur Specific [place] Urine Protein Urine Glucose (UA) Urine Ketones Urine Occult Blood Urine Nitrate Urine Bilirubin Urine Urobilinogen Ur Leukocyte Esterase Urine RBC Urine WBC Urine WBC Clumps Ur Squamous Epith Cells Uric Acid Crystals Amorphous Sediment Urine Bacteria Urine Mucus Micro UA Comment Urine Culture Comments CSF Volume (1) CSF Supernat Color (1) CSF Gross Blood (1) CSF Volume (2) CSF Supernat Color (2) CSF Gross Blood (2) CSF Volume (3) CSF Supernat Color (3) CSF Gross Blood (3) CSF Volume (4) CSF Supernat Color (4) CSF Gross Blood (4) CSF WBC (4) CSF RBC (4) CSF Neutrophils % CSF Glucose 90 H CSF Total Protein 37.6 CSF Herpes I DNA (PCR) CSF Herpes II DNA (PCR) Nasal Screen MRSA (PCR) Random Vancomycin Digoxin 11/04/17 11/04/17 11/04/17 16:32 18:18 20:12 WBC RBC Hgb Hct MCV MCH MCHC RDW Plt Count MPV Prelim Diff (Auto) Neut % (Auto) Lymph % (Auto) [place] % (Auto) Eos % (Auto) Baso % (Auto) Neut # (Auto) Lymph # (Auto) [place] # (Auto) Eos # (Auto) Baso # (Auto) WBC Differential Diff Scan Seg Neuts % (Manual) Band Neuts % (Manual) Lymphocytes % (Manual) Monocytes % (Manual) Basophils % (Manual) Abs Neuts (Manual) Differential Comment Toxic Vacuolation Platelet Estimate Platelet Morphology Ovalocytes [place] Cells Acanthocytes (Spur) Puncture Site Patient Temperature O2 Saturation ABG pH ABG pCO2 ABG pO2 ABG HCO3 ABG O2 Content ABG Base Excess ABG Methemoglobin Jamie Test Hemoglobin Carboxyhemoglobin O2 Delivery Device Liter Flow Vent Setting Inspired O2 Critical Value Sodium Potassium 3.9 D Chloride Carbon Dioxide Anion Gap BUN Creatinine Estimated GFR POC Glucose 136 H 140 H Random Glucose Calcium Phosphorus Magnesium Total Bilirubin AST ALT Alkaline Phosphatase Troponin I Total Protein Albumin Thiamine Vit D 1,25-Dihydroxy TSH Urine Color Urine Clarity Urine pH Ur Specific [place] Urine Protein Urine Glucose (UA) Urine Ketones Urine Occult Blood Urine Nitrate Urine Bilirubin Urine Urobilinogen Ur Leukocyte Esterase Urine RBC Urine WBC Urine WBC Clumps Ur Squamous Epith Cells Uric Acid Crystals Amorphous Sediment Urine Bacteria Urine Mucus Micro UA Comment Urine Culture Comments CSF Volume (1) CSF Supernat Color (1) CSF Gross Blood (1) CSF Volume (2) CSF Supernat Color (2) CSF Gross Blood (2) CSF Volume (3) CSF Supernat Color (3) CSF Gross Blood (3) CSF Volume (4) CSF Supernat Color (4) CSF Gross Blood (4) CSF WBC (4) CSF RBC (4) CSF Neutrophils % CSF Glucose CSF Total Protein CSF Herpes I DNA (PCR) CSF Herpes II DNA (PCR) Nasal Screen MRSA (PCR) Random Vancomycin Digoxin 11/05/17 11/05/17 11/05/17 00:13 04:10 04:10 WBC 21.7 H D RBC 4.59 Hgb 14.8 Hct 44.1 MCV 96.1 MCH 32.3 MCHC 33.6 RDW 13.6 Plt Count 83 L MPV 12.2 H Prelim Diff (Auto) Slide review pending Neut % (Auto) 88.5 H Lymph % (Auto) 2.8 L [place] % (Auto) 8.6 H Eos % (Auto) 0.0 Baso % (Auto) 0.1 Neut # (Auto) 19.2 H Lymph # (Auto) 0.6 L [place] # (Auto) 1.9 H Eos # (Auto) 0.0 Baso # (Auto) 0.0 WBC Differential Manual diff final Diff Scan Seg Neuts % (Manual) 82 H Band Neuts % (Manual) 5 Lymphocytes % (Manual) 2 L Monocytes % (Manual) 10 H Basophils % (Manual) 1 Abs Neuts (Manual) 18.9 H Differential Comment . Toxic Vacuolation Present H Platelet Estimate Low L Platelet Morphology Enlarged H Ovalocytes 1+ H [place] Cells Acanthocytes (Spur) Occ H Puncture Site Patient Temperature O2 Saturation ABG pH ABG pCO2 ABG pO2 ABG HCO3 ABG O2 Content ABG Base Excess ABG Methemoglobin Ajmie Test Hemoglobin Carboxyhemoglobin O2 Delivery Device Liter Flow Vent Setting Inspired O2 Critical Value Sodium 144 Potassium 3.7 Chloride 110 H Carbon Dioxide 22.6 Anion Gap 11 BUN 30 H Creatinine 2.04 H Estimated GFR 32 L POC Glucose 172 H Random Glucose 177 H Calcium 7.8 L Phosphorus 3.2 D Magnesium 2.1 Total Bilirubin 1.3 H AST 35 ALT 27 Alkaline Phosphatase 52 Troponin I Total Protein 6.7 Albumin 3.2 L Thiamine Vit D 1,25-Dihydroxy TSH Urine Color Urine Clarity Urine pH Ur Specific [place] Urine Protein Urine Glucose (UA) Urine Ketones Urine Occult Blood Urine Nitrate Urine Bilirubin Urine Urobilinogen Ur Leukocyte Esterase Urine RBC Urine WBC Urine WBC Clumps Ur Squamous Epith Cells Uric Acid Crystals Amorphous Sediment Urine Bacteria Urine Mucus Micro UA Comment Urine Culture Comments CSF Volume (1) CSF Supernat Color (1) CSF Gross Blood (1) CSF Volume (2) CSF Supernat Color (2) CSF Gross Blood (2) CSF Volume (3) CSF Supernat Color (3) CSF Gross Blood (3) CSF Volume (4) CSF Supernat Color (4) CSF Gross Blood (4) CSF WBC (4) CSF RBC (4) CSF Neutrophils % CSF Glucose CSF Total Protein CSF Herpes I DNA (PCR) CSF Herpes II DNA (PCR) Nasal Screen MRSA (PCR) Random Vancomycin Digoxin 11/05/17 11/05/17 11/05/17 04:10 08:30 11:41 WBC RBC Hgb Hct MCV MCH MCHC RDW Plt Count MPV Prelim Diff (Auto) Neut % (Auto) Lymph % (Auto) [place] % (Auto) Eos % (Auto) Baso % (Auto) Neut # (Auto) Lymph # (Auto) [place] # (Auto) Eos # (Auto) Baso # (Auto) WBC Differential Diff Scan Seg Neuts % (Manual) Band Neuts % (Manual) Lymphocytes % (Manual) Monocytes % (Manual) Basophils % (Manual) Abs Neuts (Manual) Differential Comment Toxic Vacuolation Platelet Estimate Platelet Morphology Ovalocytes Yasmine Cells Acanthocytes (Spur) Puncture Site Patient Temperature O2 Saturation ABG pH ABG pCO2 ABG pO2 ABG HCO3 ABG O2 Content ABG Base Excess ABG Methemoglobin Jamie Test Hemoglobin Carboxyhemoglobin O2 Delivery Device Liter Flow Vent Setting Inspired O2 Critical Value Sodium Potassium Chloride Carbon Dioxide Anion Gap BUN Creatinine Estimated GFR POC Glucose 181 H 156 H Random Glucose Calcium Phosphorus Magnesium Total Bilirubin AST ALT Alkaline Phosphatase Troponin I Total Protein Albumin Thiamine Vit D 1,25-Dihydroxy TSH Urine Color Yellow Urine Clarity Cloudy H Urine pH 5.0 Ur Specific [place]ifer 1.020 Urine Protein 100 H Urine Glucose (UA) 50 Urine Ketones Negative Urine Occult Blood Large H Urine Nitrate Negative Urine Bilirubin Negative Urine Urobilinogen Less than 2 Ur Leukocyte Esterase Large H Urine RBC 100 H Urine WBC 73 H Urine WBC Clumps Rare H Ur Squamous Epith Cells 1 Uric Acid Crystals Occasional H Amorphous Sediment Rare H Urine Bacteria Occasional H Urine Mucus Few H Micro UA Comment Cath-culture ind Urine Culture Comments Cath-cult indicated CSF Volume (1) CSF Supernat Color (1) CSF Gross Blood (1) CSF Volume (2) CSF Supernat Color (2) CSF Gross Blood (2) CSF Volume (3) CSF Supernat Color (3) CSF Gross Blood (3) CSF Volume (4) CSF Supernat Color (4) CSF Gross Blood (4) CSF WBC (4) CSF RBC (4) CSF Neutrophils % CSF Glucose CSF Total Protein CSF Herpes I DNA (PCR) CSF Herpes II DNA (PCR) Nasal Screen MRSA (PCR) Random Vancomycin Digoxin 11/05/17 11/05/17 11/05/17 16:26 20:40 23:30 WBC RBC Hgb Hct MCV MCH MCHC RDW Plt Count MPV Prelim Diff (Auto) Neut % (Auto) Lymph % (Auto) [place] % (Auto) Eos % (Auto) Baso % (Auto) Neut # (Auto) Lymph # (Auto) [place] # (Auto) Eos # (Auto) Baso # (Auto) WBC Differential Diff Scan Seg Neuts % (Manual) Band Neuts % (Manual) Lymphocytes % (Manual) Monocytes % (Manual) Basophils % (Manual) Abs Neuts (Manual) Differential Comment Toxic Vacuolation Platelet Estimate Platelet Morphology Ovalocytes [place] Cells Acanthocytes (Spur) Puncture Site Patient Temperature O2 Saturation ABG pH ABG pCO2 ABG pO2 ABG HCO3 ABG O2 Content ABG Base Excess ABG Methemoglobin Jamie Test Hemoglobin Carboxyhemoglobin O2 Delivery Device Liter Flow Vent Setting Inspired O2 Critical Value Sodium Potassium Chloride Carbon Dioxide Anion Gap BUN Creatinine Estimated GFR POC Glucose 206 H 123 H 144 H Random Glucose Calcium Phosphorus Magnesium Total Bilirubin AST ALT Alkaline Phosphatase Troponin I Total Protein Albumin Thiamine Vit D 1,25-Dihydroxy TSH Urine Color Urine Clarity Urine pH Ur Specific [place] Urine Protein Urine Glucose (UA) Urine Ketones Urine Occult Blood Urine Nitrate Urine Bilirubin Urine Urobilinogen Ur Leukocyte Esterase Urine RBC Urine WBC Urine WBC Clumps Ur Squamous Epith Cells Uric Acid Crystals Amorphous Sediment Urine Bacteria Urine Mucus Micro UA Comment Urine Culture Comments CSF Volume (1) CSF Supernat Color (1) CSF Gross Blood (1) CSF Volume (2) CSF Supernat Color (2) CSF Gross Blood (2) CSF Volume (3) CSF Supernat Color (3) CSF Gross Blood (3) CSF Volume (4) CSF Supernat Color (4) CSF Gross Blood (4) CSF WBC (4) CSF RBC (4) CSF Neutrophils % CSF Glucose CSF Total Protein CSF Herpes I DNA (PCR) CSF Herpes II DNA (PCR) Nasal Screen MRSA (PCR) Random Vancomycin Digoxin 11/06/17 11/06/17 11/06/17 03:39 05:30 05:30 WBC 14.3 H RBC 4.19 L Hgb 13.7 Hct 40.7 MCV 97.1 MCH 32.8 MCHC 33.8 RDW 13.7 Plt Count 77 L MPV 12.8 H Prelim Diff (Auto) Slide review pending Neut % (Auto) 89.1 H Lymph % (Auto) 3.1 L [place] % (Auto) 7.2 Eos % (Auto) 0.3 Baso % (Auto) 0.3 Neut # (Auto) 12.8 H Lymph # (Auto) 0.4 L [place] # (Auto) 1.0 H Eos # (Auto) 0.0 Baso # (Auto) 0.1 WBC Differential Manual diff final Diff Scan Seg Neuts % (Manual) 86 H Band Neuts % (Manual) 3 Lymphocytes % (Manual) 4 L Monocytes % (Manual) 7 Basophils % (Manual) Abs Neuts (Manual) 12.7 H Differential Comment . Toxic Vacuolation Present H Platelet Estimate Low L Platelet Morphology Enlarged H Ovalocytes 1+ H [place] Cells 1+ H Acanthocytes (Spur) Occ H Puncture Site Patient Temperature O2 Saturation ABG pH ABG pCO2 ABG pO2 ABG HCO3 ABG O2 Content ABG Base Excess ABG Methemoglobin Jamie Test Hemoglobin Carboxyhemoglobin O2 Delivery Device Liter Flow Vent Setting Inspired O2 Critical Value Sodium 145 Potassium 2.8 L* D Chloride 110 H Carbon Dioxide 24.2 Anion Gap 11 BUN 33 H Creatinine 1.41 H Estimated GFR 49 L POC Glucose 179 H Random Glucose 149 H Calcium 7.7 L Phosphorus 2.8 Magnesium 2.0 Total Bilirubin 0.4 AST 18 ALT 19 Alkaline Phosphatase 48 Troponin I Total Protein 6.0 L D Albumin 2.5 L D Thiamine Vit D 1,25-Dihydroxy TSH Urine Color Urine Clarity Urine pH Ur Specific [place] Urine Protein Urine Glucose (UA) Urine Ketones Urine Occult Blood Urine Nitrate Urine Bilirubin Urine Urobilinogen Ur Leukocyte Esterase Urine RBC Urine WBC Urine WBC Clumps Ur Squamous Epith Cells Uric Acid Crystals Amorphous Sediment Urine Bacteria Urine Mucus Micro UA Comment Urine Culture Comments CSF Volume (1) CSF Supernat Color (1) CSF Gross Blood (1) CSF Volume (2) CSF Supernat Color (2) CSF Gross Blood (2) CSF Volume (3) CSF Supernat Color (3) CSF Gross Blood (3) CSF Volume (4) CSF Supernat Color (4) CSF Gross Blood (4) CSF WBC (4) CSF RBC (4) CSF Neutrophils % CSF Glucose CSF Total Protein CSF Herpes I DNA (PCR) CSF Herpes II DNA (PCR) Nasal Screen MRSA (PCR) Random Vancomycin 4.3 Digoxin Result Diagrams: 11/06/17 05:30 11/06/17 05:30 Microbiology: Microbiology 11/05/17 08:30 Urine Culture - Preliminary Catheterized Urine No growth in 24 hours 11/05/17 20:37 Aerobic Blood Culture - Preliminary Blood - Peripheral No growth in 1 day Anaerobic Blood Culture - Preliminary No growth in 1 day 11/05/17 20:45 Aerobic Blood Culture - Preliminary Blood - Peripheral No growth in 1 day Anaerobic Blood Culture - Preliminary No growth in 1 day 11/04/17 20:14 Aerobic Blood Culture - Preliminary Blood - Peripheral No growth in 2 days Anaerobic Blood Culture - Preliminary No growth in 2 days 11/04/17 20:08 Aerobic Blood Culture - Preliminary Blood - Peripheral No growth in 2 days Anaerobic Blood Culture - Preliminary No growth in 2 days 11/04/17 10:39 Gram Stain - Final Lumbar Puncture CSF Culture - Preliminary No growth in 48 hours Imaging: Carotid Doppler Study 11/02/17 00:00 CONCLUSION: 1. There is atherosclerotic plaquing at both carotid bifurcations. 2. 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 3. The vertebral arteries were not visualized. 4. Recommend CTA of the carotids for further evaluation. Neck CTA 11/02/17 00:00 CONCLUSION: 1. High right common carotid artery bifurcation. No evidence of hemodynamically significant carotid stenosis. 2. Diminutive right vertebral artery that terminates at the skull base. Basilar artery also has a diffusely narrow diameter. Head MRI 11/03/17 00:00 CONCLUSION: 1. Exam is limited due to motion artifact on just about every pulse sequence. 2. However, grossly, nothing acute. Mild, symmetric cortical atrophy with some minimal small vessel ischemic demyelination. Head CT 11/03/17 09:57 CONCLUSION: Atrophy, otherwise negative for an acute process. Ajay Pope MD FACR . Lumbar Puncture Fluoroscopy 11/04/17 00:00 CONCLUSION: 1. Uncomplicated fluoroscopically guided lumbar puncture. Abdomen/Bladder Ultrasound 11/05/17 00:00 CONCLUSION: 1. Sonographic findings consistent with underlying medical renal disease. No obstruction observed. 2. Distended gallbladder without gallstones or gallbladder wall thickening. Abdomen X-Ray 11/06/17 00:00 CONCLUSION: Gaseous distention of nonspecific bowel throughout most of the abdomen and pelvis. I believe it is most likely distended colon given the appearance. The pattern could be consistent with ileus. No transition point is appreciated to suggest obstruction. Consider follow-up x-ray to document improvement. Chest X-Ray 11/06/17 00:00 CONCLUSION: Mild cardiomegaly. Diffuse interstitial prominence suggesting chronic interstitial changes. No Overt congestive failure. Procedures: Restraints 10/29/17 Lumbar puncture 11/04/17 Assessment and Plan - Disease Oriented Problem List (1) Rapid atrial fibrillation (2) Delirium Comment: Evaluation continues as we search for etiology of this encephalopathy (3) Renal failure Comment: Increasing creatinine 11/05/17 (4) Altered mental status (5) Thrombocytopenia Pertinent Non-Medical Issues: Psychosocial: Never , no children, lives alone in an apartment. Did [employer] work in the past. Spiritual: Not spiritual or baptist according to the patient's brother. Legal: It is unlikely that the patient will regain capacity for decision-making in the near future. His brother Too Hand is his proxy decision maker. Ethical issues impacting care: The patient is unable to make his own decisions. Important Contacts: Brother: Too Hand, [facility], cell [phone] [id number]: [facility], office [phone], <--- DURING THE DAY, CALL THIS NUMBER FIRST Prognosis: The patient appears somewhat cachectic, and his delirium/encephalopathy may be multifactorial or even primarily psychiatric. Overall, his prognosis is poor, and he is appropriate for hospice if the goals become comfort oriented.. Code Status: Full Code Plan: * FULL CODE * DECISION-MAKING: The patient lacks capacity for decision-making, and It is unknown whether the patient will regain capacity for decision-making in the near future. His brother Too Hand is his proxy decision maker. * GOALS: The patient's brother, who was unaware that the patient was in the hospital until I called him 11/03/17, wants aggressive care continued for now. He will be coming to see the patient in a couple days and we will discuss goals of medical treatment further at that time. * SYMPTOMS: The patient's agitation and combativeness has been treated intermittently PRN Lorazepam and Zyprexa. He is not combative at this time, and I have no further medication recommendations. * Patient's brother Too will be speaking with his , and they are considering a possible transition to hospice in the next couple days. * Palliative Care will continue to follow the patient during this hospitalization. Time Spent Total Floor Time (mins): 44 Face to Face Time (mins): 11 >50% Time in Counseling or Coordination of Care: Yes (d/w RN and w Dr. Burdikc) Attestation Attestation: To help prompt me to consider important information that might be impacting today's encounter and assessment, information from prior notes written by myself or my colleagues may have been "brought forward" into today's note. My signature on this note, however, is an attestation that I personally performed the exam, history, and/or decision-making noted today, and, unless otherwise indicated, the interactions with patient, family, and staff as well as the review of records all occurred today. I also attest that the listed assessment and stated plan reflect my best clinical judgment today based on the combination of historical information, prior notes, and today's exam/ interactions. When time spent is documented, it refers only to time spent today by the signer, or if indicated, combined time spent today by collaborating physician/nurse practitioner.
[2017-11-06] MEDS: Multivit/Folic Acid/Minerals Chewable Tablets CHEW SCH (12:33)
[2017-11-06] MEDS: Vancomycin Inj 1,000 MG in Sodium Chlor 0.9% Inj 250 ML IV.SIG SCH (12:34)
--- NOTE | 2017-11-06 13:33 | P.PNONC ---
Subjective Interval history: Afebrile Patient sitting up in bed with eyes open Per MOTHER'S HELPER this is the most alert he has been all day No bleeding Family is apparently considering hospice/comfort care measures Objective Vital Signs/Intake & Output: Vital Signs 11/05/17 13:53 11/05/17 14:00 11/05/17 14:15 Temperature Pulse Rate 99 H 97 H 100 H Respiratory Rate 15 18 22 Blood Pressure 129/60 122/58 L 122/66 Pulse Oximetry 96 99 95 11/05/17 14:31 11/05/17 14:32 11/05/17 14:45 Temperature Pulse Rate 104 H 105 H 96 H Respiratory Rate 21 23 18 Blood Pressure 142/65 H 171/70 H 155/72 H Pulse Oximetry 96 97 97 11/05/17 15:00 11/05/17 15:15 11/05/17 15:30 Temperature Pulse Rate 104 H 110 H 100 H Respiratory Rate 25 H 29 H 18 Blood Pressure 165/74 H 141/65 H 126/65 Pulse Oximetry 96 93 L 96 11/05/17 15:45 11/05/17 16:00 11/05/17 16:15 Temperature 98.0 F Pulse Rate 101 H 110 H 111 H Respiratory Rate 18 22 22 Blood Pressure 118/61 182/81 H 179/72 H Pulse Oximetry 97 98 97 11/05/17 16:30 11/05/17 16:46 11/05/17 17:00 Temperature Pulse Rate 102 H 107 H 108 H Respiratory Rate 20 41 H 47 H Blood Pressure 141/66 H 138/62 140/63 Pulse Oximetry 97 98 97 11/05/17 17:15 11/05/17 17:30 11/05/17 17:45 Temperature Pulse Rate 116 H 105 H 107 H Respiratory Rate 27 H 27 H 25 H Blood Pressure 142/64 H 113/58 L 122/64 Pulse Oximetry 97 98 97 11/05/17 18:00 11/05/17 18:15 11/05/17 18:30 Temperature Pulse Rate 104 H 103 H 105 H Respiratory Rate 38 H 25 H 27 H Blood Pressure 117/59 L 130/59 L 90/63 L Pulse Oximetry 98 96 97 11/05/17 18:46 11/05/17 19:00 11/05/17 19:15 Temperature Pulse Rate 104 H 103 H 103 H Respiratory Rate 30 H 37 H 26 H Blood Pressure 151/67 H 163/68 H 139/68 Pulse Oximetry 96 97 98 11/05/17 19:31 11/05/17 19:34 11/05/17 19:45 Temperature Pulse Rate 117 H 105 H 107 H Respiratory Rate 34 H 24 35 H Blood Pressure 173/65 H 144/67 H Pulse Oximetry 97 98 98 11/05/17 20:00 11/05/17 20:15 11/05/17 20:31 Temperature 98.2 F Pulse Rate 128 H 117 H 115 H Respiratory Rate 27 H 21 20 Blood Pressure 161/72 H 120/60 120/55 L Pulse Oximetry 97 98 98 11/05/17 20:45 11/05/17 21:00 11/05/17 21:15 Temperature Pulse Rate 124 H 118 H 95 H Respiratory Rate 23 20 22 Blood Pressure 136/77 157/70 H 138/71 Pulse Oximetry 96 97 98 11/05/17 21:30 11/05/17 21:45 11/05/17 22:00 Temperature Pulse Rate 94 H 93 H 96 H Respiratory Rate 25 H 36 H 26 H Blood Pressure 155/65 H 142/67 H 125/76 Pulse Oximetry 95 97 97 11/05/17 22:15 11/05/17 22:30 11/05/17 22:45 Temperature Pulse Rate 91 H 97 H 99 H Respiratory Rate 23 22 22 Blood Pressure 150/70 H 148/67 H 171/77 H Pulse Oximetry 93 L 97 96 11/05/17 23:00 11/05/17 23:12 11/05/17 23:15 Temperature Pulse Rate 93 H 97 H Respiratory Rate 20 23 Blood Pressure 171/76 H 166/77 H Pulse Oximetry 98 98 97 11/05/17 23:30 11/05/17 23:45 11/06/17 00:00 Temperature 98.2 F Pulse Rate 128 H 95 H 99 H Respiratory Rate 53 H 23 Blood Pressure 157/72 H 162/66 H 171/79 H Pulse Oximetry 97 98 97 11/06/17 00:15 11/06/17 00:30 11/06/17 00:45 Temperature Pulse Rate 97 H 99 H 108 H Respiratory Rate 32 H 25 H 24 Blood Pressure 157/74 H 139/64 174/72 H Pulse Oximetry 98 98 98 11/06/17 01:00 11/06/17 01:15 11/06/17 01:30 Temperature Pulse Rate 97 H 102 H 107 H Respiratory Rate 19 31 H 25 H Blood Pressure 186/71 H 179/77 H 178/116 H Pulse Oximetry 95 95 96 11/06/17 01:31 11/06/17 01:45 11/06/17 02:00 Temperature Pulse Rate 105 H 104 H 105 H Respiratory Rate 26 H 20 27 H Blood Pressure 185/79 H 184/80 H 179/79 H Pulse Oximetry 98 98 93 L 11/06/17 02:16 11/06/17 02:30 11/06/17 02:45 Temperature Pulse Rate 112 H 104 H 107 H Respiratory Rate 26 H 20 21 Blood Pressure 187/71 H 189/75 H 126/78 Pulse Oximetry 97 97 97 11/06/17 03:00 11/06/17 03:15 11/06/17 03:24 Temperature Pulse Rate 120 H 116 H 98 H Respiratory Rate 21 30 H 24 Blood Pressure 180/82 H 130/80 Pulse Oximetry 99 99 11/06/17 03:25 11/06/17 03:31 11/06/17 03:45 Temperature Pulse Rate 118 H 106 H Respiratory Rate 27 H 0 L Blood Pressure 192/81 H 146/80 H Pulse Oximetry 99 93 L 99 11/06/17 04:00 11/06/17 04:15 11/06/17 04:30 Temperature 98.1 F Pulse Rate 108 H 104 H 108 H Respiratory Rate 0 L 0 L 26 H Blood Pressure 143/67 H 169/71 H 162/72 H Pulse Oximetry 99 98 97 11/06/17 04:45 11/06/17 05:00 11/06/17 05:15 Temperature Pulse Rate 109 H 105 H 107 H Respiratory Rate 16 16 17 Blood Pressure 164/65 H 162/67 H 158/69 H Pulse Oximetry 99 99 100 11/06/17 05:30 11/06/17 07:49 11/06/17 08:00 Temperature Pulse Rate 107 H 106 H 122 H Respiratory Rate 15 15 Blood Pressure 159/71 H Pulse Oximetry 99 100 97 11/06/17 12:00 11/06/17 13:15 Temperature Pulse Rate 77 81 Respiratory Rate 21 Blood Pressure Pulse Oximetry Intake & Output 11/05/17 11/06/17 11/06/17 18:59 06:59 18:59 Intake Total 1501 / 1501 682 / 682 200 / 200 Output Total 500 / 500 450 / 450 Balance 1001 / 1001 232 / 232 200 / 200 Weight 125 lb 14.143 oz Intake: IV 1250 / 1250 100 / 100 200 / 200 D5W/Normal Saline Inj 1,000 ML 1000 / 1000 @ 75 mls/hr IV.CONT .[id number] SOFI Rx#:[id number] Zosyn 3.375 GM Premix 50 ML @ 50 / 50 100 / 100 100 mls/hr IV.SIG Q6H SOFI Rx#: [id number] Zosyn 4.5 GM Premix 4.5 gm In 100 / 100 100 ml @ 200 mls/hr IV.SIG Q6H SOFI Rx#:[id number] KCl 10 mEq Premix Inj 10 meq In 200 / 200 100 ml @ 100 mls/hr IV.SIG Q1H SOFI Rx#:[id number] KCl 20 mEq Premix Inj 20 meq In 100 / 100 100 ml @ 50 mls/hr IV.SIG Q2H PRN Rx#:[id number] Oral 0 / 0 Tube Feeding 131 / 131 462 / 462 Water Bolus Amount 120 / 120 120 / 120 Output: Urine 0 / 0 Urine Amount (Catheter) 500 / 500 450 / 450 Condom 500 / 500 450 / 450 Other: # Voids 0 # Incontinent Voids 1 # Bowel Movements 0 0 # Incontinent Bowel Movements 0 Result Diagrams: 11/06/17 12:57 11/06/17 15:12 Laboratory Results: Laboratory Results - last 24 hr 11/05/17 11/05/17 11/05/17 08:30 16:26 20:40 WBC RBC Hgb Hct MCV MCH MCHC RDW Plt Count MPV Prelim Diff (Auto) Neut % (Auto) Lymph % (Auto) [place] % (Auto) Eos % (Auto) Baso % (Auto) Neut # (Auto) Lymph # (Auto) [place] # (Auto) Eos # (Auto) Baso # (Auto) WBC Differential Seg Neuts % (Manual) Band Neuts % (Manual) Lymphocytes % (Manual) Monocytes % (Manual) Abs Neuts (Manual) Differential Comment Toxic Vacuolation Platelet Estimate Platelet Morphology Ovalocytes Palmer Cells Acanthocytes (Spur) Sodium Potassium Chloride Carbon Dioxide Anion Gap BUN Creatinine Estimated GFR POC Glucose 206 H 123 H Random Glucose Calcium Phosphorus Magnesium Total Bilirubin AST ALT Alkaline Phosphatase Total Protein Albumin Urine Color Yellow Urine Clarity Cloudy H Urine pH 5.0 Ur Specific Marion 1.020 Urine Protein 100 H Urine Glucose (UA) 50 Urine Ketones Negative Urine Occult Blood Large H Urine Nitrate Negative Urine Bilirubin Negative Urine Urobilinogen Less than 2 Ur Leukocyte Esterase Large H Urine RBC 100 H Urine WBC 73 H Urine WBC Clumps Rare H Ur Squamous Epith Cells 1 Uric Acid Crystals Occasional H Amorphous Sediment Rare H Urine Bacteria Occasional H Urine Mucus Few H Micro UA Comment Cath-culture ind Urine Culture Comments Cath-cult indicated Random Vancomycin 11/05/17 11/06/17 11/06/17 23:30 03:39 05:30 WBC 14.3 H RBC 4.19 L Hgb 13.7 Hct 40.7 MCV 97.1 MCH 32.8 MCHC 33.8 RDW 13.7 Plt Count 77 L MPV 12.8 H Prelim Diff (Auto) Slide review pending Neut % (Auto) 89.1 H Lymph % (Auto) 3.1 L [place] % (Auto) 7.2 Eos % (Auto) 0.3 Baso % (Auto) 0.3 Neut # (Auto) 12.8 H Lymph # (Auto) 0.4 L [place] # (Auto) 1.0 H Eos # (Auto) 0.0 Baso # (Auto) 0.1 WBC Differential Manual diff final Seg Neuts % (Manual) 86 H Band Neuts % (Manual) 3 Lymphocytes % (Manual) 4 L Monocytes % (Manual) 7 Abs Neuts (Manual) 12.7 H Differential Comment . Toxic Vacuolation Present H Platelet Estimate Low L Platelet Morphology Enlarged H Ovalocytes 1+ H Palmer Cells 1+ H Acanthocytes (Spur) Occ H Sodium Potassium Chloride Carbon Dioxide Anion Gap BUN Creatinine Estimated GFR POC Glucose 144 H 179 H Random Glucose Calcium Phosphorus Magnesium Total Bilirubin AST ALT Alkaline Phosphatase Total Protein Albumin Urine Color Urine Clarity Urine pH Ur Specific [place] Urine Protein Urine Glucose (UA) Urine Ketones Urine Occult Blood Urine Nitrate Urine Bilirubin Urine Urobilinogen Ur Leukocyte Esterase Urine RBC Urine WBC Urine WBC Clumps Ur Squamous Epith Cells Uric Acid Crystals Amorphous Sediment Urine Bacteria Urine Mucus Micro UA Comment Urine Culture Comments Random Vancomycin 11/06/17 11/06/17 05:30 12:31 WBC RBC Hgb Hct MCV MCH MCHC RDW Plt Count MPV Prelim Diff (Auto) Neut % (Auto) Lymph % (Auto) [place] % (Auto) Eos % (Auto) Baso % (Auto) Neut # (Auto) Lymph # (Auto) [place] # (Auto) Eos # (Auto) Baso # (Auto) WBC Differential Seg Neuts % (Manual) Band Neuts % (Manual) Lymphocytes % (Manual) Monocytes % (Manual) Abs Neuts (Manual) Differential Comment Toxic Vacuolation Platelet Estimate Platelet Morphology Ovalocytes Palmer Cells Acanthocytes (Spur) Sodium 145 Potassium 2.8 L* D Chloride 110 H Carbon Dioxide 24.2 Anion Gap 11 BUN 33 H Creatinine 1.41 H Estimated GFR 49 L POC Glucose 175 H Random Glucose 149 H Calcium 7.7 L Phosphorus 2.8 Magnesium 2.0 Total Bilirubin 0.4 AST 18 ALT 19 Alkaline Phosphatase 48 Total Protein 6.0 L D Albumin 2.5 L D Urine Color Urine Clarity Urine pH Ur Specific [place] Urine Protein Urine Glucose (UA) Urine Ketones Urine Occult Blood Urine Nitrate Urine Bilirubin Urine Urobilinogen Ur Leukocyte Esterase Urine RBC Urine WBC Urine WBC Clumps Ur Squamous Epith Cells Uric Acid Crystals Amorphous Sediment Urine Bacteria Urine Mucus Micro UA Comment Urine Culture Comments Random Vancomycin 4.3 Culture Results: Microbiology 11/05/17 08:30 Urine Culture - Preliminary Catheterized Urine No growth in 24 hours 11/05/17 20:37 Aerobic Blood Culture - Preliminary Blood - Peripheral No growth in 1 day Anaerobic Blood Culture - Preliminary No growth in 1 day 11/05/17 20:45 Aerobic Blood Culture - Preliminary Blood - Peripheral No growth in 1 day Anaerobic Blood Culture - Preliminary No growth in 1 day 11/04/17 20:14 Aerobic Blood Culture - Preliminary Blood - Peripheral No growth in 2 days Anaerobic Blood Culture - Preliminary No growth in 2 days 11/04/17 20:08 Aerobic Blood Culture - Preliminary Blood - Peripheral No growth in 2 days Anaerobic Blood Culture - Preliminary No growth in 2 days 11/04/17 10:39 Gram Stain - Final Lumbar Puncture CSF Culture - Preliminary No growth in 48 hours Imaging Studies: Impressions Abdomen/Bladder Ultrasound 11/05/17 00:00 CONCLUSION: 1. Sonographic findings consistent with underlying medical renal disease. No obstruction observed. 2. Distended gallbladder without gallstones or gallbladder wall thickening. Abdomen X-Ray 11/06/17 00:00 CONCLUSION: Gaseous distention of nonspecific bowel throughout most of the abdomen and pelvis. I believe it is most likely distended colon given the appearance. The pattern could be consistent with ileus. No transition point is appreciated to suggest obstruction. Consider follow-up x-ray to document improvement. Chest X-Ray 11/06/17 00:00 CONCLUSION: Mild cardiomegaly. Diffuse interstitial prominence suggesting chronic interstitial changes. No Overt congestive failure. Medications: Active Medications Generic Name Dose Route Start Last Admin Trade Name Freq PRN Reason Stop Dose Admin Albuterol 1 ampul 11/06/17 08:00 11/06/17 13:14 Duoneb Neb (Sofi) NEB 1 ampul Q6HR WHILE AWAKE NEB SOFI Administration Atorvastatin Calcium 40 mg 11/02/17 21:00 11/05/17 20:25 Lipitor PO 40 mg HS SOFI Administration Chlorhexidine Gluconate 3 pack 11/04/17 04:00 11/06/17 05:00 Chlorhexidine 2% Cloth TOPICAL 11/09/17 03:59 3 pack DAILY@0400 SOFI Administration Cyanocobalamin 1,000 mcg 11/04/17 09:00 11/04/17 10:16 Vitamin B12 Inj IM 1,000 mcg Q30D SOFI Administration Heparin Sodium (Porcine) 5,000 units 11/05/17 09:00 11/06/17 08:54 Heparin Inj SQ 5,000 units Q12HR SOFI Administration Amiodarone HCl 450 mg/ 250 mls @ 33.33 mls/hr 11/03/17 12:50 11/05/17 09:28 Dextrose IV.CONT 0 mg/min TITRATE PRN 0 mls/hr Per Protocol Titration Protocol 1 MG/MIN Clevidipine 25 mg in 50 mls @ 2 mls/hr 11/03/17 18:34 11/04/17 03:06 Cleviprex Inj IV.CONT 1 mg/hr TITRATE PRN 2 mls/hr Per protocol Administration Protocol 1 MG/HR Piperacillin/Tazobactam/Dextrose 50 mls @ 100 mls/hr 11/05/17 17:00 11/06/17 12:34 Zosyn 3.375 Gm Premix IV.SIG 100 mls/hr Q6H SOFI Administration Dextrose/Sodium Chloride 1,000 mls @ 42 mls/hr 11/06/17 07:26 11/06/17 08:54 D5w/1/2 Ns Inj IV.CONT 42 mls/hr .[id number] SOFI Administration Vancomycin HCl 1,000 mg/ 250 mls @ 250 mls/hr 11/06/17 11:00 11/06/17 12:34 Sodium Chloride IV.SIG 250 mls/hr Q24H SOFI Administration Insulin Human Regular 0 units 11/03/17 12:00 11/06/17 12:34 Novolin R Correctional Sugar Inj SQ 1 units Q4HR SOFI Administration Protocol Lactulose 30 ml 11/06/17 09:00 11/06/17 08:54 Lactulose Liq PO 30 ml BID SOFI Administration Lansoprazole 30 mg 11/06/17 09:00 11/06/17 08:53 Prevacid Solutab NG/OG 30 mg DAILY SOFI Administration Metoprolol Tartrate 50 mg 11/03/17 12:30 11/06/17 08:53 Lopressor PO 50 mg BID SOFI Administration Multivitamins/Folic Acid/Vitamin C 1 tab 11/06/17 09:00 11/06/17 12:33 Flintstones CHEW Not Given DAILY SOFI Polyethylene Glycol 17 gm 11/06/17 09:00 11/06/17 08:53 Miralax PO 17 gm BID SOFI Administration Senna/Docusate Sodium 1 tab 10/29/17 21:00 11/06/17 08:55 Jia-Colace PO 1 tab BID SOFI Administration Sennosides 17.2 mg 10/29/17 18:25 11/06/17 08:53 Senokot PO 17.2 mg Q12H PRN Administration Moderate Constipation Objective Remarks: GENERAL: Chronically ill-appearing elderly male in four-point restraints sitting up in bed in no acute distress SKIN: Warm and dry. HEAD: Normocephalic. EYES: No injection or drainage. NECK: Supple, trachea midline. No JVD or lymphadenopathy. CARDIOVASCULAR: Irregular rhythm. RESPIRATORY: Scattered rhonchi with diminished breath sounds posteriorly. GASTROINTESTINAL: NG tube in place EXTREMITIES: No cyanosis, or edema. MUSCULOSKELETAL: Adequate muscle tone. NEUROLOGICAL: Lethargic. Moving extremities. Nonverbal on today's visit. Assessment/Plan - Plan This is a elderly cachectic male patient. He has a history of chronic thrombocytopenia, lost to follow-up in March 2017. Patient's baseline platelet count is around 90,000. 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 Plan: 1. Chronic thrombocytopenia. Patient's platelet count has fluctuated between 80,000-102,000 this hospitalization. Continue to monitor CBC. 2. Severe B12 deficiency. 1000 mg B12 supplementation given, will repeat this for 4 more days. 3. Attending has replaced low potassium today. - Attending Statement The exam, history, and the medical decision-making described in the above note were completed with the assistance of the mid-level provider. I reviewed and agree with the findings presented. I attest that I had a [id number] encounter with the patient on the same day, and personally performed and documented my assessment and findings in the medical record. Patient is more alert but still confused. No bleeding noted. Platelets are stable. Leukocytosis is improving with abx. Continue to monitor. Continue B12 supplement.
--- NOTE | 2017-11-06 13:48 | P.CONGI ---
History of Present Illness Consult date: 11/06/17 Consult reason: No BM x 9 days Chief complaint: AMS, Unknown Etiology, Dementia ? History of Present Illness: This is a 72 yo M who was brought to [facility] for evaluation of AMS, according to ER note the apartment complex pt was living at called EMS because pt has been noted to be confused. Pt was confused in the ER and did not want to stay, he was placed under a [place] Act. Pt currently in ICU for closer observation, noted to be encephalopathic but unknown etiology. Our service has been consulted to evaluate pt for reports of no BM in 9 days. Pt opens eyes but is nonverbal and unable to provide any history, case discussed with HANDKERCHIEF SAMPLE CLERK Monica. She reports giving the pt Relistor, Lactulose, Jia-Colace, and Miralax this morning. Also reports she did not feel any stool in the pts rectal vault when she attempted a manual disimpaction. She is now planning to administer mineral oil enema when supplies arrive. Pt has never been seen by GI inpatient at this hospital, unsure if he has had previous EGD or colonoscopy. At this time, palliative care is on the case and consulting with family to discuss Hospice as a possible option. <Natalie Massey - Last Filed: 11/06/17 14:04> Review of Systems unobtainable due to mental status <Natalie Massey - Last Filed: 11/06/17 14:04> PMFSH - History History Provided By: Medical Record, Formula Mixer / EMT - Medical History Medical History: Medical History (Last Reviewed 11/06/17 @ 08:32 by Sasha Pearce, KARL) Anemia HLD (hyperlipidemia) HTN (hypertension) Hearing deficit Thrombocytopenia Vitamin B12 deficiency - Surgical History Surgical History: Surgical History (Last Reviewed 11/06/17 @ 07:14 by Mark Burdick MD) History of tonsillectomy - Family History Family History: Family History (Last Reviewed 11/06/17 @ 07:14 by Mark Burdick MD) Mother Cerebral hemorrhage Father COPD (chronic obstructive pulmonary disease) Grandparent No problems noted. Father Acute [place] - Tobacco History Smoking Status: Never smoker - Alcohol History How Often Do You Have a Drink Containing Alcohol: Unable to Obtain - Substance Use History Substance History: Unable to Obtain - Travel History Recent Travel in the [place] Within the Last 8 Weeks: No Recent Travel Out of the Country Within the Last 8 Weeks: No - Immunization History Tetanus Immunization: Unable to Assess Hx Influenza Vaccine This Season: Unable to Assess <Natalie Massey - Last Filed: 11/06/17 14:04> - Medical History Medical History: Medical History (Last Reviewed 11/06/17 @ 08:32 by Sasha Pearce, KARL) Anemia HLD (hyperlipidemia) HTN (hypertension) Hearing deficit Thrombocytopenia Vitamin B12 deficiency - Surgical History Surgical History: Surgical History (Last Reviewed 11/06/17 @ 07:14 by Mark Burdick MD) History of tonsillectomy - Family History Family History: Family History (Last Reviewed 11/06/17 @ 07:14 by Mark Burdick MD) Mother Cerebral hemorrhage Father COPD (chronic obstructive pulmonary disease) Grandparent No problems noted. Father Acute [place] <Missy Crocker - Last Filed: 11/06/17 16:53> Medications and Allergies Active Medications: Active Medications Acetaminophen (Tylenol) 650 mg PO Q4H PRN PRN Reason: Temp > 100.4 Albuterol (Albuterol Neb (Prn)) 2.5 mg NEB Q2HR NEB PRN PRN Reason: DYSPNEA Albuterol (Duoneb Neb (Sofi)) 1 ampul NEB Q6HR WHILE AWAKE NEB [facility] Last Admin: 11/06/17 13:14 Dose: 1 ampul Artificial Tears (Genteal Severe Dry Eye Relief 0.3% Opth Gel) 1 drops EACH EYE HS [facility] Atorvastatin Calcium (Lipitor) 40 mg PO HS [facility] Last Admin: 11/05/17 20:25 Dose: 40 mg Bisacodyl (Dulcolax Supp) 10 mg RECTAL DAILY PRN PRN Reason: SEVERE CONSITIPATION Chlorhexidine Gluconate (Chlorhexidine 2% Cloth) 3 pack TOPICAL DAILY@0400 [facility] Stop: 11/09/17 03:59 Last Admin: 11/06/17 05:00 Dose: 3 pack Chlorhexidine Gluconate (Chlorhexidine 2% Cloth) 3 pack TOPICAL DAILY@0400 PRN PRN Reason: Extra cloth needed Stop: 11/09/17 03:59 Cyanocobalamin (Vitamin B12 Inj) 1,000 mcg IM Q30D [facility] Last Admin: 11/04/17 10:16 Dose: 1,000 mcg Cyanocobalamin (Vitamin B12 Inj) 1,000 mcg IM DAILY [facility] Stop: 11/09/17 09:01 Dextrose (D50w Vial) 50 ml IV.PUSH UNSCH PRN PRN Reason: PER HYPOGLYCEMIA PROTOCOL Diltiazem HCl (Cardizem) 90 mg PO Q6HR [facility] Flumazenil (Romazecon Inj) 0.2 mg IV.PUSH Q1M PRN PRN Reason: OVERSEDATION Glucagon (Glucagon Inj) 1 mg OTHER PRN PRN PRN Reason: for Hypoglycemia Protocol Heparin Sodium (Porcine) (Heparin Inj) 5,000 units SQ Q12HR [facility] Last Admin: 11/06/17 08:54 Dose: 5,000 units Amiodarone HCl 450 mg/ (Dextrose) 250 mls @ 33.33 mls/hr IV.CONT TITRATE PRN; Protocol PRN Reason: Per Protocol Last Titration: 11/05/17 09:28 Dose: 0 mg/min, 0 mls/hr Clevidipine (Cleviprex Inj) 25 mg in 50 mls @ 2 mls/hr IV.CONT TITRATE PRN; Protocol PRN Reason: Per protocol Last Admin: 11/04/17 03:06 Dose: 1 mg/hr, 2 mls/hr Pharmacy Profile Note (Vancomycin Consult Pharmacy) 0 mls @ 0 mls/hr OTHER UNSCH [facility] Piperacillin/Tazobactam/Dextrose (Zosyn 3.375 Gm Premix) 50 mls @ 100 mls/hr IV.SIG Q6H [facility] Last Admin: 11/06/17 12:34 Dose: 100 mls/hr Dextrose/Sodium Chloride (D5w/1/2 Ns Inj) 1,000 mls @ 42 mls/hr IV.CONT .[id number] [facility] Last Admin: 11/06/17 08:54 Dose: 42 mls/hr Vancomycin HCl 1,000 mg/ (Sodium Chloride) 250 mls @ 250 mls/hr IV.SIG Q24H [facility] Last Admin: 11/06/17 12:34 Dose: 250 mls/hr Insulin Human Regular (Novolin R Correctional Sugar Inj) 0 units SQ Q4HR [facility]; Protocol Last Admin: 11/06/17 12:34 Dose: 1 units Lactulose (Lactulose Liq) 30 ml PO DAILY PRN PRN Reason: SEVERE CONSITIPATION Lactulose (Lactulose Liq) 30 ml PO BID [facility] Last Admin: 11/06/17 08:54 Dose: 30 ml Lansoprazole (Prevacid Solutab) 30 mg NG/OG DAILY [facility] Last Admin: 11/06/17 08:53 Dose: 30 mg Metoprolol Tartrate (Lopressor) 50 mg PO BID [facility] Last Admin: 11/06/17 08:53 Dose: 50 mg Miscellaneous Information ([facility] Ordered Lab Info) 0 each OTHER ONCE ONE Stop: 11/09/17 10:46 Multivitamins/Folic Acid/Vitamin C (Flintstones) 1 tab CHEW DAILY [facility] Last Admin: 11/06/17 12:33 Dose: Not Given Polyethylene Glycol (Miralax) 17 gm PO BID [facility] Last Admin: 11/06/17 08:53 Dose: 17 gm Senna/Docusate Sodium (Jia-Colace) 1 tab PO BID [facility] Last Admin: 11/06/17 08:55 Dose: 1 tab Sennosides (Senokot) 17.2 mg PO Q12H PRN PRN Reason: Moderate Constipation Last Admin: 11/06/17 08:53 Dose: 17.2 mg <Natalie Massey - Last Filed: 11/06/17 14:04> Active Medications: Active Medications Acetaminophen (Tylenol) 650 mg PO Q4H PRN PRN Reason: Temp > 100.4 Albuterol (Albuterol Neb (Prn)) 2.5 mg NEB Q2HR NEB PRN PRN Reason: DYSPNEA Albuterol (Duoneb Neb (Sofi)) 1 ampul NEB Q6HR WHILE AWAKE NEB [facility] Last Admin: 11/06/17 13:14 Dose: 1 ampul Artificial Tears (Genteal Severe Dry Eye Relief 0.3% Opth Gel) 1 drops EACH EYE [facility] Atorvastatin Calcium (Lipitor) 40 mg PO HS [facility] Last Admin: 11/05/17 20:25 Dose: 40 mg Bisacodyl (Dulcolax Supp) 10 mg RECTAL DAILY PRN PRN Reason: SEVERE CONSITIPATION Chlorhexidine Gluconate (Chlorhexidine 2% Cloth) 3 pack TOPICAL DAILY@0400 [facility] Stop: 11/09/17 03:59 Last Admin: 11/06/17 05:00 Dose: 3 pack Chlorhexidine Gluconate (Chlorhexidine 2% Cloth) 3 pack TOPICAL DAILY@0400 PRN PRN Reason: Extra cloth needed Stop: 11/09/17 03:59 Cyanocobalamin (Vitamin B12 Inj) 1,000 mcg IM Q30D [facility] Last Admin: 11/04/17 10:16 Dose: 1,000 mcg Cyanocobalamin (Vitamin B12 Inj) 1,000 mcg IM DAILY [facility] Stop: 11/09/17 09:01 Last Admin: 11/06/17 16:20 Dose: 1,000 mcg Dextrose (D50w Vial) 50 ml IV.PUSH UNSCH PRN PRN Reason: PER HYPOGLYCEMIA PROTOCOL Diltiazem HCl (Cardizem) 90 mg PO Q6HR [facility] Flumazenil (Romazecon Inj) 0.2 mg IV.PUSH Q1M PRN PRN Reason: OVERSEDATION Glucagon (Glucagon Inj) 1 mg OTHER PRN PRN PRN Reason: for Hypoglycemia Protocol Heparin Sodium (Porcine) (Heparin Inj) 5,000 units SQ Q12HR [facility] Last Admin: 11/06/17 08:54 Dose: 5,000 units Amiodarone HCl 450 mg/ (Dextrose) 250 mls @ 33.33 mls/hr IV.CONT TITRATE PRN; Protocol PRN Reason: Per Protocol Last Titration: 11/05/17 09:28 Dose: 0 mg/min, 0 mls/hr Clevidipine (Cleviprex Inj) 25 mg in 50 mls @ 2 mls/hr IV.CONT TITRATE PRN; Protocol PRN Reason: Per protocol Last Admin: 11/04/17 03:06 Dose: 1 mg/hr, 2 mls/hr Pharmacy Profile Note (Vancomycin Consult Pharmacy) 0 mls @ 0 mls/hr OTHER UNSCH [facility] Piperacillin/Tazobactam/Dextrose (Zosyn 3.375 Gm Premix) 50 mls @ 100 mls/hr IV.SIG Q6H [facility] Last Admin: 11/06/17 16:20 Dose: 100 mls/hr Dextrose/Sodium Chloride (D5w/1/2 Ns Inj) 1,000 mls @ 42 mls/hr IV.CONT .[id number] [facility] Last Admin: 11/06/17 08:54 Dose: 42 mls/hr Vancomycin HCl 1,000 mg/ (Sodium Chloride) 250 mls @ 250 mls/hr IV.SIG Q24H [facility] Last Admin: 11/06/17 12:34 Dose: 250 mls/hr Insulin Human Regular (Novolin R Correctional Sugar Inj) 0 units SQ Q4HR [facility]; Protocol Last Admin: 11/06/17 16:20 Dose: 1 units Lactulose (Lactulose Liq) 30 ml PO DAILY PRN PRN Reason: SEVERE CONSITIPATION Lactulose (Lactulose Liq) 30 ml PO BID [facility] Last Admin: 11/06/17 08:54 Dose: 30 ml Lansoprazole (Prevacid Solutab) 30 mg NG/OG DAILY [facility] Last Admin: 11/06/17 08:53 Dose: 30 mg Metoprolol Tartrate (Lopressor) 50 mg PO BID [facility] Last Admin: 11/06/17 08:53 Dose: 50 mg Miscellaneous Information ([facility] Ordered Lab Info) 0 each OTHER ONCE ONE Stop: 11/09/17 10:46 Multivitamins/Folic Acid/Vitamin C (Flintstones) 1 tab CHEW DAILY [facility] Last Admin: 11/06/17 12:33 Dose: Not Given Polyethylene Glycol (Miralax) 17 gm PO BID [facility] Last Admin: 11/06/17 08:53 Dose: 17 gm Senna/Docusate Sodium (Jia-Colace) 1 tab PO BID [facility] Last Admin: 11/06/17 08:55 Dose: 1 tab Sennosides (Senokot) 17.2 mg PO Q12H PRN PRN Reason: Moderate Constipation Last Admin: 11/06/17 08:53 Dose: 17.2 mg <ObiAmmar - Last Filed: 11/06/17 16:53> Allergies Allergy/AdvReac Type Severity Reaction Status Date / Time No Known Allergies Allergy Uncoded 02/07/14 14:05 Home Medications Medication Instructions Recorded Confirmed Type Unable to Obtain Home Meds 10/29/17 10/29/17 History Exam Vital signs: Vital Signs 11/05/17 13:53 11/05/17 14:00 11/05/17 14:15 Temperature Pulse Rate 99 H 97 H 100 H Respiratory Rate 15 18 22 Blood Pressure 129/60 122/58 L 122/66 Pulse Oximetry 96 99 95 11/05/17 14:31 11/05/17 14:32 11/05/17 14:45 Temperature Pulse Rate 104 H 105 H 96 H Respiratory Rate 21 23 18 Blood Pressure 142/65 H 171/70 H 155/72 H Pulse Oximetry 96 97 97 11/05/17 15:00 11/05/17 15:15 11/05/17 15:30 Temperature Pulse Rate 104 H 110 H 100 H Respiratory Rate 25 H 29 H 18 Blood Pressure 165/74 H 141/65 H 126/65 Pulse Oximetry 96 93 L 96 11/05/17 15:45 11/05/17 16:00 11/05/17 16:15 Temperature 98.0 F Pulse Rate 101 H 110 H 111 H Respiratory Rate 18 22 22 Blood Pressure 118/61 182/81 H 179/72 H Pulse Oximetry 97 98 97 11/05/17 16:30 11/05/17 16:46 11/05/17 17:00 Temperature Pulse Rate 102 H 107 H 108 H Respiratory Rate 20 41 H 47 H Blood Pressure 141/66 H 138/62 140/63 Pulse Oximetry 97 98 97 11/05/17 17:15 11/05/17 17:30 11/05/17 17:45 Temperature Pulse Rate 116 H 105 H 107 H Respiratory Rate 27 H 27 H 25 H Blood Pressure 142/64 H 113/58 L 122/64 Pulse Oximetry 97 98 97 11/05/17 18:00 11/05/17 18:15 11/05/17 18:30 Temperature Pulse Rate 104 H 103 H 105 H Respiratory Rate 38 H 25 H 27 H Blood Pressure 117/59 L 130/59 L 90/63 L Pulse Oximetry 98 96 97 11/05/17 18:46 11/05/17 19:00 11/05/17 19:15 Temperature Pulse Rate 104 H 103 H 103 H Respiratory Rate 30 H 37 H 26 H Blood Pressure 151/67 H 163/68 H 139/68 Pulse Oximetry 96 97 98 11/05/17 19:31 11/05/17 19:34 11/05/17 19:45 Temperature Pulse Rate 117 H 105 H 107 H Respiratory Rate 34 H 24 35 H Blood Pressure 173/65 H 144/67 H Pulse Oximetry 97 98 98 11/05/17 20:00 11/05/17 20:15 11/05/17 20:31 Temperature 98.2 F Pulse Rate 128 H 117 H 115 H Respiratory Rate 27 H 21 20 Blood Pressure 161/72 H 120/60 120/55 L Pulse Oximetry 97 98 98 11/05/17 20:45 11/05/17 21:00 11/05/17 21:15 Temperature Pulse Rate 124 H 118 H 95 H Respiratory Rate 23 20 22 Blood Pressure 136/77 157/70 H 138/71 Pulse Oximetry 96 97 98 11/05/17 21:30 11/05/17 21:45 11/05/17 22:00 Temperature Pulse Rate 94 H 93 H 96 H Respiratory Rate 25 H 36 H 26 H Blood Pressure 155/65 H 142/67 H 125/76 Pulse Oximetry 95 97 97 11/05/17 22:15 11/05/17 22:30 11/05/17 22:45 Temperature Pulse Rate 91 H 97 H 99 H Respiratory Rate 23 22 22 Blood Pressure 150/70 H 148/67 H 171/77 H Pulse Oximetry 93 L 97 96 11/05/17 23:00 11/05/17 23:12 11/05/17 23:15 Temperature Pulse Rate 93 H 97 H Respiratory Rate 20 23 Blood Pressure 171/76 H 166/77 H Pulse Oximetry 98 98 97 11/05/17 23:30 11/05/17 23:45 11/06/17 00:00 Temperature 98.2 F Pulse Rate 128 H 95 H 99 H Respiratory Rate 53 H 23 Blood Pressure 157/72 H 162/66 H 171/79 H Pulse Oximetry 97 98 97 11/06/17 00:15 11/06/17 00:30 11/06/17 00:45 Temperature Pulse Rate 97 H 99 H 108 H Respiratory Rate 32 H 25 H 24 Blood Pressure 157/74 H 139/64 174/72 H Pulse Oximetry 98 98 98 11/06/17 01:00 11/06/17 01:15 11/06/17 01:30 Temperature Pulse Rate 97 H 102 H 107 H Respiratory Rate 19 31 H 25 H Blood Pressure 186/71 H 179/77 H 178/116 H Pulse Oximetry 95 95 96 11/06/17 01:31 11/06/17 01:45 11/06/17 02:00 Temperature Pulse Rate 105 H 104 H 105 H Respiratory Rate 26 H 20 27 H Blood Pressure 185/79 H 184/80 H 179/79 H Pulse Oximetry 98 98 93 L 11/06/17 02:16 11/06/17 02:30 11/06/17 02:45 Temperature Pulse Rate 112 H 104 H 107 H Respiratory Rate 26 H 20 21 Blood Pressure 187/71 H 189/75 H 126/78 Pulse Oximetry 97 97 97 11/06/17 03:00 11/06/17 03:15 11/06/17 03:24 Temperature Pulse Rate 120 H 116 H 98 H Respiratory Rate 21 30 H 24 Blood Pressure 180/82 H 130/80 Pulse Oximetry 99 99 11/06/17 03:25 11/06/17 03:31 11/06/17 03:45 Temperature Pulse Rate 118 H 106 H Respiratory Rate 27 H 0 L Blood Pressure 192/81 H 146/80 H Pulse Oximetry 99 93 L 99 11/06/17 04:00 11/06/17 04:15 11/06/17 04:30 Temperature 98.1 F Pulse Rate 108 H 104 H 108 H Respiratory Rate 0 L 0 L 26 H Blood Pressure 143/67 H 169/71 H 162/72 H Pulse Oximetry 99 98 97 11/06/17 04:45 11/06/17 05:00 11/06/17 05:15 Temperature Pulse Rate 109 H 105 H 107 H Respiratory Rate 16 16 17 Blood Pressure 164/65 H 162/67 H 158/69 H Pulse Oximetry 99 99 100 11/06/17 05:30 11/06/17 07:49 11/06/17 08:00 Temperature Pulse Rate 107 H 106 H 122 H Respiratory Rate 15 15 Blood Pressure 159/71 H Pulse Oximetry 99 100 97 11/06/17 12:00 11/06/17 13:15 Temperature Pulse Rate 77 81 Respiratory Rate 21 Blood Pressure Pulse Oximetry Intake & Output 11/05/17 11/06/17 11/06/17 18:59 06:59 18:59 Intake Total 1501 / 1501 682 / 682 200 / 200 Output Total 500 / 500 450 / 450 Balance 1001 / 1001 232 / 232 200 / 200 Weight 57.1 kg Intake: IV 1250 / 1250 100 / 100 200 / 200 D5W/Normal Saline Inj 1,000 ML 1000 / 1000 @ 75 mls/hr IV.CONT .[id number] [facility] Rx#:[id number] Zosyn 3.375 GM Premix 50 ML @ 50 / 50 100 / 100 100 mls/hr IV.SIG Q6H [facility] Rx#: [id number] Zosyn 4.5 GM Premix 4.5 gm In 100 / 100 100 ml @ 200 mls/hr IV.SIG Q6H [facility] Rx#:[id number] KCl 10 mEq Premix Inj 10 meq In 200 / 200 100 ml @ 100 mls/hr IV.SIG Q1H [facility] Rx#:[id number] KCl 20 mEq Premix Inj 20 meq In 100 / 100 100 ml @ 50 mls/hr IV.SIG Q2H PRN Rx#:[id number] Oral 0 / 0 Tube Feeding 131 / 131 462 / 462 Water Bolus Amount 120 / 120 120 / 120 Output: Urine 0 / 0 Urine Amount (Catheter) 500 / 500 450 / 450 Condom 500 / 500 450 / 450 Other: # Voids 0 # Incontinent Voids 1 # Bowel Movements 0 0 # Incontinent Bowel Movements 0 - Constitutional no acute distress - Routine HEENT Exam Head: Present: normocephalic, atraumatic - Routine Respiratory Exam Absent: accessory muscle use - Routine Cardiovascular Exam Present: irregularly irregular - Routine Abdominal Exam Present: soft, normoactive bowel sounds, hernia. Absent: distended - Routine Skin Exam Present: dry, warm - Routine Neurological Exam lethargic, opens eyes to stimuli, nonverbal <Natalie Massey - Last Filed: 11/06/17 14:04> Vital signs: Vital Signs 11/05/17 17:00 11/05/17 17:15 11/05/17 17:30 Temperature Pulse Rate 108 H 116 H 105 H Respiratory Rate 47 H 27 H 27 H Blood Pressure 140/63 142/64 H 113/58 L Pulse Oximetry 97 97 98 11/05/17 17:45 11/05/17 18:00 11/05/17 18:15 Temperature Pulse Rate 107 H 104 H 103 H Respiratory Rate 25 H 38 H 25 H Blood Pressure 122/64 117/59 L 130/59 L Pulse Oximetry 97 98 96 11/05/17 18:30 11/05/17 18:46 11/05/17 19:00 Temperature Pulse Rate 105 H 104 H 103 H Respiratory Rate 27 H 30 H 37 H Blood Pressure 90/63 L 151/67 H 163/68 H Pulse Oximetry 97 96 97 11/05/17 19:15 11/05/17 19:31 11/05/17 19:34 Temperature Pulse Rate 103 H 117 H 105 H Respiratory Rate 26 H 34 H 24 Blood Pressure 139/68 173/65 H Pulse Oximetry 98 97 98 11/05/17 19:45 11/05/17 20:00 11/05/17 20:15 Temperature 98.2 F Pulse Rate 107 H 128 H 117 H Respiratory Rate 35 H 27 H 21 Blood Pressure 144/67 H 161/72 H 120/60 Pulse Oximetry 98 97 98 11/05/17 20:31 11/05/17 20:45 11/05/17 21:00 Temperature Pulse Rate 115 H 124 H 118 H Respiratory Rate 20 23 20 Blood Pressure 120/55 L 136/77 157/70 H Pulse Oximetry 98 96 97 11/05/17 21:15 11/05/17 21:30 11/05/17 21:45 Temperature Pulse Rate 95 H 94 H 93 H Respiratory Rate 22 25 H 36 H Blood Pressure 138/71 155/65 H 142/67 H Pulse Oximetry 98 95 97 11/05/17 22:00 11/05/17 22:15 11/05/17 22:30 Temperature Pulse Rate 96 H 91 H 97 H Respiratory Rate 26 H 23 22 Blood Pressure 125/76 150/70 H 148/67 H Pulse Oximetry 97 93 L 97 11/05/17 22:45 11/05/17 23:00 11/05/17 23:12 Temperature Pulse Rate 99 H 93 H Respiratory Rate 22 20 Blood Pressure 171/77 H 171/76 H Pulse Oximetry 96 98 98 11/05/17 23:15 11/05/17 23:30 11/05/17 23:45 Temperature Pulse Rate 97 H 128 H 95 H Respiratory Rate 23 53 H Blood Pressure 166/77 H 157/72 H 162/66 H Pulse Oximetry 97 97 98 11/06/17 00:00 11/06/17 00:15 11/06/17 00:30 Temperature 98.2 F Pulse Rate 99 H 97 H 99 H Respiratory Rate 23 32 H 25 H Blood Pressure 171/79 H 157/74 H 139/64 Pulse Oximetry 97 98 98 11/06/17 00:45 11/06/17 01:00 11/06/17 01:15 Temperature Pulse Rate 108 H 97 H 102 H Respiratory Rate 24 19 31 H Blood Pressure 174/72 H 186/71 H 179/77 H Pulse Oximetry 98 95 95 11/06/17 01:30 11/06/17 01:31 11/06/17 01:45 Temperature Pulse Rate 107 H 105 H 104 H Respiratory Rate 25 H 26 H 20 Blood Pressure 178/116 H 185/79 H 184/80 H Pulse Oximetry 96 98 98 11/06/17 02:00 11/06/17 02:16 11/06/17 02:30 Temperature Pulse Rate 105 H 112 H 104 H Respiratory Rate 27 H 26 H 20 Blood Pressure 179/79 H 187/71 H 189/75 H Pulse Oximetry 93 L 97 97 11/06/17 02:45 11/06/17 03:00 11/06/17 03:15 Temperature Pulse Rate 107 H 120 H 116 H Respiratory Rate 21 21 30 H Blood Pressure 126/78 180/82 H 130/80 Pulse Oximetry 97 99 99 11/06/17 03:24 11/06/17 03:25 11/06/17 03:31 Temperature Pulse Rate 98 H 118 H Respiratory Rate 24 27 H Blood Pressure 192/81 H Pulse Oximetry 99 93 L 11/06/17 03:45 11/06/17 04:00 11/06/17 04:15 Temperature 98.1 F Pulse Rate 106 H 108 H 104 H Respiratory Rate 0 L 0 L 0 L Blood Pressure 146/80 H 143/67 H 169/71 H Pulse Oximetry 99 99 98 11/06/17 04:30 11/06/17 04:45 11/06/17 05:00 Temperature Pulse Rate 108 H 109 H 105 H Respiratory Rate 26 H 16 16 Blood Pressure 162/72 H 164/65 H 162/67 H Pulse Oximetry 97 99 99 11/06/17 05:15 11/06/17 05:30 11/06/17 07:15 Temperature Pulse Rate 107 H 107 H 108 H Respiratory Rate 17 15 16 Blood Pressure 158/69 H 159/71 H 157/60 H Pulse Oximetry 100 99 100 11/06/17 07:30 11/06/17 07:45 11/06/17 07:49 Temperature Pulse Rate 105 H 114 H 106 H Respiratory Rate 16 15 15 Blood Pressure 130/59 L 162/70 H Pulse Oximetry 99 100 100 11/06/17 08:00 11/06/17 08:15 11/06/17 08:30 Temperature 97.5 F L Pulse Rate 122 H 150 H 146 H Respiratory Rate 18 24 19 Blood Pressure 147/81 H 150/63 H Pulse Oximetry 97 96 97 11/06/17 08:45 11/06/17 09:00 11/06/17 09:30 Temperature Pulse Rate 153 H 113 H 119 H Respiratory Rate 19 16 20 Blood Pressure 174/74 H 161/66 H 140/74 Pulse Oximetry 99 99 98 11/06/17 09:45 11/06/17 10:00 11/06/17 10:15 Temperature Pulse Rate 95 H 86 91 H Respiratory Rate 22 18 30 H Blood Pressure 138/65 147/67 H 124/77 Pulse Oximetry 99 97 98 11/06/17 10:30 11/06/17 10:45 11/06/17 11:00 Temperature Pulse Rate 85 81 81 Respiratory Rate 18 18 18 Blood Pressure 131/76 132/75 128/72 Pulse Oximetry 99 97 99 11/06/17 11:15 11/06/17 11:30 11/06/17 11:45 Temperature Pulse Rate 74 72 73 Respiratory Rate 16 13 19 Blood Pressure 131/60 130/58 L 125/58 L Pulse Oximetry 99 100 100 11/06/17 12:00 11/06/17 12:15 11/06/17 12:30 Temperature 98.1 F Pulse Rate 77 77 80 Respiratory Rate 20 16 Blood Pressure 112/59 L 133/62 129/69 Pulse Oximetry 96 99 99 11/06/17 12:45 11/06/17 13:00 11/06/17 13:15 Temperature Pulse Rate 76 88 82 Respiratory Rate 18 20 19 Blood Pressure 124/60 126/57 L 125/57 L Pulse Oximetry 100 98 98 11/06/17 13:30 11/06/17 16:00 Temperature Pulse Rate 81 104 H Respiratory Rate 19 Blood Pressure 131/58 L Pulse Oximetry 100 Intake & Output 11/05/17 11/06/17 11/06/17 18:59 06:59 18:59 Intake Total 1501 / 1501 682 / 682 250 / 250 Output Total 500 / 500 450 / 450 Balance 1001 / 1001 232 / 232 250 / 250 Weight 57.1 kg Intake: IV 1250 / 1250 100 / 100 250 / 250 D5W/Normal Saline Inj 1,000 ML 1000 / 1000 @ 75 mls/hr IV.CONT .[id number] [facility] Rx#:[id number] Zosyn 3.375 GM Premix 50 ML @ 50 / 50 100 / 100 50 / 50 100 mls/hr IV.SIG Q6H [facility] Rx#: [id number] Zosyn 4.5 GM Premix 4.5 gm In 100 / 100 100 ml @ 200 mls/hr IV.SIG Q6H [facility] Rx#:[id number] KCl 10 mEq Premix Inj 10 meq In 200 / 200 100 ml @ 100 mls/hr IV.SIG Q1H [facility] Rx#:[id number] KCl 20 mEq Premix Inj 20 meq In 100 / 100 100 ml @ 50 mls/hr IV.SIG Q2H PRN Rx#:[id number] Oral 0 / 0 Tube Feeding 131 / 131 462 / 462 Water Bolus Amount 120 / 120 120 / 120 Output: Urine 0 / 0 Urine Amount (Catheter) 500 / 500 450 / 450 Condom 500 / 500 450 / 450 Other: # Voids 0 # Incontinent Voids 1 Date of Last Bowel Movement 11/06/17 # Bowel Movements 0 0 # Incontinent Bowel Movements 0 2 <ObiAmmar - Last Filed: 11/06/17 16:53> Results - Labs CBC & Chem 7: 11/06/17 05:30 11/06/17 05:30 Labs: Laboratory Results - last 24 hr 11/05/17 11/05/17 11/05/17 08:30 16:26 20:40 WBC RBC Hgb Hct MCV MCH MCHC RDW Plt Count MPV Prelim Diff (Auto) Neut % (Auto) Lymph % (Auto) [place] % (Auto) Eos % (Auto) Baso % (Auto) Neut # (Auto) Lymph # (Auto) [place] # (Auto) Eos # (Auto) Baso # (Auto) WBC Differential Seg Neuts % (Manual) Band Neuts % (Manual) Lymphocytes % (Manual) Monocytes % (Manual) Abs Neuts (Manual) Differential Comment Toxic Vacuolation Platelet Estimate Platelet Morphology Ovalocytes [place] Cells Acanthocytes (Spur) Sodium Potassium Chloride Carbon Dioxide Anion Gap BUN Creatinine Estimated GFR POC Glucose 206 H 123 H Random Glucose Calcium Phosphorus Magnesium Total Bilirubin AST ALT Alkaline Phosphatase Total Protein Albumin Urine Color Yellow Urine Clarity Cloudy H Urine pH 5.0 Ur Specific [place] 1.020 Urine Protein 100 H Urine Glucose (UA) 50 Urine Ketones Negative Urine Occult Blood Large H Urine Nitrate Negative Urine Bilirubin Negative Urine Urobilinogen Less than 2 Ur Leukocyte Esterase Large H Urine RBC 100 H Urine WBC 73 H Urine WBC Clumps Rare H Ur Squamous Epith Cells 1 Uric Acid Crystals Occasional H Amorphous Sediment Rare H Urine Bacteria Occasional H Urine Mucus Few H Micro UA Comment Cath-culture ind Urine Culture Comments Cath-cult indicated Random Vancomycin 11/05/17 11/06/17 11/06/17 23:30 03:39 05:30 WBC 14.3 H RBC 4.19 L Hgb 13.7 Hct 40.7 MCV 97.1 MCH 32.8 MCHC 33.8 RDW 13.7 Plt Count 77 L MPV 12.8 H Prelim Diff (Auto) Slide review pending Neut % (Auto) 89.1 H Lymph % (Auto) 3.1 L [place] % (Auto) 7.2 Eos % (Auto) 0.3 Baso % (Auto) 0.3 Neut # (Auto) 12.8 H Lymph # (Auto) 0.4 L [place] # (Auto) 1.0 H Eos # (Auto) 0.0 Baso # (Auto) 0.1 WBC Differential Manual diff final Seg Neuts % (Manual) 86 H Band Neuts % (Manual) 3 Lymphocytes % (Manual) 4 L Monocytes % (Manual) 7 Abs Neuts (Manual) 12.7 H Differential Comment . Toxic Vacuolation Present H Platelet Estimate Low L Platelet Morphology Enlarged H Ovalocytes 1+ H [place] Cells 1+ H Acanthocytes (Spur) Occ H Sodium Potassium Chloride Carbon Dioxide Anion Gap BUN Creatinine Estimated GFR POC Glucose 144 H 179 H Random Glucose Calcium Phosphorus Magnesium Total Bilirubin AST ALT Alkaline Phosphatase Total Protein Albumin Urine Color Urine Clarity Urine pH Ur Specific [place] Urine Protein Urine Glucose (UA) Urine Ketones Urine Occult Blood Urine Nitrate Urine Bilirubin Urine Urobilinogen Ur Leukocyte Esterase Urine RBC Urine WBC Urine WBC Clumps Ur Squamous Epith Cells Uric Acid Crystals Amorphous Sediment Urine Bacteria Urine Mucus Micro UA Comment Urine Culture Comments Random Vancomycin 11/06/17 11/06/17 05:30 12:31 WBC RBC Hgb Hct MCV MCH MCHC RDW Plt Count MPV Prelim Diff (Auto) Neut % (Auto) Lymph % (Auto) [place] % (Auto) Eos % (Auto) Baso % (Auto) Neut # (Auto) Lymph # (Auto) [place] # (Auto) Eos # (Auto) Baso # (Auto) WBC Differential Seg Neuts % (Manual) Band Neuts % (Manual) Lymphocytes % (Manual) Monocytes % (Manual) Abs Neuts (Manual) Differential Comment Toxic Vacuolation Platelet Estimate Platelet Morphology Ovalocytes [place] Cells Acanthocytes (Spur) Sodium 145 Potassium 2.8 L* D Chloride 110 H Carbon Dioxide 24.2 Anion Gap 11 BUN 33 H Creatinine 1.41 H Estimated GFR 49 L POC Glucose 175 H Random Glucose 149 H Calcium 7.7 L Phosphorus 2.8 Magnesium 2.0 Total Bilirubin 0.4 AST 18 ALT 19 Alkaline Phosphatase 48 Total Protein 6.0 L D Albumin 2.5 L D Urine Color Urine Clarity Urine pH Ur Specific [place] Urine Protein Urine Glucose (UA) Urine Ketones Urine Occult Blood Urine Nitrate Urine Bilirubin Urine Urobilinogen Ur Leukocyte Esterase Urine RBC Urine WBC Urine WBC Clumps Ur Squamous Epith Cells Uric Acid Crystals Amorphous Sediment Urine Bacteria Urine Mucus Micro UA Comment Urine Culture Comments Random Vancomycin 4.3 - Imaging Impressions Abdomen/Bladder Ultrasound 11/05/17 00:00 CONCLUSION: 1. Sonographic findings consistent with underlying medical renal disease. No obstruction observed. 2. Distended gallbladder without gallstones or gallbladder wall thickening. Abdomen X-Ray 11/06/17 00:00 CONCLUSION: Gaseous distention of nonspecific bowel throughout most of the abdomen and pelvis. I believe it is most likely distended colon given the appearance. The pattern could be consistent with ileus. No transition point is appreciated to suggest obstruction. Consider follow-up x-ray to document improvement. Chest X-Ray 11/06/17 00:00 CONCLUSION: Mild cardiomegaly. Diffuse interstitial prominence suggesting chronic interstitial changes. No Overt congestive failure. <Natalie Massey - Last Filed: 11/06/17 14:04> - Labs CBC & Chem 7: 11/06/17 12:57 11/06/17 15:12 Labs: Laboratory Results - last 24 hr 11/05/17 11/05/17 11/05/17 08:30 20:40 23:30 WBC RBC Hgb Hct MCV MCH MCHC RDW Plt Count MPV Prelim Diff (Auto) Neut % (Auto) Lymph % (Auto) [place] % (Auto) Eos % (Auto) Baso % (Auto) Neut # (Auto) Lymph # (Auto) [place] # (Auto) Eos # (Auto) Baso # (Auto) WBC Differential Seg Neuts % (Manual) Band Neuts % (Manual) Lymphocytes % (Manual) Monocytes % (Manual) Promyelocytes % (Man) Abs Neuts (Manual) Differential Comment Toxic Vacuolation Platelet Estimate Platelet Morphology Ovalocytes [place] Cells Acanthocytes (Spur) Sodium Potassium Chloride Carbon Dioxide Anion Gap BUN Creatinine Estimated GFR POC Glucose 123 H 144 H Random Glucose Calcium Phosphorus Magnesium Total Bilirubin AST ALT Alkaline Phosphatase Total Protein Albumin Urine Color Yellow Urine Clarity Cloudy H Urine pH 5.0 Ur Specific [place] 1.020 Urine Protein 100 H Urine Glucose (UA) 50 Urine Ketones Negative Urine Occult Blood Large H Urine Nitrate Negative Urine Bilirubin Negative Urine Urobilinogen Less than 2 Ur Leukocyte Esterase Large H Urine RBC 100 H Urine WBC 73 H Urine WBC Clumps Rare H Ur Squamous Epith Cells 1 Uric Acid Crystals Occasional H Amorphous Sediment Rare H Urine Bacteria Occasional H Urine Mucus Few H Micro UA Comment Cath-culture ind Urine Culture Comments Cath-cult indicated Random Vancomycin 11/06/17 11/06/17 11/06/17 03:39 05:30 05:30 WBC 14.3 H RBC 4.19 L Hgb 13.7 Hct 40.7 MCV 97.1 MCH 32.8 MCHC 33.8 RDW 13.7 Plt Count 77 L MPV 12.8 H Prelim Diff (Auto) Slide review pending Neut % (Auto) 89.1 H Lymph % (Auto) 3.1 L [place] % (Auto) 7.2 Eos % (Auto) 0.3 Baso % (Auto) 0.3 Neut # (Auto) 12.8 H Lymph # (Auto) 0.4 L [place] # (Auto) 1.0 H Eos # (Auto) 0.0 Baso # (Auto) 0.1 WBC Differential Manual diff final Seg Neuts % (Manual) 86 H Band Neuts % (Manual) 3 Lymphocytes % (Manual) 4 L Monocytes % (Manual) 7 Promyelocytes % (Man) Abs Neuts (Manual) 12.7 H Differential Comment . Toxic Vacuolation Present H Platelet Estimate Low L Platelet Morphology Enlarged H Ovalocytes 1+ H [place] Cells 1+ H Acanthocytes (Spur) Occ H Sodium 145 Potassium 2.8 L* D Chloride 110 H Carbon Dioxide 24.2 Anion Gap 11 BUN 33 H Creatinine 1.41 H Estimated GFR 49 L POC Glucose 179 H Random Glucose 149 H Calcium 7.7 L Phosphorus 2.8 Magnesium 2.0 Total Bilirubin 0.4 AST 18 ALT 19 Alkaline Phosphatase 48 Total Protein 6.0 L D Albumin 2.5 L D Urine Color Urine Clarity Urine pH Ur Specific [place] Urine Protein Urine Glucose (UA) Urine Ketones Urine Occult Blood Urine Nitrate Urine Bilirubin Urine Urobilinogen Ur Leukocyte Esterase Urine RBC Urine WBC Urine WBC Clumps Ur Squamous Epith Cells Uric Acid Crystals Amorphous Sediment Urine Bacteria Urine Mucus Micro UA Comment Urine Culture Comments Random Vancomycin 4.3 11/06/17 11/06/17 11/06/17 12:31 12:57 15:12 WBC 12.6 H RBC 4.07 L Hgb 13.0 Hct 39.7 MCV 97.5 MCH 31.8 MCHC 32.7 RDW 13.8 Plt Count 74 L MPV 13.0 H Prelim Diff (Auto) Slide review pending Neut % (Auto) 88.2 H Lymph % (Auto) 3.0 L [place] % (Auto) 8.6 H Eos % (Auto) 0.1 Baso % (Auto) 0.1 Neut # (Auto) 11.1 H Lymph # (Auto) 0.4 L [place] # (Auto) 1.1 H Eos # (Auto) 0.0 Baso # (Auto) 0.0 WBC Differential Manual diff final Seg Neuts % (Manual) 89 H Band Neuts % (Manual) 2 Lymphocytes % (Manual) 3 L Monocytes % (Manual) 5 Promyelocytes % (Man) 1 H Abs Neuts (Manual) 11.6 H Differential Comment . Toxic Vacuolation Platelet Estimate Low L Platelet Morphology Normal Ovalocytes [place] Cells Acanthocytes (Spur) Sodium Potassium 3.6 D Chloride Carbon Dioxide Anion Gap BUN Creatinine Estimated GFR POC Glucose 175 H Random Glucose Calcium Phosphorus Magnesium Total Bilirubin AST ALT Alkaline Phosphatase Total Protein Albumin Urine Color Urine Clarity Urine pH Ur Specific [place] Urine Protein Urine Glucose (UA) Urine Ketones Urine Occult Blood Urine Nitrate Urine Bilirubin Urine Urobilinogen Ur Leukocyte Esterase Urine RBC Urine WBC Urine WBC Clumps Ur Squamous Epith Cells Uric Acid Crystals Amorphous Sediment Urine Bacteria Urine Mucus Micro UA Comment Urine Culture Comments Random Vancomycin - Imaging Impressions Abdomen X-Ray 11/06/17 00:00 CONCLUSION: Gaseous distention of nonspecific bowel throughout most of the abdomen and pelvis. I believe it is most likely distended colon given the appearance. The pattern could be consistent with ileus. No transition point is appreciated to suggest obstruction. Consider follow-up x-ray to document improvement. Chest X-Ray 11/06/17 00:00 CONCLUSION: Mild cardiomegaly. Diffuse interstitial prominence suggesting chronic interstitial changes. No Overt congestive failure. <Missy Crocker - Last Filed: 11/06/17 16:53> Assessment and Plan - Plan Assessment: - Constipation- reports of no BM in 9 days- pt currently admitted to [facility] - was brought in on 10/29 for evaluation of AMS, apartment complex staff called EMS, pt did not want to stay and was therefore Mendes Acted while in the ER. Pt remains encephalopathic with no clear etiology. Pt nonverbal and unable to provide any history, case discussed with HANDKERCHIEF SAMPLE CLERK Monica. She reports giving the pt Relistor, Lactulose, Jia-Colace, and Miralax this morning. Also reports she did not feel any stool in the pts rectal vault when she attempted a manual disimpaction. She is now planning to administer mineral oil enema when supplies arrive. Pt with no emesis and is tolerating TF at 50 mL/hr. Abdominal exam benign, bowel sounds present, abdomen soft, ? hernia to RUQ KUB (11/06) --> Gaseous distention of nonspecific bowel throughout most of the abdomen and pelvis. I believe it is most likely distended colon given the appearance. The pattern could be consistent with ileus. No transition point is appreciated to suggest obstruction. Consider follow-up x-ray to document improvement. Pt has never been seen by GI inpatient at this hospital, unsure if he has had previous EGD or colonoscopy. Of note, palliative care is on the case and consulting with family to discuss Hospice as a possible option. Pt had large, liquid BM after exam, advised rectal tube placement and KUB in AM for follow up Plan: Conservative management at this time Place rectal tube to [place] bag (gravity) for decompression Repeat KUB in AM OK to continue TF, pt seems to be tolerating Continue bowel regimen Will follow palliative care consult to determine aggressiveness of care Further recommendations to follow Pt has been seen and examined by myself and Dr. Crocker and this note is written on his behalf <Natalie Massey - Last Filed: 11/06/17 14:04> - Plan Patient was seen and examined, agree with above note, patient had a large bowel movement in between my nurse practitioner saw him and myself, continue bowel regimen, will sign off at this point <Missy Crocker - Last Filed: 11/06/17 16:53>
[2017-11-06 13:59] LABS: Baso % (Auto) 0.1 % (0.0-2.0); Eos % (Auto) 0.1 % (0.0-4.0); Hematocrit 39.7 % (39.0-51.0); Lymph # (Auto) 0.4 th/mm3 (1.0-4.8); Mean Corpuscular HGB Conc 32.7 % (32.0-36.0); Mean Corpuscular Hemoglobin 31.8 pg (27.0-34.0); Mean Corpuscular Volume 97.5 fL (80.0-100.0); Mono # (Auto) 1.1 th/mm3 (0.0-0.9); Mono % (Auto) 8.6 % (0.0-8.0); Neut # (Auto) 11.1 th/mm3 (1.8-7.7); Neut % (Auto) 88.2 % (16.0-70.0); Platelet Count 74 th/mm3 (150-450); Red Blood Count 4.07 mil/mm3 (4.50-5.90); Red Cell Distribution Width 13.8 % (11.6-17.2); White Blood Count 12.6 th/mm3 (4.0-11.0)
[2017-11-06 14:35] LABS: Lymphocytes 3 % (9-44); Monocytes 5 % (0-8); Promyelocyte 1 % (0-0)
[2017-11-06 14:37] LABS: Platelet Morphology Normal (Normal)
[2017-11-06] MEDS: Hypromellose 0.3% Opth Gel 10 GM Bottle EACH EYE SCH (22:16)
[2017-11-07] MEDS: Insulin NovoLIN Regular Correctional Sugar Inj SQ SCH ×6 (00:37→20:48)
[2017-11-07 04:39] LABS: Baso % (Auto) 0.2 % (0.0-2.0); Eos % (Auto) 0.5 % (0.0-4.0); Hematocrit 35.4 % (39.0-51.0); Hemoglobin 11.9 gm/dL (13.0-17.0); Lymph # (Auto) 0.4 th/mm3 (1.0-4.8); Lymph % (Auto) 4.3 % (9.0-44.0); Mean Corpuscular HGB Conc 33.6 % (32.0-36.0); Mean Corpuscular Hemoglobin 32.7 pg (27.0-34.0); Mean Corpuscular Volume 97.3 fL (80.0-100.0); Mean Platelet Volume 13.1 fL (7.0-11.0); Mono # (Auto) 0.9 th/mm3 (0.0-0.9); Mono % (Auto) 8.5 % (0.0-8.0); Neut % (Auto) 86.5 % (16.0-70.0); Platelet Count 77 th/mm3 (150-450); Red Blood Count 3.64 mil/mm3 (4.50-5.90); Red Cell Distribution Width 13.6 % (11.6-17.2); White Blood Count 10.4 th/mm3 (4.0-11.0)
[2017-11-07] MEDS: Chlorhexidine Gluconate 2% 1 Pack (2 Cloths) TOPICAL SCH (04:49)
[2017-11-07] MEDS: Piperacil/Tazo 3.375 GM Premix 50 ML IV.SIG SCH ×4 (04:50→22:52)
[2017-11-07 05:26] LABS: Alanine Aminotransferase 20 U/L (12-78); Albumin 2.5 g/dL (3.4-5.0); Alkaline Phosphatase 47 U/L (45-117); Anion Gap 10 meq/L (5-15); Aspartate Aminotransferase 18 U/L (15-37); Blood Urea Nitrogen 22 mg/dL (7-18); Carbon Dioxide 22.9 meq/L (21.0-32.0); Chloride 113 meq/L (98-107); Digoxin 0.8 ng/mL (0.8-2.0); Glomerular Filtration Rate 64 mL/min (>89); Glucose,Random 177 mg/dL (74-106); Magnesium 1.6 mg/dL (1.5-2.5); Phosphorus 2.4 mg/dL (2.5-4.9); Potassium 3.3 meq/L (3.5-5.1); Sodium 146 meq/L (136-145); Total Protein 5.6 g/dL (6.4-8.2)
--- NOTE | 2017-11-07 05:46 | XR ---
EXAM DATE: 11/07/2017 5:37 AM EDT AGE/SEX: 72 years / Male INDICATIONS: Possible ileus. Distention. CLINICAL DATA: This is the patient's subsequent encounter. Patient reports that signs and symptoms h ave been present for 4 - 6 days and indicates a pain score of Nonresponsive. MEDICAL/SURGICAL HISTORY: None. None. COMPARISON: C, ABDOMEN 1V KUB, 11/06/2017. . FINDINGS: There is air within distended small and large bowel. The cecum measures up to 9.5 cm in diameter. Fr ee air is not seen. There is a rectal tube in place. CONCLUSION: Persistent dilated small and large bowel. Electronically signed by: Talha Parmar MD 11/07/2017 5:45 AM EDT
[2017-11-07 05:49] LABS: Platelet Morphology Normal (Normal)
[2017-11-07] MEDS: Heparin - SQ 10,000 UNITS/ML Vial SQ SCH ×2 (08:04→20:39)
[2017-11-07] MEDS: Multivit/Folic Acid/Minerals Chewable Tablets CHEW SCH (08:05)
[2017-11-07] MEDS: Senna/Docusate Sodium 8.6/50 MG Tablet PO SCH ×2 (08:05→20:40)
[2017-11-07] MEDS: Polyethylene Glycol 3350 17 GM Packet PO SCH ×2 (08:05→20:39)
[2017-11-07] MEDS: Metoprolol Tartrate 50 MG Tablet PO SCH ×4 (08:05→17:15)
[2017-11-07] MEDS ORDERED: Potassium Chloride 25 MEQ Effervescent Tablet PO ONE (08:56)
[2017-11-07] MEDS ORDERED: Potassium Phosphate Inj 30 MMOL in Sodium Chlor 0.9% Inj 250 ML IV.SIG ONE (09:00)
--- NOTE | 2017-11-07 09:05 | P.PNCC ---
Subjective Subjective Remarks/Hospital Course: The patient is a 72-year-old male with a past medical history of hypertension, hyperlipidemia, thrombocytopenia, vitamin B12 deficiency, who presented to [facility] ED on 10/29/2017 for altered mental status. He was Mendes Acted by ED provider. The patient is a poor historian and most of the history was obtained from reviewing medical records. He was given Ativan 3 mg total on arrival, due to his severe agitation. Patient was initially admitted under hospitalist service and he underwent a CT scan of the brain on 10/29/2017, which was a limited study due to severe motion artifact. A repeat CT scan of the brain was obtained earlier this morning, which showed atrophy, otherwise negative for acute process. CTA of the neck was performed on 11/02/2017 which showed no evidence of any hemodynamically significant carotid stenosis. The patient was found to be in atrial fibrillation with RVR this morning with a heart rate of 140s. He was given Lopressor 5 mg IV push and placed on p.o. Cardizem and p.o. Lopressor. Due to worsening mental status, he was transferred to ICU and critical care medicine was consulted for critical care management. The patient received additional 3 mg of Ativan since in the last 12 hours. MRI of the brain was ordered by the primary team. The patient does arouse to touch and verbalizes several words and able to move all extremities. 11/04 MRI brain last night showed no acute disease/Mild, symmetric cortical atrophy with some minimal small vessel ischemic demyelination.Patient pulled out NGT , On Amio drip for Afib with RVR, given Digoxin and started on Cleviprex drip last night. 11/05 Patient remains on Amio drip. Had T: 102 yesterday. s/p LP showed clear CSF , 0 WBC. Renal function worse with Cr: 2.04 from 0.89. 11/06: Afebrile. Resting comfortably bed in no acute distress. Remains in soft restraints. Remains in atrial fibrillation with rapid ventricular response heart rate in the 110s. No bowel movement since admission noted. SUBJECTIVE: 11/07: Afebrile. Agitated this a.m. at this moment but previously but sometimes pleasantly confused. Mumbles words. Replacing a left leg. Currently in normal sinus rhythm. Objective Vital Signs / I&O: Vital Signs 11/06/17 09:30 11/06/17 09:45 11/06/17 10:00 Temperature Pulse Rate 119 H 95 H 86 Respiratory Rate 20 22 18 Blood Pressure 140/74 138/65 147/67 H Pulse Oximetry 98 99 97 11/06/17 10:15 11/06/17 10:30 11/06/17 10:45 Temperature Pulse Rate 91 H 85 81 Respiratory Rate 30 H 18 18 Blood Pressure 124/77 131/76 132/75 Pulse Oximetry 98 99 97 11/06/17 11:00 11/06/17 11:15 11/06/17 11:30 Temperature Pulse Rate 81 74 72 Respiratory Rate 18 16 13 Blood Pressure 128/72 131/60 130/58 L Pulse Oximetry 99 99 100 11/06/17 11:45 11/06/17 12:00 11/06/17 12:15 Temperature 98.1 F Pulse Rate 73 77 77 Respiratory Rate 19 20 Blood Pressure 125/58 L 112/59 L 133/62 Pulse Oximetry 100 96 99 11/06/17 12:30 11/06/17 12:45 11/06/17 13:00 Temperature Pulse Rate 80 76 88 Respiratory Rate 16 18 20 Blood Pressure 129/69 124/60 126/57 L Pulse Oximetry 99 100 98 11/06/17 13:15 11/06/17 13:30 11/06/17 13:45 Temperature Pulse Rate 82 81 89 Respiratory Rate 19 19 20 Blood Pressure 125/57 L 131/58 L 149/66 H Pulse Oximetry 98 100 100 11/06/17 14:00 11/06/17 14:24 11/06/17 14:30 Temperature Pulse Rate 98 H 101 H 107 H Respiratory Rate 22 20 22 Blood Pressure 149/70 H 132/61 151/63 H Pulse Oximetry 99 11/06/17 14:45 11/06/17 15:00 11/06/17 15:16 Temperature Pulse Rate 101 H 107 H 104 H Respiratory Rate 19 18 20 Blood Pressure 141/65 H 137/74 110/80 Pulse Oximetry 100 99 99 11/06/17 15:30 11/06/17 15:46 11/06/17 16:00 Temperature 97.9 F Pulse Rate 101 H 101 H 100 H Respiratory Rate 19 20 20 Blood Pressure 100/69 118/66 132/74 Pulse Oximetry 100 100 98 11/06/17 16:16 11/06/17 16:30 11/06/17 16:45 Temperature Pulse Rate 106 H 103 H 92 H Respiratory Rate 25 H 20 20 Blood Pressure 153/90 H 139/64 162/69 H Pulse Oximetry 97 100 99 11/06/17 17:01 11/06/17 17:15 11/06/17 17:30 Temperature Pulse Rate 89 90 89 Respiratory Rate 17 24 19 Blood Pressure 159/72 H 133/65 134/63 Pulse Oximetry 99 99 98 11/06/17 19:30 11/06/17 20:00 11/07/17 00:00 Temperature 97.8 F 98.1 F Pulse Rate 85 99 H 91 H Respiratory Rate 20 19 17 Blood Pressure 148/67 H 107/98 H Pulse Oximetry 96 99 98 11/07/17 04:00 11/07/17 07:54 Temperature 97.7 F Pulse Rate 91 H 91 H Respiratory Rate 17 18 Blood Pressure 187/84 H Pulse Oximetry 97 97 Intake & Output 11/06/17 11/07/17 11/07/17 18:59 06:59 18:59 Intake Total 2250 / 2250 650 / 650 50 / 50 Output Total 400 / 400 530 / 530 Balance 1850 / 1850 120 / 120 50 / 50 Weight 58.2 kg Intake: IV 1650 / 1650 50 / 50 50 / 50 D5W/Normal Saline Inj 1,000 ML 1000 / 1000 @ 75 mls/hr IV.CONT .[id number] GARY Rx#:[id number] Zosyn 3.375 GM Premix 50 ML @ 100 / 100 50 / 50 50 / 50 100 mls/hr IV.SIG Q6H GARY Rx#: [id number] KCl 10 mEq Premix Inj 10 meq In 300 / 300 100 ml @ 100 mls/hr IV.SIG Q1H GARY Rx#:[id number] Vancomycin Inj 1,000 MG In NS 250 / 250 Inj 250 ML @ 250 mls/hr IV.SIG Q24H GARY Rx#:[id number] Oral 0 / 0 Tube Feeding 600 / 600 600 / 600 Output: Stool 30 / 30 Urine Amount (Catheter) 400 / 400 500 / 500 Condom 400 / 400 500 / 500 Other: Date of Last Bowel Movement 11/06/17 11/07/17 # Incontinent Bowel Movements 2 Result Diagrams: 11/07/17 03:37 11/07/17 03:37 Other Results: Microbiology 11/04/17 10:39 Lumbar Puncture Gram Stain - Final 11/04/17 10:39 Lumbar Puncture CSF Culture - Final No growth in 72 hours 11/05/17 08:30 Catheterized Urine Urine Culture - Preliminary No growth in 24 hours 11/05/17 20:37 Blood - Peripheral Aerobic Blood Culture - Preliminary No growth in 1 day 11/05/17 20:37 Blood - Peripheral Anaerobic Blood Culture - Preliminary No growth in 1 day 11/05/17 20:45 Blood - Peripheral Aerobic Blood Culture - Preliminary No growth in 1 day 11/05/17 20:45 Blood - Peripheral Anaerobic Blood Culture - Preliminary No growth in 1 day 11/04/17 20:14 Blood - Peripheral Aerobic Blood Culture - Preliminary No growth in 2 days 11/04/17 20:14 Blood - Peripheral Anaerobic Blood Culture - Preliminary No growth in 2 days 11/04/17 20:08 Blood - Peripheral Aerobic Blood Culture - Preliminary No growth in 2 days 11/04/17 20:08 Blood - Peripheral Anaerobic Blood Culture - Preliminary No growth in 2 days Imaging: Head CT 10/29/17 12:48 CONCLUSION: 1. Suboptimal limited study secondary to severe motion artifact. 2. No gross abnormality identified however even large abnormalities could be obscured. Carotid Doppler Study 11/02/17 00:00 CONCLUSION: 1. There is atherosclerotic plaquing at both carotid bifurcations. 2. 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 3. The vertebral arteries were not visualized. 4. Recommend CTA of the carotids for further evaluation. Neck CTA 11/02/17 00:00 CONCLUSION: 1. High right common carotid artery bifurcation. No evidence of hemodynamically significant carotid stenosis. 2. Diminutive right vertebral artery that terminates at the skull base. Basilar artery also has a diffusely narrow diameter. Head MRI 11/03/17 00:00 CONCLUSION: 1. Exam is limited due to motion artifact on just about every pulse sequence. 2. However, grossly, nothing acute. Mild, symmetric cortical atrophy with some minimal small vessel ischemic demyelination. Head CT 11/03/17 09:57 CONCLUSION: Atrophy, otherwise negative for an acute process. Ajay Pope MD FACR . Chest X-Ray 11/03/17 10:40 CONCLUSION: Mild compensated cardiomegaly Lumbar Puncture Fluoroscopy 11/04/17 00:00 CONCLUSION: 1. Uncomplicated fluoroscopically guided lumbar puncture. Abdomen/Bladder Ultrasound 11/05/17 00:00 CONCLUSION: 1. Sonographic findings consistent with underlying medical renal disease. No obstruction observed. 2. Distended gallbladder without gallstones or gallbladder wall thickening. Abdomen X-Ray 11/06/17 00:00 CONCLUSION: Gaseous distention of nonspecific bowel throughout most of the abdomen and pelvis. I believe it is most likely distended colon given the appearance. The pattern could be consistent with ileus. No transition point is appreciated to suggest obstruction. Consider follow-up x-ray to document improvement. Chest X-Ray 11/06/17 00:00 CONCLUSION: Mild cardiomegaly. Diffuse interstitial prominence suggesting chronic interstitial changes. No Overt congestive failure. Abdomen X-Ray 11/07/17 06:00 CONCLUSION: Persistent dilated small and large bowel. Objective Remarks: GENERAL: Patient is 72 yo male resting in an ICU bed currently in NAD. SKIN: Warm and dry. No rash HEAD: Normocephalic. EYES: No scleral icterus. No injection or drainage. NECK: Supple, trachea midline. No JVD or lymphadenopathy. CARDIOVASCULAR: RRR. S1, S2 no S4. 2/6 systolic murmur in sternal RESPIRATORY: Breath sounds equal bilaterally. No accessory muscle use. GASTROINTESTINAL: Abdomen soft, non-tender, nondistended. Hypoactive bowel sounds are appreciated. MUSCULOSKELETAL: No significant peripheral edema. Neuro: Responds to voice, able to move all extremities spontaneously but not to command this a.m. Assessment and Plan - Assessment and Plan Plan: Neuro/Psych: Acute encephalopathy [place] B12 deficiency Monitor neurologic status and avoid any sedatives. CT brain 11/03 showed no acute intracranial process CTA of the neck 11/03 showed no significant hemodynamic stenosis. MRI brain: 11/03 no acute disease EEG: Mild encephalopathy with no epileptiform activity Neuro is following- Dr. Canela, s/p LP 11/04 showed clear CSF, 0 WBC, T, TP: 37.6 Started on Acyclovir empirically by Neuro. this is been discontinued Acetaminophen 650 every 4 hours as needed fever Continue with cyanocobalamin 1000 micro grams daily from 11/06 through 11/09 then intramuscularly every 30 days. Followed by hematology. Pulm: Acute respiratory insufficiency Nasal cannula to maintain saturations greater than equal to 92% Incentive spirometry while awake Acapella/PET therapy every 6 hours while awake Albuterol/ipratropium aerosols every 6 hours while awake with albuterol aerosols every 2 hours as needed for dyspnea Follow-up chest x-ray in a.m. 11/08 CV: Atrial fibrillation with rapid ventricular response Essential hypertension Hyperlipidemia Acute systolic heart failure Moderate MR/TR On amiodarone drip at 0.5 mg/min. Monitor HR and BP keep MAP>65mmHg Continue diltiazem 60 mg q.i.d, metoprolol tartrate 50 b.i.d) Trop <0.02 x 2, Continue atorvastatin 40 mg daily for dyslipidemia 2-D echo. Revealed EF 25-30%. Decrease this to like left ventricular function. Distal lateral, apical hypokinesis. Bilateral atrial enlargement. Moderate AR/TR. PAP 39 mmHg Cards eval. Patient is at high risk of full anticoagulation for Afib given thrombocytopenia ( PLT < 100) Renal/: Acute kidney injury Renal ultrasound revealed possible left renal mass lower pole 2 x 1 x 1.4 cm. Medical renal disease. Creatinine is currently 1.4. Likely secondary to contrast resolving. Recheck BMP in a.m. Currently on D5 one half normal saline at 42 cc an hour GI: Constipation Hypoalbuminemia Jevity 1.5 at 50 cc an hour per nutrition recommendations with free water 100 cc every 8 hours on lansoprazole 30 mg daily for GI prophylaxis. NPO per speech. Docusate sodium/senna 1 tablet twice daily, polythene glycol 17 g twice daily, lactulose 30 cc twice daily for bowel regimen. Check KUB today. Fecal disimpaction as needed Distended gallbladder without cold cystitis. Cholelithiasis. KUB / reveals 9.5 cm cecum. Dilated large and small bowel. Positive BM. ID: Monitor for signs of infection, which include fever and WBC. Continue vancomycin and piperacillin/tazobactam empirically. Followup on BC from 11/04 and 11/05 no growth to date. UA -11/05. Started on Acyclovir empirically by Neuro, discontinued 11/05 s/p LP 11/04:Clear CSF, 0 WBC, T, TP:37. Negative CSF 11/04 Follow up on CSF cultures. ID eval. Endo: SSI with Accu-Cheks to maintain euglycemia. Novulin R 5 units past 24 hours TSH 1.58 Heme: Leukocytosis Normocytic anemia Thrombocytopenia Dr. Salas -as followed. Currently on cyanocobalamin thousand micrograms intramuscular q. 30 days Monitor CBC daily follow trends. No indication for transfusion of blood products at this time. MSK PT eval and tx FEN Acute hypokalemia 50 mEq potassium chloride Effient and 30 millimoles potassium phosphorus IV and 4 g mag sulfate 1 now. Recheck this afternoon. GI prophylaxis with lansoprazole and DVT prophylaxis with SCDs/Heparin SQ. Palliative care is following. Level 3 Code Status: Full code Discussed Condition With: Patient. No family available. Care plan discussed and all questions answered.
--- NOTE | 2017-11-07 09:08 | P.PNID ---
Subjective Remarks: ID Coverage 72 year old male, livest at home alone, admistted for alter mental status. Etiology not clear, work-up so far unrevealing. 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 Imaging studies of brain ok. Has remained confused. On 11/03 had atriall fib RVR and transferred to ICU [place] temp to 102 on 11/04, started on Zosyn and Vancomycin C/S have been negative so far No central line No chavez, has condom cath UA now with pyuria and hematuria Has had thrombocytopenia and hematology evaluating No central line Notes reciewed D/W RN Was lethargic yesterday, but very agitated today Confused Temps ok BP ok Still in atrial fib, rate not controlled Renal US no hydro CXR no PNA All C/S negative so far Antibiotics: Vancomycin Zosyn Lines: PIV no evid of infection Past Medical History: PAST MEDICAL HISTORY: Hyperlipidemia, hypertension, chronic anemia, chronic thrombocytopenia, vitamin B12 deficiency, hearing loss. PAST SURGICAL HISTORY: Tonsillectomy. Allergies/Adverse Reactions: Allergies No Known Allergies Allergy (Uncoded 02/07/14 14:05) Objective Vital Signs 11/06/17 09:00 11/06/17 09:30 11/06/17 09:45 Temperature Pulse Rate 113 H 119 H 95 H Respiratory Rate 16 20 22 Blood Pressure 161/66 H 140/74 138/65 Pulse Oximetry 99 98 99 11/06/17 10:00 11/06/17 10:15 11/06/17 10:30 Temperature Pulse Rate 86 91 H 85 Respiratory Rate 18 30 H 18 Blood Pressure 147/67 H 124/77 131/76 Pulse Oximetry 97 98 99 11/06/17 10:45 11/06/17 11:00 11/06/17 11:15 Temperature Pulse Rate 81 81 74 Respiratory Rate 18 18 16 Blood Pressure 132/75 128/72 131/60 Pulse Oximetry 97 99 99 11/06/17 11:30 11/06/17 11:45 11/06/17 12:00 Temperature 98.1 F Pulse Rate 72 73 77 Respiratory Rate 13 19 Blood Pressure 130/58 L 125/58 L 112/59 L Pulse Oximetry 100 100 96 11/06/17 12:15 11/06/17 12:30 11/06/17 12:45 Temperature Pulse Rate 77 80 76 Respiratory Rate 20 16 18 Blood Pressure 133/62 129/69 124/60 Pulse Oximetry 99 99 100 11/06/17 13:00 11/06/17 13:15 11/06/17 13:30 Temperature Pulse Rate 88 82 81 Respiratory Rate 20 19 19 Blood Pressure 126/57 L 125/57 L 131/58 L Pulse Oximetry 98 98 100 11/06/17 13:45 11/06/17 14:00 11/06/17 14:24 Temperature Pulse Rate 89 98 H 101 H Respiratory Rate 20 22 20 Blood Pressure 149/66 H 149/70 H 132/61 Pulse Oximetry 100 11/06/17 14:30 11/06/17 14:45 11/06/17 15:00 Temperature Pulse Rate 107 H 101 H 107 H Respiratory Rate 22 19 18 Blood Pressure 151/63 H 141/65 H 137/74 Pulse Oximetry 99 100 99 11/06/17 15:16 11/06/17 15:30 11/06/17 15:46 Temperature Pulse Rate 104 H 101 H 101 H Respiratory Rate 20 19 20 Blood Pressure 110/80 100/69 118/66 Pulse Oximetry 99 100 100 11/06/17 16:00 11/06/17 16:16 11/06/17 16:30 Temperature 97.9 F Pulse Rate 100 H 106 H 103 H Respiratory Rate 20 25 H 20 Blood Pressure 132/74 153/90 H 139/64 Pulse Oximetry 98 97 100 11/06/17 16:45 11/06/17 17:01 11/06/17 17:15 Temperature Pulse Rate 92 H 89 90 Respiratory Rate 20 17 24 Blood Pressure 162/69 H 159/72 H 133/65 Pulse Oximetry 99 99 99 11/06/17 17:30 11/06/17 19:30 11/06/17 20:00 Temperature 97.8 F Pulse Rate 89 85 99 H Respiratory Rate 19 20 19 Blood Pressure 134/63 148/67 H Pulse Oximetry 98 96 99 11/07/17 00:00 11/07/17 04:00 11/07/17 07:54 Temperature 98.1 F 97.7 F Pulse Rate 91 H 91 H 91 H Respiratory Rate 17 17 18 Blood Pressure 107/98 H 187/84 H Pulse Oximetry 98 97 97 Intake & Output 11/06/17 11/07/17 11/07/17 18:59 06:59 18:59 Intake Total 2250 / 2250 650 / 650 50 / 50 Output Total 400 / 400 530 / 530 Balance 1850 / 1850 120 / 120 50 / 50 Weight 58.2 kg Intake: IV 1650 / 1650 50 / 50 50 / 50 D5W/Normal Saline Inj 1,000 ML 1000 / 1000 @ 75 mls/hr IV.CONT .[id number] GARY Rx#:[id number] Zosyn 3.375 GM Premix 50 ML @ 100 / 100 50 / 50 50 / 50 100 mls/hr IV.SIG Q6H GARY Rx#: [id number] KCl 10 mEq Premix Inj 10 meq In 300 / 300 100 ml @ 100 mls/hr IV.SIG Q1H GARY Rx#:[id number] Vancomycin Inj 1,000 MG In NS 250 / 250 Inj 250 ML @ 250 mls/hr IV.SIG Q24H GARY Rx#:[id number] Oral 0 / 0 Tube Feeding 600 / 600 600 / 600 Output: Stool 30 / 30 Urine Amount (Catheter) 400 / 400 500 / 500 Condom 400 / 400 500 / 500 Other: Date of Last Bowel Movement 11/06/17 11/07/17 # Incontinent Bowel Movements 2 11/04/17 10:39 Lumbar Puncture Gram Stain - Final 11/04/17 10:39 Lumbar Puncture CSF Culture - Final No growth in 72 hours 11/05/17 08:30 Catheterized Urine Urine Culture - Preliminary No growth in 24 hours 11/05/17 20:37 Blood - Peripheral Aerobic Blood Culture - Preliminary No growth in 1 day 11/05/17 20:37 Blood - Peripheral Anaerobic Blood Culture - Preliminary No growth in 1 day 11/05/17 20:45 Blood - Peripheral Aerobic Blood Culture - Preliminary No growth in 1 day 11/05/17 20:45 Blood - Peripheral Anaerobic Blood Culture - Preliminary No growth in 1 day 11/04/17 20:14 Blood - Peripheral Aerobic Blood Culture - Preliminary No growth in 2 days 11/04/17 20:14 Blood - Peripheral Anaerobic Blood Culture - Preliminary No growth in 2 days 11/04/17 20:08 Blood - Peripheral Aerobic Blood Culture - Preliminary No growth in 2 days 11/04/17 20:08 Blood - Peripheral Anaerobic Blood Culture - Preliminary No growth in 2 days Lab - Hematology Results 11/06/17 11/06/17 11/07/17 05:30 12:57 03:37 WBC 14.3 H 12.6 H 10.4 RBC 4.19 L 4.07 L 3.64 L Hgb 13.7 13.0 11.9 L Hct 40.7 39.7 35.4 L MCV 97.1 97.5 97.3 MCH 32.8 31.8 32.7 MCHC 33.8 32.7 33.6 RDW 13.7 13.8 13.6 Plt Count 77 L 74 L 77 L MPV 12.8 H 13.0 H 13.1 H Prelim Diff (Auto) Slide review pending Slide review pending Slide review pending Neut % (Auto) 89.1 H 88.2 H 86.5 H Lymph % (Auto) 3.1 L 3.0 L 4.3 L [place] % (Auto) 7.2 8.6 H 8.5 H Eos % (Auto) 0.3 0.1 0.5 Baso % (Auto) 0.3 0.1 0.2 Neut # (Auto) 12.8 H 11.1 H 9.0 H Lymph # (Auto) 0.4 L 0.4 L 0.4 L [place] # (Auto) 1.0 H 1.1 H 0.9 Eos # (Auto) 0.0 0.0 0.0 Baso # (Auto) 0.1 0.0 0.0 WBC Differential Manual diff final Manual diff final . Diff Scan Auto diff confirmed Seg Neuts % (Manual) 86 H 89 H Band Neuts % (Manual) 3 2 Lymphocytes % (Manual) 4 L 3 L Monocytes % (Manual) 7 5 Promyelocytes % (Man) 1 H Abs Neuts (Manual) 12.7 H 11.6 H Differential Comment . . . Toxic Vacuolation Present H Platelet Estimate Low L Low L Low L Platelet Morphology Enlarged H Normal Normal Ovalocytes 1+ H [place] Cells 1+ H Acanthocytes (Spur) Occ H Lab - Chemistry Results 11/05/17 11/05/17 11/05/17 11:41 16:26 20:40 Sodium Potassium Chloride Carbon Dioxide Anion Gap BUN Creatinine Estimated GFR POC Glucose 156 H 206 H 123 H Random Glucose Calcium Phosphorus Magnesium Total Bilirubin AST ALT Alkaline Phosphatase Total Protein Albumin 11/05/17 11/06/17 11/06/17 23:30 03:39 05:30 Sodium 145 Potassium 2.8 L* D Chloride 110 H Carbon Dioxide 24.2 Anion Gap 11 BUN 33 H Creatinine 1.41 H Estimated GFR 49 L POC Glucose 144 H 179 H Random Glucose 149 H Calcium 7.7 L Phosphorus 2.8 Magnesium 2.0 Total Bilirubin 0.4 AST 18 ALT 19 Alkaline Phosphatase 48 Total Protein 6.0 L D Albumin 2.5 L D 11/06/17 11/06/17 11/06/17 12:31 15:12 16:16 Sodium Potassium 3.6 D Chloride Carbon Dioxide Anion Gap BUN Creatinine Estimated GFR POC Glucose 175 H 173 H Random Glucose Calcium Phosphorus Magnesium Total Bilirubin AST ALT Alkaline Phosphatase Total Protein Albumin 11/06/17 11/06/17 11/07/17 21:05 23:48 03:37 Sodium 146 H Potassium 3.3 L Chloride 113 H Carbon Dioxide 22.9 Anion Gap 10 BUN 22 H Creatinine 1.13 Estimated GFR 64 L POC Glucose 165 H 156 H Random Glucose 177 H Calcium 8.0 L Phosphorus 2.4 L Magnesium 1.6 Total Bilirubin 0.5 AST 18 ALT 20 Alkaline Phosphatase 47 Total Protein 5.6 L Albumin 2.5 L 11/07/17 04:47 Sodium Potassium Chloride Carbon Dioxide Anion Gap BUN Creatinine Estimated GFR POC Glucose 157 H Random Glucose Calcium Phosphorus Magnesium Total Bilirubin AST ALT Alkaline Phosphatase Total Protein Albumin Imaging: ITS Impressions Carotid Doppler Study 11/02/17 00:00 CONCLUSION: 1. There is atherosclerotic plaquing at both carotid bifurcations. 2. 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 3. The vertebral arteries were not visualized. 4. Recommend CTA of the carotids for further evaluation. Neck CTA 11/02/17 00:00 CONCLUSION: 1. High right common carotid artery bifurcation. No evidence of hemodynamically significant carotid stenosis. 2. Diminutive right vertebral artery that terminates at the skull base. Basilar artery also has a diffusely narrow diameter. Head MRI 11/03/17 00:00 CONCLUSION: 1. Exam is limited due to motion artifact on just about every pulse sequence. 2. However, grossly, nothing acute. Mild, symmetric cortical atrophy with some minimal small vessel ischemic demyelination. Head CT 11/03/17 09:57 CONCLUSION: Atrophy, otherwise negative for an acute process. Ajay Pope MD FACR . Lumbar Puncture Fluoroscopy 11/04/17 00:00 CONCLUSION: 1. Uncomplicated fluoroscopically guided lumbar puncture. Abdomen/Bladder Ultrasound 11/05/17 00:00 CONCLUSION: 1. Sonographic findings consistent with underlying medical renal disease. No obstruction observed. 2. Distended gallbladder without gallstones or gallbladder wall thickening. Chest X-Ray 11/06/17 00:00 CONCLUSION: Mild cardiomegaly. Diffuse interstitial prominence suggesting chronic interstitial changes. No Overt congestive failure. Abdomen X-Ray 11/07/17 06:00 CONCLUSION: Persistent dilated small and large bowel. Physical Exam: GENERAL: Thin, frail male, awake and agitated, not in distress SKIN: has ecchymoses in UE, no generalized rash HEENT: Pupils are constricted but reactive. No icterus. No conjunctival erythema. Oropharynx appears dry. The patient is edentulous. NECK: Supple without adenopathy. LUNGS: Diminished breath sounds. HEART: Irregular rate and rhythm. No murmurs heard. No rubs or gallops. ABDOMEN: Flat, soft, no tenderness. No masses palpable. EXTREMITIES: No clubbing, cyanosis, or edema. NEUROLOGIC: Awake and agitated, moves all extremities, no Babinski. PSYCHIATRIC: Unable to assess. LINE: PIV no evidence of infection Assessment and Plan - Plan Impression: Encephalopathy, etiology? Fevers 11/04, UA abnormal - ?had acute retention that improved - CXR ok - LP ok - C/S negative; UC negative but he was on Abx already Leukocytosis, has resolved AKD, resolved very quickly usually seen with retention with improvement quicly once retention resolved RECOMMENDATIONS: Continue vancomycin. Continue Zosyn. If all C/S negative, will stop Vancomycin and keep Zosyn for GNR coverage Follow C/S Monitor temps Monitor progress D/W RN Dr Ericka Juarez covering this weekend
[2017-11-07] MEDS: MAGNESIUM SULFATE IV.SIG SCH ×4 (11:07→14:02)
[2017-11-07] MEDS: DEXTROSE 5% IV.SIG SCH ×4 (11:07→14:02)
[2017-11-07] MEDS: WATER IV.SIG SCH ×4 (11:07→14:02)
--- NOTE | 2017-11-07 11:53 | XR ---
EXAM DATE: 11/07/2017 11:35 AM EDT AGE/SEX: 72 years / Male INDICATIONS: Nasogastric tube placement. CLINICAL DATA: This is the patient's initial encounter. Patient reports that signs and symptoms have been present for 1 week and indicates a pain score of Nonresponsive. MEDICAL/SURGICAL HISTORY: . none known . none known COMPARISON: C, CHEST 1V SINGLE AP, 11/06/2017. . FINDINGS: NG tip projects over stomach. Mild diffuse ileus. No free air identified. No acute bony abnormalities . Mild basilar airspace disease. CONCLUSION: Nasogastric tube tip in left upper quadrant overlying stomach. Electronically signed by: Donald Rodas MD 11/07/2017 11:51 AM EDT
--- NOTE | 2017-11-07 12:54 | P.PNPAL ---
Palliative care continues to follow along with Mr. Hand. Met with patient's brother/hcp yesterday (see Dr. Vergara's progress note). Upon entrance onto unit, nurses in providing care. No family at bedside. During family meeting on 11/06 patient's brother had a good understanding of Mr. Hand's medical condition. He is considering transition to hospice but wanted some time to speak with his prior to making any decisions. Brother has palliative care contact information, no phone calls received at this time. Brother aware palliative care not here over the weekend and can request hospice consultation through medical team/nurses. Palliative care will continue to follow throughout hospitalization.
--- NOTE | 2017-11-07 13:21 | P.PNCA ---
<Haven Alcantar N - Last Filed: 11/07/17 14:15> Subjective Interval history: Patient in no acute distress, atrial fib on the monitor with a few episodes of rapid ventricular response throughout the night and hypertension. Patient vital signs are stable. Patient becomes very agitated while auscultating heart and lung sounds. Physical Exam Vital signs: Vital Signs 11/06/17 13:15 11/06/17 13:30 11/06/17 13:45 Temperature Pulse Rate 82 81 89 Respiratory Rate 19 19 20 Blood Pressure 125/57 L 131/58 L 149/66 H Pulse Oximetry 98 100 100 11/06/17 14:00 11/06/17 14:24 11/06/17 14:30 Temperature Pulse Rate 98 H 101 H 107 H Respiratory Rate 22 20 22 Blood Pressure 149/70 H 132/61 151/63 H Pulse Oximetry 99 11/06/17 14:45 11/06/17 15:00 11/06/17 15:16 Temperature Pulse Rate 101 H 107 H 104 H Respiratory Rate 19 18 20 Blood Pressure 141/65 H 137/74 110/80 Pulse Oximetry 100 99 99 11/06/17 15:30 11/06/17 15:46 11/06/17 16:00 Temperature 97.9 F Pulse Rate 101 H 101 H 100 H Respiratory Rate 19 20 20 Blood Pressure 100/69 118/66 132/74 Pulse Oximetry 100 100 98 11/06/17 16:16 11/06/17 16:30 11/06/17 16:45 Temperature Pulse Rate 106 H 103 H 92 H Respiratory Rate 25 H 20 20 Blood Pressure 153/90 H 139/64 162/69 H Pulse Oximetry 97 100 99 11/06/17 17:01 11/06/17 17:15 11/06/17 17:30 Temperature Pulse Rate 89 90 89 Respiratory Rate 17 24 19 Blood Pressure 159/72 H 133/65 134/63 Pulse Oximetry 99 99 98 11/06/17 19:30 11/06/17 20:00 11/07/17 00:00 Temperature 97.8 F 98.1 F Pulse Rate 85 99 H 91 H Respiratory Rate 20 19 17 Blood Pressure 148/67 H 107/98 H Pulse Oximetry 96 99 98 11/07/17 04:00 11/07/17 07:54 11/07/17 08:00 Temperature 97.7 F Pulse Rate 91 H 91 H Respiratory Rate 17 18 Blood Pressure 187/84 H Pulse Oximetry 97 97 98 Intake & Output 11/06/17 11/07/17 11/07/17 18:59 06:59 18:59 Intake Total 2250 / 2250 650 / 650 100 / 100 Output Total 400 / 400 530 / 530 Balance 1850 / 1850 120 / 120 100 / 100 Weight 58.2 kg Intake: IV 1650 / 1650 50 / 50 100 / 100 D5W/Normal Saline Inj 1,000 ML 1000 / 1000 @ 75 mls/hr IV.CONT .[id number] GARY Rx#:[id number] Zosyn 3.375 GM Premix 50 ML @ 100 / 100 50 / 50 100 / 100 100 mls/hr IV.SIG Q6H GARY Rx#: [id number] KCl 10 mEq Premix Inj 10 meq In 300 / 300 100 ml @ 100 mls/hr IV.SIG Q1H GARY Rx#:[id number] Vancomycin Inj 1,000 MG In NS 250 / 250 Inj 250 ML @ 250 mls/hr IV.SIG Q24H GARY Rx#:[id number] Oral 0 / 0 Tube Feeding 600 / 600 600 / 600 Output: Stool 30 / 30 Urine Amount (Catheter) 400 / 400 500 / 500 Condom 400 / 400 500 / 500 Other: Date of Last Bowel Movement 11/06/17 11/07/17 11/07/17 # Incontinent Bowel Movements 2 - Constitutional no acute distress - Routine HEENT Exam Head: Present: normocephalic ENT: Present: mucous membranes moist - Routine Neck Exam Present: supple - Routine Respiratory Exam Present: CTA bilaterally - Routine Cardiovascular Exam Present: irregular rhythm - Routine Abdominal Exam Present: soft - Routine Extremities Exam Present: pulses intact, normal capillary refill. Absent: cyanosis, clubbing, edema - Detailed Neurological Exam: Coma Scale Eye Opening: To sound Verbal Response: Sounds Motor Response: Normal flexion Silvio Coma Scale Total: 9 - Routine Psychiatric Exam Present: agitated - Urinary Catheter Management Condom Cath placed during this visit: no Assessment and Plan - Assessment (1) Altered mental status Code(s): R41.82 - Altered mental status, unspecified Status: Acute (2) Rapid atrial fibrillation Code(s): I48.91 - Unspecified atrial fibrillation Status: Acute (3) Thrombocytopenia Code(s): D69.6 - Thrombocytopenia, unspecified Status: Acute - Plan 2D echo shows EF 25-30%, left atrial mild to moderately dilated, right atrial mild to moderately dilated, mild mitral valve regurgitation, mild to moderate aortic valve regurgitation and mild to moderate tricuspid valve regurgitation. Neuro evaluation in progress. Palliative care evaluation in progress. Hematology evaluation in progress. Infectious disease evaluation in progress. Continue with current cardiac treatment plan and adjust as needed. We will follow during hospitalization. The patient was seen and evaluated by Dr. Torres who participated in care, management and decision-making. <Irma Torres - Last Filed: 11/07/17 15:21> Physical Exam Vital signs: Vital Signs 11/06/17 15:30 11/06/17 15:46 11/06/17 16:00 Temperature 97.9 F Pulse Rate 101 H 101 H 100 H Respiratory Rate 19 20 20 Blood Pressure 100/69 118/66 132/74 Pulse Oximetry 100 100 98 11/06/17 16:16 11/06/17 16:30 11/06/17 16:45 Temperature Pulse Rate 106 H 103 H 92 H Respiratory Rate 25 H 20 20 Blood Pressure 153/90 H 139/64 162/69 H Pulse Oximetry 97 100 99 11/06/17 17:01 11/06/17 17:15 11/06/17 17:30 Temperature Pulse Rate 89 90 89 Respiratory Rate 17 24 19 Blood Pressure 159/72 H 133/65 134/63 Pulse Oximetry 99 99 98 11/06/17 19:30 11/06/17 20:00 11/07/17 00:00 Temperature 97.8 F 98.1 F Pulse Rate 85 99 H 91 H Respiratory Rate 20 19 17 Blood Pressure 148/67 H 107/98 H Pulse Oximetry 96 99 98 11/07/17 04:00 11/07/17 07:54 11/07/17 08:00 Temperature 97.7 F Pulse Rate 91 H 91 H 101 H Respiratory Rate 17 18 Blood Pressure 187/84 H Pulse Oximetry 97 97 98 11/07/17 08:15 11/07/17 08:30 11/07/17 08:45 Temperature 98.6 F Pulse Rate 96 H 107 H 91 H Respiratory Rate 23 25 H 26 H Blood Pressure 130/66 127/61 Pulse Oximetry 97 85 L 96 11/07/17 09:00 11/07/17 09:15 11/07/17 09:30 Temperature Pulse Rate 83 77 84 Respiratory Rate 19 19 Blood Pressure 171/79 H 138/65 138/65 Pulse Oximetry 96 97 11/07/17 09:45 11/07/17 10:00 11/07/17 10:01 Temperature Pulse Rate 80 118 H 118 H Respiratory Rate 17 Blood Pressure 148/65 H Pulse Oximetry 97 93 L 95 11/07/17 10:15 11/07/17 10:30 11/07/17 10:45 Temperature Pulse Rate 90 97 H 94 H Respiratory Rate 24 25 H 20 Blood Pressure 145/67 H 166/83 H 148/70 H Pulse Oximetry 96 96 97 11/07/17 11:00 11/07/17 11:15 11/07/17 11:30 Temperature Pulse Rate 96 H 97 H 97 H Respiratory Rate 19 24 Blood Pressure 145/75 H 159/72 H 173/86 H Pulse Oximetry 94 L 97 94 L 11/07/17 12:00 11/07/17 12:16 11/07/17 12:30 Temperature Pulse Rate 95 H 95 H 99 H Respiratory Rate 20 16 17 Blood Pressure 124/65 165/68 H 134/75 Pulse Oximetry 96 95 95 11/07/17 12:45 11/07/17 13:00 11/07/17 13:15 Temperature Pulse Rate 103 H 102 H 100 H Respiratory Rate 17 19 15 Blood Pressure 142/74 H 134/71 133/75 Pulse Oximetry 94 L 97 96 11/07/17 13:30 11/07/17 13:45 11/07/17 14:00 Temperature Pulse Rate 97 H 96 H 102 H Respiratory Rate 18 17 25 H Blood Pressure 157/76 H 165/74 H 162/96 H Pulse Oximetry 97 96 92 L 11/07/17 14:15 11/07/17 14:30 Temperature 98.2 F Pulse Rate 100 H 82 Respiratory Rate 21 20 Blood Pressure 171/81 H 149/63 H Pulse Oximetry 95 94 L Intake & Output 11/06/17 11/07/17 11/07/17 18:59 06:59 18:59 Intake Total 2250 / 2250 650 / 650 204 / 204 Output Total 400 / 400 530 / 530 Balance 1850 / 1850 120 / 120 204 / 204 Weight 128 lb 4.944 oz Intake: IV 1650 / 1650 50 / 50 204 / 204 D5W/Normal Saline Inj 1,000 ML 1000 / 1000 @ 75 mls/hr IV.CONT .[id number] GARY Rx#:[id number] Magnesium Sulfate Inj 2 GM In 104 / 104 D5W Inj 100 ML @ 52 mls/hr IV. SIG Q2H GARY Rx#:[id number] Zosyn 3.375 GM Premix 50 ML @ 100 / 100 50 / 50 100 / 100 100 mls/hr IV.SIG Q6H GARY Rx#: [id number] KCl 10 mEq Premix Inj 10 meq In 300 / 300 100 ml @ 100 mls/hr IV.SIG Q1H GARY Rx#:[id number] Vancomycin Inj 1,000 MG In NS 250 / 250 Inj 250 ML @ 250 mls/hr IV.SIG Q24H GARY Rx#:[id number] Oral 0 / 0 Tube Feeding 600 / 600 600 / 600 Output: Stool 30 / 30 Urine Amount (Catheter) 400 / 400 500 / 500 Condom 400 / 400 500 / 500 Other: Date of Last Bowel Movement 11/06/17 11/07/17 11/07/17 # Incontinent Bowel Movements 2 - Urinary Catheter Management Condom Cath placed during this visit: no Assessment and Plan - Assessment (1) Altered mental status Code(s): R41.82 - Altered mental status, unspecified Status: Acute (2) Rapid atrial fibrillation Code(s): I48.91 - Unspecified atrial fibrillation Status: Acute (3) Thrombocytopenia Code(s): D69.6 - Thrombocytopenia, unspecified Status: Acute - Attending Attestation Patient seen and examined. I reviewed and agree with the evaluation and plan as presented. Continue and titrate rate control and BP control. MS still altered. No new cardiac issues. Palliative care evaluation.
[2017-11-07] MEDS: Vancomycin Inj 1,000 MG in Sodium Chlor 0.9% Inj 250 ML IV.SIG SCH (14:02)
--- NOTE | 2017-11-07 14:14 | P.PNGI ---
Subjective Interval history: Resting in the bed, talking to himself Not responding to simple verbal commands but awake NG tube securely taped no current family members present Current hemoglobin 11.9 currently no obvious bleeding <Jess Campo - Last Filed: 11/07/17 14:15> Physical Exam Vital signs: Vital Signs 11/06/17 14:24 11/06/17 14:30 11/06/17 14:45 Temperature Pulse Rate 101 H 107 H 101 H Respiratory Rate 20 22 19 Blood Pressure 132/61 151/63 H 141/65 H Pulse Oximetry 99 100 11/06/17 15:00 11/06/17 15:16 11/06/17 15:30 Temperature Pulse Rate 107 H 104 H 101 H Respiratory Rate 18 20 19 Blood Pressure 137/74 110/80 100/69 Pulse Oximetry 99 99 100 11/06/17 15:46 11/06/17 16:00 11/06/17 16:16 Temperature 97.9 F Pulse Rate 101 H 100 H 106 H Respiratory Rate 20 20 25 H Blood Pressure 118/66 132/74 153/90 H Pulse Oximetry 100 98 97 11/06/17 16:30 11/06/17 16:45 11/06/17 17:01 Temperature Pulse Rate 103 H 92 H 89 Respiratory Rate 20 20 17 Blood Pressure 139/64 162/69 H 159/72 H Pulse Oximetry 100 99 99 11/06/17 17:15 11/06/17 17:30 11/06/17 19:30 Temperature Pulse Rate 90 89 85 Respiratory Rate 24 19 20 Blood Pressure 133/65 134/63 Pulse Oximetry 99 98 96 11/06/17 20:00 11/07/17 00:00 11/07/17 04:00 Temperature 97.8 F 98.1 F 97.7 F Pulse Rate 99 H 91 H 91 H Respiratory Rate 19 17 17 Blood Pressure 148/67 H 107/98 H 187/84 H Pulse Oximetry 99 98 97 11/07/17 07:54 11/07/17 08:00 Temperature Pulse Rate 91 H Respiratory Rate 18 Blood Pressure Pulse Oximetry 97 98 Intake & Output 11/06/17 11/07/17 11/07/17 18:59 06:59 18:59 Intake Total 2250 / 2250 650 / 650 204 / 204 Output Total 400 / 400 530 / 530 Balance 1850 / 1850 120 / 120 204 / 204 Weight 58.2 kg Intake: IV 1650 / 1650 50 / 50 204 / 204 D5W/Normal Saline Inj 1,000 ML 1000 / 1000 @ 75 mls/hr IV.CONT .[id number] [facility] Rx#:[id number] Magnesium Sulfate Inj 2 GM In 104 / 104 D5W Inj 100 ML @ 52 mls/hr IV. SIG Q2H [facility] Rx#:[id number] Zosyn 3.375 GM Premix 50 ML @ 100 / 100 50 / 50 100 / 100 100 mls/hr IV.SIG Q6H [facility] Rx#: [id number] KCl 10 mEq Premix Inj 10 meq In 300 / 300 100 ml @ 100 mls/hr IV.SIG Q1H G[facility] Rx#:[id number] Vancomycin Inj 1,000 MG In NS 250 / 250 Inj 250 ML @ 250 mls/hr IV.SIG Q24H G[facility] Rx#:[id number] Oral 0 / 0 Tube Feeding 600 / 600 600 / 600 Output: Stool 30 / 30 Urine Amount (Catheter) 400 / 400 500 / 500 Condom 400 / 400 500 / 500 Other: Date of Last Bowel Movement 11/06/17 11/07/17 11/07/17 # Incontinent Bowel Movements 2 - Constitutional mild distress, thin, cachectic - Routine HEENT Exam Head: Present: normocephalic ENT: Present: mucous membranes dry - Routine Respiratory Exam Present: accessory muscle use (No shortness of breath at rest low volumes) - Routine Cardiovascular Exam Present: irregular rhythm (Atrial fib heart rate controlled at 98) - Routine Abdominal Exam Present: soft (Flat, no obvious abdominal pain to light palpation, rectal tube intact, NG tube) - Urinary Catheter Management Condom Cath placed during this visit: no <Jess Campo - Last Filed: 11/07/17 14:15> Vital signs: Vital Signs 11/06/17 15:46 11/06/17 16:00 11/06/17 16:16 Temperature 97.9 F Pulse Rate 101 H 100 H 106 H Respiratory Rate 20 20 25 H Blood Pressure 118/66 132/74 153/90 H Pulse Oximetry 100 98 97 11/06/17 16:30 11/06/17 16:45 11/06/17 17:01 Temperature Pulse Rate 103 H 92 H 89 Respiratory Rate 20 20 17 Blood Pressure 139/64 162/69 H 159/72 H Pulse Oximetry 100 99 99 11/06/17 17:15 11/06/17 17:30 11/06/17 19:30 Temperature Pulse Rate 90 89 85 Respiratory Rate 24 19 20 Blood Pressure 133/65 134/63 Pulse Oximetry 99 98 96 11/06/17 20:00 11/07/17 00:00 11/07/17 04:00 Temperature 97.8 F 98.1 F 97.7 F Pulse Rate 99 H 91 H 91 H Respiratory Rate 19 17 17 Blood Pressure 148/67 H 107/98 H 187/84 H Pulse Oximetry 99 98 97 11/07/17 07:54 11/07/17 08:00 11/07/17 08:15 Temperature 98.6 F Pulse Rate 91 H 101 H 96 H Respiratory Rate 18 23 Blood Pressure Pulse Oximetry 97 98 97 11/07/17 08:30 11/07/17 08:45 11/07/17 09:00 Temperature Pulse Rate 107 H 91 H 83 Respiratory Rate 25 H 26 H 19 Blood Pressure 130/66 127/61 171/79 H Pulse Oximetry 85 L 96 96 11/07/17 09:15 11/07/17 09:30 11/07/17 09:45 Temperature Pulse Rate 77 84 80 Respiratory Rate 19 17 Blood Pressure 138/65 138/65 148/65 H Pulse Oximetry 97 97 11/07/17 10:00 11/07/17 10:01 11/07/17 10:15 Temperature Pulse Rate 118 H 118 H 90 Respiratory Rate 24 Blood Pressure 145/67 H Pulse Oximetry 93 L 95 96 11/07/17 10:30 11/07/17 10:45 11/07/17 11:00 Temperature Pulse Rate 97 H 94 H 96 H Respiratory Rate 25 H 20 Blood Pressure 166/83 H 148/70 H 145/75 H Pulse Oximetry 96 97 94 L 11/07/17 11:15 11/07/17 11:30 11/07/17 12:00 Temperature Pulse Rate 97 H 97 H 95 H Respiratory Rate 19 24 20 Blood Pressure 159/72 H 173/86 H 124/65 Pulse Oximetry 97 94 L 96 11/07/17 12:16 11/07/17 12:30 11/07/17 12:45 Temperature Pulse Rate 95 H 99 H 103 H Respiratory Rate 16 17 17 Blood Pressure 165/68 H 134/75 142/74 H Pulse Oximetry 95 95 94 L 11/07/17 13:00 11/07/17 13:15 11/07/17 13:30 Temperature Pulse Rate 102 H 100 H 97 H Respiratory Rate 19 15 18 Blood Pressure 134/71 133/75 157/76 H Pulse Oximetry 97 96 97 11/07/17 13:45 11/07/17 14:00 11/07/17 14:15 Temperature Pulse Rate 96 H 102 H 100 H Respiratory Rate 17 25 H 21 Blood Pressure 165/74 H 162/96 H 171/81 H Pulse Oximetry 96 92 L 95 11/07/17 14:30 Temperature 98.2 F Pulse Rate 82 Respiratory Rate 20 Blood Pressure 149/63 H Pulse Oximetry 94 L Intake & Output 11/06/17 11/07/17 11/07/17 18:59 06:59 18:59 Intake Total 2250 / 2250 650 / 650 204 / 204 Output Total 400 / 400 530 / 530 Balance 1850 / 1850 120 / 120 204 / 204 Weight 58.2 kg Intake: IV 1650 / 1650 50 / 50 204 / 204 D5W/Normal Saline Inj 1,000 ML 1000 / 1000 @ 75 mls/hr IV.CONT .[id number] [facility] Rx#:[id number] Magnesium Sulfate Inj 2 GM In 104 / 104 D5W Inj 100 ML @ 52 mls/hr IV. SIG Q2H [facility] Rx#:[id number] Zosyn 3.375 GM Premix 50 ML @ 100 / 100 50 / 50 100 / 100 100 mls/hr IV.SIG Q6H GARY Rx#: [id number] KCl 10 mEq Premix Inj 10 meq In 300 / 300 100 ml @ 100 mls/hr IV.SIG Q1H GARY Rx#:[id number] Vancomycin Inj 1,000 MG In NS 250 / 250 Inj 250 ML @ 250 mls/hr IV.SIG Q24H [facility] Rx#:[id number] Oral 0 / 0 Tube Feeding 600 / 600 600 / 600 Output: Stool 30 / 30 Urine Amount (Catheter) 400 / 400 500 / 500 Condom 400 / 400 500 / 500 Other: Date of Last Bowel Movement 11/06/17 11/07/17 11/07/17 # Incontinent Bowel Movements 2 - Urinary Catheter Management Condom Cath placed during this visit: no <Hemaidan,Ammar - Last Filed: 11/07/17 15:33> Results - Labs CBC & Chem 7: 11/07/17 03:37 11/07/17 03:37 Laboratory Results - last 24 hr 11/06/17 11/06/17 11/06/17 12:57 15:12 16:16 WBC RBC Hgb Hct MCV MCH MCHC RDW Plt Count MPV Prelim Diff (Auto) Neut % (Auto) Lymph % (Auto) Evans % (Auto) Eos % (Auto) Baso % (Auto) Neut # (Auto) Lymph # (Auto) Evans # (Auto) Eos # (Auto) Baso # (Auto) WBC Differential Manual diff final Diff Scan Seg Neuts % (Manual) 89 H Band Neuts % (Manual) 2 Lymphocytes % (Manual) 3 L Monocytes % (Manual) 5 Promyelocytes % (Man) 1 H Abs Neuts (Manual) 11.6 H Differential Comment Platelet Estimate Low L Platelet Morphology Normal Sodium Potassium 3.6 D Chloride Carbon Dioxide Anion Gap BUN Creatinine Estimated GFR POC Glucose 173 H Random Glucose Calcium Phosphorus Magnesium Total Bilirubin AST ALT Alkaline Phosphatase Total Protein Albumin Digoxin 11/06/17 11/06/17 11/07/17 21:05 23:48 03:37 WBC 10.4 RBC 3.64 L Hgb 11.9 L Hct 35.4 L MCV 97.3 MCH 32.7 MCHC 33.6 RDW 13.6 Plt Count 77 L MPV 13.1 H Prelim Diff (Auto) Slide review pending Neut % (Auto) 86.5 H Lymph % (Auto) 4.3 L Evans % (Auto) 8.5 H Eos % (Auto) 0.5 Baso % (Auto) 0.2 Neut # (Auto) 9.0 H Lymph # (Auto) 0.4 L Evans # (Auto) 0.9 Eos # (Auto) 0.0 Baso # (Auto) 0.0 WBC Differential . Diff Scan Auto diff confirmed Seg Neuts % (Manual) Band Neuts % (Manual) Lymphocytes % (Manual) Monocytes % (Manual) Promyelocytes % (Man) Abs Neuts (Manual) Differential Comment . Platelet Estimate Low L Platelet Morphology Normal Sodium Potassium Chloride Carbon Dioxide Anion Gap BUN Creatinine Estimated GFR POC Glucose 165 H 156 H Random Glucose Calcium Phosphorus Magnesium Total Bilirubin AST ALT Alkaline Phosphatase Total Protein Albumin Digoxin 11/07/17 11/07/17 03:37 04:47 WBC RBC Hgb Hct MCV MCH MCHC RDW Plt Count MPV Prelim Diff (Auto) Neut % (Auto) Lymph % (Auto) Evans % (Auto) Eos % (Auto) Baso % (Auto) Neut # (Auto) Lymph # (Auto) Evans # (Auto) Eos # (Auto) Baso # (Auto) WBC Differential Diff Scan Seg Neuts % (Manual) Band Neuts % (Manual) Lymphocytes % (Manual) Monocytes % (Manual) Promyelocytes % (Man) Abs Neuts (Manual) Differential Comment Platelet Estimate Platelet Morphology Sodium 146 H Potassium 3.3 L Chloride 113 H Carbon Dioxide 22.9 Anion Gap 10 BUN 22 H Creatinine 1.13 Estimated GFR 64 L POC Glucose 157 H Random Glucose 177 H Calcium 8.0 L Phosphorus 2.4 L Magnesium 1.6 Total Bilirubin 0.5 AST 18 ALT 20 Alkaline Phosphatase 47 Total Protein 5.6 L Albumin 2.5 L Digoxin 0.8 Microbiology 11/05/17 20:37 Blood - Peripheral Aerobic Blood Culture - Preliminary No growth in 2 days 11/05/17 20:37 Blood - Peripheral Anaerobic Blood Culture - Preliminary No growth in 2 days 11/05/17 20:45 Blood - Peripheral Aerobic Blood Culture - Preliminary No growth in 2 days 11/05/17 20:45 Blood - Peripheral Anaerobic Blood Culture - Preliminary No growth in 2 days 11/04/17 20:14 Blood - Peripheral Aerobic Blood Culture - Preliminary No growth in 3 days 11/04/17 20:14 Blood - Peripheral Anaerobic Blood Culture - Preliminary No growth in 3 days 11/04/17 20:08 Blood - Peripheral Aerobic Blood Culture - Preliminary No growth in 3 days 11/04/17 20:08 Blood - Peripheral Anaerobic Blood Culture - Preliminary No growth in 3 days 11/05/17 08:30 Catheterized Urine Urine Culture - Final No growth in 48 hours 11/04/17 10:39 Lumbar Puncture Gram Stain - Final 11/04/17 10:39 Lumbar Puncture CSF Culture - Final No growth in 72 hours - Imaging Impressions Chest X-Ray 11/07/17 00:00 CONCLUSION: Nasogastric tube tip in left upper quadrant overlying stomach. Abdomen X-Ray 11/07/17 06:00 CONCLUSION: Persistent dilated small and large bowel. <Jess Campo - Last Filed: 11/07/17 14:15> - Labs CBC & Chem 7: 11/07/17 03:37 11/07/17 03:37 Laboratory Results - last 24 hr 11/06/17 11/06/17 11/06/17 15:12 16:16 21:05 WBC RBC Hgb Hct MCV MCH MCHC RDW Plt Count MPV Prelim Diff (Auto) Neut % (Auto) Lymph % (Auto) Evans % (Auto) Eos % (Auto) Baso % (Auto) Neut # (Auto) Lymph # (Auto) Evans # (Auto) Eos # (Auto) Baso # (Auto) WBC Differential Diff Scan Differential Comment Platelet Estimate Platelet Morphology Sodium Potassium 3.6 D Chloride Carbon Dioxide Anion Gap BUN Creatinine Estimated GFR POC Glucose 173 H 165 H Random Glucose Calcium Phosphorus Magnesium Total Bilirubin AST ALT Alkaline Phosphatase Total Protein Albumin Digoxin 11/06/17 11/07/17 11/07/17 23:48 03:37 03:37 WBC 10.4 RBC 3.64 L Hgb 11.9 L Hct 35.4 L MCV 97.3 MCH 32.7 MCHC 33.6 RDW 13.6 Plt Count 77 L MPV 13.1 H Prelim Diff (Auto) Slide review pending Neut % (Auto) 86.5 H Lymph % (Auto) 4.3 L Evans % (Auto) 8.5 H Eos % (Auto) 0.5 Baso % (Auto) 0.2 Neut # (Auto) 9.0 H Lymph # (Auto) 0.4 L Evans # (Auto) 0.9 Eos # (Auto) 0.0 Baso # (Auto) 0.0 WBC Differential . Diff Scan Auto diff confirmed Differential Comment . Platelet Estimate Low L Platelet Morphology Normal Sodium 146 H Potassium 3.3 L Chloride 113 H Carbon Dioxide 22.9 Anion Gap 10 BUN 22 H Creatinine 1.13 Estimated GFR 64 L POC Glucose 156 H Random Glucose 177 H Calcium 8.0 L Phosphorus 2.4 L Magnesium 1.6 Total Bilirubin 0.5 AST 18 ALT 20 Alkaline Phosphatase 47 Total Protein 5.6 L Albumin 2.5 L Digoxin 0.8 11/07/17 04:47 WBC RBC Hgb Hct MCV MCH MCHC RDW Plt Count MPV Prelim Diff (Auto) Neut % (Auto) Lymph % (Auto) Evans % (Auto) Eos % (Auto) Baso % (Auto) Neut # (Auto) Lymph # (Auto) Evans # (Auto) Eos # (Auto) Baso # (Auto) WBC Differential Diff Scan Differential Comment Platelet Estimate Platelet Morphology Sodium Potassium Chloride Carbon Dioxide Anion Gap BUN Creatinine Estimated GFR POC Glucose 157 H Random Glucose Calcium Phosphorus Magnesium Total Bilirubin AST ALT Alkaline Phosphatase Total Protein Albumin Digoxin Microbiology 11/05/17 20:37 Blood - Peripheral Aerobic Blood Culture - Preliminary No growth in 2 days 11/05/17 20:37 Blood - Peripheral Anaerobic Blood Culture - Preliminary No growth in 2 days 11/05/17 20:45 Blood - Peripheral Aerobic Blood Culture - Preliminary No growth in 2 days 11/05/17 20:45 Blood - Peripheral Anaerobic Blood Culture - Preliminary No growth in 2 days 11/04/17 20:14 Blood - Peripheral Aerobic Blood Culture - Preliminary No growth in 3 days 11/04/17 20:14 Blood - Peripheral Anaerobic Blood Culture - Preliminary No growth in 3 days 11/04/17 20:08 Blood - Peripheral Aerobic Blood Culture - Preliminary No growth in 3 days 11/04/17 20:08 Blood - Peripheral Anaerobic Blood Culture - Preliminary No growth in 3 days 11/05/17 08:30 Catheterized Urine Urine Culture - Final No growth in 48 hours 11/04/17 10:39 Lumbar Puncture Gram Stain - Final 11/04/17 10:39 Lumbar Puncture CSF Culture - Final No growth in 72 hours - Imaging Impressions Chest X-Ray 11/07/17 00:00 CONCLUSION: Nasogastric tube tip in left upper quadrant overlying stomach. Abdomen X-Ray 11/07/17 06:00 CONCLUSION: Persistent dilated small and large bowel. <Missy Crocker - Last Filed: 11/07/17 15:33> Assessment and Plan - Plan Constipation According to the record patient had had no bowel movement in 9 days before coming to the hospital. On 11/06/2017 patient had a loose large bowel movement with no obvious blood noted. Follow-up with [facility] was ordered this a.m. 11/07/2017 KUB showed dilated small and large bowel. Currently has rectal tube in place. NG tube currently taped and secured according to the nurses patient has already pulled out one time Encephalopathy unknown causes, unspecified patient continues to randomly talk to himself and not obey simple commands. Heart rhythm stable at atrial fib heart rate 98 controlled ventricular response. Ileus, with KUB showing large and small intestinal dilation. Noted significant history of constipation. GI will follow as needed if patient's GI symptoms worsen. No plan for procedures at this time Plan Diet Recheck KUB in the morning Monitor rectal output Bowel regimen meds Monitor labs and note any obvious bleeding Continue NG tube for now Patient was seen per myself and Dr. Crocker, note was written on his behalf <Jess Campo - Last Filed: 11/07/17 14:15> - Plan Patient was seen and examined, agree with above note, doing well now with bowel movements, we will follow-up as needed <Missy Crocker - Last Filed: 11/07/17 15:33>
--- NOTE | 2017-11-07 16:36 | P.PNONC ---
Subjective Interval history: Afebrile Patient alert, mumbling to himself Per [employer]AU[employer] CHECK[employer] he has been agitated today with attempting to pull out lines No bleeding Objective Vital Signs/Intake & Output: Vital Signs 11/06/17 16:45 11/06/17 17:01 11/06/17 17:15 Temperature Pulse Rate 92 H 89 90 Respiratory Rate 20 17 24 Blood Pressure 162/69 H 159/72 H 133/65 Pulse Oximetry 99 99 99 11/06/17 17:30 11/06/17 19:30 11/06/17 20:00 Temperature 97.8 F Pulse Rate 89 85 99 H Respiratory Rate 19 20 19 Blood Pressure 134/63 148/67 H Pulse Oximetry 98 96 99 11/07/17 00:00 11/07/17 04:00 11/07/17 07:54 Temperature 98.1 F 97.7 F Pulse Rate 91 H 91 H 91 H Respiratory Rate 17 17 18 Blood Pressure 107/98 H 187/84 H Pulse Oximetry 98 97 97 11/07/17 08:00 11/07/17 08:15 11/07/17 08:30 Temperature 98.6 F Pulse Rate 101 H 96 H 107 H Respiratory Rate 23 25 H Blood Pressure 130/66 Pulse Oximetry 98 97 85 L 11/07/17 08:45 11/07/17 09:00 11/07/17 09:15 Temperature Pulse Rate 91 H 83 77 Respiratory Rate 26 H 19 19 Blood Pressure 127/61 171/79 H 138/65 Pulse Oximetry 96 96 97 11/07/17 09:30 11/07/17 09:45 11/07/17 10:00 Temperature Pulse Rate 84 80 118 H Respiratory Rate 17 Blood Pressure 138/65 148/65 H Pulse Oximetry 97 93 L 11/07/17 10:01 11/07/17 10:15 11/07/17 10:30 Temperature Pulse Rate 118 H 90 97 H Respiratory Rate 24 25 H Blood Pressure 145/67 H 166/83 H Pulse Oximetry 95 96 96 11/07/17 10:45 11/07/17 11:00 11/07/17 11:15 Temperature Pulse Rate 94 H 96 H 97 H Respiratory Rate 20 19 Blood Pressure 148/70 H 145/75 H 159/72 H Pulse Oximetry 97 94 L 97 11/07/17 11:30 11/07/17 12:00 11/07/17 12:16 Temperature Pulse Rate 97 H 95 H 95 H Respiratory Rate 24 20 16 Blood Pressure 173/86 H 124/65 165/68 H Pulse Oximetry 94 L 96 95 11/07/17 12:30 11/07/17 12:45 11/07/17 13:00 Temperature Pulse Rate 99 H 103 H 102 H Respiratory Rate 17 17 19 Blood Pressure 134/75 142/74 H 134/71 Pulse Oximetry 95 94 L 97 11/07/17 13:15 11/07/17 13:30 11/07/17 13:45 Temperature Pulse Rate 100 H 97 H 96 H Respiratory Rate 15 18 17 Blood Pressure 133/75 157/76 H 165/74 H Pulse Oximetry 96 97 96 11/07/17 14:00 11/07/17 14:15 11/07/17 14:30 Temperature 98.2 F Pulse Rate 102 H 100 H 82 Respiratory Rate 25 H 21 20 Blood Pressure 162/96 H 171/81 H 149/63 H Pulse Oximetry 92 L 95 94 L 11/07/17 16:00 Temperature 97.6 F Pulse Rate 70 Respiratory Rate 22 Blood Pressure 121/56 L Pulse Oximetry 95 Intake & Output 11/06/17 11/07/17 11/07/17 18:59 06:59 18:59 Intake Total 2250 / 2250 650 / 650 204 / 204 Output Total 400 / 400 530 / 530 Balance 1850 / 1850 120 / 120 204 / 204 Weight 128 lb 4.944 oz Intake: IV 1650 / 1650 50 / 50 204 / 204 D5W/Normal Saline Inj 1,000 ML 1000 / 1000 @ 75 mls/hr IV.CONT .[id number] SOFI Rx#:[id number] Magnesium Sulfate Inj 2 GM In 104 / 104 D5W Inj 100 ML @ 52 mls/hr IV. SIG Q2H SOFI Rx#:[id number] Zosyn 3.375 GM Premix 50 ML @ 100 / 100 50 / 50 100 / 100 100 mls/hr IV.SIG Q6H SOFI Rx#: [id number] KCl 10 mEq Premix Inj 10 meq In 300 / 300 100 ml @ 100 mls/hr IV.SIG Q1H SOFI Rx#:[id number] Vancomycin Inj 1,000 MG In NS 250 / 250 Inj 250 ML @ 250 mls/hr IV.SIG Q24H SOFI Rx#:[id number] Oral 0 / 0 Tube Feeding 600 / 600 600 / 600 Output: Stool 30 / 30 Urine Amount (Catheter) 400 / 400 500 / 500 Condom 400 / 400 500 / 500 Other: Date of Last Bowel Movement 11/06/17 11/07/17 11/07/17 # Incontinent Bowel Movements 2 Result Diagrams: 11/07/17 03:37 11/07/17 03:37 Laboratory Results: Laboratory Results - last 24 hr 11/06/17 11/06/17 11/06/17 16:16 21:05 23:48 WBC RBC Hgb Hct MCV MCH MCHC RDW Plt Count MPV Prelim Diff (Auto) Neut % (Auto) Lymph % (Auto) Mitchell % (Auto) Eos % (Auto) Baso % (Auto) Neut # (Auto) Lymph # (Auto) Mitchell # (Auto) Eos # (Auto) Baso # (Auto) WBC Differential Diff Scan Differential Comment Platelet Estimate Platelet Morphology Sodium Potassium Chloride Carbon Dioxide Anion Gap BUN Creatinine Estimated GFR POC Glucose 173 H 165 H 156 H Random Glucose Calcium Phosphorus Magnesium Total Bilirubin AST ALT Alkaline Phosphatase Total Protein Albumin Digoxin 11/07/17 11/07/17 11/07/17 03:37 03:37 04:47 WBC 10.4 RBC 3.64 L Hgb 11.9 L Hct 35.4 L MCV 97.3 MCH 32.7 MCHC 33.6 RDW 13.6 Plt Count 77 L MPV 13.1 H Prelim Diff (Auto) Slide review pending Neut % (Auto) 86.5 H Lymph % (Auto) 4.3 L Mitchell % (Auto) 8.5 H Eos % (Auto) 0.5 Baso % (Auto) 0.2 Neut # (Auto) 9.0 H Lymph # (Auto) 0.4 L Mitchell # (Auto) 0.9 Eos # (Auto) 0.0 Baso # (Auto) 0.0 WBC Differential . Diff Scan Auto diff confirmed Differential Comment . Platelet Estimate Low L Platelet Morphology Normal Sodium 146 H Potassium 3.3 L Chloride 113 H Carbon Dioxide 22.9 Anion Gap 10 BUN 22 H Creatinine 1.13 Estimated GFR 64 L POC Glucose 157 H Random Glucose 177 H Calcium 8.0 L Phosphorus 2.4 L Magnesium 1.6 Total Bilirubin 0.5 AST 18 ALT 20 Alkaline Phosphatase 47 Total Protein 5.6 L Albumin 2.5 L Digoxin 0.8 Culture Results: Microbiology 11/05/17 20:37 Aerobic Blood Culture - Preliminary Blood - Peripheral No growth in 2 days Anaerobic Blood Culture - Preliminary No growth in 2 days 11/05/17 20:45 Aerobic Blood Culture - Preliminary Blood - Peripheral No growth in 2 days Anaerobic Blood Culture - Preliminary No growth in 2 days 11/04/17 20:14 Aerobic Blood Culture - Preliminary Blood - Peripheral No growth in 3 days Anaerobic Blood Culture - Preliminary No growth in 3 days 11/04/17 20:08 Aerobic Blood Culture - Preliminary Blood - Peripheral No growth in 3 days Anaerobic Blood Culture - Preliminary No growth in 3 days 11/05/17 08:30 Urine Culture - Final Catheterized Urine No growth in 48 hours 11/04/17 10:39 Gram Stain - Final Lumbar Puncture CSF Culture - Final No growth in 72 hours Imaging Studies: Impressions Chest X-Ray 11/07/17 00:00 CONCLUSION: Nasogastric tube tip in left upper quadrant overlying stomach. Abdomen X-Ray 11/07/17 06:00 CONCLUSION: Persistent dilated small and large bowel. Medications: Active Medications Generic Name Dose Route Start Last Admin Trade Name Freq PRN Reason Stop Dose Admin Albuterol 1 ampul 11/06/17 08:00 11/07/17 13:13 Duoneb Neb (Sofi) NEB Not Given Q6HR WHILE AWAKE NEB SOFI Artificial Tears 1 drops 11/06/17 21:00 11/06/17 22:16 Genteal Severe Dry Eye Relief 0.3% Opth Gel EACH EYE 1 drops HS SOFI Administration Atorvastatin Calcium 40 mg 11/02/17 21:00 11/06/17 20:41 Lipitor PO 40 mg HS SOFI Administration Chlorhexidine Gluconate 3 pack 11/04/17 04:00 11/07/17 04:49 Chlorhexidine 2% Cloth TOPICAL 11/09/17 03:59 3 pack DAILY@0400 SOFI Administration Cyanocobalamin 1,000 mcg 11/04/17 09:00 11/04/17 10:16 Vitamin B12 Inj IM 1,000 mcg Q30D SOFI Administration Cyanocobalamin 1,000 mcg 11/06/17 13:45 11/07/17 08:06 Vitamin B12 Inj IM 11/09/17 09:01 1,000 mcg DAILY SOFI Administration Diltiazem HCl 90 mg 11/06/17 18:00 11/07/17 14:02 Cardizem PO 90 mg Q6HR SOFI Administration Heparin Sodium (Porcine) 5,000 units 11/05/17 09:00 11/07/17 08:04 Heparin Inj SQ 5,000 units Q12HR SOFI Administration Amiodarone HCl 450 mg/ 250 mls @ 33.33 mls/hr 11/03/17 12:50 11/05/17 09:28 Dextrose IV.CONT 0 mg/min TITRATE PRN 0 mls/hr Per Protocol Titration Protocol 1 MG/MIN Clevidipine 25 mg in 50 mls @ 2 mls/hr 11/03/17 18:34 11/04/17 03:06 Cleviprex Inj IV.CONT 1 mg/hr TITRATE PRN 2 mls/hr Per protocol Administration Protocol 1 MG/HR Piperacillin/Tazobactam/Dextrose 50 mls @ 100 mls/hr 11/05/17 17:00 11/07/17 16:16 Zosyn 3.375 Gm Premix IV.SIG 100 mls/hr Q6H SOFI Administration Vancomycin HCl 1,000 mg/ 250 mls @ 250 mls/hr 11/06/17 11:00 11/07/17 14:02 Sodium Chloride IV.SIG 250 mls/hr Q24H SOFI Administration Insulin Human Regular 0 units 11/03/17 12:00 11/07/17 16:16 Novolin R Correctional Sugar Inj SQ Not Given Q4HR SOFI Protocol Lactulose 30 ml 11/06/17 09:00 11/07/17 08:05 Lactulose Liq PO 30 ml BID SOFI Administration Lansoprazole 30 mg 11/06/17 09:00 11/07/17 08:04 Prevacid Solutab NG/OG 30 mg DAILY SOFI Administration Metoprolol Tartrate 50 mg 11/07/17 09:00 11/07/17 14:02 Lopressor PO 50 mg TID SOFI Administration Multivitamins/Folic Acid/Vitamin C 1 tab 11/06/17 09:00 11/07/17 08:05 Flintstones CHEW 1 tab DAILY SOFI Administration Polyethylene Glycol 17 gm 11/06/17 09:00 11/07/17 08:05 Miralax PO 17 gm BID SOFI Administration Senna/Docusate Sodium 1 tab 10/29/17 21:00 11/07/17 08:05 Jia-Colace PO 1 tab BID SOFI Administration Sennosides 17.2 mg 10/29/17 18:25 11/06/17 08:53 Senokot PO 17.2 mg Q12H PRN Administration Moderate Constipation Objective Remarks: GENERAL: Chronically ill-appearing elderly male in four-point restraints resting in bed in no acute distress SKIN: Warm and dry. HEAD: Normocephalic. EYES: No injection or drainage. NECK: Supple, trachea midline. No JVD or lymphadenopathy. CARDIOVASCULAR: Irregular rhythm. RESPIRATORY: Scattered rhonchi GASTROINTESTINAL: NG tube in place EXTREMITIES: No cyanosis, or edema. MUSCULOSKELETAL: Adequate muscle tone. NEUROLOGICAL: Alert. Moving extremities. Not following commands. Assessment/Plan - Plan This is a elderly cachectic male patient. He has a history of chronic thrombocytopenia, lost to follow-up in March 2017. Patient's baseline platelet count is around 90,000. 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 Plan: 1. Counts stable. The patient has not had any bleeding. No intervention needed at this time for thrombocytopenia. 2. Continue B12 supplementation as ordered. 3. Supportive care. Monitor CBC. - Attending Statement The exam, history, and the medical decision-making described in the above note were completed with the assistance of the mid-level provider. I reviewed and agree with the findings presented. I attest that I had a [id number] encounter with the patient on the same day, and personally performed and documented my assessment and findings in the medical record.Still confused. WBC trending down. Platelet stable. Continue B12. Monitor CBC.
[2017-11-07] MEDS: Hypromellose 0.3% Opth Gel 10 GM Bottle EACH EYE SCH (20:39)
[2017-11-08] MEDS: Insulin NovoLIN Regular Correctional Sugar Inj SQ SCH ×5 (00:45→21:02)
--- NOTE | 2017-11-08 05:56 | XR ---
EXAM DATE: 11/08/2017 5:37 AM EDT AGE/SEX: 72 years / Male INDICATIONS: Shortness of breath, possible pulmonary disease. CLINICAL DATA: This is the patient's subsequent encounter. Patient reports that signs and symptoms h ave been present for 1 week and indicates a pain score of Nonresponsive. MEDICAL/SURGICAL HISTORY: Anemia. Hypertension. None. COMPARISON: [facility], CHEST 1V SINGLE AP, 11/07/2017. . FINDINGS: The NG tube tip is directed into the stomach. The heart size is mildly enlarged. There is increased i nterstitial markings seen bilaterally. A significant effusion is not seen. CONCLUSION: Prominence of interstitium which may represent pulmonary venous hypertension or minimal edema. Electronically signed by: Talha Parmar MD 11/08/2017 5:54 AM EDT
--- NOTE | 2017-11-08 05:56 | XR ---
EXAM DATE: 11/08/2017 5:33 AM EDT AGE/SEX: 72 years / Male INDICATIONS: Abdominal pain. CLINICAL DATA: This is the patient's subsequent encounter. Patient reports that signs and symptoms h ave been present for 1 week and indicates a pain score of Nonresponsive. MEDICAL/SURGICAL HISTORY: Anemia. Hypertension. None. [place]PAR[place]: [facility] [place]. . FINDINGS: There is an NG tube in place with tip in the upper stomach. The bowel is no longer dilated. Free air is not seen. CONCLUSION: Negative KUB. Electronically signed by: Talha Parmar MD 11/08/2017 5:55 AM EDT
[2017-11-08 06:11] LABS: Baso % (Auto) 0.4 % (0.0-2.0); Eos % (Auto) 0.2 % (0.0-4.0); Hematocrit 39.2 % (39.0-51.0); Hemoglobin 12.9 gm/dL (13.0-17.0); Lymph # (Auto) 0.8 th/mm3 (1.0-4.8); Lymph % (Auto) 7.2 % (9.0-44.0); Mean Corpuscular HGB Conc 32.8 % (32.0-36.0); Mean Corpuscular Hemoglobin 32.3 pg (27.0-34.0); Mean Corpuscular Volume 98.2 fL (80.0-100.0); Mean Platelet Volume 13.1 fL (7.0-11.0); Mono % (Auto) 8.8 % (0.0-8.0); Neut # (Auto) 9.1 th/mm3 (1.8-7.7); Neut % (Auto) 83.4 % (16.0-70.0); Platelet Count 83 th/mm3 (150-450); Red Blood Count 3.99 mil/mm3 (4.50-5.90); Red Cell Distribution Width 13.9 % (11.6-17.2); White Blood Count 10.9 th/mm3 (4.0-11.0)
[2017-11-08] MEDS: Piperacil/Tazo 3.375 GM Premix 50 ML IV.SIG SCH ×3 (06:16→16:50)
[2017-11-08] MEDS: Chlorhexidine Gluconate 2% 1 Pack (2 Cloths) TOPICAL SCH (06:16)
[2017-11-08 06:46] LABS: Alanine Aminotransferase 63 U/L (12-78); Albumin 2.8 g/dL (3.4-5.0); Alkaline Phosphatase 84 U/L (45-117); Anion Gap 13 meq/L (5-15); Aspartate Aminotransferase 84 U/L (15-37); Blood Urea Nitrogen 29 mg/dL (7-18); Calcium 8.2 mg/dL (8.5-10.1); Carbon Dioxide 22.7 meq/L (21.0-32.0); Chloride 112 meq/L (98-107); Glomerular Filtration Rate 49 mL/min (>89); Glucose,Random 141 mg/dL (74-106); Magnesium 2.7 mg/dL (1.5-2.5); Phosphorus 3.7 mg/dL (2.5-4.9); Potassium 4.1 meq/L (3.5-5.1); Sodium 148 meq/L (136-145); Total Protein 6.3 g/dL (6.4-8.2)
--- NOTE | 2017-11-08 08:30 | P.PNCC ---
Subjective Subjective Remarks/Hospital Course: The patient is a 72-year-old male with a past medical history of hypertension, hyperlipidemia, thrombocytopenia, vitamin B12 deficiency, who presented to [facility] ED on 10/29/2017 for altered mental status. He was Mendse Acted by ED provider. The patient is a poor historian and most of the history was obtained from reviewing medical records. He was given Ativan 3 mg total on arrival, due to his severe agitation. Patient was initially admitted under hospitalist service and he underwent a CT scan of the brain on 10/29/2017, which was a limited study due to severe motion artifact. A repeat CT scan of the brain was obtained earlier this morning, which showed atrophy, otherwise negative for acute process. CTA of the neck was performed on 11/02/2017 which showed no evidence of any hemodynamically significant carotid stenosis. The patient was found to be in atrial fibrillation with RVR this morning with a heart rate of 140s. He was given Lopressor 5 mg IV push and placed on p.o. Cardizem and p.o. Lopressor. Due to worsening mental status, he was transferred to ICU and critical care medicine was consulted for critical care management. The patient received additional 3 mg of Ativan since in the last 12 hours. MRI of the brain was ordered by the primary team. The patient does arouse to touch and verbalizes several words and able to move all extremities. 11/04 MRI brain last night showed no acute disease/Mild, symmetric cortical atrophy with some minimal small vessel ischemic demyelination.Patient pulled out NGT , On Amio drip for Afib with RVR, given Digoxin and started on Cleviprex drip last night. 11/05 Patient remains on Amio drip. Had T: 102 yesterday. s/p LP showed clear CSF , 0 WBC. Renal function worse with Cr: 2.04 from 0.89. 11/06: Afebrile. Resting comfortably bed in no acute distress. Remains in soft restraints. Remains in atrial fibrillation with rapid ventricular response heart rate in the 110s. No bowel movement since admission noted. 11/07: Afebrile. Agitated this a.m. at this moment but previously but sometimes pleasantly confused. Mumbles words. Replacing a left leg. Currently in normal sinus rhythm. SUBJECTIVE: 11/08: Afebrile. Remains intermittently confused. Mumbles were. Currently normal sinus rhythm. Positive BM. Ileus has resolved. Objective Vital Signs / I&O: Vital Signs 11/07/17 08:30 11/07/17 08:45 11/07/17 09:00 Temperature Pulse Rate 107 H 91 H 83 Respiratory Rate 25 H 26 H 19 Blood Pressure 130/66 127/61 171/79 H Pulse Oximetry 85 L 96 96 11/07/17 09:15 11/07/17 09:30 11/07/17 09:45 Temperature Pulse Rate 77 84 80 Respiratory Rate 19 17 Blood Pressure 138/65 138/65 148/65 H Pulse Oximetry 97 97 11/07/17 10:00 11/07/17 10:01 11/07/17 10:15 Temperature Pulse Rate 118 H 118 H 90 Respiratory Rate 24 Blood Pressure 145/67 H Pulse Oximetry 93 L 95 96 11/07/17 10:30 11/07/17 10:45 11/07/17 11:00 Temperature Pulse Rate 97 H 94 H 96 H Respiratory Rate 25 H 20 Blood Pressure 166/83 H 148/70 H 145/75 H Pulse Oximetry 96 97 94 L 11/07/17 11:15 11/07/17 11:30 11/07/17 12:00 Temperature Pulse Rate 97 H 97 H 95 H Respiratory Rate 19 24 20 Blood Pressure 159/72 H 173/86 H 124/65 Pulse Oximetry 97 94 L 96 11/07/17 12:16 11/07/17 12:30 11/07/17 12:45 Temperature Pulse Rate 95 H 99 H 103 H Respiratory Rate 16 17 17 Blood Pressure 165/68 H 134/75 142/74 H Pulse Oximetry 95 95 94 L 11/07/17 13:00 11/07/17 13:15 11/07/17 13:30 Temperature Pulse Rate 102 H 100 H 97 H Respiratory Rate 19 15 18 Blood Pressure 134/71 133/75 157/76 H Pulse Oximetry 97 96 97 11/07/17 13:45 11/07/17 14:00 11/07/17 14:15 Temperature Pulse Rate 96 H 102 H 100 H Respiratory Rate 17 25 H 21 Blood Pressure 165/74 H 162/96 H 171/81 H Pulse Oximetry 96 92 L 95 11/07/17 14:30 11/07/17 16:00 11/07/17 19:46 Temperature 98.2 F 97.6 F Pulse Rate 82 72 67 Respiratory Rate 20 22 20 Blood Pressure 149/63 H 121/56 L Pulse Oximetry 94 L 95 95 11/07/17 20:00 11/08/17 00:00 11/08/17 04:00 Temperature 98.7 F 98.7 F 98.4 F Pulse Rate 72 81 80 Respiratory Rate 21 26 H 21 Blood Pressure 123/63 166/64 H 157/82 H Pulse Oximetry 98 95 93 L 11/08/17 07:33 Temperature Pulse Rate 82 Respiratory Rate 18 Blood Pressure Pulse Oximetry 96 Intake & Output 11/07/17 11/08/17 11/08/17 18:59 06:59 18:59 Intake Total 1368 / 1368 532 / 532 Output Total 300 / 300 951 / 951 Balance 1068 / 1068 -419 / -419 Weight 59.1 kg Intake: IV 1368 / 1368 50 / 50 D5W/1/2 NS Inj 1,000 ML @ 42 500 / 500 mls/hr IV.CONT .[id number] [facility] Rx# :[id number] Magnesium Sulfate Inj 2 GM In 208 / 208 D5W Inj 100 ML @ 52 mls/hr IV. SIG Q2H [facility] Rx#:[id number] Zosyn 3.375 GM Premix 50 ML @ 150 / 150 50 / 50 100 mls/hr IV.SIG Q6H [facility] Rx#: [id number] Potassium Phosphate Inj 30 MMOL 260 / 260 In NS Inj 250 ML @ 43.333 mls/ hr IV.SIG ONCE ONE Rx#:[id number] Vancomycin Inj 1,000 MG In NS 250 / 250 Inj 250 ML @ 250 mls/hr IV.SIG Q24H [facility] Rx#:[id number] Oral 0 / 0 Tube Feeding 482 / 482 Output: Urine 350 / 350 Stool 600 / 600 Urine/Stool Mix 1 / 1 Urine Amount (Catheter) 300 / 300 Condom 300 / 300 Other: Post Void Residual 0 # Incontinent Voids 4 Date of Last Bowel Movement 11/07/17 11/08/17 # Bowel Movements 6 # Incontinent Bowel Movements 4 6 Result Diagrams: 11/08/17 04:00 11/08/17 04:00 Other Results: Microbiology 11/05/17 20:37 Blood - Peripheral Aerobic Blood Culture - Preliminary No growth in 2 days 11/05/17 20:37 Blood - Peripheral Anaerobic Blood Culture - Preliminary No growth in 2 days 11/05/17 20:45 Blood - Peripheral Aerobic Blood Culture - Preliminary No growth in 2 days 11/05/17 20:45 Blood - Peripheral Anaerobic Blood Culture - Preliminary No growth in 2 days 11/04/17 20:14 Blood - Peripheral Aerobic Blood Culture - Preliminary No growth in 3 days 11/04/17 20:14 Blood - Peripheral Anaerobic Blood Culture - Preliminary No growth in 3 days 11/04/17 20:08 Blood - Peripheral Aerobic Blood Culture - Preliminary No growth in 3 days 11/04/17 20:08 Blood - Peripheral Anaerobic Blood Culture - Preliminary No growth in 3 days 11/05/17 08:30 Catheterized Urine Urine Culture - Final No growth in 48 hours 11/04/17 10:39 Lumbar Puncture Gram Stain - Final 11/04/17 10:39 Lumbar Puncture CSF Culture - Final No growth in 72 hours Imaging: Head CT 10/29/17 12:48 CONCLUSION: 1. Suboptimal limited study secondary to severe motion artifact. 2. No gross abnormality identified however even large abnormalities could be obscured. Carotid Doppler Study 11/02/17 00:00 CONCLUSION: 1. There is atherosclerotic plaquing at both carotid bifurcations. 2. 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 3. The vertebral arteries were not visualized. 4. Recommend CTA of the carotids for further evaluation. Neck CTA 11/02/17 00:00 CONCLUSION: 1. High right common carotid artery bifurcation. No evidence of hemodynamically significant carotid stenosis. 2. Diminutive right vertebral artery that terminates at the skull base. Basilar artery also has a diffusely narrow diameter. Head MRI 11/03/17 00:00 CONCLUSION: 1. Exam is limited due to motion artifact on just about every pulse sequence. 2. However, grossly, nothing acute. Mild, symmetric cortical atrophy with some minimal small vessel ischemic demyelination. Head CT 11/03/17 09:57 CONCLUSION: Atrophy, otherwise negative for an acute process. Ajay Pope MD FACR . Chest X-Ray 11/03/17 10:40 CONCLUSION: Mild compensated cardiomegaly Lumbar Puncture Fluoroscopy 11/04/17 00:00 CONCLUSION: 1. Uncomplicated fluoroscopically guided lumbar puncture. Abdomen/Bladder Ultrasound 11/05/17 00:00 CONCLUSION: 1. Sonographic findings consistent with underlying medical renal disease. No obstruction observed. 2. Distended gallbladder without gallstones or gallbladder wall thickening. Abdomen X-Ray 11/06/17 00:00 CONCLUSION: Gaseous distention of nonspecific bowel throughout most of the abdomen and pelvis. I believe it is most likely distended colon given the appearance. The pattern could be consistent with ileus. No transition point is appreciated to suggest obstruction. Consider follow-up x-ray to document improvement. Chest X-Ray 11/06/17 00:00 CONCLUSION: Mild cardiomegaly. Diffuse interstitial prominence suggesting chronic interstitial changes. No Overt congestive failure. Chest X-Ray 11/07/17 00:00 CONCLUSION: Nasogastric tube tip in left upper quadrant overlying stomach. Abdomen X-Ray 11/07/17 06:00 CONCLUSION: Persistent dilated small and large bowel. Abdomen X-Ray 11/08/17 00:00 CONCLUSION: Negative KUB. Chest X-Ray 11/08/17 06:00 CONCLUSION: Prominence of interstitium which may represent pulmonary venous hypertension or minimal edema. Objective Remarks: GENERAL: Patient is 72 yo male resting in an ICU bed currently in NAD on nasal cannula. SKIN: Warm and dry. No rash HEAD: Normocephalic. EYES: No scleral icterus. No injection or drainage. NECK: Supple, trachea midline. No JVD or lymphadenopathy. CARDIOVASCULAR: RRR. S1, S2 no S4. 2/6 systolic murmur in sternal RESPIRATORY: Breath sounds equal bilaterally. No accessory muscle use. GASTROINTESTINAL: Abdomen soft, non-tender, nondistended. Hypoactive bowel sounds are appreciated. Tube in place MUSCULOSKELETAL: No significant peripheral edema. Neuro: Responds to voice, able to move all extremities spontaneously and shaking right upper extremity. Left upper extremity possibly subjectively weaker.. Assessment and Plan - Assessment and Plan Plan: Neuro/Psych: Acute encephalopathy S[place] B12 deficiency Monitor neurologic status and avoid any sedatives. CT brain 11/03 showed no acute intracranial process CTA of the neck 11/03 showed no significant hemodynamic stenosis. MRI brain: 11/03 no acute disease EEG: Mild encephalopathy with no epileptiform activity We will recheck MRI brain today with continued altered mental status. Neuro is following- Dr. aCnela, s/p LP 11/04 showed clear CSF, 0 WBC, T, TP: 37.6 Started on Acyclovir empirically by Neuro. this is been discontinued Acetaminophen 650 every 4 hours as needed fever Continue with cyanocobalamin 1000 micro grams daily from 11/06 through 11/09 then intramuscularly every 30 days. Followed by hematology. Pulm: Acute respiratory insufficiency Nasal cannula to maintain saturations greater than equal to 92% Incentive spirometry while awake Acapella/PET therapy every 6 hours while awake Albuterol/ipratropium aerosols every 6 hours while awake with albuterol aerosols every 2 hours as needed for dyspnea Follow-up chest x-ray in a.m. 11/08 reveals left lower lobe infiltrate CV: Atrial fibrillation with rapid ventricular response Essential hypertension Hyperlipidemia Acute systolic heart failure Moderate MR/TR On amiodarone drip at 0.5 mg/min. Monitor HR and BP keep MAP>65mmHg Continue diltiazem 60 mg q.i.d, metoprolol tartrate 50 t.i.d) Trop <0.02 x 2, Continue atorvastatin 40 mg daily for dyslipidemia 2-D echo. Revealed EF 25-30%. Decrease this to like left ventricular function. Distal lateral, apical hypokinesis. Bilateral atrial enlargement. Moderate AR/TR. PAP 39 mmHg Cards eval. Patient is at high risk of full anticoagulation for Afib given thrombocytopenia ( PLT < 100) Renal/: Acute kidney injury Renal ultrasound revealed possible left renal mass lower pole 2 x 1 x 1.4 cm. Medical renal disease. Creatinine is currently 1.4. Likely secondary to contrast resolving. Recheck BMP in a.m. 11/09 We will start on D5 water at 40 cc an hour GI: Constipation -resolved Hypoalbuminemia Jevity 1.5 at 50 cc an hour per nutrition recommendations with free water 100 cc every 8 hours on lansoprazole 30 mg daily for GI prophylaxis. NPO per speech. Docusate sodium/senna 1 tablet twice daily, polythene glycol 17 g twice daily, lactulose 30 cc twice daily for bowel regimen. Check KUB today. Fecal disimpaction as needed Distended gallbladder without cold cystitis. Cholelithiasis. KUB reveals 9.5 cm cecum. Dilated large and small bowel. Positive BM. ID: Monitor for signs of infection, which include fever and WBC. Continue vancomycin and piperacillin/tazobactam empirically. Followup on BC from 11/04 and 11/05 no growth to date. UA -11/05. Started on Acyclovir empirically by Neuro, discontinued 11/05 s/p LP 11/04:Clear CSF, 0 WBC, T, TP:37. Negative CSF 11/04 Follow up on CSF cultures. ID eval. Endo: SSI with Accu-Cheks to maintain euglycemia. Novulin R 5 units past 24 hours TSH 1.58 Heme: Normocytic anemia Thrombocytopenia Vitamin B12 deficiency Dr. Salas -as followed. Currently on cyanocobalamin thousand micrograms intramuscular q. 30 days Monitor CBC daily follow trends. No indication for transfusion of blood products at this time. MSK PT eval and tx FEN Hyper magnesium Replace electrolytes as clinically indicated GI prophylaxis with lansoprazole and DVT prophylaxis with SCDs/Heparin SQ. Palliative care is following. Level 3
[2017-11-08 08:35] LABS: Eosinophils 1 % (0-4); Lymphocytes 7 % (9-44); Monocytes 5 % (0-8); Myelocytes 1 % (0-0); RBC Morphology Normal (Normal); Tallied Nucleated RBC 1 (0-0)
[2017-11-08] MEDS: Multivit/Folic Acid/Minerals Chewable Tablets CHEW SCH (09:27)
[2017-11-08] MEDS: Metoprolol Tartrate 50 MG Tablet PO SCH ×3 (09:27→17:08)
[2017-11-08] MEDS: Heparin - SQ 10,000 UNITS/ML Vial SQ SCH ×2 (09:27→21:02)
[2017-11-08] MEDS: Polyethylene Glycol 3350 17 GM Packet PO SCH ×2 (09:28→21:03)
[2017-11-08] MEDS: Senna/Docusate Sodium 8.6/50 MG Tablet PO SCH ×2 (09:28→21:03)
--- NOTE | 2017-11-08 10:18 | P.PNID ---
Subjective Remarks: ID Coverage for /Darling Chart reviewed, palliative care notes reviewed. is a 72 year old male, livest at home alone, admistted for alter mental status. Etiology not clear, work-up so far unrevealing. LP did not show any evidence of [employer] infection. Imaging studies of brain ok. Has remained confused. On 11/03 had atriall fib RVR and transferred to ICU [place] temp to 102 on 11/04, started on Zosyn and Vancomycin C/S have been negative so far No central line No chavez, has condom cath UA now with pyuria and hematuria Has had thrombocytopenia and hematology evaluating No central line MRI no abnormality. LP with normal protein. D/W RN Opens eyes spontaneously, mumbles to self, calm. Confused Temps ok. Only few temps after day or so after admission ? aspiration pneumonitis secondary to AMS. BP ok Renal US no hydro, UA negative. CXR no PNA All C/S negative so far Antibiotics: Vancomycin Zosyn Lines: PIV no evid of infection Past Medical History: PAST MEDICAL HISTORY: Hyperlipidemia, hypertension, chronic anemia, chronic thrombocytopenia, vitamin B12 deficiency, hearing loss. PAST SURGICAL HISTORY: Tonsillectomy. Allergies/Adverse Reactions: Allergies No Known Allergies Allergy (Uncoded 02/07/14 14:05) Objective Vital Signs 11/07/17 10:15 11/07/17 10:30 11/07/17 10:45 Temperature Pulse Rate 90 97 H 94 H Respiratory Rate 24 25 H 20 Blood Pressure 145/67 H 166/83 H 148/70 H Pulse Oximetry 96 96 97 11/07/17 11:00 11/07/17 11:15 11/07/17 11:30 Temperature Pulse Rate 96 H 97 H 97 H Respiratory Rate 19 24 Blood Pressure 145/75 H 159/72 H 173/86 H Pulse Oximetry 94 L 97 94 L 11/07/17 12:00 11/07/17 12:16 11/07/17 12:30 Temperature Pulse Rate 95 H 95 H 99 H Respiratory Rate 20 16 17 Blood Pressure 124/65 165/68 H 134/75 Pulse Oximetry 96 95 95 11/07/17 12:45 11/07/17 13:00 11/07/17 13:15 Temperature Pulse Rate 103 H 102 H 100 H Respiratory Rate 17 19 15 Blood Pressure 142/74 H 134/71 133/75 Pulse Oximetry 94 L 97 96 11/07/17 13:30 11/07/17 13:45 11/07/17 14:00 Temperature Pulse Rate 97 H 96 H 102 H Respiratory Rate 18 17 25 H Blood Pressure 157/76 H 165/74 H 162/96 H Pulse Oximetry 97 96 92 L 11/07/17 14:15 11/07/17 14:30 11/07/17 16:00 Temperature 98.2 F 97.6 F Pulse Rate 100 H 82 72 Respiratory Rate 21 20 22 Blood Pressure 171/81 H 149/63 H 121/56 L Pulse Oximetry 95 94 L 95 11/07/17 19:46 11/07/17 20:00 11/08/17 00:00 Temperature 98.7 F 98.7 F Pulse Rate 67 72 81 Respiratory Rate 20 21 26 H Blood Pressure 123/63 166/64 H Pulse Oximetry 95 98 95 11/08/17 04:00 11/08/17 07:33 Temperature 98.4 F Pulse Rate 80 82 Respiratory Rate 21 18 Blood Pressure 157/82 H Pulse Oximetry 93 L 96 Intake & Output 11/07/17 11/08/17 11/08/17 18:59 06:59 18:59 Intake Total 1368 / 1368 532 / 532 Output Total 300 / 300 951 / 951 Balance 1068 / 1068 -419 / -419 Weight 59.1 kg Intake: IV 1368 / 1368 50 / 50 D5W/1/2 NS Inj 1,000 ML @ 42 500 / 500 mls/hr IV.CONT .[id number] [facility] Rx# :[id number] Magnesium Sulfate Inj 2 GM In 208 / 208 D5W Inj 100 ML @ 52 mls/hr IV. SIG Q2H [facility] Rx#:[id number] Zosyn 3.375 GM Premix 50 ML @ 150 / 150 50 / 50 100 mls/hr IV.SIG Q6H [facility] Rx#: [id number] Potassium Phosphate Inj 30 MMOL 260 / 260 In NS Inj 250 ML @ 43.333 mls/ hr IV.SIG ONCE ONE Rx#:[id number] Vancomycin Inj 1,000 MG In NS 250 / 250 Inj 250 ML @ 250 mls/hr IV.SIG Q24H [facility] Rx#:[id number] Oral 0 / 0 Tube Feeding 482 / 482 Output: Urine 350 / 350 Stool 600 / 600 Urine/Stool Mix Urine Amount (Catheter) 300 / 300 Condom 300 / 300 Other: Post Void Residual 0 # Incontinent Voids 4 Date of Last Bowel Movement 11/07/17 11/08/17 # Bowel Movements 6 # Incontinent Bowel Movements 4 6 11/05/17 20:37 Blood - Peripheral Aerobic Blood Culture - Preliminary No growth in 2 days 11/05/17 20:37 Blood - Peripheral Anaerobic Blood Culture - Preliminary No growth in 2 days 11/05/17 20:45 Blood - Peripheral Aerobic Blood Culture - Preliminary No growth in 2 days 11/05/17 20:45 Blood - Peripheral Anaerobic Blood Culture - Preliminary No growth in 2 days 11/04/17 20:14 Blood - Peripheral Aerobic Blood Culture - Preliminary No growth in 3 days 11/04/17 20:14 Blood - Peripheral Anaerobic Blood Culture - Preliminary No growth in 3 days 11/04/17 20:08 Blood - Peripheral Aerobic Blood Culture - Preliminary No growth in 3 days 11/04/17 20:08 Blood - Peripheral Anaerobic Blood Culture - Preliminary No growth in 3 days 11/05/17 08:30 Catheterized Urine Urine Culture - Final No growth in 48 hours 11/04/17 10:39 Lumbar Puncture Gram Stain - Final 11/04/17 10:39 Lumbar Puncture CSF Culture - Final No growth in 72 hours Lab - Hematology Results 11/06/17 11/07/17 11/08/17 12:57 03:37 04:00 WBC 12.6 H 10.4 10.9 RBC 4.07 L 3.64 L 3.99 L Hgb 13.0 11.9 L 12.9 L Hct 39.7 35.4 L 39.2 MCV 97.5 97.3 98.2 MCH 31.8 32.7 32.3 MCHC 32.7 33.6 32.8 RDW 13.8 13.6 13.9 Plt Count 74 L 77 L 83 L MPV 13.0 H 13.1 H 13.1 H Prelim Diff (Auto) Slide review pending Slide review pending Slide review pending Neut % (Auto) 88.2 H 86.5 H 83.4 H Lymph % (Auto) 3.0 L 4.3 L 7.2 L Ponce % (Auto) 8.6 H 8.5 H 8.8 H Eos % (Auto) 0.1 0.5 0.2 Baso % (Auto) 0.1 0.2 0.4 Neut # (Auto) 11.1 H 9.0 H 9.1 H Lymph # (Auto) 0.4 L 0.4 L 0.8 L Ponce # (Auto) 1.1 H 0.9 1.0 H Eos # (Auto) 0.0 0.0 0.0 Baso # (Auto) 0.0 0.0 0.0 WBC Differential Manual diff final . Manual diff final Diff Scan Auto diff confirmed Seg Neuts % (Manual) 89 H 85 H Band Neuts % (Manual) 2 1 Lymphocytes % (Manual) 3 L 7 L Monocytes % (Manual) 5 5 Eosinophils % (Manual) 1 Myelocytes % (Man) 1 H Promyelocytes % (Man) 1 H Abs Neuts (Manual) 11.6 H 9.5 H Nucleated RBCs/100 WBC 1 H Differential Comment . . . Platelet Estimate Low L Low L Low L Platelet Morphology Normal Normal Enlarged H RBC Morphology Normal Lab - Chemistry Results 11/06/17 11/06/17 11/06/17 12:31 15:12 16:16 Sodium Potassium 3.6 D Chloride Carbon Dioxide Anion Gap BUN Creatinine Estimated GFR POC Glucose 175 H 173 H Random Glucose Calcium Phosphorus Magnesium Total Bilirubin AST ALT Alkaline Phosphatase Total Protein Albumin 11/06/17 11/06/17 11/07/17 21:05 23:48 03:37 Sodium 146 H Potassium 3.3 L Chloride 113 H Carbon Dioxide 22.9 Anion Gap 10 BUN 22 H Creatinine 1.13 Estimated GFR 64 L POC Glucose 165 H 156 H Random Glucose 177 H Calcium 8.0 L Phosphorus 2.4 L Magnesium 1.6 Total Bilirubin 0.5 AST 18 ALT 20 Alkaline Phosphatase 47 Total Protein 5.6 L Albumin 2.5 L 11/07/17 11/07/17 11/07/17 04:47 16:16 20:43 Sodium Potassium Chloride Carbon Dioxide Anion Gap BUN Creatinine Estimated GFR POC Glucose 157 H 145 H 173 H Random Glucose Calcium Phosphorus Magnesium Total Bilirubin AST ALT Alkaline Phosphatase Total Protein Albumin 11/08/17 11/08/17 11/08/17 00:42 04:00 06:09 Sodium 148 H Potassium 4.1 D Chloride 112 H Carbon Dioxide 22.7 Anion Gap 13 BUN 29 H Creatinine 1.41 H Estimated GFR 49 L POC Glucose 134 H 184 H Random Glucose 141 H Calcium 8.2 L Phosphorus 3.7 D Magnesium 2.7 H D Total Bilirubin 0.5 AST 84 H ALT 63 Alkaline Phosphatase 84 Total Protein 6.3 L D Albumin 2.8 L 11/08/17 09:24 Sodium Potassium Chloride Carbon Dioxide Anion Gap BUN Creatinine Estimated GFR POC Glucose 158 H Random Glucose Calcium Phosphorus Magnesium Total Bilirubin AST ALT Alkaline Phosphatase Total Protein Albumin Imaging: ITS Impressions Carotid Doppler Study 11/02/17 00:00 CONCLUSION: 1. There is atherosclerotic plaquing at both carotid bifurcations. 2. 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 3. The vertebral arteries were not visualized. 4. Recommend CTA of the carotids for further evaluation. Neck CTA 11/02/17 00:00 CONCLUSION: 1. High right common carotid artery bifurcation. No evidence of hemodynamically significant carotid stenosis. 2. Diminutive right vertebral artery that terminates at the skull base. Basilar artery also has a diffusely narrow diameter. Head MRI 11/03/17 00:00 CONCLUSION: 1. Exam is limited due to motion artifact on just about every pulse sequence. 2. However, grossly, nothing acute. Mild, symmetric cortical atrophy with some minimal small vessel ischemic demyelination. Head CT 11/03/17 09:57 CONCLUSION: Atrophy, otherwise negative for an acute process. Ajay Pope MD FACR . Lumbar Puncture Fluoroscopy 11/04/17 00:00 CONCLUSION: 1. Uncomplicated fluoroscopically guided lumbar puncture. Abdomen/Bladder Ultrasound 11/05/17 00:00 CONCLUSION: 1. Sonographic findings consistent with underlying medical renal disease. No obstruction observed. 2. Distended gallbladder without gallstones or gallbladder wall thickening. Abdomen X-Ray 11/08/17 00:00 CONCLUSION: Negative KUB. Chest X-Ray 11/08/17 06:00 CONCLUSION: Prominence of interstitium which may represent pulmonary venous hypertension or minimal edema. Physical Exam: GENERAL: Thin, frail male, awake and agitated, not in distress SKIN: has ecchymoses in UE, no generalized rash HEENT: Pupils are constricted but reactive. No icterus. No conjunctival erythema. Oropharynx appears dry. The patient is edentulous. NECK: Supple without adenopathy. LUNGS: Diminished breath sounds. HEART: Irregular rate and rhythm. No murmurs heard. No rubs or gallops. ABDOMEN: Flat, soft, no tenderness. No masses palpable. EXTREMITIES: No clubbing, cyanosis, or edema. Deformities of toes and MTP joints. NEUROLOGIC: Awake and agitated, moves all extremities, no Babinski. PSYCHIATRIC: Unable to assess. LINE: PIV no evidence of infection Assessment and Plan - Plan Impression: Encephalopathy, etiology? Fevers 11/04, UA abnormal - ?had acute retention that improved - CXR ok - LP ok - C/S negative; UC negative but he was on Abx already ? aspiration pneumonitis. Leukocytosis, has resolved AKD, resolved very quickly usually seen with retention with improvement quicly once retention resolved RECOMMENDATIONS: DC vancomycin IV. Continue Zosyn. Check Procalcitonin if normal ok to stop and observe off all antibiotics if no change in clinical condition. Follow C/S Monitor temps Monitor progress D/W RN to resume care on Friday11/10/17. If any changes in the interim please call sooner.
[2017-11-08] MEDS: Dextrose 5% in Water Inj 1,000 ML IV.CONT SCH (11:56)
[2017-11-08] MEDS: Clevidipine Inj 25 MG/50 ML VIAL IV.CONT PRN ×3 (17:09→22:30)
[2017-11-08] MEDS: Hypromellose 0.3% Opth Gel 10 GM Bottle EACH EYE SCH (21:02)
[2017-11-08] MEDS: Acetaminophen 325 MG Tablet PO PRN (22:35)
[2017-11-09] MEDS: Piperacil/Tazo 3.375 GM Premix 50 ML IV.SIG SCH ×4 (00:20→17:11)
[2017-11-09] MEDS: Insulin NovoLIN Regular Correctional Sugar Inj SQ SCH ×5 (00:38→17:55)
[2017-11-09] MEDS: Clevidipine Inj 25 MG/50 ML VIAL IV.CONT PRN ×8 (00:40→21:20)
[2017-11-09 04:26] LABS: Baso % (Auto) 0.2 % (0.0-2.0); Eos % (Auto) 0.2 % (0.0-4.0); Hemoglobin 12.1 gm/dL (13.0-17.0); Lymph # (Auto) 0.6 th/mm3 (1.0-4.8); Lymph % (Auto) 4.9 % (9.0-44.0); Mean Corpuscular HGB Conc 32.7 % (32.0-36.0); Mean Corpuscular Volume 97.9 fL (80.0-100.0); Mean Platelet Volume 12.6 fL (7.0-11.0); Mono # (Auto) 1.6 th/mm3 (0.0-0.9); Mono % (Auto) 12.8 % (0.0-8.0); Neut # (Auto) 10.4 th/mm3 (1.8-7.7); Neut % (Auto) 81.9 % (16.0-70.0); Platelet Count 93 th/mm3 (150-450); Red Blood Count 3.78 mil/mm3 (4.50-5.90); Red Cell Distribution Width 13.6 % (11.6-17.2); White Blood Count 12.8 th/mm3 (4.0-11.0)
[2017-11-09 05:46] LABS: Lymphocytes 6 % (9-44); Metamyelocytes 1 % (0-1); Monocytes 10 % (0-8)
[2017-11-09 05:47] LABS: Platelet Morphology Normal (Normal)
--- NOTE | 2017-11-09 07:24 | P.PNCC ---
Subjective Subjective Remarks/Hospital Course: The patient is a 72-year-old male with a past medical history of hypertension, hyperlipidemia, thrombocytopenia, vitamin B12 deficiency, who presented to [facility] ED on 10/29/2017 for altered mental status. He was [place] Acted by ED provider. The patient is a poor historian and most of the history was obtained from reviewing medical records. He was given Ativan 3 mg total on arrival, due to his severe agitation. Patient was initially admitted under hospitalist service and he underwent a CT scan of the brain on 10/29/2017, which was a limited study due to severe motion artifact. A repeat CT scan of the brain was obtained earlier this morning, which showed atrophy, otherwise negative for acute process. CTA of the neck was performed on 11/02/2017 which showed no evidence of any hemodynamically significant carotid stenosis. The patient was found to be in atrial fibrillation with RVR this morning with a heart rate of 140s. He was given Lopressor 5 mg IV push and placed on p.o. Cardizem and p.o. Lopressor. Due to worsening mental status, he was transferred to ICU and critical care medicine was consulted for critical care management. The patient received additional 3 mg of Ativan since in the last 12 hours. MRI of the brain was ordered by the primary team. The patient does arouse to touch and verbalizes several words and able to move all extremities. 11/04 MRI brain last night showed no acute disease/Mild, symmetric cortical atrophy with some minimal small vessel ischemic demyelination.Patient pulled out NGT , On Amio drip for Afib with RVR, given Digoxin and started on Cleviprex drip last night. 11/05 Patient remains on Amio drip. Had T: 102 yesterday. s/p LP showed clear CSF , 0 WBC. Renal function worse with Cr: 2.04 from 0.89. 11/06: Afebrile. Resting comfortably bed in no acute distress. Remains in soft restraints. Remains in atrial fibrillation with rapid ventricular response heart rate in the 110s. No bowel movement since admission noted. 11/07: Afebrile. Agitated this a.m. at this moment but previously but sometimes pleasantly confused. Mumbles words. Replacing a left leg. Currently in normal sinus rhythm. 11/08: Afebrile. Remains intermittently confused. Mumbles were. Currently normal sinus rhythm. Positive BM. Ileus has resolved. SUBJECTIVE: 11/09: Agitated yesterday. Afebrile. Vancomycin discontinued. Pro-calcitonin 1.65. MRI brain still pending. Currently asleep. Heart rate controlled currently normal sinus rhythm in the 80s. Objective Vital Signs / I&O: Vital Signs 11/08/17 07:33 11/08/17 08:00 11/08/17 12:00 Temperature 98.8 F 99.3 F Pulse Rate 82 88 78 Respiratory Rate 18 20 20 Blood Pressure 164/79 H 174/84 H Pulse Oximetry 96 93 L 93 L 11/08/17 13:49 11/08/17 16:00 11/08/17 20:00 Temperature 99.1 F 97.8 F Pulse Rate 75 83 74 Respiratory Rate 22 22 Blood Pressure 179/123 H 172/74 H Pulse Oximetry 90 L 87 L 11/08/17 20:18 11/09/17 00:00 11/09/17 04:00 Temperature 98.6 F 98.6 F Pulse Rate 80 85 81 Respiratory Rate 20 16 Blood Pressure 151/65 H 153/70 H Pulse Oximetry 93 L 93 L 94 L Intake & Output 11/08/17 11/09/17 11/09/17 18:59 06:59 18:59 Intake Total 706 / 706 200 / 200 Output Total 775 / 775 Balance -69 / -69 200 / 200 Intake: IV 100 / 100 200 / 200 Cleviprex Inj 25 mg In 50 ml @ 150 / 150 1 MG/HR 2 mls/hr IV.CONT TITRATE PRN Rx#:[id number] Zosyn 3.375 GM Premix 50 ML @ 100 / 100 50 / 50 100 mls/hr IV.SIG Q6H GARY Rx#: [id number] Oral 0 / 0 Tube Feeding 486 / 486 Water Bolus Amount 120 / 120 Output: Urine 0 / 0 Stool 400 / 400 Urine/Stool Mix 0 / 0 Urine Amount (Catheter) 375 / 375 Condom 375 / 375 Other: Post Void Residual 0 # Voids 3 # Incontinent Voids 3 Date of Last Bowel Movement 11/07/17 11/08/17 # Bowel Movements 2 # Incontinent Bowel Movements 2 Result Diagrams: 11/09/17 03:23 11/08/17 04:00 Other Results: Microbiology 11/05/17 20:37 Blood - Peripheral Aerobic Blood Culture - Preliminary No growth in 3 days 11/05/17 20:37 Blood - Peripheral Anaerobic Blood Culture - Preliminary No growth in 3 days 11/05/17 20:45 Blood - Peripheral Aerobic Blood Culture - Preliminary No growth in 3 days 11/05/17 20:45 Blood - Peripheral Anaerobic Blood Culture - Preliminary No growth in 3 days 11/04/17 20:14 Blood - Peripheral Aerobic Blood Culture - Preliminary No growth in 4 days 11/04/17 20:14 Blood - Peripheral Anaerobic Blood Culture - Preliminary No growth in 4 days 11/04/17 20:08 Blood - Peripheral Aerobic Blood Culture - Preliminary No growth in 4 days 11/04/17 20:08 Blood - Peripheral Anaerobic Blood Culture - Preliminary No growth in 4 days 11/05/17 08:30 Catheterized Urine Urine Culture - Final No growth in 48 hours 11/04/17 10:39 Lumbar Puncture Gram Stain - Final 11/04/17 10:39 Lumbar Puncture CSF Culture - Final No growth in 72 hours Imaging: ITS Impressions Carotid Doppler Study 11/02/17 00:00 CONCLUSION: 1. There is atherosclerotic plaquing at both carotid bifurcations. 2. 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 3. The vertebral arteries were not visualized. 4. Recommend CTA of the carotids for further evaluation. Neck CTA 11/02/17 00:00 CONCLUSION: 1. High right common carotid artery bifurcation. No evidence of hemodynamically significant carotid stenosis. 2. Diminutive right vertebral artery that terminates at the skull base. Basilar artery also has a diffusely narrow diameter. Head MRI 11/03/17 00:00 CONCLUSION: 1. Exam is limited due to motion artifact on just about every pulse sequence. 2. However, grossly, nothing acute. Mild, symmetric cortical atrophy with some minimal small vessel ischemic demyelination. Head CT 11/03/17 09:57 CONCLUSION: Atrophy, otherwise negative for an acute process. Ajay Pope MD FACR . Lumbar Puncture Fluoroscopy 11/04/17 00:00 CONCLUSION: 1. Uncomplicated fluoroscopically guided lumbar puncture. Abdomen/Bladder Ultrasound 11/05/17 00:00 CONCLUSION: 1. Sonographic findings consistent with underlying medical renal disease. No obstruction observed. 2. Distended gallbladder without gallstones or gallbladder wall thickening. Abdomen X-Ray 11/08/17 00:00 CONCLUSION: Negative KUB. Chest X-Ray 11/08/17 06:00 CONCLUSION: Prominence of interstitium which may represent pulmonary venous hypertension or minimal edema. Objective Remarks: GENERAL: Patient is 72 yo male resting in an ICU bed currently in NAD on nasal cannula. SKIN: Warm and dry. No rash HEAD: Normocephalic. EYES: No scleral icterus. No injection or drainage. NECK: Supple, trachea midline. No JVD or lymphadenopathy. CARDIOVASCULAR: RRR. S1, S2 no S4. 2/6 systolic murmur in sternal RESPIRATORY: Breath sounds equal bilaterally. No accessory muscle use. GASTROINTESTINAL: Abdomen soft, non-tender, nondistended. Hypoactive bowel sounds are appreciated. Tube in place MUSCULOSKELETAL: No significant peripheral edema. Neuro: Responds to voice, able to move all extremities spontaneously and shaking right upper extremity. Left upper extremity possibly subjectively weaker.. Assessment and Plan - Assessment and Plan Plan: Neuro/Psych: Acute encephalopathy [place] B12 deficiency Monitor neurologic status and avoid any sedatives if possible. CT brain 11/03 showed no acute intracranial process CTA of the neck 11/03 showed no significant hemodynamic stenosis. MRI brain: 11/03 no acute disease EEG: Mild encephalopathy with no epileptiform activity We will recheck MRI brain today ordered 11/08 but still pending on 11/09 with continued altered mental status. Neuro is following- Dr. Canela, s/p LP 11/04 showed clear CSF, 0 WBC, T, TP: 37.6 Started on Acyclovir empirically by Neuro. this is been discontinued Geodon will be discontinued as needed after today's. Acetaminophen 650 every 4 hours as needed fever Continue with cyanocobalamin 1000 micro grams daily from 11/06 through 11/09 then intramuscularly every 30 days. Followed by hematology. Pulm: Acute respiratory insufficiency Nasal cannula to maintain saturations greater than equal to 92% Incentive spirometry while awake Acapella/PET therapy every 6 hours while awake Albuterol/ipratropium aerosols every 6 hours while awake with albuterol aerosols every 2 hours as needed for dyspnea Follow-up chest x-ray in a.m. 11/08 reveals left lower lobe infiltrate CV: Atrial fibrillation with rapid ventricular response Essential hypertension Hyperlipidemia Acute systolic heart failure Moderate MR/TR On amiodarone drip at 0.5 mg/min. discontinue today as patient currently normal sinus rhythm Monitor HR and BP keep MAP>65mmHg Continue diltiazem 90 mg q.i.d, metoprolol tartrate 50 t.i.d) Trop <0.02 x 2, Continue atorvastatin 40 mg daily for dyslipidemia 2-D echo. Revealed EF 25-30%. Decrease this to like left ventricular function. Distal lateral, apical hypokinesis. Bilateral atrial enlargement. Moderate AR/TR. PAP 39 mmHg Cards eval. Patient is at high risk of full anticoagulation for Afib given thrombocytopenia ( PLT < 100) Renal/: Acute kidney injury Renal ultrasound revealed possible left renal mass lower pole 2 x 1 x 1.4 cm. Medical renal disease. Creatinine is currently pending this a.m. Likely secondary to contrast resolving. Recheck BMP in a.m. 11/10 Continue D5 water at 42 cc an hour for a total of 2 L GI: Constipation -resolved Hypoalbuminemia Jevity 1.5 at 50 cc an hour per nutrition recommendations with free water 100 cc every 8 hours on lansoprazole 30 mg daily for GI prophylaxis. NPO per speech. Docusate sodium/senna 1 tablet twice daily for bowel regimen. . Fecal disimpaction as needed Distended gallbladder without cold cystitis. Cholelithiasis. KUB reveals 9.5 cm cecum. Dilated large and small bowel. Positive BM. ID: Monitor for signs of infection, which include fever and WBC. Continue piperacillin/tazobactam empirically. Followup on BC from 11/04 and 11/05 no growth to date. UA -11/05. Vancomycin discontinued 11/08 Started on Acyclovir empirically by Neuro, discontinued 11/05 s/p LP 11/04:Clear CSF, 0 WBC, T, TP:37. Negative CSF 11/04 Follow up on CSF cultures. ID eval. Pro-calcitonin 1.65 Endo: SSI with Accu-Cheks to maintain euglycemia. Novulin R TSH 1.58 Heme: Normocytic anemia Thrombocytopenia Leukocytosis Vitamin B12 deficiency Dr. Salas -as followed. Currently on cyanocobalamin thousand micrograms intramuscular q. 30 days Monitor CBC daily follow trends. No indication for transfusion of blood products at this time. MSK PT eval and tx FEN Hyper magnesium Replace electrolytes as clinically indicated GI prophylaxis with lansoprazole and DVT prophylaxis with SCDs/Heparin SQ. Palliative care is following. Level 3 follow-up
[2017-11-09] MEDS ORDERED: Digoxin Inj 500 MCG/2 ML Ampul IV.PUSH ONE (07:25)
[2017-11-09] MEDS: Polyethylene Glycol 3350 17 GM Packet PO SCH (08:24)
[2017-11-09] MEDS: Metoprolol Tartrate 50 MG Tablet PO SCH ×3 (08:24→17:12)
[2017-11-09] MEDS: Senna/Docusate Sodium 8.6/50 MG Tablet PO SCH (08:26)
[2017-11-09] MEDS: Heparin - SQ 10,000 UNITS/ML Vial SQ SCH (08:28)
[2017-11-09] MEDS: Multivit/Folic Acid/Minerals Chewable Tablets CHEW SCH (08:28)
[2017-11-09] MEDS: Dextrose 5% in Water Inj 1,000 ML IV.CONT SCH (10:39)
[2017-11-09] MEDS ORDERED: Pharmacy Ordered Lab Info OTHER ONE (10:45)
[2017-11-09 13:24] LABS: Carbon Dioxide 22.6 meq/L (21.0-32.0); Magnesium 2.3 mg/dL (1.5-2.5); Potassium 3.8 meq/L (3.5-5.1)
[2017-11-09 13:25] LABS: Phosphorus 4.2 mg/dL (2.5-4.9)
[2017-11-09 13:27] LABS: Vancomycin,Trough 3.8 mcg/mL (5.0-10.0)
[2017-11-09] MEDS ORDERED: Propofol Inj 500 MG/50 ML Vial ONE (23:31)
[2017-11-09] MEDS ORDERED: Morphine Inj 4 MG/ML Vial IV.PUSH STA (23:53)
[2017-11-09] MEDS ORDERED: Morphine Inj 4 MG/ML Vial ONE (23:58)
--- NOTE | 2017-11-10 00:05 | XR ---
EXAM DATE: 11/09/2017 11:57 PM EDT AGE/SEX: 72 years / Male INDICATIONS: Post cardiac arrest intubation. CLINICAL DATA: This is the patient's subsequent encounter. Patient reports that signs and symptoms h ave been present for 1 week and indicates a pain score of Nonresponsive. MEDICAL/SURGICAL HISTORY: Anemia. Hypertension. None. COMPARISON: [facility] [place]ST 1V SINGLE AP, 11/08/2017. . FINDINGS: A single AP view of the chest demonstrates endotracheal tube with the tip 4 cm from the cynthia. Lung bases are omitted from the film. Hazy opacities are seen suggesting bilateral posterior layering pleu ral effusions. A small right-sided pneumothorax noted. No pneumothorax seen on the left. Scattered pa renchymal consolidations most pronounced within the right upper lobe. Heart is mildly enlarged. Degen erative changes involving the spine. CONCLUSION: Small right-sided pneumothorax. Small posterior layering bilateral pleural effusions. Diffuse bilater al parenchymal consolidations more pronounced on the right. Electronically signed by: Polo Ricardo MD 11/10/2017 12:04 AM EDT
--- NOTE | 2017-11-10 00:11 | P.PCN ---
Date of procedure: 11/09/17 Pre-op diagnosis: Cardiac arrest PEA Post-op diagnosis: same Procedure: CPR: Responded to CODE BLUE cardiac arrest code activation at 2320 hrs. Patient went into PEA arrest. CPR/ACLS protocol initiated. Patient received 1 dose of epinephrine during CPR. He did have return of spontaneous circulation in about 4 minutes of CPR/ACLS. He was having agonal respirations following ROSC with altered mental status hence I proceeded with endotracheal intubation. During intubation, patient did have a gag and was attempting to cough. Please see separate note for endotracheal intubation procedure. EKG done following [place] revealed accelerated idioventricular rhythm with extensive ST-T changes suggesting myocardial infarction. Dr. jacque olivier. Aspirin 325 mg via G- tube stat ordered as well as stat labs and chest x-ray, CT head to evaluate for ICH and CT pulmonary angiogram to evaluate for PE. Patient placed on mechanical ventilation. Further recommendations following review of labs and imaging studies. Condition: critical Disposition: ICU
--- NOTE | 2017-11-10 00:13 | P.PCN ---
Date of procedure: 11/09/17 Pre-op diagnosis: Cardiac arrest PEA Post-op diagnosis: same Procedure: Procedure: Endotracheal intubation Indication: Cardiac arrest status post CPR with subsequent agonal respirations and altered mental status. Sedation used: None Procedure: Patient was preoxygenated with 100% oxygen via Ambu bag with bag mask ventilation, direct laryngoscopy was performed using a Mac 4 blade with good visualization of vocal cords. An 8 Turkish ET tube was passed through the vocal cords under direct visualization up to the 23 centimeter devyn and after inflating cuff of ET tube, correct placement was confirmed using bagging with good color change on CO2 detector, 5 point auscultation and chest rise with ventilation. Patient was connected to mechanical ventilation. Patient tolerated the procedure well with no immediate complications noted. Postprocedure chest x-ray was ordered. Patient was given 4 mg Ativan IV for vent synchrony following intubation as he was starting to gag and cough. Propofol drip ordered for further sedation.
[2017-11-10 00:15] LABS: ABG Base Excess -6.9 mmol/L (-2-2); ABG PCO2 33 mmHg (38-42); ABG PO2 146 mmHg (61-120)
[2017-11-10 00:57] LABS: Hematocrit 36.1 % (39.0-51.0); Hemoglobin 11.8 gm/dL (13.0-17.0); Mean Corpuscular HGB Conc 32.7 % (32.0-36.0); Mean Corpuscular Hemoglobin 32.2 pg (27.0-34.0); Mean Corpuscular Volume 98.4 fL (80.0-100.0); Mean Platelet Volume 12.5 fL (7.0-11.0); Platelet Count 106 th/mm3 (150-450); Red Blood Count 3.67 mil/mm3 (4.50-5.90); Red Cell Distribution Width 13.7 % (11.6-17.2); White Blood Count 20.2 th/mm3 (4.0-11.0)
--- NOTE | 2017-11-10 00:57 | P.PCN ---
Date of procedure: 11/10/17 Pre-op diagnosis: Cardiac arrest PEA Post-op diagnosis: same Procedure: PROCEDURE PERFORMED [] internal jugular vein central venous catheter placement under ultrasound guidance. INFORMED CONSENT Informed consent not obtained as this was an emergent procedure following cardiac arrest. ANESTHESIA 1% Lidocaine for local infiltration anesthesia. PROCEDURE After sterile prepping and draping using 1% lidocaine for local infiltration anesthesia, the right internal jugular vein was visualized using an ultrasound vessel finder and under direct visualization was cannulated using an introducer Angiocath with dark non-pulsatile blood return. An Angiocath was advanced into the internal jugular vein without any resistance and the needle was then removed. Blood return was confirmed through the Angiocath following which a guidewire was passed through the Angiocath into the right internal jugular vein without any resistance and the Angiocath was then removed. After making a skin catrachito and dilation of tract, a 20 cm antimicrobial coated triple lumen catheter was passed over the guidewire by modified Seldinger technique into the right internal jugular vein up to the 19 cm devyn and the guidewire was then removed. Good blood return obtained through all three ports which were then flushed and capped. After securing the catheter in place with a StatLock, a Bio-occlusive dressing with Biopatch was applied to the site. The patient tolerated the procedure well with no immediate complications noted. A postprocedure chest x-ray was ordered and will be reviewed when available.
[2017-11-10 01:11] LABS: Activated Partial Thrombo Time 22.8 sec (24.3-30.1); INR 1.1 Ratio; Prothrombin Time 11.5 sec (9.8-11.6)
[2017-11-10 01:17] LABS: Alanine Aminotransferase 130 U/L (12-78); Albumin 2.5 g/dL (3.4-5.0); Alkaline Phosphatase 68 U/L (45-117); Anion Gap 12 meq/L (5-15); Aspartate Aminotransferase 172 U/L (15-37); Blood Urea Nitrogen 45 mg/dL (7-18); Calcium 7.6 mg/dL (8.5-10.1); Carbon Dioxide 23.8 meq/L (21.0-32.0); Chloride 105 meq/L (98-107); Glomerular Filtration Rate 25 mL/min (>89); Glucose,Random 125 mg/dL (74-106); Potassium 4.7 meq/L (3.5-5.1); Sodium 141 meq/L (136-145); Total Protein 6.2 g/dL (6.4-8.2); Troponin I 0.12 ng/mL (0.02-0.05)
[2017-11-10 01:29] LABS: Metamyelocytes 1 % (0-1); Monocytes 9 % (0-8); Tallied Nucleated RBC 5 (0-0)
[2017-11-10 01:31] LABS: Lymphocytes 4 % (9-44)
[2017-11-10 01:36] LABS: Platelet Morphology Normal (Normal)
--- NOTE | 2017-11-10 01:41 | XR ---
EXAM DATE: 11/10/2017 1:22 AM EDT AGE/SEX: 72 years / Male INDICATIONS: Right internal jugular central line placement. CLINICAL DATA: This is the patient's subsequent encounter. Patient reports that signs and symptoms h ave been present for 1 week and indicates a pain score of Nonresponsive. MEDICAL/SURGICAL HISTORY: Anemia. Hypertension. None. COMPARISON: [facility] – [place], CHEST 1V SINGLE AP, 11/09/2017. . FINDINGS: A single AP view of the chest demonstrates interval placement of right-sided central line. Tip is in the SVC. Endotracheal tube tip 4 cm from the cynthia. Interval placement of nasogastric tube. Tip cour ses off the inferior margin of the film. Previously seen right-sided pneumothorax not seen on this ex am. Heart is enlarged. Bilateral pleural effusions. Diffuse bilateral pulmonary infiltrates. CONCLUSION: 1. Central line in good position. No pneumothorax seen on this study. 2. Unchanged effusions and bilateral pulmonary infiltrates. Electronically signed by: Polo Ricardo MD 11/10/2017 1:40 AM EDT
--- NOTE | 2017-11-10 01:47 | CT ---
EXAM DATE: 11/10/2017 1:44 AM EDT AGE/SEX: 72 years / Male INDICATIONS: Altered mental status. Post code. CLINICAL DATA: This is the patient's initial encounter. Patient reports that signs and symptoms have been present for 1 day and indicates a pain score of Nonresponsive. MEDICAL/SURGICAL HISTORY: Anemia. Hypertension. None. RADIATION DOSE: 61.29 CTDI (mGy) [place] [facility] [place]. . TECHNIQUE: CT of the head without contrast. Using automated exposure control and adjustment of the mA and/or kV according to patient size, radiation dose was kept as low as reasonably achievable to ob tain optimal diagnostic quality images. DICOM format image data is available electronically for revi ew and comparison. FINDINGS: Cerebrum: Atrophy. The ventricles are normal for age. No evidence of midline shift, mass lesion, he morrhage or acute infarction. No extraaxial fluid collections are seen. Posterior Fossa: The cerebellum and brainstem are intact. The 4th ventricle is midline. The cerebe llopontine angle is unremarkable. Extracranial: The visualized portion of the orbits is intact. Skull: The calvaria is intact. No evidence of skull fracture. CONCLUSION: 1. Atrophy. . Electronically signed by: Polo Ricardo MD 11/10/2017 1:45 AM EDT
[2017-11-10] MEDS ORDERED: Heparin Drip 25,000 UNIT/250 ML BAG IV.CONT PRN (01:58)
[2017-11-10] MEDS ORDERED: Heparin 10,000 UNITS/10 ML Vial (for IV use) IV.PUSH STA (01:58)
--- NOTE | 2017-11-10 02:01 | CT ---
EXAM DATE: 11/10/2017 1:50 AM EDT AGE/SEX: 72 years / Male INDICATIONS: Post code. Evaluate for emboli. CLINICAL DATA: This is the patient's initial encounter. Patient reports that signs and symptoms have been present for 1 day and indicates a pain score of Nonresponsive. MEDICAL/SURGICAL HISTORY: Anemia. Hypertension. None. RADIATION DOSE: 16.53 CTDI (mGy) COMPARISON: No prior exams available for comparison. TECHNIQUE: Volumetric scanning was performed using a multi-row detector CT scanner during bolus infu ko of 50 ml Visipaque 320 (iodixanol) nonionic water-soluble contrast as a single exam dose. The d king was post processed with a variety of visualization algorithms including full volume maximum inten sity projection and sliding thin slab reformation. Using automated exposure control and adjustment of the mA and/or kV according to patient size, radiation dose was kept as low as reasonably achievable to obtain optimal diagnostic quality images. DICOM format image data is available electronically for review and comparison. FINDINGS: Pulmonary Arteries: No filling defects are seen in the pulmonary arteries out to the subsegmental ve ssels. The left and right pulmonary arteries are normal in diameter. Lung: Consolidation involving the deep dependent portions of both lungs adjacent to the pleural effu sions. Some air bronchogram formation noted. The aerated portions of the upper lobes are clear.. Effusion: Moderate sized bilateral posterior layering pleural effusions. Mediastinum: No evidence of mediastinal or hilar adenopathy. Other: The axilla is unremarkable. Endotracheal tube and central line noted. No pneumothorax. Small hepatic cysts. CONCLUSION: 1. No pulmonary emboli. 2. Moderate sized bilateral pleural effusions with adjacent pulmonary consolidation in part due to a telectasis. 3. Mild cardiomegaly. Electronically signed by: Polo Ricardo MD 11/10/2017 1:59 AM EDT
[2017-11-10] MEDS: Hypromellose 0.3% Opth Gel 10 GM Bottle EACH EYE SCH ×2 (02:18→20:48)
[2017-11-10] MEDS: Insulin NovoLIN Regular Correctional Sugar Inj SQ SCH ×7 (02:18→20:48)
[2017-11-10] MEDS: Senna/Docusate Sodium 8.6/50 MG Tablet PO SCH ×3 (02:20→20:49)
[2017-11-10] MEDS: Polyethylene Glycol 3350 17 GM Packet PO SCH ×3 (02:20→20:49)
[2017-11-10] MEDS: Piperacil/Tazo 3.375 GM Premix 50 ML IV.SIG SCH ×5 (02:20→23:08)
[2017-11-10] MEDS: Oral Hygiene Kit OROPHARYNG SCH ×4 (02:25→15:21)
[2017-11-10] MEDS: Heparin - SQ 10,000 UNITS/ML Vial SQ SCH (02:36)
[2017-11-10] MEDS: Propofol 1000 mg/100 ml Inj 1,000 MG/100 ML BOTTLE IV.CONT PRN ×3 (03:59→23:07)
[2017-11-10] MEDS ORDERED: Chlorhexidine Gluconate 2% 1 Pack (2 Cloths) TOPICAL PRN (04:00)
[2017-11-10] MEDS: Chlorhexidine Gluconate 2% 1 Pack (2 Cloths) TOPICAL SCH (04:50)
[2017-11-10] MEDS: Clevidipine Inj 25 MG/50 ML VIAL IV.CONT PRN ×5 (04:51→23:50)
[2017-11-10] MEDS ORDERED: Norepinephrine Inj 4 MG/4 ML Ampul IV.CONT ONE (05:00)
[2017-11-10] MEDS ORDERED: Lidocaine/D5W 2000 mg/500 mL 2,000 MG/500 ML BAG IV.SIG ONE (05:00)
[2017-11-10 05:04] LABS: Hematocrit 35.9 % (39.0-51.0); Hemoglobin 11.7 gm/dL (13.0-17.0); Mean Corpuscular HGB Conc 32.5 % (32.0-36.0); Mean Corpuscular Hemoglobin 31.9 pg (27.0-34.0); Mean Corpuscular Volume 97.9 fL (80.0-100.0); Mean Platelet Volume 12.3 fL (7.0-11.0); Platelet Count 96 th/mm3 (150-450); Red Blood Count 3.67 mil/mm3 (4.50-5.90); Red Cell Distribution Width 13.5 % (11.6-17.2); White Blood Count 17.9 th/mm3 (4.0-11.0)
[2017-11-10] MEDS: Sod Chloride 0.9% Inj 1,000 ML IV.CONT SCH (05:09)
[2017-11-10 05:20] LABS: Albumin 2.4 g/dL (3.4-5.0); Calcium 7.4 mg/dL (8.5-10.1); Carbon Dioxide 26.2 meq/L (21.0-32.0); Magnesium 2.3 mg/dL (1.5-2.5); Potassium 3.8 meq/L (3.5-5.1); Total Protein 6.2 g/dL (6.4-8.2); Troponin I 0.14 ng/mL (0.02-0.05)
--- NOTE | 2017-11-10 06:56 | P.PNCC ---
Subjective Subjective Remarks/Hospital Course: The patient is a 72-year-old male with a past medical history of hypertension, hyperlipidemia, thrombocytopenia, vitamin B12 deficiency, who presented to [facility] ED on 10/29/2017 for altered mental status. He was [facility] Acted by ED provider. The patient is a poor historian and most of the history was obtained from reviewing medical records. He was given Ativan 3 mg total on arrival, due to his severe agitation. Patient was initially admitted under hospitalist service and he underwent a CT scan of the brain on 10/29/2017, which was a limited study due to severe motion artifact. A repeat CT scan of the brain was obtained earlier this morning, which showed atrophy, otherwise negative for acute process. CTA of the neck was performed on 11/02/2017 which showed no evidence of any hemodynamically significant carotid stenosis. The patient was found to be in atrial fibrillation with RVR this morning with a heart rate of 140s. He was given Lopressor 5 mg IV push and placed on p.o. Cardizem and p.o. Lopressor. Due to worsening mental status, he was transferred to ICU and critical care medicine was consulted for critical care management. The patient received additional 3 mg of Ativan since in the last 12 hours. MRI of the brain was ordered by the primary team. The patient does arouse to touch and verbalizes several words and able to move all extremities. 11/04 MRI brain last night showed no acute disease/Mild, symmetric cortical atrophy with some minimal small vessel ischemic demyelination.Patient pulled out NGT , On Amio drip for Afib with RVR, given Digoxin and started on Cleviprex drip last night. 11/05 Patient remains on Amio drip. Had T: 102 yesterday. s/p LP showed clear CSF , 0 WBC. Renal function worse with Cr: 2.04 from 0.89. 11/06: Afebrile. Resting comfortably bed in no acute distress. Remains in soft restraints. Remains in atrial fibrillation with rapid ventricular response heart rate in the 110s. No bowel movement since admission noted. 11/07: Afebrile. Agitated this a.m. at this moment but previously but sometimes pleasantly confused. Mumbles words. Replacing a left leg. Currently in normal sinus rhythm. 11/08: Afebrile. Remains intermittently confused. Mumbles were. Currently normal sinus rhythm. Positive BM. Ileus has resolved. 11/09: Agitated yesterday. Afebrile. Vancomycin discontinued. Pro-calcitonin 1.65. MRI brain still pending. Currently asleep. Heart rate controlled currently normal sinus rhythm in the 80s. SUBJECTIVE: 11/10: cardiac arrest overnight with CPR. ROSC obtained, placed on life support. this AM remains intubated. persistently encephalopathic. I discussed the patient's care with his healthcare surrogate along with the palliative care team. the patient's current clinical condition is not congruent with the patient 's wishes. I expressed that regardless of underlying illness, the patient likely would not survive this hospitalization, and added with an underlying illness for which he already may not have had any meaningful recovery, this was a terminal event. the healthcare surrogate agrees. will transition our goals to comfort. Objective Vital Signs / I&O: Vital Signs 11/09/17 08:00 11/09/17 12:00 11/09/17 13:31 Temperature 36.8 C 36.9 C Pulse Rate 89 82 Respiratory Rate 20 24 Blood Pressure 136/66 174/77 H Pulse Oximetry 93 L 91 L 94 L 11/09/17 16:00 11/09/17 19:42 11/09/17 20:00 Temperature 36.7 C 37.2 C Pulse Rate 87 79 76 Respiratory Rate 26 H 20 24 Blood Pressure 146/67 H 132/66 Pulse Oximetry 92 L 85 L 11/09/17 23:30 11/10/17 00:00 11/10/17 01:00 Temperature 36.9 C 37.1 C Pulse Rate 77 76 Respiratory Rate 24 28 H 20 Blood Pressure 158/80 H 170/74 H Pulse Oximetry 98 95 100 11/10/17 02:00 11/10/17 03:00 11/10/17 04:00 Temperature 37.1 C 37.2 C 37.1 C Pulse Rate 76 76 77 Respiratory Rate 20 20 20 Blood Pressure 147/68 H 167/74 H 162/72 H Pulse Oximetry 100 100 100 11/10/17 04:42 11/10/17 05:00 11/10/17 05:50 Temperature 37.1 C 37.2 C Pulse Rate 77 Respiratory Rate 20 20 Blood Pressure 162/72 H Pulse Oximetry 100 100 Intake & Output 11/09/17 11/09/17 11/10/17 06:59 18:59 06:59 Intake Total 660 / 660 1852 / 1852 700 / 700 Output Total 300 / 300 1350 / 1350 Balance 360 / 360 502 / 502 700 / 700 Weight 60.3 kg 61.8 kg Intake: IV 250 / 250 1250 / 1250 700 / 700 Cleviprex Inj 25 mg In 50 ml @ 150 / 150 200 / 200 150 / 150 1 MG/HR 2 mls/hr IV.CONT TITRATE PRN Rx#:[id number] D5W Inj 1,000 ML @ 42 mls/hr IV 1000 / 1000 500 / 500 .CONT .[id number] GARY Rx#:[id number] Zosyn 3.375 GM Premix 50 ML @ 100 / 100 50 / 50 50 / 50 100 mls/hr IV.SIG Q6H GARY Rx#: [id number] Oral 0 / 0 Tube Feeding 410 / 410 452 / 452 Tube Irrigant 150 / 150 Output: Urine 300 / 300 1200 / 1200 Urine/Stool Mix 0 / 0 150 / 150 Other: # Incontinent Voids 2 Date of Last Bowel Movement 11/08/17 11/09/17 11/09/17 # Bowel Movements 0 # Incontinent Bowel Movements 0 2 Result Diagrams: 11/10/17 08:50 11/10/17 03:56 Objective Remarks: GENERAL: Patient is 72 yo male resting in an ICU bed intubated, obtunded, crititically ill. SKIN: Warm and dry. No rash HEAD: Normocephalic. EYES: pupils 2mm, equal, sluggishly reactive. No scleral icterus. No injection or drainage. NECK: trachea midline. No JVD. CARDIOVASCULAR: normal rate, regular rhythm. sinus. 2/6 systolic murmur in sternal RESPIRATORY: Breath sounds equal bilaterally. No accessory muscle use. PRVC. full mechanical support. GASTROINTESTINAL: Abdomen soft, non-tender, nondistended. MUSCULOSKELETAL: No significant peripheral edema. Neuro: RASS -5. pupils as above. does not follow commands. Assessment and Plan - Assessment and Plan Plan: Assessment: 72yM with acute encephalopathy now s/p cardiac arrest complicated by multiorgan failure. very critically ill. long discussion with healthcare decisionmaker regarding prognosis, events overnight, ongoing critical care management. son feels this is not congruent with patient's wishes and will likely transition to comfort measures. Neuro/Psych: Acute encephalopathy Acute hypoxic/ischemic encephalopathy [place] B12 deficiency Monitor neurologic status and avoid any sedatives if possible. CT brain 11/03 showed no acute intracranial process CTA of the neck 11/03 showed no significant hemodynamic stenosis. MRI brain: 11/03 no acute disease EEG: Mild encephalopathy with no epileptiform activity hold on MRI given acute hemodynamic instability. Neuro is following- Dr. Canela, s/p LP 11/04 showed clear CSF, 0 WBC, T, TP: 37.6 Started on Acyclovir empirically by Neuro. this is been discontinued Geodon will be discontinued as needed after today's. Acetaminophen 650 every 4 hours as needed fever Continue with cyanocobalamin 1000 micro grams daily from 11/06 through 11/09 then intramuscularly every 30 days. Followed by hematology. Pulm: Acute hypoxic and hypercarbic respiratory failure now on full vent support vent bundle hob elevated wean fio2 for goal spo2 > 90% no weaning of mechanical ventilation until hemodynamics improve. Albuterol/ipratropium aerosols every 6 hours while awake with albuterol aerosols every 2 hours as needed for dyspnea CV: Atrial fibrillation with rapid ventricular response Essential hypertension Hyperlipidemia Acute systolic heart failure Moderate MR/TR s/p acute cardiac arrest 11/09 cardiogenic shock Monitor HR and BP keep MAP>65mmHg Continue diltiazem 90 mg q.i.d, metoprolol tartrate 50 t.i.d) Trop <0.02 x 2, Continue atorvastatin 40 mg daily for dyslipidemia 2-D echo. Revealed EF 25-30%. Decrease this to like left ventricular function. Distal lateral, apical hypokinesis. Bilateral atrial enlargement. Moderate AR/TR. PAP 39 mmHg Cards eval. Patient is at high risk of full anticoagulation for Afib given thrombocytopenia ( PLT < 100) continue supportive care levophed as needed for map > 65 mmHg Renal/: Acute kidney injury Renal ultrasound revealed possible left renal mass lower pole 2 x 1 x 1.4 cm. Medical renal disease. Creatinine is currently pending this a.m. Likely secondary to contrast resolving. Recheck BMP in a.m. 11/10 Continue D5 water at 42 cc an hour GI: Constipation -resolved Hypoalbuminemia Jevity 1.5 at 50 cc an hour per nutrition recommendations with free water 100 cc every 8 hours on lansoprazole 30 mg daily for GI prophylaxis. NPO per speech. Docusate sodium/senna 1 tablet twice daily for bowel regimen. . Fecal disimpaction as needed Distended gallbladder without cold cystitis. Cholelithiasis. KUB 8/ reveals 9.5 cm cecum. Dilated large and small bowel. Positive BM. ID: Monitor for signs of infection, which include fever and WBC. Continue piperacillin/tazobactam empirically. Followup on BC from 11/04 and 11/05 no growth to date. UA -11/05. Vancomycin discontinued 11/08 Started on Acyclovir empirically by Neuro, discontinued 11/05 s/p LP 11/04:Clear CSF, 0 WBC, T, TP:37. Negative CSF 11/04 Follow up on CSF cultures. ID eval. Pro-calcitonin 1.65 Endo: SSI with Accu-Cheks to maintain euglycemia. Novulin R TSH 1.58 Heme: Normocytic anemia Thrombocytopenia Leukocytosis Vitamin B12 deficiency Dr. Salas -as followed. Currently on cyanocobalamin thousand micrograms intramuscular q. 30 days Monitor CBC daily follow trends. No indication for transfusion of blood products at this time. MSK PT eval and tx FEN Hyper magnesium Replace electrolytes as clinically indicated GI prophylaxis with lansoprazole and DVT prophylaxis with SCDs/Heparin SQ. Palliative care is following. Critical care time: 37 minutes, exclusive of separately billable procedures. this includes time spent in the critical care management of the patient while our goals remained aggressive.
[2017-11-10 07:35] LABS: Lymphocytes 4 % (9-44); Metamyelocytes 1 % (0-1); Monocytes 8 % (0-8); Myelocytes 2 % (0-0); Plasma Cells 1 % (0-0); Tallied Nucleated RBC 3 (0-0)
[2017-11-10 07:36] LABS: Platelet Morphology Normal (Normal); RBC Morphology Normal (Normal)
[2017-11-10] MEDS: Metoprolol Tartrate 50 MG Tablet PO SCH ×3 (08:27→17:45)
[2017-11-10] MEDS: Multivit/Folic Acid/Minerals Chewable Tablets CHEW SCH (08:27)
--- NOTE | 2017-11-10 09:34 | P.PNPAL ---
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 failure Comment: Increasing creatinine 11/05/17 - Symptom Scale (1) Encephalopathy 0-10 Scale: Unable to quantify (2) Agitation 0-10 Scale: Unable to quantify (3) Dyspnea 0-10 Scale: Unable to quantify (4) Pain 0-10 Scale: Unable to quantify Pertinent Non-Medical Issues: Psychosocial: Never , no children, lives alone in an apartment. Did [employer] work in the past. Spiritual: Not spiritual or yarsanism according to the patient's brother. Legal: It is unlikely that the patient will regain capacity for decision-making in the near future. His brother Too Hand is his proxy decision maker. Ethical issues impacting care: The patient is unable to make his own decisions. Important Contacts: Brother: Too Hand, [facility], cell [phone] <--- DURING THE DAY, CALL THIS NUMBER FIRST [id number]: [facility], office [phone] (call this number second) (last number to call) Prognosis: The patient appears somewhat cachectic, and his delirium/encephalopathy may be multifactorial or even primarily psychiatric. Overall, his prognosis is poor, and he is appropriate for hospice if the goals become comfort oriented.. Code Status: No Code DNR Plan: ==DNR ==DECISION-MAKING: The patient lacks capacity for decision-making, and will likely not regain capacity after cardiac event. ==Met with pt's brother at bedside, updated his clinical status.Reviewed goals of care: * Pt's brother endorse transition to comfort care/ withdrawal from life support. He would like to discuss with [facility]. Plan to follow-up with palliative care Saturday 11/11 * He is amenable to comfort measures to ensure pt is comfortable, for dyspnea, pain, agitation. * He is amenable to hospice services. * Prognosis was reviewed with brother. * He decline any spiritual visits. == symptom:A/P dyspnea- currently intubated, respiratory failure.- compassionate withdrawal from ventilator: morphine will be available. agitation/encephalopathy- has encephalopathy, rapid decline. Ativan will be available. pain- intubated, bedbound- morphine will be available. == palliative care will follow to manage symptoms and review goals of care as clinical condition evolves. Attestation Attestation: To help prompt me to consider important information that might be impacting today's encounter and assessment, information from prior notes written by myself or my colleagues may have been "brought forward" into today's note. My signature on this note, however, is an attestation that I personally performed the exam, history, and/or decision-making noted today, and, unless otherwise indicated, the interactions with patient, family, and staff as well as the review of records all occurred today. I also attest that the listed assessment and stated plan reflect my best clinical judgment today based on the combination of historical information, prior notes, and today's exam/ interactions. When time spent is documented, it refers only to time spent today by the signer, or if indicated, combined time spent today by collaborating physician/nurse practitioner.
[2017-11-10 10:12] LABS: Hematocrit 32.6 % (39.0-51.0); Hemoglobin 10.9 gm/dL (13.0-17.0); Mean Corpuscular HGB Conc 33.4 % (32.0-36.0); Mean Corpuscular Hemoglobin 32.5 pg (27.0-34.0); Mean Corpuscular Volume 97.4 fL (80.0-100.0); Mean Platelet Volume 12.4 fL (7.0-11.0); Platelet Count 95 th/mm3 (150-450); Red Blood Count 3.35 mil/mm3 (4.50-5.90); Red Cell Distribution Width 13.8 % (11.6-17.2)
--- NOTE | 2017-11-10 11:26 | P.PNID ---
Subjective Remarks: Notes reviewed. Patient is on the ventilator. He was intubated last night after cardiac arrest. He is unresponsive. White blood cell count has increased. Afebrile. CSF cultures have no growth. This is a 72-year-old white male, who presented to the emergency department with altered mental status. The patient was found at his apartment complex with altered mental status and confusion. The onset is unknown. On admission, his white count was 4.9 and he was afebrile. The patient was [employer] for his safety because he wanted to leave the hospital. He was also exhibiting aggressive behavior. He has a history of chronic anemia and chronic thrombocytopenia as well. Antibiotics: Zosyn Lines: PIV no evid of infection Past Medical History: PAST MEDICAL HISTORY: Hyperlipidemia, hypertension, chronic anemia, chronic thrombocytopenia, vitamin B12 deficiency, hearing loss. PAST SURGICAL HISTORY: Tonsillectomy. Allergies/Adverse Reactions: Allergies No Known Allergies Allergy (Uncoded 02/07/14 14:05) Objective Vital Signs 11/09/17 12:00 11/09/17 13:31 11/09/17 16:00 Temperature 98.5 F 98.0 F Pulse Rate 82 87 Respiratory Rate 24 26 H Blood Pressure 174/77 H 146/67 H Pulse Oximetry 91 L 94 L 92 L 11/09/17 19:42 11/09/17 20:00 11/09/17 23:30 Temperature 98.9 F Pulse Rate 79 76 Respiratory Rate 20 24 24 Blood Pressure 132/66 Pulse Oximetry 85 L 98 11/10/17 00:00 11/10/17 01:00 11/10/17 02:00 Temperature 98.5 F 98.8 F 98.8 F Pulse Rate 77 76 76 Respiratory Rate 28 H 20 20 Blood Pressure 158/80 H 170/74 H 147/68 H Pulse Oximetry 95 100 100 11/10/17 03:00 11/10/17 04:00 11/10/17 04:42 Temperature 98.9 F 98.7 F Pulse Rate 76 77 Respiratory Rate 20 20 20 Blood Pressure 167/74 H 162/72 H Pulse Oximetry 100 100 100 11/10/17 05:00 11/10/17 05:50 11/10/17 07:00 Temperature 98.8 F 98.9 F 97.8 F Pulse Rate 77 88 Respiratory Rate 20 21 Blood Pressure 162/72 H 134/62 Pulse Oximetry 100 100 08/20/18 07:29 11/10/17 08:00 11/10/17 10:00 Temperature Pulse Rate 79 78 72 Respiratory Rate 20 Blood Pressure Pulse Oximetry 100 Intake & Output 11/09/17 11/10/17 11/10/17 18:59 06:59 18:59 Intake Total 1852 / 1852 700 / 700 710 / 710 Output Total 1350 / 1350 450 / 450 Balance 502 / 502 700 / 700 260 / 260 Weight 61.8 kg Intake: IV 1250 / 1250 700 / 700 100 / 100 Cleviprex Inj 25 mg In 50 ml @ 200 / 200 150 / 150 50 / 50 1 MG/HR 2 mls/hr IV.CONT TITRATE PRN Rx#:[id number] Inj 1,000 ML @ 42 mls/hr IV 1000 / 1000 500 / 500 .CONT .[id number] [facility] Rx#:[id number] Zosyn 3.375 GM Premix 50 ML @ 50 / 50 50 / 50 50 / 50 100 mls/hr IV.SIG Q6H [facility] Rx#: [id number] Oral 0 / 0 Tube Feeding 452 / 452 610 / 610 Tube Irrigant 150 / 150 Output: Urine 1200 / 1200 450 / 450 Urine/Stool Mix 150 / 150 0 / 0 Other: # Incontinent Voids 2 Date of Last Bowel Movement 11/09/17 11/09/17 11/09/17 # Bowel Movements 0 # Incontinent Bowel Movements 2 0 11/05/17 20:37 Blood - Peripheral Aerobic Blood Culture - Final No growth in 5 days 11/05/17 20:37 Blood - Peripheral Anaerobic Blood Culture - Final No growth in 5 days 11/05/17 20:45 Blood - Peripheral Aerobic Blood Culture - Final No growth in 5 days 11/05/17 20:45 Blood - Peripheral Anaerobic Blood Culture - Final No growth in 5 days 11/10/17 00:01 Sputum - Endotracheal Gram Stain - Final 11/10/17 00:01 Sputum - Endotracheal Sputum Culture - Pending 11/04/17 20:14 Blood - Peripheral Aerobic Blood Culture - Final No growth in 5 days 11/04/17 20:14 Blood - Peripheral Anaerobic Blood Culture - Final No growth in 5 days 11/04/17 20:08 Blood - Peripheral Aerobic Blood Culture - Final No growth in 5 days 11/04/17 20:08 Blood - Peripheral Anaerobic Blood Culture - Final No growth in 5 days 11/05/17 08:30 Catheterized Urine Urine Culture - Final No growth in 48 hours 11/04/17 10:39 Lumbar Puncture Gram Stain - Final 11/04/17 10:39 Lumbar Puncture CSF Culture - Final No growth in 72 hours Lab - Hematology Results 11/09/17 11/10/17 11/10/17 03:23 00:40 03:56 WBC 12.8 H 20.2 H D 17.9 H RBC 3.78 L 3.67 L 3.67 L Hgb 12.1 L 11.8 L 11.7 L Hct 37.0 L 36.1 L 35.9 L MCV 97.9 98.4 97.9 MCH 32.0 32.2 31.9 MCHC 32.7 32.7 32.5 RDW 13.6 13.7 13.5 Plt Count 93 L 106 L 96 L MPV 12.6 H 12.5 H 12.3 H Prelim Diff (Auto) Slide review pending Manual diff required Manual diff required Neut % (Auto) 81.9 H Lymph % (Auto) 4.9 L [place] % (Auto) 12.8 H Eos % (Auto) 0.2 Baso % (Auto) 0.2 Neut # (Auto) 10.4 H Lymph # (Auto) 0.6 L [place] # (Auto) 1.6 H Eos # (Auto) 0.0 Baso # (Auto) 0.0 WBC Differential Manual diff final Manual diff final Manual diff final Seg Neuts % (Manual) 78 H 84 H 80 H Band Neuts % (Manual) 3 2 4 Lymphocytes % (Manual) 6 L 4 L 4 L Monocytes % (Manual) 10 H 9 H 8 Basophils % (Manual) 2 Metamyelocytes % (Man) 1 1 1 Myelocytes % (Man) 2 H Plasma Cell % (Manual) 1 H Abs Neuts (Manual) 10.5 H 17.6 H 15.6 H Nucleated RBCs/100 WBC 5 H 3 H Differential Comment . . . Platelet Estimate Low L Low L Low L Platelet Morphology Normal Normal Normal RBC Morphology Normal 11/10/17 08:50 WBC 15.0 H RBC 3.35 L Hgb 10.9 L Hct 32.6 L MCV 97.4 MCH 32.5 MCHC 33.4 RDW 13.8 Plt Count 95 L MPV 12.4 H Prelim Diff (Auto) Neut % (Auto) Lymph % (Auto) [place] % (Auto) Eos % (Auto) Baso % (Auto) Neut # (Auto) Lymph # (Auto) [place] # (Auto) Eos # (Auto) Baso # (Auto) WBC Differential Seg Neuts % (Manual) Band Neuts % (Manual) Lymphocytes % (Manual) Monocytes % (Manual) Basophils % (Manual) Metamyelocytes % (Man) Myelocytes % (Man) Plasma Cell % (Manual) Abs Neuts (Manual) Nucleated RBCs/100 WBC Differential Comment Platelet Estimate Platelet Morphology RBC Morphology Lab - Chemistry Results 11/08/17 11/08/17 11/08/17 04:00 11:53 16:45 Sodium Potassium Chloride Carbon Dioxide Anion Gap BUN Creatinine Estimated GFR POC Glucose 156 H 167 H Random Glucose Lactic Acid Calcium Prot Corrected Calcium Phosphorus Magnesium Total Bilirubin AST ALT Alkaline Phosphatase Troponin I B-Natriuretic Peptide Total Protein Albumin Procalcitonin 1.65 H 11/08/17 11/09/17 11/09/17 20:55 00:32 03:36 Sodium Potassium Chloride Carbon Dioxide Anion Gap BUN Creatinine Estimated GFR POC Glucose 165 H 148 H 157 H Random Glucose Lactic Acid Calcium Prot Corrected Calcium Phosphorus Magnesium Total Bilirubin AST ALT Alkaline Phosphatase Troponin I B-Natriuretic Peptide Total Protein Albumin Procalcitonin 11/09/17 11/09/17 11/09/17 09:11 11:50 12:53 Sodium 142 Potassium 3.8 Chloride 106 Carbon Dioxide 22.6 Anion Gap 13 BUN 33 H Creatinine 1.70 H Estimated GFR 40 L POC Glucose 176 H 164 H Random Glucose 178 H Lactic Acid Calcium 8.0 L Prot Corrected Calcium Phosphorus 4.2 Magnesium 2.3 Total Bilirubin AST ALT Alkaline Phosphatase Troponin I B-Natriuretic Peptide Total Protein Albumin Procalcitonin 11/09/17 11/09/17 11/10/17 17:17 20:16 00:40 Sodium 141 Potassium 4.7 D Chloride 105 Carbon Dioxide 23.8 Anion Gap 12 BUN 45 H Creatinine 2.52 H Estimated GFR 25 L POC Glucose 156 H 209 H Random Glucose 125 H Lactic Acid Calcium 7.6 L Prot Corrected Calcium Phosphorus Magnesium Total Bilirubin 0.6 AST 172 H ALT 130 H Alkaline Phosphatase 68 Troponin I 0.12 H B-Natriuretic Peptide Total Protein 6.2 L Albumin 2.5 L Procalcitonin 11/10/17 11/10/17 11/10/17 00:40 00:40 00:40 Sodium Potassium Chloride Carbon Dioxide Anion Gap BUN Creatinine Estimated GFR POC Glucose Random Glucose Lactic Acid 3.2 H Calcium Prot Corrected Calcium Phosphorus Magnesium Total Bilirubin AST ALT Alkaline Phosphatase Troponin I Cancelled B-Natriuretic Peptide 829 H Total Protein Albumin Procalcitonin 11/10/17 11/10/17 11/10/17 03:56 05:12 08:37 Sodium 142 Potassium 3.8 D Chloride 102 Carbon Dioxide 26.2 Anion Gap 14 BUN 47 H Creatinine 2.29 H Estimated GFR 28 L POC Glucose 115 H 87 Random Glucose 100 Lactic Acid Calcium 7.4 L* Prot Corrected Calcium 7.9 L Phosphorus 7.0 H D Magnesium 2.3 Total Bilirubin 0.7 AST 258 H ALT 176 H Alkaline Phosphatase 72 Troponin I 0.14 H B-Natriuretic Peptide Total Protein 6.2 L Albumin 2.4 L Procalcitonin Imaging: ITS Impressions Carotid Doppler Study 11/02/17 00:00 CONCLUSION: 1. There is atherosclerotic plaquing at both carotid bifurcations. 2. 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 3. The vertebral arteries were not visualized. 4. Recommend CTA of the carotids for further evaluation. Neck CTA 11/02/17 00:00 CONCLUSION: 1. High right common carotid artery bifurcation. No evidence of hemodynamically significant carotid stenosis. 2. Diminutive right vertebral artery that terminates at the skull base. Basilar artery also has a diffusely narrow diameter. Head MRI 11/03/17 00:00 CONCLUSION: 1. Exam is limited due to motion artifact on just about every pulse sequence. 2. However, grossly, nothing acute. Mild, symmetric cortical atrophy with some minimal small vessel ischemic demyelination. Lumbar Puncture Fluoroscopy 11/04/17 00:00 CONCLUSION: 1. Uncomplicated fluoroscopically guided lumbar puncture. Abdomen/Bladder Ultrasound 11/05/17 00:00 CONCLUSION: 1. Sonographic findings consistent with underlying medical renal disease. No obstruction observed. 2. Distended gallbladder without gallstones or gallbladder wall thickening. Abdomen X-Ray 11/08/17 00:00 CONCLUSION: Negative KUB. Chest CTA 11/10/17 00:00 CONCLUSION: 1. No pulmonary emboli. 2. Moderate sized bilateral pleural effusions with adjacent pulmonary consolidation in part due to atelectasis. 3. Mild cardiomegaly. Chest X-Ray 11/10/17 00:43 CONCLUSION: 1. Central line in good position. No pneumothorax seen on this study. 2. Unchanged effusions and bilateral pulmonary infiltrates. Head CT 11/10/17 23:59 CONCLUSION: 1. Atrophy. . Physical Exam: GENERAL: On the ventilator. Unresponsive. HEENT: Intubated. Unable to fully assess. NECK: Supple without adenopathy. LUNGS: Diminished breath sounds. Rhonchi at the bases. HEART: Irregular rate and rhythm. No murmurs heard. No rubs or gallops. ABDOMEN: Flat, soft, no tenderness. No masses palpable. EXTREMITIES: No clubbing, cyanosis, or edema. The patient has ecchymosis at the extremities. No cords palpable at the calves. The nails of the toes are in poorly-kept state. SKIN: No diffuse rash. NEUROLOGIC: Unable to assess. PSYCHIATRIC: Unable to assess. Assessment and Plan - Plan Assessment and Plan - Plan ASSESSMENT: 1. Altered mental status, questionable etiology. CSF analysis was unremarkable. 2. Cardiac arrest. 2. Leukocytosis. Probable aspiration. 3. Acute kidney disease. 4. History of chronic thrombocytopenia. 5. Acute respiratory failure. Intubated post cardiac arrest. RECOMMENDATIONS: 1. Continue Zosyn. 2. Monitor sputum culture. 3. Monitor clinical status. 4. Monitor white blood cell count. 5. Family is inclining towards withdrawal of life support. [place] appears poor.
[2017-11-10] MEDS: Chlorhexidine 0.12% Oral Kit 15 ML UDC OROPHARYNG SCH ×2 (11:33→20:48)
--- NOTE | 2017-11-10 11:47 | P.PNONC ---
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 the patient's brother is considering withdrawal later today No bleeding Objective Vital Signs/Intake & Output: Vital Signs 11/09/17 12:00 11/09/17 13:31 11/09/17 16:00 Temperature 98.5 F 98.0 F Pulse Rate 82 87 Respiratory Rate 24 26 H Blood Pressure 174/77 H 146/67 H Pulse Oximetry 91 L 94 L 92 L 11/09/17 19:42 11/09/17 20:00 11/09/17 23:30 Temperature 98.9 F Pulse Rate 79 76 Respiratory Rate 20 24 24 Blood Pressure 132/66 Pulse Oximetry 85 L 98 11/10/17 00:00 11/10/17 01:00 11/10/17 02:00 Temperature 98.5 F 98.8 F 98.8 F Pulse Rate 77 76 76 Respiratory Rate 28 H 20 20 Blood Pressure 158/80 H 170/74 H 147/68 H Pulse Oximetry 95 100 100 11/10/17 03:00 11/10/17 04:00 11/10/17 04:42 Temperature 98.9 F 98.7 F Pulse Rate 76 77 Respiratory Rate 20 20 20 Blood Pressure 167/74 H 162/72 H Pulse Oximetry 100 100 100 11/10/17 05:00 11/10/17 05:50 11/10/17 07:00 Temperature 98.8 F 98.9 F 97.8 F Pulse Rate 77 88 Respiratory Rate 20 21 Blood Pressure 162/72 H 134/62 Pulse Oximetry 100 100 11/10/17 07:29 11/10/17 07:32 11/10/17 07:36 Temperature Pulse Rate 79 78 79 Respiratory Rate 20 20 20 Blood Pressure 123/60 128/60 Pulse Oximetry 100 100 100 11/10/17 07:40 11/10/17 07:50 11/10/17 08:00 Temperature 98.9 F Pulse Rate 80 80 80 Respiratory Rate 20 20 20 Blood Pressure 133/61 129/61 124/57 L Pulse Oximetry 100 100 100 11/10/17 08:10 11/10/17 08:20 11/10/17 08:30 Temperature Pulse Rate 79 78 78 Respiratory Rate 20 20 20 Blood Pressure 122/58 L 135/64 144/66 H Pulse Oximetry 100 100 100 11/10/17 08:40 11/10/17 08:50 11/10/17 09:00 Temperature Pulse Rate 79 80 78 Respiratory Rate 20 20 20 Blood Pressure 141/64 H 140/65 148/61 H Pulse Oximetry 100 100 100 11/10/17 09:10 11/10/17 09:20 11/10/17 09:30 Temperature Pulse Rate 74 73 72 Respiratory Rate 20 20 20 Blood Pressure 138/60 125/57 L 125/59 L Pulse Oximetry 100 100 100 11/10/17 09:40 11/10/17 09:50 11/10/17 10:00 Temperature Pulse Rate 72 72 72 Respiratory Rate 20 20 20 Blood Pressure 131/60 150/63 H 142/64 H Pulse Oximetry 100 100 100 11/10/17 10:10 11/10/17 10:20 11/10/17 10:30 Temperature Pulse Rate 71 71 71 Respiratory Rate 20 20 20 Blood Pressure 148/65 H 149/67 H 149/63 H Pulse Oximetry 100 100 100 11/10/17 10:40 11/10/17 10:50 11/10/17 11:00 Temperature Pulse Rate 72 72 72 Respiratory Rate 20 20 20 Blood Pressure 150/60 H 154/70 H 152/65 H Pulse Oximetry 100 100 100 11/10/17 11:10 11/10/17 11:20 Temperature Pulse Rate 74 74 Respiratory Rate 20 20 Blood Pressure 146/65 H 157/68 H Pulse Oximetry 100 100 Intake & Output 11/09/17 11/10/17 11/10/17 18:59 06:59 18:59 Intake Total 1852 / 1852 700 / 700 710 / 710 Output Total 1350 / 1350 450 / 450 Balance 502 / 502 700 / 700 260 / 260 Weight 136 lb 3.931 oz Intake: IV 1250 / 1250 700 / 700 100 / 100 Cleviprex Inj 25 mg In 50 ml @ 200 / 200 150 / 150 50 / 50 1 MG/HR 2 mls/hr IV.CONT TITRATE PRN Rx#:[id number] D5W Inj 1,000 ML @ 42 mls/hr IV 1000 / 1000 500 / 500 .CONT .[id number] GARY Rx#:[id number] Zosyn 3.375 GM Premix 50 ML @ 50 / 50 50 / 50 50 / 50 100 mls/hr IV.SIG Q6H GARY Rx#: [id number] Oral 0 / 0 Tube Feeding 452 / 452 610 / 610 Tube Irrigant 150 / 150 Output: Urine 1200 / 1200 450 / 450 Urine/Stool Mix 150 / 150 0 / 0 Other: # Incontinent Voids 2 Date of Last Bowel Movement 11/09/17 11/09/17 11/09/17 # Bowel Movements 0 # Incontinent Bowel Movements 2 0 Result Diagrams: 11/10/17 08:50 11/10/17 03:56 Laboratory Results: Laboratory Results - last 24 hr 11/08/17 11/09/17 11/09/17 11:28 11:50 12:53 WBC RBC Hgb Hct MCV MCH MCHC RDW Plt Count MPV Prelim Diff (Auto) WBC Differential Seg Neuts % (Manual) Band Neuts % (Manual) Lymphocytes % (Manual) Monocytes % (Manual) Metamyelocytes % (Man) Myelocytes % (Man) Plasma Cell % (Manual) Abs Neuts (Manual) Nucleated RBCs/100 WBC Differential Comment Platelet Estimate Platelet Morphology RBC Morphology PT INR APTT Puncture Site Patient Temperature O2 Saturation ABG pH ABG pCO2 ABG pO2 ABG HCO3 ABG O2 Content ABG Base Excess ABG Methemoglobin Hemoglobin Carboxyhemoglobin O2 Delivery Device Vent Setting Inspired O2 Critical Value Sodium 142 Potassium 3.8 Chloride 106 Carbon Dioxide 22.6 Anion Gap 13 BUN 33 H Creatinine 1.70 H Estimated GFR 40 L POC Glucose 164 H Random Glucose 178 H Lactic Acid Calcium 8.0 L Prot Corrected Calcium Phosphorus 4.2 Magnesium 2.3 Total Bilirubin AST ALT Alkaline Phosphatase Troponin I B-Natriuretic Peptide Total Protein Albumin Vancomycin Trough 3.8 L RPR Nonreactive 11/09/17 11/09/17 11/10/17 17:17 20:16 00:07 WBC RBC Hgb Hct MCV MCH MCHC RDW Plt Count MPV Prelim Diff (Auto) WBC Differential Seg Neuts % (Manual) Band Neuts % (Manual) Lymphocytes % (Manual) Monocytes % (Manual) Metamyelocytes % (Man) Myelocytes % (Man) Plasma Cell % (Manual) Abs Neuts (Manual) Nucleated RBCs/100 WBC Differential Comment Platelet Estimate Platelet Morphology RBC Morphology PT INR APTT Puncture Site Left femoral Patient Temperature 98.6 O2 Saturation 98 ABG pH 7.35 L ABG pCO2 33 L ABG pO2 146 H ABG HCO3 18 L ABG O2 Content 16.4 ABG Base Excess -6.9 L ABG Methemoglobin 0.3 Hemoglobin 11.7 L Carboxyhemoglobin 0.6 O2 Delivery Device Ventilator Vent Setting Inspired O2 100 Critical Value No Sodium Potassium Chloride Carbon Dioxide Anion Gap BUN Creatinine Estimated GFR POC Glucose 156 H 209 H Random Glucose Lactic Acid Calcium Prot Corrected Calcium Phosphorus Magnesium Total Bilirubin AST ALT Alkaline Phosphatase Troponin I B-Natriuretic Peptide Total Protein Albumin Vancomycin Trough RPR 11/10/17 11/10/17 11/10/17 00:40 00:40 00:40 WBC 20.2 H D RBC 3.67 L Hgb 11.8 L Hct 36.1 L MCV 98.4 MCH 32.2 MCHC 32.7 RDW 13.7 Plt Count 106 L MPV 12.5 H Prelim Diff (Auto) Manual diff required WBC Differential Manual diff final Seg Neuts % (Manual) 84 H Band Neuts % (Manual) 2 Lymphocytes % (Manual) 4 L Monocytes % (Manual) 9 H Metamyelocytes % (Man) 1 Myelocytes % (Man) Plasma Cell % (Manual) Abs Neuts (Manual) 17.6 H Nucleated RBCs/100 WBC 5 H Differential Comment . Platelet Estimate Low L Platelet Morphology Normal RBC Morphology PT INR APTT Puncture Site Patient Temperature O2 Saturation ABG pH ABG pCO2 ABG pO2 ABG HCO3 ABG O2 Content ABG Base Excess ABG Methemoglobin Hemoglobin Carboxyhemoglobin O2 Delivery Device Vent Setting Inspired O2 Critical Value Sodium 141 Potassium 4.7 D Chloride 105 Carbon Dioxide 23.8 Anion Gap 12 BUN 45 H Creatinine 2.52 H Estimated GFR 25 L POC Glucose Random Glucose 125 H Lactic Acid Calcium 7.6 L Prot Corrected Calcium Phosphorus Magnesium Total Bilirubin 0.6 AST 172 H ALT 130 H Alkaline Phosphatase 68 Troponin I 0.12 H Cancelled B-Natriuretic Peptide Total Protein 6.2 L Albumin 2.5 L Vancomycin Trough RPR 11/10/17 11/10/17 11/10/17 00:40 00:40 00:40 WBC RBC Hgb Hct MCV MCH MCHC RDW Plt Count MPV Prelim Diff (Auto) WBC Differential Seg Neuts % (Manual) Band Neuts % (Manual) Lymphocytes % (Manual) Monocytes % (Manual) Metamyelocytes % (Man) Myelocytes % (Man) Plasma Cell % (Manual) Abs Neuts (Manual) Nucleated RBCs/100 WBC Differential Comment Platelet Estimate Platelet Morphology RBC Morphology PT INR APTT Cancelled Puncture Site Patient Temperature O2 Saturation ABG pH ABG pCO2 ABG pO2 ABG HCO3 ABG O2 Content ABG Base Excess ABG Methemoglobin Hemoglobin Carboxyhemoglobin O2 Delivery Device Vent Setting Inspired O2 Critical Value Sodium Potassium Chloride Carbon Dioxide Anion Gap BUN Creatinine Estimated GFR POC Glucose Random Glucose Lactic Acid 3.2 H Calcium Prot Corrected Calcium Phosphorus Magnesium Total Bilirubin AST ALT Alkaline Phosphatase Troponin I B-Natriuretic Peptide 829 H Total Protein Albumin Vancomycin Trough RPR 11/10/17 11/10/17 11/10/17 00:40 03:56 03:56 WBC 17.9 H RBC 3.67 L Hgb 11.7 L Hct 35.9 L MCV 97.9 MCH 31.9 MCHC 32.5 RDW 13.5 Plt Count 96 L MPV 12.3 H Prelim Diff (Auto) Manual diff required WBC Differential Manual diff final Seg Neuts % (Manual) 80 H Band Neuts % (Manual) 4 Lymphocytes % (Manual) 4 L Monocytes % (Manual) 8 Metamyelocytes % (Man) 1 Myelocytes % (Man) 2 H Plasma Cell % (Manual) 1 H Abs Neuts (Manual) 15.6 H Nucleated RBCs/100 WBC 3 H Differential Comment . Platelet Estimate Low L Platelet Morphology Normal RBC Morphology Normal PT 11.5 INR 1.1 APTT 22.8 L Puncture Site Patient Temperature O2 Saturation ABG pH ABG pCO2 ABG pO2 ABG HCO3 ABG O2 Content ABG Base Excess ABG Methemoglobin Hemoglobin Carboxyhemoglobin O2 Delivery Device Vent Setting Inspired O2 Critical Value Sodium 142 Potassium 3.8 D Chloride 102 Carbon Dioxide 26.2 Anion Gap 14 BUN 47 H Creatinine 2.29 H Estimated GFR 28 L POC Glucose Random Glucose 100 Lactic Acid Calcium 7.4 L* Prot Corrected Calcium 7.9 L Phosphorus 7.0 H D Magnesium 2.3 Total Bilirubin 0.7 AST 258 H ALT 176 H Alkaline Phosphatase 72 Troponin I 0.14 H B-Natriuretic Peptide Total Protein 6.2 L Albumin 2.4 L Vancomycin Trough RPR 11/10/17 11/10/17 11/10/17 05:12 07:35 08:37 WBC RBC Hgb Hct MCV MCH MCHC RDW Plt Count MPV Prelim Diff (Auto) WBC Differential Seg Neuts % (Manual) Band Neuts % (Manual) Lymphocytes % (Manual) Monocytes % (Manual) Metamyelocytes % (Man) Myelocytes % (Man) Plasma Cell % (Manual) Abs Neuts (Manual) Nucleated RBCs/100 WBC Differential Comment Platelet Estimate Platelet Morphology RBC Morphology PT INR APTT 36.2 H D Puncture Site Patient Temperature O2 Saturation ABG pH ABG pCO2 ABG pO2 ABG HCO3 ABG O2 Content ABG Base Excess ABG Methemoglobin Hemoglobin Carboxyhemoglobin O2 Delivery Device Vent Setting Inspired O2 Critical Value Sodium Potassium Chloride Carbon Dioxide Anion Gap BUN Creatinine Estimated GFR POC Glucose 115 H 87 Random Glucose Lactic Acid Calcium Prot Corrected Calcium Phosphorus Magnesium Total Bilirubin AST ALT Alkaline Phosphatase Troponin I B-Natriuretic Peptide Total Protein Albumin Vancomycin Trough RPR 11/10/17 08:50 WBC 15.0 H RBC 3.35 L Hgb 10.9 L Hct 32.6 L MCV 97.4 MCH 32.5 MCHC 33.4 RDW 13.8 Plt Count 95 L MPV 12.4 H Prelim Diff (Auto) WBC Differential Seg Neuts % (Manual) Band Neuts % (Manual) Lymphocytes % (Manual) Monocytes % (Manual) Metamyelocytes % (Man) Myelocytes % (Man) Plasma Cell % (Manual) Abs Neuts (Manual) Nucleated RBCs/100 WBC Differential Comment Platelet Estimate Platelet Morphology RBC Morphology PT INR APTT Puncture Site Patient Temperature O2 Saturation ABG pH ABG pCO2 ABG pO2 ABG HCO3 ABG O2 Content ABG Base Excess ABG Methemoglobin Hemoglobin Carboxyhemoglobin O2 Delivery Device Vent Setting Inspired O2 Critical Value Sodium Potassium Chloride Carbon Dioxide Anion Gap BUN Creatinine Estimated GFR POC Glucose Random Glucose Lactic Acid Calcium Prot Corrected Calcium Phosphorus Magnesium Total Bilirubin AST ALT Alkaline Phosphatase Troponin I B-Natriuretic Peptide Total Protein Albumin Vancomycin Trough RPR Culture Results: Microbiology 11/05/17 20:37 Aerobic Blood Culture - Final Blood - Peripheral No growth in 5 days Anaerobic Blood Culture - Final No growth in 5 days 11/05/17 20:45 Aerobic Blood Culture - Final Blood - Peripheral No growth in 5 days Anaerobic Blood Culture - Final No growth in 5 days 11/10/17 00:01 Gram Stain - Final Sputum - Endotracheal 11/04/17 20:14 Aerobic Blood Culture - Final Blood - Peripheral No growth in 5 days Anaerobic Blood Culture - Final No growth in 5 days 11/04/17 20:08 Aerobic Blood Culture - Final Blood - Peripheral No growth in 5 days Anaerobic Blood Culture - Final No growth in 5 days 11/05/17 08:30 Urine Culture - Final Catheterized Urine No growth in 48 hours 11/04/17 10:39 Gram Stain - Final Lumbar Puncture CSF Culture - Final No growth in 72 hours Imaging Studies: Impressions Chest X-Ray 11/09/17 23:33 CONCLUSION: Small right-sided pneumothorax. Small posterior layering bilateral pleural effusions. Diffuse bilateral parenchymal consolidations more pronounced on the right. Chest CTA 11/10/17 00:00 CONCLUSION: 1. No pulmonary emboli. 2. Moderate sized bilateral pleural effusions with adjacent pulmonary consolidation in part due to atelectasis. 3. Mild cardiomegaly. Chest X-Ray 11/10/17 00:43 CONCLUSION: 1. Central line in good position. No pneumothorax seen on this study. 2. Unchanged effusions and bilateral pulmonary infiltrates. Head CT 11/10/17 23:59 CONCLUSION: 1. Atrophy. . Medications: Active Medications Generic Name Dose Route Start Last Admin Trade Name Freq PRN Reason Stop Dose Admin Acetaminophen 650 mg 10/29/17 18:25 11/08/17 22:35 Tylenol PO 650 mg Q4H PRN Administration Temp > 100.4 Artificial Tears 1 drops 11/06/17 21:00 11/10/17 02:18 Genteal Severe Dry Eye Relief 0.3% Opth Gel EACH EYE 1 drops HS GARY Administration Atorvastatin Calcium 40 mg 11/02/17 21:00 11/10/17 02:20 Lipitor PO 40 mg HS GARY Administration Chlorhexidine Gluconate 15 ml 11/10/17 08:00 11/10/17 11:33 Peridex 0.12% Oral Kit OROPHARYNG 15 ml BID@0800,2000 GARY Administration Chlorhexidine Gluconate 3 pack 11/10/17 04:00 11/10/17 04:50 Chlorhexidine 2% Cloth TOPICAL 11/15/17 03:59 3 pack DAILY@0400 GARY Administration Cyanocobalamin 1,000 mcg 11/04/17 09:00 11/09/17 08:26 Vitamin B12 Inj IM 1,000 mcg Q30D GARY Administration Diltiazem HCl 90 mg 11/06/17 18:00 11/10/17 05:07 Cardizem PO 90 mg Q6HR GARY Administration Clevidipine 25 mg in 50 mls @ 2 mls/hr 11/03/17 18:34 11/10/17 08:29 Cleviprex Inj IV.CONT 4 mg/hr TITRATE PRN 8 mls/hr Per protocol Administration Protocol 1 MG/HR Piperacillin/Tazobactam/Dextrose 50 mls @ 100 mls/hr 11/05/17 17:00 11/10/17 08:28 Zosyn 3.375 Gm Premix IV.SIG Infused Q6H GARY Infusion Propofol 1,000 mg in 100 mls @ 1.809 mls/hr 11/09/17 23:53 11/10/17 03:59 Diprivan 1000 Mg/100 Ml Inj IV.CONT 5 mcg/kg/min TITRATE PRN 1.81 mls/hr Per Protocol Administration Protocol 5 MCG/KG/MIN Heparin Sodium/Dextrose 25,000 unit in 250 mls @ 0 mls/hr 11/10/17 01:58 02:26 Heparin/D5w 25,000 U/250 Ml IV.CONT 700 units/hr TITRATE PRN 7 mls/hr Per Protocol Administration Protocol Per Protocol Sodium Chloride 1,000 mls @ 42 mls/hr 11/10/17 05:15 11/10/17 05:09 Ns Inj IV.CONT 42 mls/hr .[id number] GARY Administration Insulin Human Regular 0 units 11/03/17 12:00 11/10/17 08:39 Novolin R Correctional Sugar Inj SQ Not Given Q4HR [facility] Protocol Lactulose 30 ml 11/06/17 09:00 11/10/17 08:27 Lactulose Liq PO 30 ml BID GARY Administration Lansoprazole 30 mg 11/06/17 09:00 11/10/17 08:27 Prevacid Solutab NG/OG 30 mg DAILY GARY Administration Metoprolol Tartrate 50 mg 11/07/17 09:00 11/10/17 08:27 Lopressor PO 50 mg TID GARY Administration Multivitamins/Folic Acid/Vitamin C 1 tab 11/06/17 09:00 11/10/17 08:27 Flintstones CHEW 1 tab DAILY GARY Administration Ondansetron HCl 4 mg 11/09/17 20:43 11/09/17 20:52 Zofran Inj IV.PUSH 4 mg Q6H PRN Administration NAUSEA OR VOMITING Polyethylene Glycol 17 gm 11/06/17 09:00 11/10/17 08:27 Miralax PO 17 gm BID GARY Administration Senna/Docusate Sodium 1 tab 10/29/17 21:00 11/10/17 08:27 Jia-Colace PO 1 tab BID GARY Administration Sennosides 17.2 mg 10/29/17 18:25 11/06/17 08:53 Senokot PO 17.2 mg Q12H PRN Administration Moderate Constipation Objective Remarks: GENERAL: Chronically ill-appearing elderly male intubated and sedated SKIN: Warm and dry. HEAD: Normocephalic. EYES: No injection or drainage. NECK: Supple, trachea midline. No JVD or lymphadenopathy. CARDIOVASCULAR: Irregular rhythm. RESPIRATORY: Scattered rhonchi GASTROINTESTINAL: Soft + hypoactive bowel sounds EXTREMITIES: No cyanosis, or edema. MUSCULOSKELETAL: Adequate muscle tone. NEUROLOGICAL: Sedated Assessment/Plan - Plan This is a elderly cachectic male patient. He has a history of chronic thrombocytopenia, lost to follow-up in March 2017. Patient's baseline platelet count is around 90,000. 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 Plan: 1. Platelet count stable at 96,000. This is back to the patient's baseline. No intervention needed at this time. 2. Give B12 supplementation for total of 5 doses. 3. Supportive care. - Attending Statement The exam, history, and the medical decision-making described in the above note were completed with the assistance of the mid-level provider. I reviewed and agree with the findings presented. I attest that I had a [id number] encounter with the patient on the same day, and personally performed and documented my assessment and findings in the medical record.Pt is sedated on vent. No bleeding noted. Platelet stable. Still has leukocytosis c/w leukemoid reaction. Continue supportive care.
--- NOTE | 2017-11-10 13:11 | P.PNCA ---
<Haven Alcantar N - Last Filed: 11/10/17 15:49> Subjective Interval history: Pt s/p cardiac arrest last night, intubated and sedated. Physical Exam Vital signs: Vital Signs 11/09/17 13:31 11/09/17 16:00 11/09/17 19:42 Temperature 98.0 F Pulse Rate 87 79 Respiratory Rate 26 H 20 Blood Pressure 146/67 H Pulse Oximetry 94 L 92 L 11/09/17 20:00 11/09/17 23:30 11/10/17 00:00 Temperature 98.9 F 98.5 F Pulse Rate 76 77 Respiratory Rate 24 24 28 H Blood Pressure 132/66 158/80 H Pulse Oximetry 85 L 98 95 11/10/17 01:00 11/10/17 02:00 11/10/17 03:00 Temperature 98.8 F 98.8 F 98.9 F Pulse Rate 76 76 76 Respiratory Rate 20 20 20 Blood Pressure 170/74 H 147/68 H 167/74 H Pulse Oximetry 100 100 100 11/10/17 04:00 11/10/17 04:42 11/10/17 05:00 Temperature 98.7 F 98.8 F Pulse Rate 77 77 Respiratory Rate 20 20 20 Blood Pressure 162/72 H 162/72 H Pulse Oximetry 100 100 100 11/10/17 05:50 11/10/17 07:00 11/10/17 07:29 Temperature 98.9 F 97.8 F Pulse Rate 88 79 Respiratory Rate 21 20 Blood Pressure 134/62 Pulse Oximetry 100 100 11/10/17 07:32 11/10/17 07:36 11/10/17 07:40 Temperature Pulse Rate 78 79 80 Respiratory Rate 20 20 20 Blood Pressure 123/60 128/60 133/61 Pulse Oximetry 100 100 100 11/10/17 07:50 11/10/17 08:00 11/10/17 08:10 Temperature 98.9 F Pulse Rate 80 80 79 Respiratory Rate 20 20 20 Blood Pressure 129/61 124/57 L 122/58 L Pulse Oximetry 100 100 100 11/10/17 08:20 11/10/17 08:30 11/10/17 08:40 Temperature Pulse Rate 78 78 79 Respiratory Rate 20 20 20 Blood Pressure 135/64 144/66 H 141/64 H Pulse Oximetry 100 100 100 11/10/17 08:50 11/10/17 09:00 11/10/17 09:10 Temperature Pulse Rate 80 78 74 Respiratory Rate 20 20 20 Blood Pressure 140/65 148/61 H 138/60 Pulse Oximetry 100 100 100 11/10/17 09:20 11/10/17 09:30 11/10/17 09:40 Temperature Pulse Rate 73 72 72 Respiratory Rate 20 20 20 Blood Pressure 125/57 L 125/59 L 131/60 Pulse Oximetry 100 100 100 11/10/17 09:50 11/10/17 10:00 11/10/17 10:10 Temperature Pulse Rate 72 72 71 Respiratory Rate 20 20 20 Blood Pressure 150/63 H 142/64 H 148/65 H Pulse Oximetry 100 100 100 11/10/17 10:20 11/10/17 10:30 11/10/17 10:40 Temperature Pulse Rate 71 71 72 Respiratory Rate 20 20 20 Blood Pressure 149/67 H 149/63 H 150/60 H Pulse Oximetry 100 100 100 11/10/17 10:50 11/10/17 11:00 11/10/17 11:10 Temperature Pulse Rate 72 72 74 Respiratory Rate 20 20 20 Blood Pressure 154/70 H 152/65 H 146/65 H Pulse Oximetry 100 100 100 11/10/17 11:20 Temperature Pulse Rate 74 Respiratory Rate 20 Blood Pressure 157/68 H Pulse Oximetry 100 Intake & Output 11/09/17 11/10/17 11/10/17 18:59 06:59 18:59 Intake Total 1852 / 1852 700 / 700 810 / 810 Output Total 1350 / 1350 450 / 450 Balance 502 / 502 700 / 700 360 / 360 Weight 61.8 kg Intake: IV 1250 / 1250 700 / 700 200 / 200 Cleviprex Inj 25 mg In 50 ml @ 200 / 200 150 / 150 50 / 50 1 MG/HR 2 mls/hr IV.CONT TITRATE PRN Rx#:[id number] D5W Inj 1,000 ML @ 42 mls/hr IV 1000 / 1000 500 / 500 .CONT .[id number] [facility] Rx#:[id number] Diprivan 1000 mg/100 ml Inj 1, 100 / 100 000 mg In 100 ml @ 5 MCG/KG/MIN 1.809 mls/hr IV.CONT TITRATE PRN Rx#:[id number] Zosyn 3.375 GM Premix 50 ML @ 50 / 50 50 / 50 50 / 50 100 mls/hr IV.SIG Q6H [facility] Rx#: [id number] Oral 0 / 0 Tube Feeding 452 / 452 610 / 610 Tube Irrigant 150 / 150 Output: Urine 1200 / 1200 450 / 450 Urine/Stool Mix 150 / 150 0 / 0 Other: # Incontinent Voids 2 Date of Last Bowel Movement 11/09/17 11/09/17 11/09/17 # Bowel Movements 0 # Incontinent Bowel Movements 2 0 - Constitutional no acute distress - Routine HEENT Exam Head: Present: normocephalic Eye: Present: PERRL ENT: Present: mucous membranes dry - Routine Respiratory Exam Present: patient mechanically ventilated - Routine Cardiovascular Exam Present: S1, S2. Absent: gallop, rubs - Routine Abdominal Exam Present: soft - Routine Extremities Exam Present: pulses intact, normal capillary refill. Absent: cyanosis, clubbing, edema - Routine Neurological Exam Present: altered mental status - Detailed Neurological Exam: Coma Scale Eye Opening: None Verbal Response: None Motor Response: None Silvio Coma Scale Total: 3 - Routine Psychiatric Exam Present: unable to assess - Urinary Catheter Management Condom Cath placed during this visit: no Assessment and Plan - Assessment (1) Cardiac arrest Code(s): I46.9 - Cardiac arrest, cause unspecified Status: Acute (2) Altered mental status Code(s): R41.82 - Altered mental status, unspecified Status: Acute (3) Rapid atrial fibrillation Code(s): I48.91 - Unspecified atrial fibrillation Status: Acute (4) Thrombocytopenia Code(s): D69.6 - Thrombocytopenia, unspecified Status: Acute - Plan Patient hypertensive and is on clevidipine gtt. Patients condition is poor. Palliative care notes, possible withdraw of life support and transition to comfort care. Continue with current cardiac treatment plan. We will follow during hospitalization. The patient was seen and evaluated by Dr. Torres who participated in care, management and decision-making. <Irma Torres - Last Filed: 11/10/17 16:50> Physical Exam Vital signs: Vital Signs 11/09/17 19:42 11/09/17 20:00 11/09/17 23:30 Temperature 98.9 F Pulse Rate 79 76 Respiratory Rate 20 24 24 Blood Pressure 132/66 Pulse Oximetry 85 L 98 11/10/17 00:00 11/10/17 01:00 11/10/17 02:00 Temperature 98.5 F 98.8 F 98.8 F Pulse Rate 77 76 76 Respiratory Rate 28 H 20 20 Blood Pressure 158/80 H 170/74 H 147/68 H Pulse Oximetry 95 100 100 11/10/17 03:00 11/10/17 04:00 11/10/17 04:42 Temperature 98.9 F 98.7 F Pulse Rate 76 77 Respiratory Rate 20 20 20 Blood Pressure 167/74 H 162/72 H Pulse Oximetry 100 100 100 11/10/17 05:00 11/10/17 05:50 11/10/17 07:00 Temperature 98.8 F 98.9 F 97.8 F Pulse Rate 77 88 Respiratory Rate 20 21 Blood Pressure 162/72 H 134/62 Pulse Oximetry 100 100 11/10/17 07:29 11/10/17 07:32 11/10/17 07:36 Temperature Pulse Rate 79 78 79 Respiratory Rate 20 20 20 Blood Pressure 123/60 128/60 Pulse Oximetry 100 100 100 11/10/17 07:40 11/10/17 07:50 11/10/17 08:00 Temperature 98.9 F Pulse Rate 80 80 80 Respiratory Rate 20 20 20 Blood Pressure 133/61 129/61 124/57 L Pulse Oximetry 100 100 100 11/10/17 08:10 11/10/17 08:20 11/10/17 08:30 Temperature Pulse Rate 79 78 78 Respiratory Rate 20 20 20 Blood Pressure 122/58 L 135/64 144/66 H Pulse Oximetry 100 100 100 11/10/17 08:40 11/10/17 08:50 11/10/17 09:00 Temperature Pulse Rate 79 80 78 Respiratory Rate 20 20 20 Blood Pressure 141/64 H 140/65 148/61 H Pulse Oximetry 100 100 100 11/10/17 09:10 11/10/17 09:20 11/10/17 09:30 Temperature Pulse Rate 74 73 72 Respiratory Rate 20 20 20 Blood Pressure 138/60 125/57 L 125/59 L Pulse Oximetry 100 100 100 11/10/17 09:40 11/10/17 09:50 11/10/17 10:00 Temperature Pulse Rate 72 72 72 Respiratory Rate 20 20 20 Blood Pressure 131/60 150/63 H 142/64 H Pulse Oximetry 100 100 100 11/10/17 10:10 11/10/17 10:20 11/10/17 10:30 Temperature Pulse Rate 71 71 71 Respiratory Rate 20 20 20 Blood Pressure 148/65 H 149/67 H 149/63 H Pulse Oximetry 100 100 100 11/10/17 10:40 11/10/17 10:50 11/10/17 11:00 Temperature Pulse Rate 72 72 72 Respiratory Rate 20 20 20 Blood Pressure 150/60 H 154/70 H 152/65 H Pulse Oximetry 100 100 100 11/10/17 11:10 11/10/17 11:20 11/10/17 13:15 Temperature Pulse Rate 74 74 Respiratory Rate 20 20 20 Blood Pressure 146/65 H 157/68 H Pulse Oximetry 100 100 100 11/10/17 15:58 Temperature Pulse Rate Respiratory Rate 20 Blood Pressure Pulse Oximetry 100 Intake & Output 11/09/17 11/10/17 11/10/17 18:59 06:59 18:59 Intake Total 1852 / 1852 700 / 700 910 / 910 Output Total 1350 / 1350 450 / 450 Balance 502 / 502 700 / 700 460 / 460 Weight 136 lb 3.931 oz Intake: IV 1250 / 1250 700 / 700 300 / 300 Cleviprex Inj 25 mg In 50 ml @ 200 / 200 150 / 150 100 / 100 1 MG/HR 2 mls/hr IV.CONT TITRATE PRN Rx#:[id number] D5W Inj 1,000 ML @ 42 mls/hr IV 1000 / 1000 500 / 500 .CONT .[id number] [facility] Rx#:[id number] Diprivan 1000 mg/100 ml Inj 1, 100 / 100 000 mg In 100 ml @ 5 MCG/KG/MIN 1.809 mls/hr IV.CONT TITRATE PRN Rx#:[id number] Zosyn 3.375 GM Premix 50 ML @ 50 / 50 50 / 50 100 / 100 100 mls/hr IV.SIG Q6H [facility] Rx#: [id number] Oral 0 / 0 Tube Feeding 452 / 452 610 / 610 Tube Irrigant 150 / 150 Output: Urine 1200 / 1200 450 / 450 Urine/Stool Mix 150 / 150 0 / 0 Other: # Incontinent Voids 2 Date of Last Bowel Movement 11/09/17 11/09/17 11/09/17 # Bowel Movements 0 # Incontinent Bowel Movements 2 0 - Urinary Catheter Management Condom Cath placed during this visit: no Assessment and Plan - Assessment (1) Cardiac arrest Code(s): I46.9 - Cardiac arrest, cause unspecified Status: Acute (2) Altered mental status Code(s): R41.82 - Altered mental status, unspecified Status: Acute (3) Rapid atrial fibrillation Code(s): I48.91 - Unspecified atrial fibrillation Status: Acute (4) Thrombocytopenia Code(s): D69.6 - Thrombocytopenia, unspecified Status: Acute - Attending Attestation Patient seen and examined. I reviewed and agree with the evaluation and plan as presented. Continue ICU care. Palliative care has seen the patient. Overall prognosis very poor.
[2017-11-10] MEDS: Acetaminophen 325 MG Tablet PO PRN (20:52)
[2017-11-10] MEDS ORDERED: Heparin 10,000 UNITS/10 ML Vial (for IV use) IV.PUSH PRN ×2 (22:45)
[2017-11-11] MEDS: Insulin NovoLIN Regular Correctional Sugar Inj SQ SCH ×3 (01:23→08:37)
[2017-11-11] MEDS: Oral Hygiene Kit OROPHARYNG SCH ×4 (01:24→15:32)
[2017-11-11] MEDS: Clevidipine Inj 25 MG/50 ML VIAL IV.CONT PRN ×2 (03:04→06:24)
[2017-11-11] MEDS: Chlorhexidine Gluconate 2% 1 Pack (2 Cloths) TOPICAL SCH (04:41)
[2017-11-11] MEDS: Piperacil/Tazo 3.375 GM Premix 50 ML IV.SIG SCH (04:41)
[2017-11-11] MEDS: Sod Chloride 0.9% Inj 1,000 ML IV.CONT SCH (04:43)
[2017-11-11 05:11] LABS: Hematocrit 30.8 % (39.0-51.0); Hemoglobin 10.2 gm/dL (13.0-17.0); Mean Corpuscular HGB Conc 33.2 % (32.0-36.0); Mean Corpuscular Hemoglobin 32.5 pg (27.0-34.0); Mean Platelet Volume 12.2 fL (7.0-11.0); Platelet Count 103 th/mm3 (150-450); Red Blood Count 3.15 mil/mm3 (4.50-5.90)
[2017-11-11 05:24] LABS: Calcium 6.3 mg/dL (8.5-10.1); Carbon Dioxide 26.2 meq/L (21.0-32.0); Potassium 3.2 meq/L (3.5-5.1)
[2017-11-11 05:36] LABS: Total Protein 5.2 g/dL (6.4-8.2)
--- NOTE | 2017-11-11 07:56 | P.PNONC ---
Subjective Interval history: Patient remains sedated on ventilator. Nursing staff report that patient would wake up off sedation but was agitated. No report of bleeding. Objective Vital Signs/Intake & Output: Vital Signs 11/10/17 08:00 11/10/17 08:10 11/10/17 08:20 Temperature 98.9 F Pulse Rate 80 79 78 Respiratory Rate 20 20 20 Blood Pressure 124/57 L 122/58 L 135/64 Pulse Oximetry 100 100 100 11/10/17 08:30 11/10/17 08:40 11/10/17 08:50 Temperature Pulse Rate 78 79 80 Respiratory Rate 20 20 20 Blood Pressure 144/66 H 141/64 H 140/65 Pulse Oximetry 100 100 100 11/10/17 09:00 11/10/17 09:10 11/10/17 09:20 Temperature Pulse Rate 78 74 73 Respiratory Rate 20 20 20 Blood Pressure 148/61 H 138/60 125/57 L Pulse Oximetry 100 100 100 11/10/17 09:30 11/10/17 09:40 11/10/17 09:50 Temperature Pulse Rate 72 72 72 Respiratory Rate 20 20 20 Blood Pressure 125/59 L 131/60 150/63 H Pulse Oximetry 100 100 100 11/10/17 10:00 11/10/17 10:10 11/10/17 10:20 Temperature Pulse Rate 72 71 71 Respiratory Rate 20 20 20 Blood Pressure 142/64 H 148/65 H 149/67 H Pulse Oximetry 100 100 100 11/10/17 10:30 11/10/17 10:40 11/10/17 10:50 Temperature Pulse Rate 71 72 72 Respiratory Rate 20 20 20 Blood Pressure 149/63 H 150/60 H 154/70 H Pulse Oximetry 100 100 100 11/10/17 11:00 11/10/17 11:10 11/10/17 11:20 Temperature Pulse Rate 72 74 74 Respiratory Rate 20 20 20 Blood Pressure 152/65 H 146/65 H 157/68 H Pulse Oximetry 100 100 100 11/10/17 12:00 11/10/17 12:10 11/10/17 12:20 Temperature 99 F Pulse Rate 74 74 74 Respiratory Rate 20 20 20 Blood Pressure 158/67 H 152/69 H 131/60 Pulse Oximetry 100 100 100 11/10/17 12:30 11/10/17 12:40 11/10/17 12:50 Temperature Pulse Rate 75 75 75 Respiratory Rate 20 20 20 Blood Pressure 144/67 H 147/66 H 149/63 H Pulse Oximetry 100 100 11/10/17 13:00 11/10/17 13:10 11/10/17 13:15 Temperature Pulse Rate 71 69 Respiratory Rate 20 20 20 Blood Pressure 135/60 119/58 L Pulse Oximetry 100 99 100 11/10/17 13:20 11/10/17 13:30 11/10/17 13:40 Temperature Pulse Rate 68 68 68 Respiratory Rate 20 20 20 Blood Pressure 121/58 L 126/60 119/57 L Pulse Oximetry 100 99 98 11/10/17 13:50 11/10/17 14:00 11/10/17 14:10 Temperature Pulse Rate 68 68 67 Respiratory Rate 20 20 20 Blood Pressure 116/59 L 129/58 L 123/58 L Pulse Oximetry 99 98 97 11/10/17 14:20 11/10/17 14:30 11/10/17 14:40 Temperature Pulse Rate 69 69 70 Respiratory Rate 20 20 20 Blood Pressure 121/57 L 129/59 L 126/52 L Pulse Oximetry 98 99 100 11/10/17 14:50 11/10/17 15:00 11/10/17 15:10 Temperature Pulse Rate 69 69 70 Respiratory Rate 20 20 20 Blood Pressure 127/60 126/57 L 124/55 L Pulse Oximetry 100 100 100 11/10/17 15:20 11/10/17 15:30 11/10/17 15:40 Temperature Pulse Rate 70 70 71 Respiratory Rate 20 20 20 Blood Pressure 131/60 134/61 154/70 H Pulse Oximetry 100 100 100 11/10/17 15:50 11/10/17 15:58 11/10/17 16:00 Temperature 99.1 F Pulse Rate 71 71 Respiratory Rate 20 20 20 Blood Pressure 151/67 H 148/65 H Pulse Oximetry 100 100 100 11/10/17 19:15 11/10/17 20:00 11/11/17 00:00 Temperature 100.5 F H 99.7 F H Pulse Rate 70 68 Respiratory Rate 22 20 20 Blood Pressure 131/63 154/65 H Pulse Oximetry 98 100 100 11/11/17 00:01 11/11/17 02:25 11/11/17 04:00 Temperature 98.6 F Pulse Rate 70 Respiratory Rate 20 20 20 Blood Pressure 168/72 H Pulse Oximetry 100 100 100 11/11/17 04:16 11/11/17 07:28 Temperature Pulse Rate Respiratory Rate 20 20 Blood Pressure Pulse Oximetry 99 100 Intake & Output 11/10/17 11/11/17 11/11/17 18:59 06:59 18:59 Intake Total 960 / 960 1400 / 1400 484 / 484 Output Total 450 / 450 550 / 550 Balance 510 / 510 1400 / 1400 -66 / -66 Weight 64 kg Intake: IV 350 / 350 1400 / 1400 Cleviprex Inj 25 mg In 50 ml @ 100 / 100 200 / 200 1 MG/HR 2 mls/hr IV.CONT TITRATE PRN Rx#:[id number] Diprivan 1000 mg/100 ml Inj 1, 100 / 100 100 / 100 000 mg In 100 ml @ 5 MCG/KG/MIN 1.809 mls/hr IV.CONT TITRATE PRN Rx#:[id number] NS Inj 1,000 ML @ 42 mls/hr IV. 1000 / 1000 CONT .[id number] [facility] Rx#:[id number] Zosyn 3.375 GM Premix 50 ML @ 150 / 150 100 / 100 100 mls/hr IV.SIG Q6H [facility] Rx#: [id number] Oral 0 / 0 0 / 0 Tube Feeding 610 / 610 484 / 484 Output: Urine 450 / 450 550 / 550 Stool 0 / 0 Urine/Stool Mix 0 / 0 0 / 0 Other: Date of Last Bowel Movement 11/09/17 11/09/17 11/10/17 # Bowel Movements 0 0 # Incontinent Bowel Movements 0 Result Diagrams: 11/11/17 04:10 11/11/17 04:10 Laboratory Results: Laboratory Results - last 24 hr 11/08/17 11/10/17 11/10/17 11:28 07:35 08:37 WBC RBC Hgb Hct MCV MCH MCHC RDW Plt Count MPV APTT 36.2 H D Sodium Potassium Chloride Carbon Dioxide Anion Gap BUN Creatinine Estimated GFR POC Glucose 87 Random Glucose Calcium Prot Corrected Calcium Total Protein RPR Nonreactive 11/10/17 11/10/17 11/10/17 08:50 12:30 15:20 WBC 15.0 H RBC 3.35 L Hgb 10.9 L Hct 32.6 L MCV 97.4 MCH 32.5 MCHC 33.4 RDW 13.8 Plt Count 95 L MPV 12.4 H APTT Sodium Potassium Chloride Carbon Dioxide Anion Gap BUN Creatinine Estimated GFR POC Glucose 86 89 Random Glucose Calcium Prot Corrected Calcium Total Protein RPR 11/10/17 11/10/17 11/11/17 20:46 21:20 01:20 WBC RBC Hgb Hct MCV MCH MCHC RDW Plt Count MPV APTT 36.5 H Sodium Potassium Chloride Carbon Dioxide Anion Gap BUN Creatinine Estimated GFR POC Glucose 132 H 129 H Random Glucose Calcium Prot Corrected Calcium Total Protein RPR 11/11/17 11/11/17 11/11/17 04:10 04:10 04:10 WBC 14.0 H RBC 3.15 L Hgb 10.2 L Hct 30.8 L MCV 98.0 MCH 32.5 MCHC 33.2 RDW 14.0 Plt Count 103 L MPV 12.2 H APTT 55.8 H D Sodium 141 Potassium 3.2 L Chloride 103 Carbon Dioxide 26.2 Anion Gap 12 BUN 41 H Creatinine 1.76 H Estimated GFR 38 L POC Glucose Random Glucose 141 H Calcium 6.3 L* D Prot Corrected Calcium 7.2 L* Total Protein 5.2 L D RPR 11/11/17 04:32 WBC RBC Hgb Hct MCV MCH MCHC RDW Plt Count MPV APTT Sodium Potassium Chloride Carbon Dioxide Anion Gap BUN Creatinine Estimated GFR POC Glucose 145 H Random Glucose Calcium Prot Corrected Calcium Total Protein RPR Culture Results: Microbiology 11/05/17 20:37 Aerobic Blood Culture - Final Blood - Peripheral No growth in 5 days Anaerobic Blood Culture - Final No growth in 5 days 11/05/17 20:45 Aerobic Blood Culture - Final Blood - Peripheral No growth in 5 days Anaerobic Blood Culture - Final No growth in 5 days 11/10/17 00:01 Gram Stain - Final Sputum - Endotracheal 11/04/17 20:14 Aerobic Blood Culture - Final Blood - Peripheral No growth in 5 days Anaerobic Blood Culture - Final No growth in 5 days 11/04/17 20:08 Aerobic Blood Culture - Final Blood - Peripheral No growth in 5 days Anaerobic Blood Culture - Final No growth in 5 days Medications: Active Medications Generic Name Dose Route Start Last Admin Trade Name Freq PRN Reason Stop Dose Admin Acetaminophen 650 mg 10/29/17 18:25 11/10/17 20:52 Tylenol PO 650 mg Q4H PRN Administration Temp > 100.4 Artificial Tears 1 drops 11/06/17 21:00 11/10/17 20:48 Genteal Severe Dry Eye Relief 0.3% Opth Gel EACH EYE 1 drops HS [facility] Administration Atorvastatin Calcium 40 mg 11/02/17 21:00 11/10/17 20:49 Lipitor PO 40 mg HS [facility] Administration Chlorhexidine Gluconate 15 ml 11/10/17 08:00 11/10/17 20:48 Peridex 0.12% Oral Kit OROPHARYNG 15 ml BID@0800,1999 [facility] Administration Chlorhexidine Gluconate 3 pack 11/10/17 04:00 11/11/17 04:41 Chlorhexidine 2% Cloth TOPICAL 11/15/17 03:59 3 pack DAILY@0400 [facility] Administration Cyanocobalamin 1,000 mcg 11/04/17 09:00 11/09/17 08:26 Vitamin B12 Inj IM 1,000 mcg Q30D [facility] Administration Diltiazem HCl 90 mg 11/06/17 18:00 11/11/17 05:24 Cardizem PO 90 mg Q6HR [facility] Administration Heparin Sodium (Porcine) 2,500 units 11/10/17 22:45 11/10/17 22:23 Heparin Inj IV.PUSH 2,500 units UNSCH PRN Administration aPTT 25-39 Clevidipine 25 mg in 50 mls @ 2 mls/hr 11/03/17 18:34 11/11/17 06:24 Cleviprex Inj IV.CONT 5 mg/hr TITRATE PRN 10 mls/hr Per protocol Administration Protocol 1 MG/HR Piperacillin/Tazobactam/Dextrose 50 mls @ 100 mls/hr 11/05/17 17:00 11/11/17 05:24 Zosyn 3.375 Gm Premix IV.SIG Infused Q6H [facility] Infusion Propofol 1,000 mg in 100 mls @ 1.809 mls/hr 11/09/17 23:53 11/10/17 23:07 Diprivan 1000 Mg/100 Ml Inj IV.CONT 30 mcg/kg/min TITRATE PRN 10.85 mls/hr Per Protocol Administration Protocol 5 MCG/KG/MIN Heparin Sodium/Dextrose 25,000 unit in 250 mls @ 0 mls/hr 11/10/17 01:58 22:24 Heparin/D5w 25,000 U/250 Ml IV.CONT 900 units/hr TITRATE PRN 9 mls/hr Per Protocol Titration Protocol Per Protocol Sodium Chloride 1,000 mls @ 42 mls/hr 11/10/17 05:15 11/11/17 04:43 Ns Inj IV.CONT 42 mls/hr .[id number] [facility] Administration Insulin Human Regular 0 units 11/03/17 12:00 11/11/17 04:45 Novolin R Correctional Sugar Inj SQ Not Given Q4HR [facility] Protocol Lactulose 30 ml 11/06/17 09:00 11/10/17 20:49 Lactulose Liq PO Not Given BID [facility] Lansoprazole 30 mg 11/06/17 09:00 11/10/17 08:27 Prevacid Solutab NG/OG 30 mg DAILY [facility] Administration Metoprolol Tartrate 50 mg 11/07/17 09:00 11/10/17 17:45 Lopressor PO 50 mg TID [facility] Administration Multivitamins/Folic Acid/Vitamin C 1 tab 11/06/17 09:00 11/10/17 08:27 Flintstones CHEW 1 tab DAILY [facility] Administration Ondansetron HCl 4 mg 11/09/17 20:43 11/09/17 20:52 Zofran Inj IV.PUSH 4 mg Q6H PRN Administration NAUSEA OR VOMITING Polyethylene Glycol 17 gm 11/06/17 09:00 11/10/17 20:49 Miralax PO 17 gm BID [facility] Administration Senna/Docusate Sodium 1 tab 10/29/17 21:00 11/10/17 20:49 Jia-Colace PO Not Given BID [facility] Sennosides 17.2 mg 10/29/17 18:25 11/06/17 08:53 Senokot PO 17.2 mg Q12H PRN Administration Moderate Constipation Objective Remarks: GENERAL: Well-nourished, well-developed patient. SKIN: Warm and dry. HEAD: Normocephalic. EYES: No scleral icterus. No injection or drainage. NECK: Supple, trachea midline. No JVD or lymphadenopathy. LYMPHATIC: No adenopathy. CARDIOVASCULAR: Regular rate and rhythm without murmurs. RESPIRATORY: Breath sounds equal bilaterally. On ventilator. ET tube no bleeding noted. GASTROINTESTINAL: Abdomen soft, non-tender, nondistended. EXTREMITIES: No cyanosis, or edema. MUSCULOSKELETAL: Adequate muscle tone. NEUROLOGICAL: Sedated. Assessment/Plan - Plan This is a elderly cachectic male patient. He has a history of chronic thrombocytopenia, lost to follow-up in March 2017. Patient's baseline platelet count is around 90,000. 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 1. Thrombocytopenia. Platelet count is back to baseline and stable. 2. 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 Patient still has low-grade fever. White blood cell count trended down slightly. 3. B12 deficiency receiving B12 supplement. 4. Mental status change. CT of the head showed atrophy. Plan: 1. Platelet count stable. No intervention needed at this time. 2. Continue B12 supplement. 3. Supportive care.
[2017-11-11] MEDS: Senna/Docusate Sodium 8.6/50 MG Tablet PO SCH ×2 (08:28→23:59)
[2017-11-11] MEDS: Multivit/Folic Acid/Minerals Chewable Tablets CHEW SCH (08:28)
[2017-11-11] MEDS: Metoprolol Tartrate 50 MG Tablet PO SCH (08:29)
[2017-11-11] MEDS: Polyethylene Glycol 3350 17 GM Packet PO SCH ×2 (08:29→23:59)
[2017-11-11] MEDS: Chlorhexidine 0.12% Oral Kit 15 ML UDC OROPHARYNG SCH ×2 (08:36→20:00)
--- NOTE | 2017-11-11 08:53 | P.PNPAL ---
Received call from patient's brother, Too. States he is on his way to the hospital and desires transition to comfort measures only with compassionate withdrawal of life support. Verbalizes he does not wish to stay but would like to be notified when extubation takes place and when patient dies. Offered emotional support. Anticipatory guidance for compassionate withdrawal provided. Questions answered to the best of my ability. Too states family will need assistance with cremation. Nurse notified to inform nursing office for referral to Human Services agency for indigent cremation assistance. Palliative care will continue to follow throughout hospitalization.
[2017-11-11] MEDS ORDERED: Morphine Sulfate Inj 8 MG/ML Vial IV.PUSH ONE (10:39)
[2017-11-11] MEDS ORDERED: Hyoscyamine Inj 0.5 MG/ML Ampul IV.PUSH PRN (10:39)
[2017-11-11] MEDS ORDERED: Morphine Inj 4 MG/ML Vial IV.PUSH ONE (10:39)
[2017-11-11] MEDS ORDERED: Morphine Sulfate Inj 8 MG/ML Vial IV.PUSH PRN (10:39)
[2017-11-11] MEDS ORDERED: Acetaminophen 650 MG Supp RECTAL PRN (10:39)
[2017-11-11] MEDS ORDERED: Hyoscyamine Inj 0.5 MG/ML Ampul IV.PUSH ONE (10:39)
--- NOTE | 2017-11-11 10:59 | P.PNPAL ---
Reason for Visit Reason for visit: a. To assist with evaluation and management of symptoms including: Encephalopathy/agitation, pain, dyspnea. b. To assist medical decision maker(s) with: better understanding of current medical conditions; weighing benefits/burdens of medical treatment options; making medical treatment decisions. Subjective Subjective/Interval History: Pt seen in room. Brother at bedside. Nurse at bedside. Pt appears comfortable , sedated on vent. Propofol gtt 35ml/hr. Has no meds for pain ordered. No grimacing on exam. Pt unable to say if he has pain d/t mental status and presence ET tube. LUng sounds coarse. FiO2 50%, sat 100%. Family/Friend Interactions: Brief discussion with brother, he had no questions or concerns, signed exhibits. Advance Directives Living Will: Never completed Health Care Surrogate: Never completed Durable Power of [employer]: Never completed Health Care Surrogate Name and Number: Patient's brother Too Hand Objective Vital Signs: Vital Signs 11/10/17 11:00 11/10/17 11:10 11/10/17 11:20 Temperature Pulse Rate 72 74 74 Respiratory Rate 20 20 20 Blood Pressure 152/65 H 146/65 H 157/68 H Pulse Oximetry 100 100 100 11/10/17 12:00 11/10/17 12:10 11/10/17 12:20 Temperature 99 F Pulse Rate 74 74 74 Respiratory Rate 20 20 20 Blood Pressure 158/67 H 152/69 H 131/60 Pulse Oximetry 100 100 100 11/10/17 12:30 11/10/17 12:40 11/10/17 12:50 Temperature Pulse Rate 75 75 75 Respiratory Rate 20 20 20 Blood Pressure 144/67 H 147/66 H 149/63 H Pulse Oximetry 100 100 11/10/17 13:00 11/10/17 13:10 11/10/17 13:15 Temperature Pulse Rate 71 69 Respiratory Rate 20 20 20 Blood Pressure 135/60 119/58 L Pulse Oximetry 100 99 100 11/10/17 13:20 11/10/17 13:30 11/10/17 13:40 Temperature Pulse Rate 68 68 68 Respiratory Rate 20 20 20 Blood Pressure 121/58 L 126/60 119/57 L Pulse Oximetry 100 99 98 11/10/17 13:50 11/10/17 14:00 11/10/17 14:10 Temperature Pulse Rate 68 68 67 Respiratory Rate 20 20 20 Blood Pressure 116/59 L 129/58 L 123/58 L Pulse Oximetry 99 98 97 11/10/17 14:20 11/10/17 14:30 11/10/17 14:40 Temperature Pulse Rate 69 69 70 Respiratory Rate 20 20 20 Blood Pressure 121/57 L 129/59 L 126/52 L Pulse Oximetry 98 99 100 11/10/17 14:50 11/10/17 15:00 11/10/17 15:10 Temperature Pulse Rate 69 69 70 Respiratory Rate 20 20 20 Blood Pressure 127/60 126/57 L 124/55 L Pulse Oximetry 100 100 100 11/10/17 15:20 11/10/17 15:30 11/10/17 15:40 Temperature Pulse Rate 70 70 71 Respiratory Rate 20 20 20 Blood Pressure 131/60 134/61 154/70 H Pulse Oximetry 100 100 100 11/10/17 15:50 11/10/17 15:58 11/10/17 16:00 Temperature 99.1 F Pulse Rate 71 71 Respiratory Rate 20 20 20 Blood Pressure 151/67 H 148/65 H Pulse Oximetry 100 100 100 11/10/17 19:15 11/10/17 20:00 11/11/17 00:00 Temperature 100.5 F H 99.7 F H Pulse Rate 70 68 Respiratory Rate 22 20 20 Blood Pressure 131/63 154/65 H Pulse Oximetry 98 100 100 11/11/17 00:01 11/11/17 02:25 11/11/17 04:00 Temperature 98.6 F Pulse Rate 70 Respiratory Rate 20 20 20 Blood Pressure 168/72 H Pulse Oximetry 100 100 100 11/11/17 04:16 11/11/17 07:28 11/11/17 08:00 Temperature 97 F L Pulse Rate 72 Respiratory Rate 20 20 20 Blood Pressure 136/62 Pulse Oximetry 99 100 100 Intake & Output 11/10/17 11/11/17 11/11/17 18:59 06:59 18:59 Intake Total 960 / 960 1400 / 1400 484 / 484 Output Total 450 / 450 550 / 550 Balance 510 / 510 1400 / 1400 -66 / -66 Weight 64 kg Intake: IV 350 / 350 1400 / 1400 0 / 0 Cleviprex Inj 25 mg In 50 ml @ 100 / 100 200 / 200 1 MG/HR 2 mls/hr IV.CONT TITRATE PRN Rx#:[id number] Diprivan 1000 mg/100 ml Inj 1, 100 / 100 100 / 100 0 / 0 000 mg In 100 ml @ 5 MCG/KG/MIN 1.809 mls/hr IV.CONT TITRATE PRN Rx#:[id number] NS Inj 1,000 ML @ 42 mls/hr IV. 1000 / 1000 CONT .[id number] GARY Rx#:[id number] Zosyn 3.375 GM Premix 50 ML @ 150 / 150 100 / 100 100 mls/hr IV.SIG Q6H [facility] Rx#: [id number] Oral 0 / 0 0 / 0 Tube Feeding 610 / 610 484 / 484 Output: Urine 450 / 450 550 / 550 Stool 0 / 0 Urine/Stool Mix 0 / 0 0 / 0 Other: Date of Last Bowel Movement 11/09/17 11/09/17 11/09/17 # Bowel Movements 0 0 # Incontinent Bowel Movements 0 Physical Exam: CONSTITUTIONAL/GENERAL: This is a thin, chronically ill-appearing patient, intubated TUBES/LINES/DRAINS: Nasal oxygen, IV access, condom catheter, intubated OGT SKIN: No jaundice, rashes, or lesions. + Ecchymoses on upper extremities. No wounds seen anteriorly. Skin temperature appropriate. Not diaphoretic. CARDIOVASCULAR: tachycardic, no murmurs. Peripheral pulses diminished. RESPIRATORY/CHEST: Symmetric, unlabored respirations. coarse lung sounds GASTROINTESTINAL: Abdomen soft, non-tender, mildly distended. No hepato- splenomegaly, or palpable masses. No guarding. Bowel sounds present. MUSCULOSKELETAL: Extremities without clubbing, cyanosis. + mild BLE edema. No joint tenderness or effusion noted. No calf tenderness. No mottling or clubbing. NEUROLOGICAL: Intubated. did not allow eye exam. PSYCHIATRIC: on mechanical intubation, unable to assess Diagnostic Tests Laboratory: Laboratory Results - last 72 hr 11/08/17 11/08/17 11/08/17 04:00 11:28 11:53 WBC RBC Hgb Hct MCV MCH MCHC RDW Plt Count MPV Prelim Diff (Auto) Neut % (Auto) Lymph % (Auto) [place] % (Auto) Eos % (Auto) Baso % (Auto) Neut # (Auto) Lymph # (Auto) [place] # (Auto) Eos # (Auto) Baso # (Auto) WBC Differential Seg Neuts % (Manual) Band Neuts % (Manual) Lymphocytes % (Manual) Monocytes % (Manual) Basophils % (Manual) Metamyelocytes % (Man) Myelocytes % (Man) Plasma Cell % (Manual) Abs Neuts (Manual) Nucleated RBCs/100 WBC Differential Comment Platelet Estimate Platelet Morphology RBC Morphology PT INR APTT Puncture Site Patient Temperature O2 Saturation ABG pH ABG pCO2 ABG pO2 ABG HCO3 ABG O2 Content ABG Base Excess ABG Methemoglobin Hemoglobin Carboxyhemoglobin O2 Delivery Device Vent Setting Inspired O2 Critical Value Sodium Potassium Chloride Carbon Dioxide Anion Gap BUN Creatinine Estimated GFR POC Glucose 156 H Random Glucose Lactic Acid Calcium Prot Corrected Calcium Phosphorus Magnesium Total Bilirubin AST ALT Alkaline Phosphatase Troponin I B-Natriuretic Peptide Total Protein Albumin Procalcitonin 1.65 H Vancomycin Trough RPR Nonreactive 11/08/17 11/08/17 11/09/17 16:45 20:55 00:32 WBC RBC Hgb Hct MCV MCH MCHC RDW Plt Count MPV Prelim Diff (Auto) Neut % (Auto) Lymph % (Auto) [place] % (Auto) Eos % (Auto) Baso % (Auto) Neut # (Auto) Lymph # (Auto) [place] # (Auto) Eos # (Auto) Baso # (Auto) WBC Differential Seg Neuts % (Manual) Band Neuts % (Manual) Lymphocytes % (Manual) Monocytes % (Manual) Basophils % (Manual) Metamyelocytes % (Man) Myelocytes % (Man) Plasma Cell % (Manual) Abs Neuts (Manual) Nucleated RBCs/100 WBC Differential Comment Platelet Estimate Platelet Morphology RBC Morphology PT INR APTT Puncture Site Patient Temperature O2 Saturation ABG pH ABG pCO2 ABG pO2 ABG HCO3 ABG O2 Content ABG Base Excess ABG Methemoglobin Hemoglobin Carboxyhemoglobin O2 Delivery Device Vent Setting Inspired O2 Critical Value Sodium Potassium Chloride Carbon Dioxide Anion Gap BUN Creatinine Estimated GFR POC Glucose 167 H 165 H 148 H Random Glucose Lactic Acid Calcium Prot Corrected Calcium Phosphorus Magnesium Total Bilirubin AST ALT Alkaline Phosphatase Troponin I B-Natriuretic Peptide Total Protein Albumin Procalcitonin Vancomycin Trough RPR 11/09/17 11/09/17 11/09/17 03:23 03:36 09:11 WBC 12.8 H RBC 3.78 L Hgb 12.1 L Hct 37.0 L MCV 97.9 MCH 32.0 MCHC 32.7 RDW 13.6 Plt Count 93 L MPV 12.6 H Prelim Diff (Auto) Slide review pending Neut % (Auto) 81.9 H Lymph % (Auto) 4.9 L [place] % (Auto) 12.8 H Eos % (Auto) 0.2 Baso % (Auto) 0.2 Neut # (Auto) 10.4 H Lymph # (Auto) 0.6 L [place] # (Auto) 1.6 H Eos # (Auto) 0.0 Baso # (Auto) 0.0 WBC Differential Manual diff final Seg Neuts % (Manual) 78 H Band Neuts % (Manual) 3 Lymphocytes % (Manual) 6 L Monocytes % (Manual) 10 H Basophils % (Manual) 2 Metamyelocytes % (Man) 1 Myelocytes % (Man) Plasma Cell % (Manual) Abs Neuts (Manual) 10.5 H Nucleated RBCs/100 WBC Differential Comment . Platelet Estimate Low L Platelet Morphology Normal RBC Morphology PT INR APTT Puncture Site Patient Temperature O2 Saturation ABG pH ABG pCO2 ABG pO2 ABG HCO3 ABG O2 Content ABG Base Excess ABG Methemoglobin Hemoglobin Carboxyhemoglobin O2 Delivery Device Vent Setting Inspired O2 Critical Value Sodium Potassium Chloride Carbon Dioxide Anion Gap BUN Creatinine Estimated GFR POC Glucose 157 H 176 H Random Glucose Lactic Acid Calcium Prot Corrected Calcium Phosphorus Magnesium Total Bilirubin AST ALT Alkaline Phosphatase Troponin I B-Natriuretic Peptide Total Protein Albumin Procalcitonin Vancomycin Trough RPR 11/09/17 11/09/17 11/09/17 11:50 12:53 17:17 WBC RBC Hgb Hct MCV MCH MCHC RDW Plt Count MPV Prelim Diff (Auto) Neut % (Auto) Lymph % (Auto) [place] % (Auto) Eos % (Auto) Baso % (Auto) Neut # (Auto) Lymph # (Auto) [place] # (Auto) Eos # (Auto) Baso # (Auto) WBC Differential Seg Neuts % (Manual) Band Neuts % (Manual) Lymphocytes % (Manual) Monocytes % (Manual) Basophils % (Manual) Metamyelocytes % (Man) Myelocytes % (Man) Plasma Cell % (Manual) Abs Neuts (Manual) Nucleated RBCs/100 WBC Differential Comment Platelet Estimate Platelet Morphology RBC Morphology PT INR APTT Puncture Site Patient Temperature O2 Saturation ABG pH ABG pCO2 ABG pO2 ABG HCO3 ABG O2 Content ABG Base Excess ABG Methemoglobin Hemoglobin Carboxyhemoglobin O2 Delivery Device Vent Setting Inspired O2 Critical Value Sodium 142 Potassium 3.8 Chloride 106 Carbon Dioxide 22.6 Anion Gap 13 BUN 33 H Creatinine 1.70 H Estimated GFR 40 L POC Glucose 164 H 156 H Random Glucose 178 H Lactic Acid Calcium 8.0 L Prot Corrected Calcium Phosphorus 4.2 Magnesium 2.3 Total Bilirubin AST ALT Alkaline Phosphatase Troponin I B-Natriuretic Peptide Total Protein Albumin Procalcitonin Vancomycin Trough 3.8 L RPR 11/09/17 11/10/17 11/10/17 20:16 00:07 00:40 WBC RBC Hgb Hct MCV MCH MCHC RDW Plt Count MPV Prelim Diff (Auto) Neut % (Auto) Lymph % (Auto) [place] % (Auto) Eos % (Auto) Baso % (Auto) Neut # (Auto) Lymph # (Auto) [place] # (Auto) Eos # (Auto) Baso # (Auto) WBC Differential Seg Neuts % (Manual) Band Neuts % (Manual) Lymphocytes % (Manual) Monocytes % (Manual) Basophils % (Manual) Metamyelocytes % (Man) Myelocytes % (Man) Plasma Cell % (Manual) Abs Neuts (Manual) Nucleated RBCs/100 WBC Differential Comment Platelet Estimate Platelet Morphology RBC Morphology PT INR APTT Puncture Site Left femoral Patient Temperature 98.6 O2 Saturation 98 ABG pH 7.35 L ABG pCO2 33 L ABG pO2 146 H ABG HCO3 18 L ABG O2 Content 16.4 ABG Base Excess -6.9 L ABG Methemoglobin 0.3 Hemoglobin 11.7 L Carboxyhemoglobin 0.6 O2 Delivery Device Ventilator Vent Setting Inspired O2 100 Critical Value No Sodium 141 Potassium 4.7 D Chloride 105 Carbon Dioxide 23.8 Anion Gap 12 BUN 45 H Creatinine 2.52 H Estimated GFR 25 L POC Glucose 209 H Random Glucose 125 H Lactic Acid Calcium 7.6 L Prot Corrected Calcium Phosphorus Magnesium Total Bilirubin 0.6 AST 172 H ALT 130 H Alkaline Phosphatase 68 Troponin I 0.12 H B-Natriuretic Peptide Total Protein 6.2 L Albumin 2.5 L Procalcitonin Vancomycin Trough RPR 11/10/17 11/10/17 11/10/17 00:40 00:40 00:40 WBC 20.2 H D RBC 3.67 L Hgb 11.8 L Hct 36.1 L MCV 98.4 MCH 32.2 MCHC 32.7 RDW 13.7 Plt Count 106 L MPV 12.5 H Prelim Diff (Auto) Manual diff required Neut % (Auto) Lymph % (Auto) [place] % (Auto) Eos % (Auto) Baso % (Auto) Neut # (Auto) Lymph # (Auto) [place] # (Auto) Eos # (Auto) Baso # (Auto) WBC Differential Manual diff final Seg Neuts % (Manual) 84 H Band Neuts % (Manual) 2 Lymphocytes % (Manual) 4 L Monocytes % (Manual) 9 H Basophils % (Manual) Metamyelocytes % (Man) 1 Myelocytes % (Man) Plasma Cell % (Manual) Abs Neuts (Manual) 17.6 H Nucleated RBCs/100 WBC 5 H Differential Comment . Platelet Estimate Low L Platelet Morphology Normal RBC Morphology PT INR APTT Puncture Site Patient Temperature O2 Saturation ABG pH ABG pCO2 ABG pO2 ABG HCO3 ABG O2 Content ABG Base Excess ABG Methemoglobin Hemoglobin Carboxyhemoglobin O2 Delivery Device Vent Setting Inspired O2 Critical Value Sodium Potassium Chloride Carbon Dioxide Anion Gap BUN Creatinine Estimated GFR POC Glucose Random Glucose Lactic Acid 3.2 H Calcium Prot Corrected Calcium Phosphorus Magnesium Total Bilirubin AST ALT Alkaline Phosphatase Troponin I Cancelled B-Natriuretic Peptide Total Protein Albumin Procalcitonin Vancomycin Trough RPR 11/10/17 11/10/17 11/10/17 00:40 00:40 00:40 WBC RBC Hgb Hct MCV MCH MCHC RDW Plt Count MPV Prelim Diff (Auto) Neut % (Auto) Lymph % (Auto) [place] % (Auto) Eos % (Auto) Baso % (Auto) Neut # (Auto) Lymph # (Auto) [place] # (Auto) Eos # (Auto) Baso # (Auto) WBC Differential Seg Neuts % (Manual) Band Neuts % (Manual) Lymphocytes % (Manual) Monocytes % (Manual) Basophils % (Manual) Metamyelocytes % (Man) Myelocytes % (Man) Plasma Cell % (Manual) Abs Neuts (Manual) Nucleated RBCs/100 WBC Differential Comment Platelet Estimate Platelet Morphology RBC Morphology PT 11.5 INR 1.1 APTT Cancelled 22.8 L Puncture Site Patient Temperature O2 Saturation ABG pH ABG pCO2 ABG pO2 ABG HCO3 ABG O2 Content ABG Base Excess ABG Methemoglobin Hemoglobin Carboxyhemoglobin O2 Delivery Device Vent Setting Inspired O2 Critical Value Sodium Potassium Chloride Carbon Dioxide Anion Gap BUN Creatinine Estimated GFR POC Glucose Random Glucose Lactic Acid Calcium Prot Corrected Calcium Phosphorus Magnesium Total Bilirubin AST ALT Alkaline Phosphatase Troponin I B-Natriuretic Peptide 829 H Total Protein Albumin Procalcitonin Vancomycin Trough RPR 11/10/17 11/10/17 11/10/17 03:56 03:56 05:12 WBC 17.9 H RBC 3.67 L Hgb 11.7 L Hct 35.9 L MCV 97.9 MCH 31.9 MCHC 32.5 RDW 13.5 Plt Count 96 L MPV 12.3 H Prelim Diff (Auto) Manual diff required Neut % (Auto) Lymph % (Auto) [place] % (Auto) Eos % (Auto) Baso % (Auto) Neut # (Auto) Lymph # (Auto) [place] # (Auto) Eos # (Auto) Baso # (Auto) WBC Differential Manual diff final Seg Neuts % (Manual) 80 H Band Neuts % (Manual) 4 Lymphocytes % (Manual) 4 L Monocytes % (Manual) 8 Basophils % (Manual) Metamyelocytes % (Man) 1 Myelocytes % (Man) 2 H Plasma Cell % (Manual) 1 H Abs Neuts (Manual) 15.6 H Nucleated RBCs/100 WBC 3 H Differential Comment . Platelet Estimate Low L Platelet Morphology Normal RBC Morphology Normal PT INR APTT Puncture Site Patient Temperature O2 Saturation ABG pH ABG pCO2 ABG pO2 ABG HCO3 ABG O2 Content ABG Base Excess ABG Methemoglobin Hemoglobin Carboxyhemoglobin O2 Delivery Device Vent Setting Inspired O2 Critical Value Sodium 142 Potassium 3.8 D Chloride 102 Carbon Dioxide 26.2 Anion Gap 14 BUN 47 H Creatinine 2.29 H Estimated GFR 28 L POC Glucose 115 H Random Glucose 100 Lactic Acid Calcium 7.4 L* Prot Corrected Calcium 7.9 L Phosphorus 7.0 H D Magnesium 2.3 Total Bilirubin 0.7 AST 258 H ALT 176 H Alkaline Phosphatase 72 Troponin I 0.14 H B-Natriuretic Peptide Total Protein 6.2 L Albumin 2.4 L Procalcitonin Vancomycin Trough RPR 11/10/17 11/10/17 11/10/17 07:35 08:37 08:50 WBC 15.0 H RBC 3.35 L Hgb 10.9 L Hct 32.6 L MCV 97.4 MCH 32.5 MCHC 33.4 RDW 13.8 Plt Count 95 L MPV 12.4 H Prelim Diff (Auto) Neut % (Auto) Lymph % (Auto) [place] % (Auto) Eos % (Auto) Baso % (Auto) Neut # (Auto) Lymph # (Auto) [place] # (Auto) Eos # (Auto) Baso # (Auto) WBC Differential Seg Neuts % (Manual) Band Neuts % (Manual) Lymphocytes % (Manual) Monocytes % (Manual) Basophils % (Manual) Metamyelocytes % (Man) Myelocytes % (Man) Plasma Cell % (Manual) Abs Neuts (Manual) Nucleated RBCs/100 WBC Differential Comment Platelet Estimate Platelet Morphology RBC Morphology PT INR APTT 36.2 H D Puncture Site Patient Temperature O2 Saturation ABG pH ABG pCO2 ABG pO2 ABG HCO3 ABG O2 Content ABG Base Excess ABG Methemoglobin Hemoglobin Carboxyhemoglobin O2 Delivery Device Vent Setting Inspired O2 Critical Value Sodium Potassium Chloride Carbon Dioxide Anion Gap BUN Creatinine Estimated GFR POC Glucose 87 Random Glucose Lactic Acid Calcium Prot Corrected Calcium Phosphorus Magnesium Total Bilirubin AST ALT Alkaline Phosphatase Troponin I B-Natriuretic Peptide Total Protein Albumin Procalcitonin Vancomycin Trough RPR 11/10/17 11/10/17 11/10/17 12:30 15:20 20:46 WBC RBC Hgb Hct MCV MCH MCHC RDW Plt Count MPV Prelim Diff (Auto) Neut % (Auto) Lymph % (Auto) [place] % (Auto) Eos % (Auto) Baso % (Auto) Neut # (Auto) Lymph # (Auto) [place] # (Auto) Eos # (Auto) Baso # (Auto) WBC Differential Seg Neuts % (Manual) Band Neuts % (Manual) Lymphocytes % (Manual) Monocytes % (Manual) Basophils % (Manual) Metamyelocytes % (Man) Myelocytes % (Man) Plasma Cell % (Manual) Abs Neuts (Manual) Nucleated RBCs/100 WBC Differential Comment Platelet Estimate Platelet Morphology RBC Morphology PT INR APTT Puncture Site Patient Temperature O2 Saturation ABG pH ABG pCO2 ABG pO2 ABG HCO3 ABG O2 Content ABG Base Excess ABG Methemoglobin Hemoglobin Carboxyhemoglobin O2 Delivery Device Vent Setting Inspired O2 Critical Value Sodium Potassium Chloride Carbon Dioxide Anion Gap BUN Creatinine Estimated GFR POC Glucose 86 89 132 H Random Glucose Lactic Acid Calcium Prot Corrected Calcium Phosphorus Magnesium Total Bilirubin AST ALT Alkaline Phosphatase Troponin I B-Natriuretic Peptide Total Protein Albumin Procalcitonin Vancomycin Trough RPR 11/10/17 11/11/17 11/11/17 21:20 01:20 04:10 WBC 14.0 H RBC 3.15 L Hgb 10.2 L Hct 30.8 L MCV 98.0 MCH 32.5 MCHC 33.2 RDW 14.0 Plt Count 103 L MPV 12.2 H Prelim Diff (Auto) Neut % (Auto) Lymph % (Auto) [place] % (Auto) Eos % (Auto) Baso % (Auto) Neut # (Auto) Lymph # (Auto) [place] # (Auto) Eos # (Auto) Baso # (Auto) WBC Differential Seg Neuts % (Manual) Band Neuts % (Manual) Lymphocytes % (Manual) Monocytes % (Manual) Basophils % (Manual) Metamyelocytes % (Man) Myelocytes % (Man) Plasma Cell % (Manual) Abs Neuts (Manual) Nucleated RBCs/100 WBC Differential Comment Platelet Estimate Platelet Morphology RBC Morphology PT INR APTT 36.5 H Puncture Site Patient Temperature O2 Saturation ABG pH ABG pCO2 ABG pO2 ABG HCO3 ABG O2 Content ABG Base Excess ABG Methemoglobin Hemoglobin Carboxyhemoglobin O2 Delivery Device Vent Setting Inspired O2 Critical Value Sodium Potassium Chloride Carbon Dioxide Anion Gap BUN Creatinine Estimated GFR POC Glucose 129 H Random Glucose Lactic Acid Calcium Prot Corrected Calcium Phosphorus Magnesium Total Bilirubin AST ALT Alkaline Phosphatase Troponin I B-Natriuretic Peptide Total Protein Albumin Procalcitonin Vancomycin Trough RPR 11/11/17 11/11/17 11/11/17 04:10 04:10 04:32 WBC RBC Hgb Hct MCV MCH MCHC RDW Plt Count MPV Prelim Diff (Auto) Neut % (Auto) Lymph % (Auto) [place] % (Auto) Eos % (Auto) Baso % (Auto) Neut # (Auto) Lymph # (Auto) [place] # (Auto) Eos # (Auto) Baso # (Auto) WBC Differential Seg Neuts % (Manual) Band Neuts % (Manual) Lymphocytes % (Manual) Monocytes % (Manual) Basophils % (Manual) Metamyelocytes % (Man) Myelocytes % (Man) Plasma Cell % (Manual) Abs Neuts (Manual) Nucleated RBCs/100 WBC Differential Comment Platelet Estimate Platelet Morphology RBC Morphology PT INR APTT 55.8 H D Puncture Site Patient Temperature O2 Saturation ABG pH ABG pCO2 ABG pO2 ABG HCO3 ABG O2 Content ABG Base Excess ABG Methemoglobin Hemoglobin Carboxyhemoglobin O2 Delivery Device Vent Setting Inspired O2 Critical Value Sodium 141 Potassium 3.2 L Chloride 103 Carbon Dioxide 26.2 Anion Gap 12 BUN 41 H Creatinine 1.76 H Estimated GFR 38 L POC Glucose 145 H Random Glucose 141 H Lactic Acid Calcium 6.3 L* D Prot Corrected Calcium 7.2 L* Phosphorus Magnesium Total Bilirubin AST ALT Alkaline Phosphatase Troponin I B-Natriuretic Peptide Total Protein 5.2 L D Albumin Procalcitonin Vancomycin Trough RPR 11/11/17 08:02 WBC RBC Hgb Hct MCV MCH MCHC RDW Plt Count MPV Prelim Diff (Auto) Neut % (Auto) Lymph % (Auto) [place] % (Auto) Eos % (Auto) Baso % (Auto) Neut # (Auto) Lymph # (Auto) [place] # (Auto) Eos # (Auto) Baso # (Auto) WBC Differential Seg Neuts % (Manual) Band Neuts % (Manual) Lymphocytes % (Manual) Monocytes % (Manual) Basophils % (Manual) Metamyelocytes % (Man) Myelocytes % (Man) Plasma Cell % (Manual) Abs Neuts (Manual) Nucleated RBCs/100 WBC Differential Comment Platelet Estimate Platelet Morphology RBC Morphology PT INR APTT Puncture Site Patient Temperature O2 Saturation ABG pH ABG pCO2 ABG pO2 ABG HCO3 ABG O2 Content ABG Base Excess ABG Methemoglobin Hemoglobin Carboxyhemoglobin O2 Delivery Device Vent Setting Inspired O2 Critical Value Sodium Potassium Chloride Carbon Dioxide Anion Gap BUN Creatinine Estimated GFR POC Glucose 129 H Random Glucose Lactic Acid Calcium Prot Corrected Calcium Phosphorus Magnesium Total Bilirubin AST ALT Alkaline Phosphatase Troponin I B-Natriuretic Peptide Total Protein Albumin Procalcitonin Vancomycin Trough RPR Result Diagrams: 11/11/17 04:10 11/11/17 04:10 Microbiology: Microbiology 11/10/17 00:01 Gram Stain - Final Sputum - Endotracheal Sputum Culture - Preliminary Moderate growth normal respiratory milady at 24 hours 11/05/17 20:37 Aerobic Blood Culture - Final Blood - Peripheral No growth in 5 days Anaerobic Blood Culture - Final No growth in 5 days 11/05/17 20:45 Aerobic Blood Culture - Final Blood - Peripheral No growth in 5 days Anaerobic Blood Culture - Final No growth in 5 days 11/04/17 20:14 Aerobic Blood Culture - Final Blood - Peripheral No growth in 5 days Anaerobic Blood Culture - Final No growth in 5 days 11/04/17 20:08 Aerobic Blood Culture - Final Blood - Peripheral No growth in 5 days Anaerobic Blood Culture - Final No growth in 5 days Procedures: Restraints 10/29/17 Lumbar puncture 11/04/1711/10 intubated Assessment and Plan - Disease Oriented Problem List (1) Altered mental status (2) Thrombocytopenia (3) Delirium Comment: Evaluation continues as we search for etiology of this encephalopathy (4) Rapid atrial fibrillation (5) Renal failure Comment: Increasing creatinine 11/05/17 Pertinent Non-Medical Issues: Psychosocial: Never , no children, lives alone in an apartment. Did [employer] work in the past. Spiritual: Not spiritual or church according to the patient's brother. Legal: It is unlikely that the patient will regain capacity for decision-making in the near future. His brother Too Hand is his proxy decision maker. Ethical issues impacting care: The patient is unable to make his own decisions. Important Contacts: Brother: Too Hand, [facility], cell [phone] <--- DURING THE DAY, CALL THIS NUMBER FIRST [id number]: [facility], office [phone] (call this number second) (last number to call) Prognosis: The patient appears somewhat cachectic, and his delirium/encephalopathy may be multifactorial or even primarily psychiatric. Overall, his prognosis is poor, and he is appropriate for hospice if the goals become comfort oriented. Code Status: No Code DNR Plan: ==DNR ==DECISION-MAKING: The patient lacks capacity for decision-making, and will likely not regain capacity after cardiac event. ==Met with pt's brother at bedside,brother opting for compassionate extubation and transition to comfort measures. == symptom: dyspnea- currently intubated, respiratory failure.- compassionate withdrawal from ventilator: morphine and lorazepam will be available. agitation/encephalopathy- has encephalopathy, rapid decline. Ativan will be available. pain- intubated, bedbound- morphine will be available. == palliative care will follow to manage symptoms and review goals of care as clinical condition evolves. Attestation Attestation: To help prompt me to consider important information that might be impacting today's encounter and assessment, information from prior notes written by myself or my colleagues may have been "brought forward" into today's note. My signature on this note, however, is an attestation that I personally performed the exam, history, and/or decision-making noted today, and, unless otherwise indicated, the interactions with patient, family, and staff as well as the review of records all occurred today. I also attest that the listed assessment and stated plan reflect my best clinical judgment today based on the combination of historical information, prior notes, and today's exam/ interactions. When time spent is documented, it refers only to time spent today by the signer, or if indicated, combined time spent today by collaborating physician/nurse practitioner.
--- NOTE | 2017-11-11 13:40 | P.PNCA ---
<Marielle Alcantarah N - Last Filed: 11/11/17 13:31> Subjective Interval history: Patient intubated and sedated, vital signs are stable. Patient's brother is at bedside. Physical Exam Vital signs: Vital Signs 11/10/17 13:40 11/10/17 13:50 11/10/17 14:00 Temperature Pulse Rate 68 68 68 Respiratory Rate 20 20 20 Blood Pressure 119/57 L 116/59 L 129/58 L Pulse Oximetry 98 99 98 11/10/17 14:10 11/10/17 14:20 11/10/17 14:30 Temperature Pulse Rate 67 69 69 Respiratory Rate 20 20 20 Blood Pressure 123/58 L 121/57 L 129/59 L Pulse Oximetry 97 98 99 11/10/17 14:40 11/10/17 14:50 11/10/17 15:00 Temperature Pulse Rate 70 69 69 Respiratory Rate 20 20 20 Blood Pressure 126/52 L 127/60 126/57 L Pulse Oximetry 100 100 100 11/10/17 15:10 11/10/17 15:20 11/10/17 15:30 Temperature Pulse Rate 70 70 70 Respiratory Rate 20 20 20 Blood Pressure 124/55 L 131/60 134/61 Pulse Oximetry 100 100 100 11/10/17 15:40 11/10/17 15:50 11/10/17 15:58 Temperature Pulse Rate 71 71 Respiratory Rate 20 20 20 Blood Pressure 154/70 H 151/67 H Pulse Oximetry 100 100 100 11/10/17 16:00 11/10/17 19:15 11/10/17 20:00 Temperature 99.1 F 100.5 F H Pulse Rate 71 70 Respiratory Rate 20 22 20 Blood Pressure 148/65 H 131/63 Pulse Oximetry 100 98 100 11/11/17 00:00 11/11/17 00:01 11/11/17 02:25 Temperature 99.7 F H Pulse Rate 68 Respiratory Rate 20 20 20 Blood Pressure 154/65 H Pulse Oximetry 100 100 100 11/11/17 04:00 11/11/17 04:16 11/11/17 07:28 Temperature 98.6 F Pulse Rate 70 Respiratory Rate 20 20 20 Blood Pressure 168/72 H Pulse Oximetry 100 99 100 11/11/17 08:00 11/11/17 11:05 Temperature 97 F L Pulse Rate 72 Respiratory Rate 20 20 Blood Pressure 136/62 Pulse Oximetry 100 100 Intake & Output 11/10/17 11/11/17 11/11/17 18:59 06:59 18:59 Intake Total 960 / 960 1400 / 1400 484 / 484 Output Total 450 / 450 550 / 550 Balance 510 / 510 1400 / 1400 -66 / -66 Weight 64 kg Intake: IV 350 / 350 1400 / 1400 0 / 0 Cleviprex Inj 25 mg In 50 ml @ 100 / 100 200 / 200 1 MG/HR 2 mls/hr IV.CONT TITRATE PRN Rx#:[id number] Diprivan 1000 mg/100 ml Inj 1, 100 / 100 100 / 100 0 / 0 000 mg In 100 ml @ 5 MCG/KG/MIN 1.809 mls/hr IV.CONT TITRATE PRN Rx#:[id number] NS Inj 1,000 ML @ 42 mls/hr IV. 1000 / 1000 CONT .[id number] [facility] Rx#:[id number] Zosyn 3.375 GM Premix 50 ML @ 150 / 150 100 / 100 100 mls/hr IV.SIG Q6H [facility] Rx#: [id number] Oral 0 / 0 0 / 0 Tube Feeding 610 / 610 484 / 484 Output: Urine 450 / 450 550 / 550 Stool 0 / 0 Urine/Stool Mix 0 / 0 0 / 0 Other: Date of Last Bowel Movement 11/09/17 11/09/17 11/09/17 # Bowel Movements 0 0 # Incontinent Bowel Movements 0 - Constitutional no acute distress - Routine HEENT Exam Head: Present: normocephalic ENT: Present: mucous membranes dry - Routine Respiratory Exam Present: patient mechanically ventilated - Routine Cardiovascular Exam Present: S1. Absent: murmur, gallop, rubs - Routine Abdominal Exam Present: soft - Routine Extremities Exam Present: edema, pulses intact, normal capillary refill. Absent: cyanosis, clubbing - Detailed Neurological Exam: Coma Scale Eye Opening: None Verbal Response: None Motor Response: None Silvio Coma Scale Total: 3 - Routine Psychiatric Exam Present: unable to assess - Urinary Catheter Management Condom Cath placed during this visit: no Assessment and Plan - Assessment (1) Cardiac arrest Code(s): I46.9 - Cardiac arrest, cause unspecified Status: Acute (2) Altered mental status Code(s): R41.82 - Altered mental status, unspecified Status: Acute (3) Rapid atrial fibrillation Code(s): I48.91 - Unspecified atrial fibrillation Status: Acute (4) Thrombocytopenia Code(s): D69.6 - Thrombocytopenia, unspecified Status: Acute - Plan Patient's brother is at the bedside and informed me that he had signed the withdrawal of life support forms. Patient has very poor prognosis and life support is being withdrawn today. Continue with current cardiac treatment plan. We will follow during hospitalization. The patient was seen and evaluated by Dr. Torres who participated in care, management and decision-making. <Irma Torres - Last Filed: 11/11/17 13:58> Physical Exam Vital signs: Vital Signs 11/10/17 14:00 11/10/17 14:10 11/10/17 14:20 Temperature Pulse Rate 68 67 69 Respiratory Rate 20 20 20 Blood Pressure 129/58 L 123/58 L 121/57 L Pulse Oximetry 98 97 98 11/10/17 14:30 11/10/17 14:40 11/10/17 14:50 Temperature Pulse Rate 69 70 69 Respiratory Rate 20 20 20 Blood Pressure 129/59 L 126/52 L 127/60 Pulse Oximetry 99 100 100 11/10/17 15:00 11/10/17 15:10 11/10/17 15:20 Temperature Pulse Rate 69 70 70 Respiratory Rate 20 20 20 Blood Pressure 126/57 L 124/55 L 131/60 Pulse Oximetry 100 100 100 11/10/17 15:30 11/10/17 15:40 11/10/17 15:50 Temperature Pulse Rate 70 71 71 Respiratory Rate 20 20 20 Blood Pressure 134/61 154/70 H 151/67 H Pulse Oximetry 100 100 100 11/10/17 15:58 11/10/17 16:00 11/10/17 19:15 Temperature 99.1 F Pulse Rate 71 Respiratory Rate 20 20 22 Blood Pressure 148/65 H Pulse Oximetry 100 100 98 11/10/17 20:00 11/11/17 00:00 11/11/17 00:01 Temperature 100.5 F H 99.7 F H Pulse Rate 70 68 Respiratory Rate 20 20 20 Blood Pressure 131/63 154/65 H Pulse Oximetry 100 100 100 11/11/17 02:25 11/11/17 04:00 11/11/17 04:16 Temperature 98.6 F Pulse Rate 70 Respiratory Rate 20 20 20 Blood Pressure 168/72 H Pulse Oximetry 100 100 99 11/11/17 07:28 11/11/17 08:00 11/11/17 11:05 Temperature 97 F L Pulse Rate 72 Respiratory Rate 20 20 20 Blood Pressure 136/62 Pulse Oximetry 100 100 100 Intake & Output 11/10/17 11/11/17 11/11/17 18:59 06:59 18:59 Intake Total 960 / 960 1400 / 1400 484 / 484 Output Total 450 / 450 550 / 550 Balance 510 / 510 1400 / 1400 -66 / -66 Weight 141 lb 1.533 oz Intake: IV 350 / 350 1400 / 1400 0 / 0 Cleviprex Inj 25 mg In 50 ml @ 100 / 100 200 / 200 1 MG/HR 2 mls/hr IV.CONT TITRATE PRN Rx#:[id number] Diprivan 1000 mg/100 ml Inj 1, 100 / 100 100 / 100 0 / 0 000 mg In 100 ml @ 5 MCG/KG/MIN 1.809 mls/hr IV.CONT TITRATE PRN Rx#:[id number] NS Inj 1,000 ML @ 42 mls/hr IV. 1000 / 1000 CONT .[id number] [facility] Rx#:[id number] Zosyn 3.375 GM Premix 50 ML @ 150 / 150 100 / 100 100 mls/hr IV.SIG Q6H [facility] Rx#: [id number] Oral 0 / 0 0 / 0 Tube Feeding 610 / 610 484 / 484 Output: Urine 450 / 450 550 / 550 Stool 0 / 0 Urine/Stool Mix 0 / 0 0 / 0 Other: Date of Last Bowel Movement 11/09/17 11/09/17 11/09/17 # Bowel Movements 0 0 # Incontinent Bowel Movements 0 - Urinary Catheter Management Condom Cath placed during this visit: no Assessment and Plan - Assessment (1) Cardiac arrest Code(s): I46.9 - Cardiac arrest, cause unspecified Status: Acute (2) Altered mental status Code(s): R41.82 - Altered mental status, unspecified Status: Acute (3) Rapid atrial fibrillation Code(s): I48.91 - Unspecified atrial fibrillation Status: Acute (4) Thrombocytopenia Code(s): D69.6 - Thrombocytopenia, unspecified Status: Acute - Attending Attestation Patient seen and examined. I reviewed and agree with the evaluation and plan as presented. Overall prognosis extremely poor. Recommend to proceed with care withdrawal as planned.
[2017-11-11] MEDS: Morphine Inj 4 MG/ML Vial IV.PUSH SCH ×4 (15:32→23:58)
--- NOTE | 2017-11-11 16:09 | P.PNCC ---
Subjective Subjective Remarks/Hospital Course: The patient is a 72-year-old male with a past medical history of hypertension, hyperlipidemia, thrombocytopenia, vitamin B12 deficiency, who presented to [facility] ED on 10/29/2017 for altered mental status. He was [facility] Acted by ED provider. The patient is a poor historian and most of the history was obtained from reviewing medical records. He was given Ativan 3 mg total on arrival, due to his severe agitation. Patient was initially admitted under hospitalist service and he underwent a CT scan of the brain on 10/29/2017, which was a limited study due to severe motion artifact. A repeat CT scan of the brain was obtained earlier this morning, which showed atrophy, otherwise negative for acute process. CTA of the neck was performed on 11/02/2017 which showed no evidence of any hemodynamically significant carotid stenosis. The patient was found to be in atrial fibrillation with RVR this morning with a heart rate of 140s. He was given Lopressor 5 mg IV push and placed on p.o. Cardizem and p.o. Lopressor. Due to worsening mental status, he was transferred to ICU and critical care medicine was consulted for critical care management. The patient received additional 3 mg of Ativan since in the last 12 hours. MRI of the brain was ordered by the primary team. The patient does arouse to touch and verbalizes several words and able to move all extremities. 11/04 MRI brain last night showed no acute disease/Mild, symmetric cortical atrophy with some minimal small vessel ischemic demyelination.Patient pulled out NGT , On Amio drip for Afib with RVR, given Digoxin and started on Cleviprex drip last night. 11/05 Patient remains on Amio drip. Had T: 102 yesterday. s/p LP showed clear CSF , 0 WBC. Renal function worse with Cr: 2.04 from 0.89. 11/06: Afebrile. Resting comfortably bed in no acute distress. Remains in soft restraints. Remains in atrial fibrillation with rapid ventricular response heart rate in the 110s. No bowel movement since admission noted. 11/07: Afebrile. Agitated this a.m. at this moment but previously but sometimes pleasantly confused. Mumbles words. Replacing a left leg. Currently in normal sinus rhythm. 11/08: Afebrile. Remains intermittently confused. Mumbles were. Currently normal sinus rhythm. Positive BM. Ileus has resolved. 11/09: Agitated yesterday. Afebrile. Vancomycin discontinued. Pro-calcitonin 1.65. MRI brain still pending. Currently asleep. Heart rate controlled currently normal sinus rhythm in the 80s. SUBJECTIVE: 11/10: cardiac arrest overnight with CPR. ROSC obtained, placed on life support. this AM remains intubated. persistently encephalopathic. I discussed the patient's care with his healthcare surrogate along with the palliative care team. the patient's current clinical condition is not congruent with the patient 's wishes. I expressed that regardless of underlying illness, the patient likely would not survive this hospitalization, and added with an underlying illness for which he already may not have had any meaningful recovery, this was a terminal event. the healthcare surrogate agrees. will transition our goals to comfort. 11/11: family moved forward this AM with palliative withdraw of care. patient appears comfortable without distress. Objective Vital Signs / I&O: Vital Signs 11/10/17 16:00 11/10/17 19:15 11/10/17 20:00 Temperature 37.3 C 38.1 C H Pulse Rate 71 70 Respiratory Rate 20 22 20 Blood Pressure 148/65 H 131/63 Pulse Oximetry 100 98 100 11/11/17 00:00 11/11/17 00:01 11/11/17 02:25 Temperature 37.6 C H Pulse Rate 68 Respiratory Rate 20 20 20 Blood Pressure 154/65 H Pulse Oximetry 100 100 100 11/11/17 04:00 11/11/17 04:16 11/11/17 07:28 Temperature 37.0 C Pulse Rate 70 Respiratory Rate 20 20 20 Blood Pressure 168/72 H Pulse Oximetry 100 99 100 11/11/17 08:00 11/11/17 11:05 Temperature 36.1 C L Pulse Rate 72 Respiratory Rate 20 20 Blood Pressure 136/62 Pulse Oximetry 100 100 Intake & Output 11/10/17 11/11/17 11/11/17 18:59 06:59 18:59 Intake Total 960 / 960 1400 / 1400 484 / 484 Output Total 450 / 450 550 / 550 Balance 510 / 510 1400 / 1400 -66 / -66 Weight 64 kg Intake: IV 350 / 350 1400 / 1400 0 / 0 Cleviprex Inj 25 mg In 50 ml @ 100 / 100 200 / 200 1 MG/HR 2 mls/hr IV.CONT TITRATE PRN Rx#:[id number] Diprivan 1000 mg/100 ml Inj 1, 100 / 100 100 / 100 0 / 0 000 mg In 100 ml @ 5 MCG/KG/MIN 1.809 mls/hr IV.CONT TITRATE PRN Rx#:[id number] NS Inj 1,000 ML @ 42 mls/hr IV. 1000 / 1000 CONT .[id number] [facility] Rx#:[id number] Zosyn 3.375 GM Premix 50 ML @ 150 / 150 100 / 100 100 mls/hr IV.SIG Q6H [facility] Rx#: [id number] Oral 0 / 0 0 / 0 Tube Feeding 610 / 610 484 / 484 Output: Urine 450 / 450 550 / 550 Stool 0 / 0 Urine/Stool Mix 0 / 0 0 / 0 Other: Date of Last Bowel Movement 11/09/17 11/09/17 11/09/17 # Bowel Movements 0 0 # Incontinent Bowel Movements 0 Result Diagrams: 11/11/17 04:10 11/11/17 04:10 Objective Remarks: GENERAL: Patient is 72 yo male resting in an ICU bed s/p terminal extubation. SKIN: Warm and dry. No rash HEAD: Normocephalic. EYES: pupils 2mm, equal, sluggishly reactive. No scleral icterus. No injection or drainage. NECK: trachea midline. No JVD. CARDIOVASCULAR: normal rate, regular rhythm. sinus. 2/6 systolic murmur in sternal RESPIRATORY: Breath sounds equal bilaterally. No accessory muscle use. comfortable respiratory pattern. GASTROINTESTINAL: Abdomen soft, non-tender, nondistended. MUSCULOSKELETAL: No significant peripheral edema. Neuro: RASS -5. pupils as above. does not follow commands. Assessment and Plan - Assessment and Plan Plan: Assessment: 72yM with acute encephalopathy now s/p cardiac arrest complicated by multiorgan failure. transition to comfort measures. will transition to hospice care. Neuro/Psych: Acute encephalopathy Acute hypoxic/ischemic encephalopathy SOBOBA B12 deficiency Monitor neurologic status and avoid any sedatives if possible. CT brain 11/03 showed no acute intracranial process CTA of the neck 11/03 showed no significant hemodynamic stenosis. MRI brain: 11/03 no acute disease EEG: Mild encephalopathy with no epileptiform activity hold on MRI given acute hemodynamic instability. Neuro is following- Dr. Canela, s/p LP 11/04 showed clear CSF, 0 WBC, T, TP: 37.6 Started on Acyclovir empirically by Neuro. this is been discontinued Geodon will be discontinued as needed after today's. Acetaminophen 650 every 4 hours as needed fever Continue with cyanocobalamin 1000 micro grams daily from 11/06 through 11/09 then intramuscularly every 30 days. Followed by hematology. Pulm: Acute hypoxic and hypercarbic respiratory failure now on full vent support vent bundle hob elevated wean fio2 for goal spo2 > 90% no weaning of mechanical ventilation until hemodynamics improve. Albuterol/ipratropium aerosols every 6 hours while awake with albuterol aerosols every 2 hours as needed for dyspnea CV: Atrial fibrillation with rapid ventricular response Essential hypertension Hyperlipidemia Acute systolic heart failure Moderate MR/TR s/p acute cardiac arrest 11/09 cardiogenic shock Monitor HR and BP keep MAP>65mmHg Continue diltiazem 90 mg q.i.d, metoprolol tartrate 50 t.i.d) Trop <0.02 x 2, Continue atorvastatin 40 mg daily for dyslipidemia 2-D echo. Revealed EF 25-30%. Decrease this to like left ventricular function. Distal lateral, apical hypokinesis. Bilateral atrial enlargement. Moderate AR/TR. PAP 39 mmHg Cards eval. Patient is at high risk of full anticoagulation for Afib given thrombocytopenia ( PLT < 100) continue supportive care levophed as needed for map > 65 mmHg Renal/: Acute kidney injury Renal ultrasound revealed possible left renal mass lower pole 2 x 1 x 1.4 cm. Medical renal disease. Creatinine is currently pending this a.m. Likely secondary to contrast resolving. Recheck BMP in a.m. 11/10 Continue D5 water at 42 cc an hour GI: Constipation -resolved Hypoalbuminemia Jevity 1.5 at 50 cc an hour per nutrition recommendations with free water 100 cc every 8 hours on lansoprazole 30 mg daily for GI prophylaxis. NPO per speech. Docusate sodium/senna 1 tablet twice daily for bowel regimen. . Fecal disimpaction as needed Distended gallbladder without cold cystitis. Cholelithiasis. KUB reveals 9.5 cm cecum. Dilated large and small bowel. Positive BM. ID: Monitor for signs of infection, which include fever and WBC. Continue piperacillin/tazobactam empirically. Followup on BC from 11/04 and 11/05 no growth to date. UA -11/05. Vancomycin discontinued 11/08 Started on Acyclovir empirically by Neuro, discontinued 11/05 s/p LP 11/04:Clear CSF, 0 WBC, T, TP:37. Negative CSF 11/04 Follow up on CSF cultures. ID eval. Pro-calcitonin 1.65 Endo: SSI with Accu-Cheks to maintain euglycemia. Novulin R TSH 1.58 Heme: Normocytic anemia Thrombocytopenia Leukocytosis Vitamin B12 deficiency Dr. Salas -as followed. Currently on cyanocobalamin thousand micrograms intramuscular q. 30 days Monitor CBC daily follow trends. No indication for transfusion of blood products at this time. MSK PT eval and tx FEN Hyper magnesium Replace electrolytes as clinically indicated GI prophylaxis with lansoprazole and DVT prophylaxis with SCDs/Heparin SQ. Palliative care is following.
[2017-11-11] MEDS: Morphine Inj 4 MG/ML Vial IV.PUSH PRN ×3 (16:37→21:33)
--- NOTE | 2017-11-11 16:38 | ECG ---
Date Performed: 11/09/2017 Time Performed: 23:38:48 PTAGE: 72 years EKG: Probable accelerated junctional rhythm. Extensive ST-T changes suggest myocardial infarct C ompared to previous tracing, inferior and predominantly precordial T wave inversion are new. Atrial f ibrillation With rapid ventricular response has been replaced with what appears to be a junctional rh ythm. Previously seen anterior ST elevations have now be replaced with precordial deep T wave inversi ons suggesting evolving anterior Myocardial infarction. Clinical correlation is required. Abnormal EC G NO PREVIOUS TRACING DOCTOR: Delonte Turner Interpretating Date/Time 11/11/2017 16:37:42
[2017-11-11] MEDS: Hypromellose 0.3% Opth Gel 10 GM Bottle EACH EYE SCH (21:00)
[2017-11-12] MEDS: Oral Hygiene Kit OROPHARYNG SCH ×3 (00:08→11:55)
[2017-11-12] MEDS: Chlorhexidine Gluconate 2% 1 Pack (2 Cloths) TOPICAL SCH (03:13)
[2017-11-12] MEDS: Morphine Inj 4 MG/ML Vial IV.PUSH SCH ×3 (03:13→11:54)
[2017-11-12] MEDS: Morphine Inj 4 MG/ML Vial IV.PUSH PRN (06:00)
[2017-11-12] MEDS: Senna/Docusate Sodium 8.6/50 MG Tablet PO SCH (09:53)
[2017-11-12] MEDS: Polyethylene Glycol 3350 17 GM Packet PO SCH (09:53)
[2017-11-12] MEDS: Chlorhexidine 0.12% Oral Kit 15 ML UDC OROPHARYNG SCH (09:53)
--- NOTE | 2017-11-12 11:52 | P.DS ---
Date of admission: 11/03/17 15:30 Primary care physician: UNKNOWN Attending physician on discharge: Cade Engel Anticipated date of discharge: 11/12/17 Brief History from admission: 72-year-old male with past medical history significant for hypertension, hyperlipidemia, thrombocytopenia, and vitamin B12 deficiency who presents to the emergency department via [facility] due to altered mental status. Patient lives in an apartment complex was noted to have changes in mental status with confusion, unclear if this is the new onset. Per ED documentation patient had been wanting to leave earlier today and therefore was Mendes acted for his safety by ED provider. Patient is an extremely poor historian and at the time of my evaluation he is mildly sedated after having received a total of 3 mg of Ativan due to severe agitation. He is seen and examined resting in ED stretcher and appears to be sleeping comfortably, O2 saturations on the monitor stable. He does arouse to light touch and verbalizes several words, nonsensical. Moving all extremities, appears to be in no acute distress. DS: Diagnosis - Discharge Diagnosis (1) Agitation Status: Acute (2) Altered mental status Status: Acute (3) Anxiety Status: Acute (4) Cardiac arrest Status: Acute (5) Delirium Status: Acute (6) Dyspnea Status: Acute (7) Encephalopathy Status: Acute (8) Pain Status: Acute (9) Rapid atrial fibrillation Status: Acute (10) Renal failure Status: Acute (11) Thrombocytopenia Status: Acute DS: Summary Hospital Course: The patient is a 72-year-old male with a past medical history of hypertension, hyperlipidemia, thrombocytopenia, vitamin B12 deficiency, who presented to [facility] ED on 10/29/2017 for altered mental status. He was Mendes Acted by ED provider. The patient is a poor historian and most of the history was obtained from reviewing medical records. He was given Ativan 3 mg total on arrival, due to his severe agitation. Patient was initially admitted under hospitalist service and he underwent a CT scan of the brain on 10/29/2017, which was a limited study due to severe motion artifact. A repeat CT scan of the brain was obtained earlier this morning, which showed atrophy, otherwise negative for acute process. CTA of the neck was performed on 11/02/2017 which showed no evidence of any hemodynamically significant carotid stenosis. The patient was found to be in atrial fibrillation with RVR this morning with a heart rate of 140s. He was given Lopressor 5 mg IV push and placed on p.o. Cardizem and p.o. Lopressor. Due to worsening mental status, he was transferred to ICU and critical care medicine was consulted for critical care management. The patient received additional 3 mg of Ativan since in the last 12 hours. MRI of the brain was ordered by the primary team. The patient does arouse to touch and verbalizes several words and able to move all extremities. 11/04 MRI brain last night showed no acute disease/Mild, symmetric cortical atrophy with some minimal small vessel ischemic demyelination.Patient pulled out NGT , On Amio drip for Afib with RVR, given Digoxin and started on Cleviprex drip last night. 11/05 Patient remains on Amio drip. Had T: 102 yesterday. s/p LP showed clear CSF , 0 WBC. Renal function worse with Cr: 2.04 from 0.89. 11/06: Afebrile. Resting comfortably bed in no acute distress. Remains in soft restraints. Remains in atrial fibrillation with rapid ventricular response heart rate in the 110s. No bowel movement since admission noted. 11/07: Afebrile. Agitated this a.m. at this moment but previously but sometimes pleasantly confused. Mumbles words. Replacing a left leg. Currently in normal sinus rhythm. 11/08: Afebrile. Remains intermittently confused. Mumbles were. Currently normal sinus rhythm. Positive BM. Ileus has resolved. 11/09: Agitated yesterday. Afebrile. Vancomycin discontinued. Pro-calcitonin 1.65. MRI brain still pending. Currently asleep. Heart rate controlled currently normal sinus rhythm in the 80s. 11/10: cardiac arrest overnight with CPR. ROSC obtained, placed on life support. this AM remains intubated. persistently encephalopathic. I discussed the patient's care with his healthcare surrogate along with the palliative care team. the patient's current clinical condition is not congruent with the patient 's wishes. I expressed that regardless of underlying illness, the patient likely would not survive this hospitalization, and added with an underlying illness for which he already may not have had any meaningful recovery, this was a terminal event. the healthcare surrogate agrees. will transition our goals to comfort. 11/11: family moved forward this AM with palliative withdraw of care. patient appears comfortable without distress. transferred to hospice facility. - Time Spent with Patient Total time spent providing and/or coordinating discharge services: Greater than 30 minutes - Quality: VTE Deep Vein Thrombosis/Pulmonary Embolism Present on Admission: No Exam Vital signs: Vital Signs 11/11/17 19:15 11/11/17 20:00 11/12/17 00:51 Temperature 36.6 C 36.9 C Pulse Rate 117 H 117 H 113 H Respiratory Rate 20 20 Blood Pressure 113/75 116/73 Pulse Oximetry 85 L 86 L 11/12/17 07:15 11/12/17 08:00 Temperature 36.1 C L Pulse Rate 107 H 106 H Respiratory Rate 24 Blood Pressure 132/79 Pulse Oximetry 86 L Intake & Output 11/11/17 11/12/17 11/12/17 18:59 06:59 18:59 Intake Total 884 / 884 0 / 0 Output Total 550 / 550 400 / 400 Balance 334 / 334 -400 / -400 Weight 63.7 kg Intake: IV 400 / 400 Cleviprex Inj 25 mg In 50 ml @ 50 / 50 1 MG/HR 2 mls/hr IV.CONT TITRATE PRN Rx#:[id number] Heparin/D5W 25,000 U/250 mL 25, 250 / 250 000 unit In 250 ml @ Per Protocol IV.CONT TITRATE PRN Rx #:[id number] Diprivan 1000 mg/100 ml Inj 1, 100 / 100 000 mg In 100 ml @ 5 MCG/KG/MIN 1.809 mls/hr IV.CONT TITRATE PRN Rx#:[id number] Oral 0 / 0 0 / 0 Tube Feeding 484 / 484 Output: Urine 550 / 550 400 / 400 Stool 0 / 0 Urine/Stool Mix 0 / 0 Other: Date of Last Bowel Movement 11/09/17 11/10/17 11/09/17 # Bowel Movements 0 0 Results Procedures completed during hospitalization: cardiac arrest - Impressions ITS Impressions Carotid Doppler Study 11/02/17 00:00 CONCLUSION: 1. There is atherosclerotic plaquing at both carotid bifurcations. 2. 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 3. The vertebral arteries were not visualized. 4. Recommend CTA of the carotids for further evaluation. Neck CTA 11/02/17 00:00 CONCLUSION: 1. High right common carotid artery bifurcation. No evidence of hemodynamically significant carotid stenosis. 2. Diminutive right vertebral artery that terminates at the skull base. Basilar artery also has a diffusely narrow diameter. Head MRI 11/03/17 00:00 CONCLUSION: 1. Exam is limited due to motion artifact on just about every pulse sequence. 2. However, grossly, nothing acute. Mild, symmetric cortical atrophy with some minimal small vessel ischemic demyelination. Lumbar Puncture Fluoroscopy 11/04/17 00:00 CONCLUSION: 1. Uncomplicated fluoroscopically guided lumbar puncture. Abdomen/Bladder Ultrasound 11/05/17 00:00 CONCLUSION: 1. Sonographic findings consistent with underlying medical renal disease. No obstruction observed. 2. Distended gallbladder without gallstones or gallbladder wall thickening. Abdomen X-Ray 11/08/17 00:00 CONCLUSION: Negative KUB. Chest CTA 11/10/17 00:00 CONCLUSION: 1. No pulmonary emboli. 2. Moderate sized bilateral pleural effusions with adjacent pulmonary consolidation in part due to atelectasis. 3. Mild cardiomegaly. Chest X-Ray 11/10/17 00:43 CONCLUSION: 1. Central line in good position. No pneumothorax seen on this study. 2. Unchanged effusions and bilateral pulmonary infiltrates. Head CT 11/10/17 23:59 CONCLUSION: 1. Atrophy. . Discharge Plan - Discharge Disposition Patient Disposition: [facility] Hospice/Med Facility - Discharge Condition Condition: Critical - Discharge Order Discharge Orders: Discharge Order (Routine); Ordered 11/12/17 Ordered By: Cade Engel - Discharge Details Anticipated Discharge Date: 11/12/17 - Physicians Team Primary Care Provider: UNKNOWN, Attending Provider: Warren Austin Other Providers: Alexander Mercado MD ; Robby Hess MD ; Evans Palencia MD ; Iván Canela MD, PhD ; Neptali Salas MD ; Irma Torres MD ; David Nascimento MD ; Missy Crocker MD
== END 2017-11-12 13:35 | disposition hospice, inpatient (51) ==
LOC: NEDA 12:30 → NEPE 12:30 → N04 20:20 → HIMC 11-03 11:10
PROVIDERS: ADMIT Internal Medicine Critical Care Medicine; ATTEND Internal Medicine Critical Care Medicine